=== PATIENT | male | born 1970 | race African-American/Black ===

== ENCOUNTER 2018-02-21 15:59 | Emergency (ER) | payer OTHER ==
[~2018-02-21] VITALS: Ht 188 cm; Wt 81.6 kg
[~2018-02-21 15:59] MED LIST: AUGMENTIN 500M500 MG PO; BACITRACIN15 GM TOPIC; BACTRIM DS TAB1 EAC1 ORAL; HUMALOG100 UNIT/1 SUBQ; HUMALOG100 UNIT/4 SUBQ; HUMULIN R100 UNIT/1 SUBQ; IBUPROFEN400 MG PO; KEFLEX500 MG ORAL; LANTUS SOL100 UNIT/1 SQ; LANTUS SOL100 UNIT/1 SUBQ; LANTUS5 UNITS SUBQ; LEVEMIR FL100 UNIT/1 SUBQ; LISINOPRIL2.5 MG ORAL; NOVOLIN R100 UNIT/1 SUBQ; NOVOLOG100 UNIT/3 SUBQ; NOVOLOG100 UNIT/4 SQ; NOVOLOG100 UNITS1 SUBQ; OCUFLOX5 ML OP; PROTONIX40 MG ORAL; insulin syringe
[2018-02-21 16:10] VITALS: BP 131/89
[2018-02-21] MEDS ORDERED: HUMULIN R100 UNIT/1 SUBQ (16:14)
--- NOTE | 2018-02-21 16:31 | Emergency Room Report ---
History of Present Illness General Chief Complaint: Abnormal Labs Source: Patient, Medical Record Present Illness HPI Patient is a 47-year-old male who is complaining of nausea vomiting for the last 24 hours. He has a history of diabetes and noticed that his sugar was getting low. He did take his usual dose of insulin today. Patient denies fevers or chills but does also describes some diarrhea. He denies any dysuria or abdominal pain. Allergies: Coded Allergies: NO KNOWN ALLERGIES (Unverified Allergy, Unknown, 06/26/15) Patient History Past Medical History: DM Past Surgical History: none Pertinent Family History: none Social History: Reports: smoking, alcohol use Nursing Documentation-[facility] Past Medical History: No History, Except For Hx Cardiac Problems: No Hx Hypertension: No Hx Pacemaker: No Hx Asthma: No Hx COPD: No Hx Diabetes: Yes Hx Cancer: No Hx Gastrointestinal Problems: No Hx Dialysis: No Hx Neurological Problems: No Hx Cerebrovascular Accident: No Hx Seizures: No Review of Systems Constitutional: Reports: weakness; Denies: no symptoms, see HPI, chills, sweats , fever, malaise, other Eye: Denies: no symptoms, see HPI, eye pain, blurred vision, tearing, double vision, nose pain, nose congestion, acuity changes, discharge, other ENT: Denies: no symptoms, see HPI, ear pain, ear discharge, nose pain, nose congestion, throat pain, throat swelling, mouth pain, hearing loss, nasal discharge, other Respiratory: Denies: no symptoms, see HPI, cough, orthopnea, shortness of breath, stridor, wheezing, SYLVESTER, sputum, other Cardiovascular: Denies: no symptoms, see HPI, chest pain, edema, palpitations, syncope, PND, other Gastrointestinal: Reports: diarrhea, nausea, vomiting; Denies: no symptoms, see HPI, abdominal pain, constipation, melena, hematemesis, other Genitourinary: Denies: no symptoms, see HPI, discharge, dysuria, frequency, hematuria, pain, retention, incontinence, urgency, vag bleed/dc, other Musculoskeletal: Denies: no symptoms, see HPI, back pain, gout, joint pain, joint swelling, muscle pain, muscle stiffness, other Skin: Denies: no symptoms, see HPI, rash, change in color, change in hair/nails , dryness, lesions, other Psychiatric: Denies: no symptoms, see HPI, prior hx, anxiety, depressed feelings, emotional problems, SI, HI, hallucinations, other Neurological: Denies: no symptoms, see HPI, headache, numbness, paresthesia, seizure, tingling, tremors, focal weakness, syncope, dizziness, other Endocrine: Denies: no symptoms, see HPI, excessive sweating, flushing, intolerance to temperature, increased thirst, increased urine, unexplained weight loss, other Physical Exam Vital Signs Date Time Temp Pulse Resp B/P (MAP) Pulse Ox O2 Delivery O2 Flow Rate FiO2 02/21/18 16:00 98.8 93 18 131/89 97 Room Air 98.8 Sp02 EP Interpretation: reviewed, normal General Appearance: no apparent distress, alert, GCS 15, non-toxic Head: normocephalic, atraumatic Eyes: bilateral eye normal inspection, bilateral eye PERRL ENT: hearing grossly normal, normal pharynx, no angioedema, normal voice Neck: full range of motion, supple/symm/no masses Respiratory: chest non-tender, lungs clear, normal breath sounds, speaking full sentences Cardiovascular #1: regular rate, rhythm, no edema Cardiovascular #2: 2+ carotid (R), 2+ carotid (L), 2+ radial (R), 2+ radial (L) , 2+ dorsalis pedis (R), 2+ dorsalis pedis (L) Gastrointestinal: normal bowel sounds, non tender, soft, non-distended, no guarding, no rebound Rectal: deferred Genitourinary: normal inspection, no CVA tenderness Musculoskeletal: back normal, gait/station normal, normal range of motion, non- tender, calf tenderness Neurologic: alert, oriented x3, responsive, motor strength/tone normal, sensory intact, speech normal Psychiatric: judgement/insight normal, memory normal, mood/affect normal, no suicidal/homicidal ideation Reflexes: 3+ bicep (R), 3+ bicep (L), 3+ tricep (R), 3+ tricep (L), 3+ knee (R) , 3+ knee (L) Skin: normal color, no rash, warm/dry, well hydrated Lymphatic: no adenopathy Medical Decision Making Diagnostic Impression: Primary Impression: Nausea, vomiting, and diarrhea Additional Impression: Hypoglycemia ER Course Patient is a 47-year-old male with history of insulin-dependent diabetes who presents with vomiting and hypoglycemia. The patient has received formal grams IV Zofran, IV fluids, and has been able to hold down juice and a sandwich after Zofran. Multiple repeat blood sugars have been in the 130s. The patient appears nontoxic and stable to be discharged home. He will be given a prescription for Zofran to be taken as needed at home. Laboratory Tests Test 02/21/18 16:25 02/21/18 17:00 Sodium Level 144 MMOL/L (136-145) Potassium Level 3.7 MMOL/L (3.5-5.1) Chloride Level 108 MMOL/L (98-107) H Carbon Dioxide Level 26 MMOL/L (21-32) Anion Gap 11 mmol/L (5-15) Blood Urea Nitrogen 12 mg/dL (7-18) Creatinine 1.0 MG/DL (0.55-1.30) Estimate Glomerular Filtration Rate > 60 mL/min (>60) Glucose Level 38 MG/DL (74-106) *L Calcium Level 9.5 MG/DL (8.5-10.1) Total Bilirubin 1.3 MG/DL (0.2-1.0) H Direct Bilirubin 0.3 MG/DL (0.0-0.3) Aspartate Amino Transferase (AST) 26 U/L (15-37) Alanine Aminotransferase (ALT) 17 U/L (12-78) Alkaline Phosphatase 51 U/L (46-116) Total Protein 7.6 G/DL (6.4-8.2) Albumin 4.5 G/DL (3.4-5.0) Globulin 3.1 g/dL Albumin/Globulin Ratio 1.5 (1.0-2.7) Lipase 236 U/L (73-393) White Blood Count 11.1 K/UL (4.8-10.8) H Red Blood Count 3.98 M/UL (4.70-6.10) L Hemoglobin 12.2 G/DL (14.2-18.0) L Hematocrit 34.4 % (42.0-52.0) L Mean Corpuscular Volume 86 FL (80-99) Mean Corpuscular Hemoglobin 30.7 PG (27.0-31.0) Mean Corpuscular Hemoglobin Concent 35.5 G/DL (32.0-36.0) Red Cell Distribution Width 12.7 % (11.6-14.8) Platelet Count 392 K/UL (150-450) Mean Platelet Volume 5.3 FL (6.5-10.1) L Neutrophils (%) (Auto) 80.2 % (45.0-75.0) H Lymphocytes (%) (Auto) 12.8 % (20.0-45.0) L Monocytes (%) (Auto) 6.1 % (1.0-10.0) Eosinophils (%) (Auto) 0.2 % (0.0-3.0) Basophils (%) (Auto) 0.7 % (0.0-2.0) Last Vital Signs Date Time Temp Pulse Resp B/P (MAP) Pulse Ox O2 Delivery O2 Flow Rate FiO2 02/21/18 16:00 98.8 93 18 131/89 97 Room Air 98.8 Disposition: HOME, SELF-CARE Condition: Improved Scripts Ondansetron (Zofran) 4 Mg Tablet 4 MG ORAL Q6H PRN for Nausea & Vomiting, #30 TAB 0 Refills Prov: Maycol Mast MD 02/21/18 Referrals: [facility],REFERRING (PCP) Patient Instructions: Hypoglycemia, [id number], Nausea and Vomiting, Adult, [id number] Maycol Mast MD Feb 21, 2018 16:31
[2018-02-21 17:05] LABS: ALANINE AMINOTRANSFERASE 17 U/L (12-78); ALBUMIN 4.5 G/DL (3.4-5.0); ALBUMIN/GLOBULIN RATIO 1.5 (1.0-2.7); ALKALINE PHOSPHATASE 51 U/L (46-116); ANION GAP 11 mmol/L (5-15); ASPARTATE AMINO TRANSFERASE 26 U/L (15-37); BILIRUBIN,TOTAL 1.3 MG/DL (0.2-1.0); BLOOD UREA NITROGEN 12 mg/dL (7-18); CALCIUM 9.5 MG/DL (8.5-10.1); CARBON DIOXIDE 26 MMOL/L (21-32); CHLORIDE 108 MMOL/L (98-107); POTASSIUM 3.7 MMOL/L (3.5-5.1); SODIUM 144 MMOL/L (136-145)
[2018-02-21 17:07] LABS: BILIRUBIN,DIRECT 0.3 MG/DL (0.0-0.3)
[2018-02-21 17:44] LABS: BASOPHILS % (AUTO) 0.7 % (0.0-2.0); EOSINOPHILS % (AUTO) 0.2 % (0.0-3.0); HEMATOCRIT 34.4 % (42.0-52.0); HEMOGLOBIN 12.2 G/DL (14.2-18.0); LYMPHOCYTES % (AUTO) 12.8 % (20.0-45.0); MEAN CORPUSCULAR VOLUME 86 FL (80-99); MONOCYTES % (AUTO) 6.1 % (1.0-10.0); NEUTROPHILS % (AUTO) 80.2 % (45.0-75.0); PLATELET COUNT 392 K/UL (150-450); RED BLOOD COUNT 3.98 M/UL (4.70-6.10); RED CELL DISTRIBUTION WIDTH 12.7 % (11.6-14.8); WHITE BLOOD COUNT 11.1 K/UL (4.8-10.8)
[2018-02-21] MEDS ORDERED: ZOFRAN4 MG ORAL (18:25)
[2018-02-21 18:33] VITALS: BP 131/62
== END 2018-02-21 18:33 | disposition home or self-care (01) ==
LOC: EMR 16:24
DX: R11.2 Nausea with vomiting, unspecified (principal); R19.7 Diarrhea, unspecified; E11.649 Type 2 diabetes mellitus with hypoglycemia without coma
CPT/HCPCS: 36415; 80053; 82248; 82962; 83690; 85025; 96361; 96374; 99284; J2405

== ENCOUNTER 2018-03-03 23:42 | Emergency (ER) | payer SELFPAY ==
[~2018-03-03] VITALS: Ht 180.3 cm; Wt 74.8 kg
[~2018-03-03 23:42] MED LIST changes: +ZOFRAN4 MG ORAL
[2018-03-04 00:54] LABS: BASOPHILS % (AUTO) 0.9 % (0.0-2.0); EOSINOPHILS % (AUTO) 0.9 % (0.0-3.0); HEMATOCRIT 37.1 % (42.0-52.0); HEMOGLOBIN 13.4 G/DL (14.2-18.0); LYMPHOCYTES % (AUTO) 33.5 % (20.0-45.0); MEAN CORPUSCULAR VOLUME 85 FL (80-99); MONOCYTES % (AUTO) 6.5 % (1.0-10.0); NEUTROPHILS % (AUTO) 58.2 % (45.0-75.0); PLATELET COUNT 384 K/UL (150-450); RED BLOOD COUNT 4.37 M/UL (4.70-6.10); RED CELL DISTRIBUTION WIDTH 11.6 % (11.6-14.8); WHITE BLOOD COUNT 6.5 K/UL (4.8-10.8)
[2018-03-04 01:15] LABS: ANION GAP 5 mmol/L (5-15); BLOOD UREA NITROGEN 15 mg/dL (7-18); CALCIUM 9.1 MG/DL (8.5-10.1); CARBON DIOXIDE 34 MMOL/L (21-32); CHLORIDE 102 MMOL/L (98-107); CREATININE 1.1 MG/DL (0.55-1.30); POTASSIUM 3.5 MMOL/L (3.5-5.1); SODIUM 141 MMOL/L (136-145)
[2018-03-04 01:18] LABS: ALANINE AMINOTRANSFERASE 31 U/L (12-78); ALBUMIN 4.3 G/DL (3.4-5.0); ALBUMIN/GLOBULIN RATIO 1.5 (1.0-2.7); ALKALINE PHOSPHATASE 43 U/L (46-116); ASPARTATE AMINO TRANSFERASE 32 U/L (15-37); BILIRUBIN,TOTAL 1.9 MG/DL (0.2-1.0)
[2018-03-04 01:19] LABS: APPEARANCE,URINE SLIGHTLY CLOUDY; BILIRUBIN, URINE NEGATIVE (NEGATIVE); COLOR,URINE YELLOW; GLUCOSE, URINE (UA) NEGATIVE (NEGATIVE); KETONES,URINE 1+ (NEGATIVE); LEUKOCYTE ESTERASE ,URINE 1+ (NEGATIVE); NITRITE,URINE NEGATIVE (NEGATIVE); PH,URINE 8 (4.5-8.0); PROTEIN,URINE 2+ (NEGATIVE); UROBILINOGEN,URINE 1 MG/DL (0.0-1.0)
[2018-03-04 01:19] LABS: BILIRUBIN,DIRECT 0.3 MG/DL (0.0-0.3)
[2018-03-04 01:36] VITALS: BP 120/81
[2018-03-04] MEDS ORDERED: Metoclopramide 10mg/2ml Inj IVP ONE (01:45)
[2018-03-04] MEDS ORDERED: COLACE100 MG ORAL (01:49)
[2018-03-04] MEDS ORDERED: REGLAN10 MG ORAL (01:49)
[2018-03-04] MEDS ORDERED: FREESTYLE TEST1 EACH MC (01:54)
[2018-03-04 01:58] VITALS: BP 120/81
--- NOTE | 2018-03-04 03:39 | Emergency Room Report ---
History of Present Illness General Chief Complaint: Abdominal Pain Source: Patient Present Illness HPI 47-year-old male presents ED complaining of abdominal pain and vomiting times one week. History of diabetes. Pain is sharp, 7 out of 10, nonradiating. Denies chest pain or shortness of breath. States he was recently discharged from [facility] for DKA. Accu-Chek within normal limits here. States he also feels constipated. No other aggravating relieving factors. Denies any other associated symptoms Allergies: Coded Allergies: NO KNOWN ALLERGIES (Unverified Allergy, Unknown, 06/26/15) Patient History Past Medical History: DM Past Surgical History: none Pertinent Family History: none Social History: Denies: smoking, alcohol use, drug use Immunizations: UTD Reviewed Nursing Documentation: PMH: Agreed; PSxH: Agreed Nursing Documentation-PMH Hx Cardiac Problems: No Hx Hypertension: No Hx Pacemaker: No Hx Asthma: No Hx COPD: No Hx Diabetes: Yes Hx Cancer: No Hx Gastrointestinal Problems: No Hx Dialysis: No Hx Neurological Problems: No Hx Cerebrovascular Accident: No Hx Seizures: No Review of Systems All Other Systems: negative except mentioned in HPI Physical Exam Vital Signs Date Time Temp Pulse Resp B/P (MAP) Pulse Ox O2 Delivery O2 Flow Rate FiO2 03/04/18 00:00 99.1 97 18 131/92 98 Room Air 99.1 Sp02 EP Interpretation: reviewed, normal General Appearance: no apparent distress, alert, GCS 15, non-toxic Head: normocephalic, atraumatic Eyes: bilateral eye normal inspection, bilateral eye PERRL ENT: hearing grossly normal, normal pharynx, no angioedema, normal voice Neck: full range of motion, supple/symm/no masses Respiratory: chest non-tender, lungs clear, normal breath sounds, speaking full sentences Cardiovascular #1: regular rate, rhythm, no edema Cardiovascular #2: 2+ carotid (R), 2+ carotid (L), 2+ radial (R), 2+ radial (L) , 2+ dorsalis pedis (R), 2+ dorsalis pedis (L) Gastrointestinal: normal bowel sounds, soft, non-distended, no guarding, no rebound, tenderness - epigastric Rectal: deferred Genitourinary: normal inspection, no CVA tenderness Musculoskeletal: back normal, gait/station normal, normal range of motion, non- tender Neurologic: alert, oriented x3, responsive, motor strength/tone normal, sensory intact, speech normal Psychiatric: judgement/insight normal, memory normal, mood/affect normal, no suicidal/homicidal ideation Reflexes: 3+ bicep (R), 3+ bicep (L), 3+ tricep (R), 3+ tricep (L), 3+ knee (R) , 3+ knee (L) Skin: normal color, no rash, warm/dry, well hydrated Lymphatic: no adenopathy Medical Decision Making Diagnostic Impression: Primary Impression: Epigastric pain ER Course Hospital Course 47-year-old M presents to ED with epigastric pain with N/V. differential diagnosis: gastritis, SBO, cholecystits Clinical course Patient placed on stretcher. On personnel monitor. After initial history and physical I ordered labs, IV fluids, Zofran and Zantac Labs - no leukocytosis, no electrolyte abnormalities, LFTs normal Upon reassessment, patient states he feels better. findings consistent with gastritis vs gastroparesis We will prescribe Reglan to improve gastric motility. Colace. Recommend close follow-up with PMD. I feel this is a highly complex case requiring extensive working including EKG/ Rhythm strip, Xray/CT/US, Blood/urine lab work, repeat exams while in ED, and administration of strong opiates/narcotics for pain control, admission to hospital or close patient follow up. Diagnosis - epigastric pain Stable and discharged to home with prescriptions for reglan, colace. Followup with PMD. Return to ED if symptoms recur or worsen Labs Test 03/04/18 00:30 03/04/18 01:05 White Blood Count 6.5 K/UL (4.8-10.8) Red Blood Count 4.37 M/UL (4.70-6.10) Hemoglobin 13.4 G/DL (14.2-18.0) Hematocrit 37.1 % (42.0-52.0) Mean Corpuscular Volume 85 FL (80-99) Mean Corpuscular Hemoglobin 30.7 PG (27.0-31.0) Mean Corpuscular Hemoglobin Concent 36.2 G/DL (32.0-36.0) Red Cell Distribution Width 11.6 % (11.6-14.8) Platelet Count 384 K/UL (150-450) Mean Platelet Volume 5.1 FL (6.5-10.1) Neutrophils (%) (Auto) 58.2 % (45.0-75.0) Lymphocytes (%) (Auto) 33.5 % (20.0-45.0) Monocytes (%) (Auto) 6.5 % (1.0-10.0) Eosinophils (%) (Auto) 0.9 % (0.0-3.0) Basophils (%) (Auto) 0.9 % (0.0-2.0) Sodium Level 141 MMOL/L (136-145) Potassium Level 3.5 MMOL/L (3.5-5.1) Chloride Level 102 MMOL/L (98-107) Carbon Dioxide Level 34 MMOL/L (21-32) Anion Gap 5 mmol/L (5-15) Blood Urea Nitrogen 15 mg/dL (7-18) Creatinine 1.1 MG/DL (0.55-1.30) Estimat Glomerular Filtration Rate > 60 mL/min (>60) Glucose Level 130 MG/DL (74-106) Calcium Level 9.1 MG/DL (8.5-10.1) Magnesium Level 2.6 MG/DL (1.8-2.4) Total Bilirubin 1.9 MG/DL (0.2-1.0) Direct Bilirubin 0.3 MG/DL (0.0-0.3) Aspartate Amino Transf (AST/SGOT) 32 U/L (15-37) Alanine Aminotransferase (ALT/SGPT) 31 U/L (12-78) Alkaline Phosphatase 43 U/L (46-116) Total Protein 7.1 G/DL (6.4-8.2) Albumin 4.3 G/DL (3.4-5.0) Globulin 2.8 g/dL Albumin/Globulin Ratio 1.5 (1.0-2.7) Lipase 192 U/L (73-393) Acetone Level Negative (NEGATIVE) Urine Color Yellow Urine Appearance Slightly cloudy Urine pH 8 (4.5-8.0) Urine Specific [place] 1.015 (1.005-1.035) Urine Protein 2+ (NEGATIVE) Urine Glucose (UA) Negative (NEGATIVE) Urine Ketones 1+ (NEGATIVE) Urine Occult Blood Negative (NEGATIVE) Urine Nitrite Negative (NEGATIVE) Urine Bilirubin Negative (NEGATIVE) Urine Urobilinogen 1 MG/DL (0.0-1.0) Urine Leukocyte Esterase 1+ (NEGATIVE) Urine RBC 0-2 /HPF (0 - 0) Urine WBC 2-4 /HPF (0 - 0) Urine Squamous Epithelial Cells Few /LPF (NONE/OCC) Urine Amorphous Sediment Moderate /LPF (NONE) Urine Bacteria Few /HPF (NONE) Last Vital Signs Date Time Temp Pulse Resp B/P (MAP) Pulse Ox O2 Delivery O2 Flow Rate FiO2 03/04/18 01:58 97.1 82 15 120/81 100 Room Air 97.1 Status: improved Disposition: HOME, SELF-CARE Condition: Stable Scripts Blood Sugar Diagnostic (FREESTYLE TEST STRIPS) 1 Each Strip EACH , #30 Prov: Yo Beltran MD 03/04/18 Docusate Sodium* (COLACE*) 100 Mg Capsule 100 MG ORAL THREE TIMES A DAY, #30 CAP Prov: Yo Beltran MD 03/04/18 Metoclopramide Hcl* (REGLAN*) 10 Mg Tablet 10 MG ORAL THREE TIMES A DAY, #30 TAB Prov: Yo Beltran MD 03/04/18 Referrals: NOT CHOSEN [facility]/,REFERRING (PCP) Patient Instructions: Gastritis, Adult, [id number], Gastroparesis Yo Beltran MD Mar 04, 2018 03:39
== END 2018-03-04 01:59 | disposition home or self-care (01) ==
LOC: EMR 03-04 00:38
DX: R10.13 Epigastric pain (principal)
CPT/HCPCS: 36415; 80053; 81003; 82009; 82248; 82962; 83690; 83735; 85025; 96361; 96374; 96375; 99284; J2405; J2765; S0028

== ENCOUNTER 2018-04-28 13:10 | Inpatient (IN) | payer MEDICAID, OTHER ==
[~2018-04-28] VITALS: Ht 167.6 cm; Wt 72.6 kg
[~2018-04-28 13:10] MED LIST changes: +COLACE100 MG ORAL; +FREESTYLE TEST1 EACH MC; +ONDANSETRON ODT4 MG BC; +REGLAN10 MG ORAL
--- NOTE | 2018-04-28 14:28 | Diagnostic Imaging Report ---
Indication: Abdominal pain Comparison: None Single view of the abdomen obtained Findings: There is severe fecal retention in the colon and rectum. Gas pattern is nonspecific. The bones are osteopenic. IMPRESSION: Severe fecal impaction
--- NOTE | 2018-04-28 14:29 | Diagnostic Imaging Report ---
Indication: Chest pain Comparison: 06/27/2015 A single view chest radiograph was obtained. Findings: Cardiomediastinal appearance is within normal limits for age. The lungs are clear. Pulmonary vascularity is appropriate. The diaphragmatic contour is smooth and costophrenic angles are sharp. No pleural effusions are identified. The bones are unremarkable. Impression: No acute findings
[2018-04-28] MEDS ORDERED: Lidocaine 1% Plain 30 ml INJ ONE (15:00)
[2018-04-28] MEDS ORDERED: Heparin 2000 units/Ns 1000ml INJ ONE (15:00)
[2018-04-28 15:07] LABS: HEMOGLOBIN 14.5 G/DL (14.2-18.0); MEAN CORPUSCULAR VOLUME 91 FL (80-99); PLATELET COUNT 261 K/UL (150-450); RED BLOOD COUNT 4.62 M/UL (4.70-6.10); RED CELL DISTRIBUTION WIDTH 13.2 % (11.6-14.8); WHITE BLOOD COUNT 10.3 K/UL (4.8-10.8)
--- NOTE | 2018-04-28 15:12 | Emergency Room Report ---
History of Present Illness General Chief Complaint: Generalized Weakness Source: Patient, EMS Present Illness HPI Patient presents emergency department today with generalized weakness. Patient was noted to have critically high blood sugar. Patient was by her further evaluation. Patient complains of diffuse abdominal discomfort associate nausea and vomiting. No other complaint or noted. Symptoms noted to be highly severe. Patient states that he does take insulin he did not take any insulin today.No other modifying factors. No other associated signs and symptoms. No other complaints were noted. Allergies: Coded Allergies: NO KNOWN ALLERGIES (Unverified Allergy, Unknown, 06/26/15) Patient History Past Medical History: DM, other - Gastroparesis Past Surgical History: none Pertinent Family History: none Social History: Denies: smoking, alcohol use, drug use Reviewed Nursing Documentation: PMH: Agreed; PSxH: Agreed Nursing Documentation-PMH Past Medical History: No History, Except For Hx Cardiac Problems: No Hx Hypertension: No Hx Pacemaker: No Hx Asthma: No Hx COPD: No Hx Diabetes: Yes Hx Cancer: No Hx Gastrointestinal Problems: Yes - gastroparesis Hx Dialysis: No Hx Neurological Problems: No Hx Cerebrovascular Accident: No Hx Seizures: No Review of Systems All Other Systems: negative except mentioned in HPI Physical Exam Vital Signs Date Time Temp Pulse Resp B/P (MAP) Pulse Ox O2 Delivery O2 Flow Rate FiO2 04/28/18 13:10 98.2 89 16 106/79 99 Room Air 98.2 Sp02 EP Interpretation: reviewed, normal General Appearance: alert, moderate distress, Chronically Ill Head: atraumatic Eyes: bilateral eye normal inspection ENT: normal ENT inspection, hearing grossly normal, normal voice Neck: normal inspection, full range of motion, supple, no bony tend Respiratory: normal inspection, lungs clear, normal breath sounds, no respiratory distress, no retraction, no wheezing Cardiovascular #1: regular rate, rhythm, edema - Bilateral lower extremity Gastrointestinal: normal inspection, normal bowel sounds, non tender, soft, no guarding, no hernia Genitourinary: no CVA tenderness Musculoskeletal: normal inspection, back normal, normal range of motion Neurologic: normal inspection, alert, responsive, speech normal Psychiatric: depressed affect Skin: normal inspection, normal color, no rash Medical Decision Making Diagnostic Impression: Primary Impression: Hyperglycemia Additional Impression: Episode of generalized weakness ER Course Patient presents emergency department today with generalized weakness and elevated glucose. Difficult considerations include DKA, hyperglycemia, dehydration, acute coronary syndrome just to name a few.Given the severity of the patient's presentation I felt this is a highly complex patient. This patient required extensive workup. This case out to my colleague Dr. Conor Chadwick for final disposition. Labs Test 04/28/18 14:25 04/28/18 14:45 White Blood Count 10.3 K/UL (4.8-10.8) Red Blood Count 4.62 M/UL (4.70-6.10) Hemoglobin 14.5 G/DL (14.2-18.0) Hematocrit 42.0 % (42.0-52.0) Mean Corpuscular Volume 91 FL (80-99) Mean Corpuscular Hemoglobin 31.3 PG (27.0-31.0) Mean Corpuscular Hemoglobin Concent 34.5 G/DL (32.0-36.0) Red Cell Distribution Width 13.2 % (11.6-14.8) Platelet Count 261 K/UL (150-450) Mean Platelet Volume 5.3 FL (6.5-10.1) Neutrophils (%) (Auto) % (45.0-75.0) Lymphocytes (%) (Auto) % (20.0-45.0) Monocytes (%) (Auto) % (1.0-10.0) Eosinophils (%) (Auto) % (0.0-3.0) Basophils (%) (Auto) % (0.0-2.0) EKG Diagnostic Results Rate: normal Rhythm: NSR ST Segments: no acute changes Rhythm Strip Diag. Results EP Interpretation: yes Rate: 61 Rhythm: NSR, no PVC's, no ectopy Chest X-Ray Diagnostic Results Chest X-Ray Diagnostic Results : Chest X-Ray Ordered: Yes # of Views/Limited/Complete: 1 View Indication: Shortness of Breath EP Interpretation: No Interpretation: no acute cardiopulmonary disease Impression: No acute disease Last Vital Signs Date Time Temp Pulse Resp B/P (MAP) Pulse Ox O2 Delivery O2 Flow Rate FiO2 04/28/18 13:10 98.2 89 16 106/79 99 Room Air 98.2 Referrals: NOT CHOSEN [facility]/,REFERRING (PCP) Erick Bhat MD Apr 28, 2018 15:12
[2018-04-28 15:20] LABS: ALANINE AMINOTRANSFERASE 260 U/L (12-78); ALBUMIN 2.1 G/DL (3.4-5.0); ALBUMIN/GLOBULIN RATIO 0.7 (1.0-2.7); ALKALINE PHOSPHATASE 183 U/L (46-116); ANION GAP 7 mmol/L (5-15); ASPARTATE AMINO TRANSFERASE 624 U/L (15-37); BILIRUBIN,TOTAL 1.8 MG/DL (0.2-1.0); BLOOD UREA NITROGEN 66 mg/dL (7-18); CALCIUM 7.2 MG/DL (8.5-10.1); CARBON DIOXIDE 25 MMOL/L (21-32); CHLORIDE 100 MMOL/L (98-107); CREATININE 1.3 MG/DL (0.55-1.30); SODIUM 131 MMOL/L (136-145)
[2018-04-28 15:27] LABS: BILIRUBIN,DIRECT 0.2 MG/DL (0.0-0.3)
[2018-04-28] MEDS ORDERED: Insulin Human Regular 100units/ml 3ml IV ONE (15:30)
[2018-04-28 16:17] VITALS: BP 138/77
--- NOTE | 2018-04-28 16:35 | Diagnostic Imaging Report ---
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 The left upper extremity was prepped with alcohol. All elements of maximal sterile barrier technique were followed including usage of a cap, mask, sterile gown, sterile gloves, hand hygiene and a large sterile sheet. Sonographic evaluation of the upper extremity was performed demonstrating a patent and compressible basilic vein. Access was obtained under real-time ultrasound guidance (with utilization of sterile gel and sterile probe cover) and digital image was saved and archived. An .018 wire was introduced. Needle exchanged for a 5 [place] peel-away sheath. Measurements were obtained. A 5 [place] dual-lumen Power PICC line catheter was cut to 45 cm and introduced over the wire. Peel-away sheath and wire were removed.Catheter was secured to the skin using 2-0 Prolene suture. Both ports aspirate and flush easily. Fluoroscopic images show distal tip in the superior vena cava. Total fluoroscopic time 0.1 minute Impression: Successful placement of an upper extremity PICC line catheter
[2018-04-28] MEDS ORDERED: ASPIRIN81 MG ORAL (17:30)
[2018-04-28 17:35] VITALS: BP 144/101
[2018-04-28] MEDS ORDERED: Mylanta II UD 30ml ORAL PRN (17:40)
[2018-04-28] MEDS ORDERED: Miralax 17gm pkt ORAL PRN (17:45)
[2018-04-28] MEDS ORDERED: Albuterol/Ipratropium 3ml neb HHN PRN (17:45)
[2018-04-28] MEDS ORDERED: Nitroglycerin Subl 0.4mg tab SL PRN (17:45)
[2018-04-28] MEDS ORDERED: Morphine Sulfate 2mg/ml Inj IVP PRN (17:45)
[2018-04-28 17:55] VITALS: BP 134/71
[2018-04-28 18:00] LABS: APPEARANCE,URINE CLEAR; BILIRUBIN, URINE NEGATIVE (NEGATIVE); COLOR,URINE PALE YELLOW; GLUCOSE, URINE (UA) 4+ (NEGATIVE); KETONES,URINE NEGATIVE (NEGATIVE); LEUKOCYTE ESTERASE ,URINE NEGATIVE (NEGATIVE); NITRITE,URINE NEGATIVE (NEGATIVE); PH,URINE 6 (4.5-8.0); PROTEIN,URINE NEGATIVE (NEGATIVE); UROBILINOGEN,URINE NORMAL MG/DL (0.0-1.0)
[2018-04-28] MEDS: NovoLOG Insulin Flexpen SUBQ SCH ×3 (19:08→21:25)
[2018-04-28 20:00] VITALS: BP 135/78
[2018-04-28 20:10] VITALS: BP 128/83
[2018-04-28] MEDS ORDERED: NovoLOG Insulin Flexpen SUBQ SCH (21:00)
[2018-04-28] MEDS: Dyna-Hex 2% Top Sol 2oz TOPIC SCH (21:19)
[2018-04-28] MEDS: Levemir Flexpen SUBQ SCH (21:21)
[2018-04-28] MEDS: Heparin 5000 units/ml inj SUBQ SCH (21:22)
--- NOTE | 2018-04-28 23:45 | Consultation ---
DATE OF CONSULTATION: 04/28/2018 ENDOCRINOLOGY CONSULTATION CONSULTING PHYSICIAN: Saad Laurent M.D. REFERRING PHYSICIAN: Aly Ricks M.D. REASON FOR CONSULTATION: Diabetes out of control. HISTORY OF PRESENT ILLNESS: The patient is a 47-year-old male with history of type 1 diabetes and noncompliance, with numerous admissions to [facility] with diabetic ketoacidosis, presented to the hospital today with elevated glucose after the insulin dose. Glucose was 799. Sodium 131, potassium 6, chloride 100, bicarbonate 25, BUN 66, creatinine 1.3, and anion gap of 7. The patient was given intravenous fluid and IV insulin in the emergency room, transferred to the med/surg floor. I was called to manage diabetes. PAST MEDICAL HISTORY: Type 1 diabetes. PAST SURGICAL HISTORY: Hand surgery. ALLERGIES: Allergies to medications, none. FAMILY HISTORY: Noncontributory. SOCIAL HISTORY: He smokes. REVIEW OF SYSTEMS: As per history of present illness. Laboratories reviewed in the history of present illness. PHYSICAL EXAMINATION: VITAL SIGNS: Blood pressure 144/101, temperature 98.2, respiratory rate 16, and pulse rate of 67. HEENT: Pupils are reactive to light. Sclerae anicteric. NECK: No JVD. HEART: Regular. LUNGS: Clear. ABDOMEN: Positive bowel sounds. EXTREMITIES: No clubbing, cyanosis, or edema. DIAGNOSES: 1. Diabetes out of control without diabetic ketoacidosis. 2. Noncompliance with insulin. PLAN: 1. Levemir 24 units at bedtime. 2. NovoLog insulin scale insulin. 3. NovoLog sliding scale before meals and at bedtime. 4. Further adjustment according to blood glucose values. Thank you, Dr. Ricks, for the courtesy of this consultation. Saad Laurent M.D. DR: STEPHANIE JOB#: [id number] CC: SELVIN
[2018-04-29] VITALS: BP 110/68
[2018-04-29 04:00] VITALS: BP 136/72
[2018-04-29 06:15] LABS: BASOPHILS % (AUTO) 0.3 % (0.0-2.0); HEMATOCRIT 35.4 % (42.0-52.0); HEMOGLOBIN 13.1 G/DL (14.2-18.0); LYMPHOCYTES % (AUTO) 12.8 % (20.0-45.0); MEAN CORPUSCULAR VOLUME 87 FL (80-99); MONOCYTES % (AUTO) 2.7 % (1.0-10.0); NEUTROPHILS % (AUTO) 84.2 % (45.0-75.0); PLATELET COUNT 194 K/UL (150-450); RED BLOOD COUNT 4.07 M/UL (4.70-6.10); RED CELL DISTRIBUTION WIDTH 11.8 % (11.6-14.8); WHITE BLOOD COUNT 12.2 K/UL (4.8-10.8)
[2018-04-29] MEDS: NovoLOG Insulin Flexpen SUBQ SCH ×7 (06:24→20:55)
[2018-04-29 06:38] LABS: ALANINE AMINOTRANSFERASE 327 U/L (12-78); ALBUMIN/GLOBULIN RATIO 0.9 (1.0-2.7); ALKALINE PHOSPHATASE 188 U/L (46-116); ANION GAP 3 mmol/L (5-15); ASPARTATE AMINO TRANSFERASE 424 U/L (15-37); BILIRUBIN,TOTAL 1.3 MG/DL (0.2-1.0); BLOOD UREA NITROGEN 45 mg/dL (7-18); CALCIUM 6.5 MG/DL (8.5-10.1); CARBON DIOXIDE 30 MMOL/L (21-32); CHLORIDE 107 MMOL/L (98-107); CHOLESTEROL 101 MG/DL (< 200); CREATININE 0.7 MG/DL (0.55-1.30); HDL CHOLESTEROL 76 MG/DL (40-60); SODIUM 140 MMOL/L (136-145); TRIGLYCERIDES 40 MG/DL (30-150)
[2018-04-29 06:39] LABS: BILIRUBIN,DIRECT 0.3 MG/DL (0.0-0.3)
--- NOTE | 2018-04-29 07:17 | General Progress Note ---
Assessment/Plan Problem List: (1) Uncontrolled diabetes mellitus type 1 without complications ICD Codes: E10.9 - Type 1 diabetes mellitus without complications SNOMED: 770741900 Assessment/Plan continue Levemir 24 units qhs continue Novolog 8 units ac tid - hold if not eating continue NISS ac / hs Subjective Allergies: Coded Allergies: NO KNOWN ALLERGIES (Unverified Allergy, Unknown, 06/26/15) All Systems: reviewed and negative except above Subjective events noted Objective Last 24 Hour Vital Signs Date Time Temp Pulse Resp B/P (MAP) Pulse Ox O2 Delivery O2 Flow Rate FiO2 04/29/18 04:00 98.0 86 21 136/72 (93) 98 98.0 04/29/18 04:00 88 04/29/18 00:00 97.4 59 21 110/68 (82) 100 97.4 04/29/18 00:00 59 04/28/18 21:00 Room Air 04/28/18 20:10 76 17 128/83 97 Room Air 04/28/18 20:10 76 17 128/83 97 Room Air 04/28/18 20:00 98.1 73 22 135/78 (97) 100 98.1 04/28/18 20:00 93 04/28/18 17:55 134/71 04/28/18 17:35 98.2 67 15 144/101 99 Room Air 98.2 04/28/18 16:17 98.2 87 16 138/77 99 Room Air 98.2 04/28/18 13:10 98.2 89 16 106/79 99 Room Air 98.2 Intake and Output 04/28/18 04/29/18 19:00 07:00 Intake Total 920 ml Output Total 700 ml Balance 220 ml Intake Oral 120 ml IV Total 800 ml Output Urine Total 600 ml Emesis 100 ml # Voids 1 2 # Bowel Movements 1 Laboratory Tests 04/28/18 14:25: Sodium Level 131L, Potassium Level 6.0*H, Chloride Level 100, Carbon Dioxide Level 25, Anion Gap 7, Blood Urea Nitrogen 66H, Creatinine 1.3, Estimat Glomerular Filtration Rate > 60, Glucose Level 799*H, Calcium Level 7.2L, Total Bilirubin 1.8H, Direct Bilirubin 0.2, Aspartate Amino Transf (AST/SGOT) 624H, Alanine Aminotransferase (ALT/SGPT) 260H, Alkaline Phosphatase 183H, Troponin I 0.002, Total Protein 5.1L, Albumin 2.1L, Globulin 3.0, Albumin/Globulin Ratio 0.7L, Lipase 427H 04/28/18 14:45: White Blood Count 10.3, Red Blood Count 4.62L, Hemoglobin 14.5, Hematocrit 42.0 , Mean Corpuscular Volume 91, Mean Corpuscular Hemoglobin 31.3H, Mean Corpuscular Hemoglobin Concent 34.5, Red Cell Distribution Width 13.2, Platelet Count 261, Mean Platelet Volume 5.3L, Neutrophils (%) (Auto) , Lymphocytes (%) ( Auto) , Monocytes (%) (Auto) , Eosinophils (%) (Auto) , Basophils (%) (Auto) , Differential Total Cells Counted 100, Neutrophils % (Manual) 81H, Lymphocytes % (Manual) 17L, Monocytes % (Manual) 1, Eosinophils % (Manual) 0, Basophils % ( Manual) 0, Band Neutrophils 1, Platelet Estimate Adequate, Platelet Morphology Normal, Red Blood Cell Morphology Normal 04/28/18 17:20: Urine Color Pale yellow, Urine Appearance Clear, Urine pH 6, Urine Specific [place] 1.010, Urine Protein Negative, Urine Glucose (UA) 4+H, Urine Ketones Negative, Urine Blood 2+H, Urine Nitrite Negative, Urine Bilirubin Negative, Urine Urobilinogen Normal, Urine Leukocyte Esterase Negative, Urine RBC 0-2H, Urine WBC 0-2, Urine Squamous Epithelial Cells None, Urine Bacteria None 04/29/18 05:15: Sodium Level 140, Potassium Level 3.0L, Chloride Level 107, Carbon Dioxide Level 30, Anion Gap 3L, Blood Urea Nitrogen 45H, Creatinine 0.7, Estimat Glomerular Filtration Rate > 60, Glucose Level 100#, Calcium Level 6.5L, Total Bilirubin 1.3H, Direct Bilirubin 0.3, Aspartate Amino Transf (AST/SGOT) 424H, Alanine Aminotransferase (ALT/SGPT) 327H, Alkaline Phosphatase 188H, Total Protein 4.2L, Albumin 2.0L, Globulin 2.2, Albumin/Globulin Ratio 0.9L, White Blood Count 12.2H, Red Blood Count 4.07L, Hemoglobin 13.1L, Hematocrit 35.4L, Mean Corpuscular Volume 87, Mean Corpuscular Hemoglobin 32.3H, Mean Corpuscular Hemoglobin Concent 37.1H, Red Cell Distribution Width 11.8, Platelet Count 194, Mean Platelet Volume 5.4L, Neutrophils (%) (Auto) 84.2H, Lymphocytes (%) (Auto) 12.8L, Monocytes (%) (Auto) 2.7, Eosinophils (%) (Auto) 0.0, Basophils (%) (Auto ) 0.3, Hemoglobin A1c 7.3H, Triglycerides Level 40, Cholesterol Level 101, LDL Cholesterol 17, HDL Cholesterol 76H, Cholesterol/HDL Ratio 1.3L, Thyroid Stimulating Hormone (TSH) 1.042 Height (Feet): 5 Height (Inches): 8.00 Weight (Pounds): 141 General Appearance: no apparent distress Neck: normal alignment Cardiovascular: normal rate Respiratory/Chest: lungs clear Abdomen: normal bowel sounds Objective Current Medications Medications (Trade) Dose Ordered Sig/[place] Route PRN Reason Start Time Stop Time Status Last Admin Dose Admin Acetaminophen (Tylenol) 650 mg Q4H PRN ORAL fever 04/28/18 17:45 05/28/18 17:44 Al Hydroxide/Mg Hydroxide (Mylanta II) 30 ml Q6H PRN ORAL dyspepsia 04/28/18 17:40 05/28/18 17:39 Albuterol/ Ipratropium (Albuterol/ Ipratropium) 3 ml Q4H PRN HHN Shortness of Breath 04/28/18 17:45 05/03/18 17:44 Chlorhexidine Gluconate (Flores-Hex 2%) 1 applic DAILY@2000 TOPIC 04/28/18 20:00 05/28/18 19:59 04/28/18 21:19 Clonidine HCl (Catapres Tab) 0.1 mg Q4H PRN ORAL sbp more than 160 04/28/18 17:45 05/28/18 17:44 Dextrose (Dextrose 50%) 25 ml Q30M PRN IV Hypoglycemia 04/28/18 19:00 05/28/18 18:59 Dextrose (Dextrose 50%) 50 ml Q30M PRN IV Hypoglycemia 04/28/18 19:00 05/28/18 18:59 Heparin Sodium (Porcine) (Heparin 5000 units/ml) 5,000 units EVERY 12 HOURS SUBQ 04/28/18 21:00 05/28/18 20:59 04/28/18 21:22 Insulin Aspart (NovoLOG) BEFORE MEALS AND HS SUBQ 04/28/18 21:00 05/28/18 20:59 04/29/18 06:24 Insulin Aspart (NovoLOG) 8 units NOVOTIAC SUBQ 04/28/18 19:00 05/28/18 18:59 04/28/18 19:08 Insulin Detemir (Levemir) 24 units BEDTIME SUBQ 04/28/18 21:00 05/28/18 20:59 04/28/18 21:21 Morphine Sulfate (Morphine Sulfate) 2 mg Q4H PRN IVP severe pain 7-10 04/28/18 17:45 05/05/18 17:44 Nitroglycerin (Ntg) 0.4 mg Q5M X 3 DOSES PRN SL Prn Chest Pain 04/28/18 17:45 05/28/18 17:44 Ondansetron HCl (Zofran) 4 mg Q6H PRN IVP Nausea & Vomiting 04/28/18 17:45 05/28/18 17:44 04/29/18 03:19 Polyethylene Glycol (Miralax) 17 gm HSPRN PRN ORAL Constipation 04/28/18 17:45 05/28/18 17:44 Sodium Chloride 1,000 ml @ 100 mls/hr Q10H IVLG 04/28/18 18:00 05/28/18 17:59 04/29/18 06:22 Temazepam (Restoril) 15 mg HSPRN PRN ORAL Insomnia 04/28/18 17:45 05/05/18 17:44 Item Value Date Time Bedside Blood Glucose 111 mg/dl 04/29/18 0625 Bedside Blood Glucose 397 mg/dl H 04/28/18 2231 Bedside Blood Glucose Critically High Result 04/28/18 1814 Saad Laurent MD Apr 29, 2018 07:16
[2018-04-29 08:00] VITALS: BP 101/68
[2018-04-29] MEDS: Heparin 5000 units/ml inj SUBQ SCH ×2 (08:10→20:55)
[2018-04-29] MEDS ORDERED: Promethazine HCl 25 MG in NS 55 ML IVPB PRN (10:00)
--- NOTE | 2018-04-29 11:22 | Consultation ---
History of Present Illness General Date patient seen: Apr 29, 2018 Chief Complaint: Generalized Weakness Present Illness HPI 47 year old male with hx of DM, gastroparesis, presented to emergency department with generalized weakness. Patient complains of diffuse abdominal discomfort associate nausea and vomiting. Patient states that he does take insulin he did not take any insulin yesterday Patient was noted to have critically high blood sugar. pt is admitted to telemetry for further work up. Allergies: Coded Allergies: NO KNOWN ALLERGIES (Unverified Allergy, Unknown, 06/26/15) Medication History Scheduled Aspirin* (Aspirin*), 81 MG ORAL DAILY, (Reported) Insulin Glargine (Lantus), 26 UNITS SUBQ DAILY, (Reported) Insulin Regular, Human (Humulin R), 6 UNIT SUBQ BEFORE MEALS, (Reported) Discontinued Medications Bacitracin (Bacitracin), 1 APPLIC TOPIC THREE TIMES A DAY Discontinued Reason: Pt stopped taking med Blood Sugar Diagnostic (Freestyle Test Strips), EACH [facility], (DME) Discontinued Reason: Pt stopped taking med Cephalexin* (Keflex*), 500 MG ORAL EVERY 6 HOURS Discontinued Reason: Pt stopped taking med Docusate Sodium* (Colace*), 100 MG ORAL THREE TIMES A DAY Discontinued Reason: Pt stopped taking med Insulin Glargine (Lantus), 44 UNITS SUBQ DAILY Discontinued Reason: Pt stopped taking med Metoclopramide Hcl* (Reglan*), 10 MG ORAL THREE TIMES A DAY Discontinued Reason: Pt stopped taking med Ondansetron (Zofran), 4 MG ORAL Q6H PRN for Nausea & Vomiting Discontinued Reason: Pt stopped taking med Ondansetron Odt* (Zofran Odt*), 4 MG BC EVERY 8 HOURS Discontinued Reason: Pt stopped taking med Trimethoprim/Sulfamethoxazole 160/800* (Bactrim Ds Tablet*), 1 TAB ORAL TWICE A DAY Discontinued Reason: Pt stopped taking med Patient History Healthcare decision maker N Resuscitation status Full Code Advanced Directive on File Past Medical/Surgical History Past Medical/Surgical History: (1) Non-compliance (2) H/O cocaine abuse (3) Diabetes (4) DM (diabetes mellitus) Review of Systems Gastrointestinal: Reports: abdominal pain, nausea, vomiting Physical Exam General Appearance: cachetic Lines, tubes and drains: peripheral HEENT: normocephalic, atraumatic Neck: non-tender, normal alignment Respiratory/Chest: chest wall non-tender, lungs clear, normal breath sounds Cardiovascular/Chest: normal peripheral pulses, normal rate Abdomen: normal bowel sounds Genitourinary/Rectal: normal genital exam Extremities: normal range of motion Last 24 Hour Vital Signs Date Time Temp Pulse Resp B/P (MAP) Pulse Ox O2 Delivery O2 Flow Rate FiO2 04/29/18 10:16 Room Air 04/29/18 08:00 98.4 80 20 101/68 (79) 98 98.4 04/29/18 08:00 116 04/29/18 07:39 77 20 Room Air 21 04/29/18 04:00 98.0 86 21 136/72 (93) 98 98.0 04/29/18 04:00 88 04/29/18 00:00 97.4 59 21 110/68 (82) 100 97.4 04/29/18 00:00 59 04/28/18 21:00 Room Air 04/28/18 20:10 76 17 128/83 97 Room Air 04/28/18 20:10 76 17 128/83 97 Room Air 04/28/18 20:00 98.1 73 22 135/78 (97) 100 98.1 04/28/18 20:00 93 04/28/18 17:55 134/71 04/28/18 17:35 98.2 67 15 144/101 99 Room Air 98.2 04/28/18 16:17 98.2 87 16 138/77 99 Room Air 98.2 04/28/18 13:10 98.2 89 16 106/79 99 Room Air 98.2 Intake and Output 04/28/18 04/29/18 19:00 07:00 Intake Total 920 ml Output Total 700 ml Balance 220 ml Intake Oral 120 ml IV Total 800 ml Output Urine Total 600 ml Emesis 100 ml # Voids 1 2 # Bowel Movements 1 Laboratory Tests Test 04/28/18 14:25 04/28/18 14:45 04/28/18 17:20 04/29/18 05:15 Sodium Level 131 MMOL/L (136-145) L 140 MMOL/L (136-145) Potassium Level 6.0 MMOL/L (3.5-5.1) *H 3.0 MMOL/L (3.5-5.1) L Chloride Level 100 MMOL/L (98-107) 107 MMOL/L (98-107) Carbon Dioxide Level 25 MMOL/L (21-32) 30 MMOL/L (21-32) Anion Gap 7 mmol/L (5-15) 3 mmol/L (5-15) L Blood Urea Nitrogen 66 mg/dL (7-18) H 45 mg/dL (7-18) H Creatinine 1.3 MG/DL (0.55-1.30) 0.7 MG/DL (0.55-1.30) Estimat Glomerular Filtration Rate > 60 mL/min (>60) > 60 mL/min (>60) Glucose Level 799 MG/DL (74-106) *H 100 MG/DL (74-106) # Calcium Level 7.2 MG/DL (8.5-10.1) L 6.5 MG/DL (8.5-10.1) L Total Bilirubin 1.8 MG/DL (0.2-1.0) H 1.3 MG/DL (0.2-1.0) H Direct Bilirubin 0.2 MG/DL (0.0-0.3) 0.3 MG/DL (0.0-0.3) Aspartate Amino Transf (AST/SGOT) 624 U/L (15-37) H 424 U/L (15-37) H Alanine Aminotransferase (ALT/SGPT) 260 U/L (12-78) H 327 U/L (12-78) H Alkaline Phosphatase 183 U/L (46-116) H 188 U/L (46-116) H Troponin I 0.002 ng/mL (0.000-0.056) Total Protein 5.1 G/DL (6.4-8.2) L 4.2 G/DL (6.4-8.2) L Albumin 2.1 G/DL (3.4-5.0) L 2.0 G/DL (3.4-5.0) L Globulin 3.0 g/dL 2.2 g/dL Albumin/Globulin Ratio 0.7 (1.0-2.7) L 0.9 (1.0-2.7) L Lipase 427 U/L (73-393) H White Blood Count 10.3 K/UL (4.8-10.8) 12.2 K/UL (4.8-10.8) H Red Blood Count 4.62 M/UL (4.70-6.10) L 4.07 M/UL (4.70-6.10) L Hemoglobin 14.5 G/DL (14.2-18.0) 13.1 G/DL (14.2-18.0) L Hematocrit 42.0 % (42.0-52.0) 35.4 % (42.0-52.0) L Mean Corpuscular Volume 91 FL (80-99) 87 FL (80-99) Mean Corpuscular Hemoglobin 31.3 PG (27.0-31.0) H 32.3 PG (27.0-31.0) H Mean Corpuscular Hemoglobin Concent 34.5 G/DL (32.0-36.0) 37.1 G/DL (32.0-36.0) H Red Cell Distribution Width 13.2 % (11.6-14.8) 11.8 % (11.6-14.8) Platelet Count 261 K/UL (150-450) 194 K/UL (150-450) Mean Platelet Volume 5.3 FL (6.5-10.1) L 5.4 FL (6.5-10.1) L Neutrophils (%) (Auto) % (45.0-75.0) 84.2 % (45.0-75.0) H Lymphocytes (%) (Auto) % (20.0-45.0) 12.8 % (20.0-45.0) L Monocytes (%) (Auto) % (1.0-10.0) 2.7 % (1.0-10.0) Eosinophils (%) (Auto) % (0.0-3.0) 0.0 % (0.0-3.0) Basophils (%) (Auto) % (0.0-2.0) 0.3 % (0.0-2.0) Differential Total Cells Counted 100 Neutrophils % (Manual) 81 % (45-75) H Lymphocytes % (Manual) 17 % (20-45) L Monocytes % (Manual) 1 % (1-10) Eosinophils % (Manual) 0 % (0-3) Basophils % (Manual) 0 % (0-2) Band Neutrophils 1 % (0-8) Platelet Estimate Adequate Platelet Morphology Normal Red Blood Cell Morphology Normal Urine Color Pale yellow Urine Appearance Clear Urine pH 6 (4.5-8.0) Urine Specific [place] 1.010 (1.005-1.035) Urine Protein Negative (NEGATIVE) Urine Glucose (UA) 4+ (NEGATIVE) H Urine Ketones Negative (NEGATIVE) Urine Blood 2+ (NEGATIVE) H Urine Nitrite Negative (NEGATIVE) Urine Bilirubin Negative (NEGATIVE) Urine Urobilinogen Normal MG/DL (0.0-1.0) Urine Leukocyte Esterase Negative (NEGATIVE) Urine RBC 0-2 /HPF (0 - 0) H Urine WBC 0-2 /HPF (0 - 0) Urine Squamous Epithelial Cells None /LPF (NONE/OCC) Urine Bacteria None /HPF (NONE) Hemoglobin A1c 7.3 % (4.3-6.0) H Triglycerides Level 40 MG/DL (30-150) Cholesterol Level 101 MG/DL (< 200) LDL Cholesterol 17 mg/dL (<100) HDL Cholesterol 76 MG/DL (40-60) H Cholesterol/HDL Ratio 1.3 (3.3-4.4) L Thyroid Stimulating Hormone (TSH) 1.042 uiU/mL (0.358-3.740) Height (Feet): 5 Height (Inches): 8.00 Weight (Pounds): 141 Medications Current Medications Medications (Trade) Dose Ordered Sig/[place] Route PRN Reason Start Time Stop Time Status Last Admin Dose Admin Acetaminophen (Tylenol) 650 mg Q4H PRN ORAL fever 04/28/18 17:45 05/28/18 17:44 Al Hydroxide/Mg Hydroxide (Mylanta II) 30 ml Q6H PRN ORAL dyspepsia 04/28/18 17:40 05/28/18 17:39 Albuterol/ Ipratropium (Albuterol/ Ipratropium) 3 ml Q4H PRN HHN Shortness of Breath 04/28/18 17:45 05/03/18 17:44 Chlorhexidine Gluconate (Flores-Hex 2%) 1 applic DAILY@1999 TOPIC 04/28/18 20:00 05/28/18 19:59 04/28/18 21:19 Clonidine HCl (Catapres Tab) 0.1 mg Q4H PRN ORAL sbp more than 160 04/28/18 17:45 05/28/18 17:44 Dextrose (Dextrose 50%) 25 ml Q30M PRN IV Hypoglycemia 04/28/18 19:00 05/28/18 18:59 Dextrose (Dextrose 50%) 50 ml Q30M PRN IV Hypoglycemia 04/28/18 19:00 05/28/18 18:59 Heparin Sodium (Porcine) (Heparin 5000 units/ml) 5,000 units EVERY 12 HOURS SUBQ 04/28/18 21:00 05/28/18 20:59 04/29/18 08:10 Insulin Aspart (NovoLOG) BEFORE MEALS AND HS SUBQ 04/28/18 21:00 05/28/18 20:59 04/29/18 06:24 Insulin Aspart (NovoLOG) 8 units NOVOTIAC SUBQ 04/28/18 19:00 05/28/18 18:59 04/28/18 19:08 Insulin Detemir (Levemir) 24 units BEDTIME SUBQ 04/28/18 21:00 05/28/18 20:59 04/28/18 21:21 Morphine Sulfate (Morphine Sulfate) 2 mg Q4H PRN IVP severe pain 7-10 04/28/18 17:45 05/05/18 17:44 Nitroglycerin (Ntg) 0.4 mg Q5M X 3 DOSES PRN SL Prn Chest Pain 04/28/18 17:45 05/28/18 17:44 Ondansetron HCl (Zofran) 4 mg Q6H PRN IVP Nausea & Vomiting 04/28/18 17:45 05/28/18 17:44 04/29/18 03:19 Polyethylene Glycol (Miralax) 17 gm HSPRN PRN ORAL Constipation 04/28/18 17:45 05/28/18 17:44 Potassium Chloride 100 ml @ 100 mls/hr Q1H IVPB 04/29/18 09:30 04/29/18 13:29 04/29/18 10:46 Promethazine HCl 25 mg/Sodium Chloride 56 ml @ 112 mls/hr Q6H PRN IVPB Nausea 04/29/18 10:00 05/29/18 09:59 04/29/18 09:59 Sodium Chloride 1,000 ml @ 100 mls/hr Q10H IVLG 04/28/18 18:00 05/28/18 17:59 04/29/18 06:22 Temazepam (Restoril) 15 mg HSPRN PRN ORAL Insomnia 04/28/18 17:45 05/05/18 17:44 Assessment/Plan Problem List: (1) Uncontrolled diabetes mellitus type 1 without complications ICD Codes: E10.9 - Type 1 diabetes mellitus without complications SNOMED: 570825214 (2) Nausea, vomiting, and diarrhea ICD Codes: R11.2 - Nausea with vomiting, unspecified; R19.7 - Diarrhea, unspecified SNOMED: 5251004 Assessment/Plan iv flluids symptomatic treatment check electrolytes sliding scale Rosa Jamil MD Apr 29, 2018 11:22
[2018-04-29 12:00] VITALS: BP 94/63
--- NOTE | 2018-04-29 12:27 | GI Initial Consult Note ---
History of Present Illness General Date patient seen: Apr 29, 2018 Time patient seen: 12:22 Reason for Hospitalization: Generalized Weakness Referring physician: J CARLOS FLOWERS Reason for Consultation: N/V Present Illness HPI Patient presents emergency department today with generalized weakness. Patient was noted to have critically high blood sugar. Patient was by her further evaluation. Patient complains of diffuse abdominal discomfort associate nausea and vomiting. No other complaint or noted. Symptoms noted to be highly severe. Patient states that he does take insulin he did not take any insulin today.No other modifying factors. No other associated signs and symptoms. No other complaints were noted. GI consulted for N/V. Pt seen, awake A&Ox4 NAD with no active s/sx of N/V/D. KUB noted, patient with severe fecal impaction now had large BM. Denies any abdominal pain; soft, non-tender non distend. Patient admits to being a cocaine use. Has BLE +3 edema. Hx of uncontrolled DM. No known history of endoscopy / colonoscopy at this time. Labs reviewed; noted with mild leukocytosis, abnormal LFTs, elevated lipase levels. Home Meds Reported Medications Aspirin* (ASPIRIN*) 81 Mg Tab.chew, 81 MG ORAL DAILY, TAB 04/28/18 Insulin Regular, Human (HUMULIN R) 100 Unit/1 Ml Vial, 6 UNIT SUBQ BEFORE MEALS , VIAL 02/21/18 Insulin Glargine (LANTUS) 100 Unit/1 Ml Insuln.pen, 26 UNITS SUBQ DAILY for 30 Days, EA 0 Refills 07/02/15 Discontinued Scripts Ondansetron Odt* (ZOFRAN ODT*) 4 Mg Tab.rapdis, 4 MG BC EVERY 8 HOURS, #10 TAB 0 Refills Prov:Colton Wood DO 04/05/18 Blood Sugar Diagnostic (FREESTYLE TEST STRIPS) 1 Each Strip, EACH , #30 Prov:Yo Beltran MD 03/04/18 Docusate Sodium* (COLACE*) 100 Mg Capsule, 100 MG ORAL THREE TIMES A DAY, #30 CAP Prov:Yo Beltran MD 03/04/18 Metoclopramide Hcl* (REGLAN*) 10 Mg Tablet, 10 MG ORAL THREE TIMES A DAY, #30 TAB Prov:Yo Beltran MD 03/04/18 Ondansetron (Zofran) 4 Mg Tablet, 4 MG ORAL Q6H PRN for Nausea & Vomiting, #30 TAB 0 Refills Prov:Maycol Mast MD 02/21/18 Bacitracin (Bacitracin) 15 Gm Oint...g., 1 APPLIC TOPIC THREE TIMES A DAY, #20 GM Prov:Rg Silva M.D. 12/28/15 Cephalexin* (KEFLEX*) 500 Mg Capsule, 500 MG ORAL EVERY 6 HOURS, #28 CAP 0 Refills Prov:Rg Silva M.D. 12/28/15 Trimethoprim/Sulfamethoxazole 160/800* (BACTRIM DS TABLET*) 1 Each Tablet, 1 TAB ORAL TWICE A DAY, #14 TAB Prov:Rg Silva M.D. 12/28/15 Insulin Glargine (LANTUS) 100 Unit/1 Ml Insuln.pen, 44 UNITS SUBQ DAILY, #1 EA 0 Refills Prov:VICTOR HUGO ORTEGA M.D. 10/27/15 Med list reviewed/reconciled: Yes Allergies: Coded Allergies: NO KNOWN ALLERGIES (Unverified Allergy, Unknown, 06/26/15) Patient History History Provided By: Patient, Medical Record PMH Narrative Past Medical History: DM, other - Gastroparesis Past Surgical History: none Pertinent Family History: none Social History: Denies: smoking, alcohol use, drug use Reviewed Nursing Documentation: PMH: Agreed; PSxH: Agreed Nursing Documentation-PM Past Medical History: No History, Except For Hx Cardiac Problems: No Hx Hypertension: No Hx Pacemaker: No Hx Asthma: No Hx COPD: No Hx Diabetes: Yes Hx Cancer: No Hx Gastrointestinal Problems: Yes - gastroparesis Hx Dialysis: No Hx Neurological Problems: No Hx Cerebrovascular Accident: No Hx Seizures: No Social History: Reports: drug use Review of Systems All Other Systems: negative except mentioned in HPI Physical Exam Vital Signs Date Time Temp Pulse Resp B/P (MAP) Pulse Ox O2 Delivery O2 Flow Rate FiO2 04/28/18 13:10 98.2 89 16 106/79 99 Room Air 98.2 04/29/18 07:39 21 Sp02 EP Interpretation: reviewed, normal Labs Laboratory Tests Test 04/28/18 14:25 04/28/18 14:45 04/28/18 17:20 9/28/18 05:15 Sodium Level 131 MMOL/L (136-145) L 140 MMOL/L (136-145) Potassium Level 6.0 MMOL/L (3.5-5.1) *H 3.0 MMOL/L (3.5-5.1) L Chloride Level 100 MMOL/L (98-107) 107 MMOL/L (98-107) Carbon Dioxide Level 25 MMOL/L (21-32) 30 MMOL/L (21-32) Anion Gap 7 mmol/L (5-15) 3 mmol/L (5-15) L Blood Urea Nitrogen 66 mg/dL (7-18) H 45 mg/dL (7-18) H Creatinine 1.3 MG/DL (0.55-1.30) 0.7 MG/DL (0.55-1.30) Estimat Glomerular Filtration Rate > 60 mL/min (>60) > 60 mL/min (>60) Glucose Level 799 MG/DL (74-106) *H 100 MG/DL (74-106) # Calcium Level 7.2 MG/DL (8.5-10.1) L 6.5 MG/DL (8.5-10.1) L Total Bilirubin 1.8 MG/DL (0.2-1.0) H 1.3 MG/DL (0.2-1.0) H Direct Bilirubin 0.2 MG/DL (0.0-0.3) 0.3 MG/DL (0.0-0.3) Aspartate Amino Transf (AST/SGOT) 624 U/L (15-37) H 424 U/L (15-37) H Alanine Aminotransferase (ALT/SGPT) 260 U/L (12-78) H 327 U/L (12-78) H Alkaline Phosphatase 183 U/L (46-116) H 188 U/L (46-116) H Troponin I 0.002 ng/mL (0.000-0.056) Total Protein 5.1 G/DL (6.4-8.2) L 4.2 G/DL (6.4-8.2) L Albumin 2.1 G/DL (3.4-5.0) L 2.0 G/DL (3.4-5.0) L Globulin 3.0 g/dL 2.2 g/dL Albumin/Globulin Ratio 0.7 (1.0-2.7) L 0.9 (1.0-2.7) L Lipase 427 U/L (73-393) H White Blood Count 10.3 K/UL (4.8-10.8) 12.2 K/UL (4.8-10.8) H Red Blood Count 4.62 M/UL (4.70-6.10) L 4.07 M/UL (4.70-6.10) L Hemoglobin 14.5 G/DL (14.2-18.0) 13.1 G/DL (14.2-18.0) L Hematocrit 42.0 % (42.0-52.0) 35.4 % (42.0-52.0) L Mean Corpuscular Volume 91 FL (80-99) 87 FL (80-99) Mean Corpuscular Hemoglobin 31.3 PG (27.0-31.0) H 32.3 PG (27.0-31.0) H Mean Corpuscular Hemoglobin Concent 34.5 G/DL (32.0-36.0) 37.1 G/DL (32.0-36.0) H Red Cell Distribution Width 13.2 % (11.6-14.8) 11.8 % (11.6-14.8) Platelet Count 261 K/UL (150-450) 194 K/UL (150-450) Mean Platelet Volume 5.3 FL (6.5-10.1) L 5.4 FL (6.5-10.1) L Neutrophils (%) (Auto) % (45.0-75.0) 84.2 % (45.0-75.0) H Lymphocytes (%) (Auto) % (20.0-45.0) 12.8 % (20.0-45.0) L Monocytes (%) (Auto) % (1.0-10.0) 2.7 % (1.0-10.0) Eosinophils (%) (Auto) % (0.0-3.0) 0.0 % (0.0-3.0) Basophils (%) (Auto) % (0.0-2.0) 0.3 % (0.0-2.0) Differential Total Cells Counted 100 Neutrophils % (Manual) 81 % (45-75) H Lymphocytes % (Manual) 17 % (20-45) L Monocytes % (Manual) 1 % (1-10) Eosinophils % (Manual) 0 % (0-3) Basophils % (Manual) 0 % (0-2) Band Neutrophils 1 % (0-8) Platelet Estimate Adequate Platelet Morphology Normal Red Blood Cell Morphology Normal Urine Color Pale yellow Urine Appearance Clear Urine pH 6 (4.5-8.0) Urine Specific [place] 1.010 (1.005-1.035) Urine Protein Negative (NEGATIVE) Urine Glucose (UA) 4+ (NEGATIVE) H Urine Ketones Negative (NEGATIVE) Urine Blood 2+ (NEGATIVE) H Urine Nitrite Negative (NEGATIVE) Urine Bilirubin Negative (NEGATIVE) Urine Urobilinogen Normal MG/DL (0.0-1.0) Urine Leukocyte Esterase Negative (NEGATIVE) Urine RBC 0-2 /HPF (0 - 0) H Urine WBC 0-2 /HPF (0 - 0) Urine Squamous Epithelial Cells None /LPF (NONE/OCC) Urine Bacteria None /HPF (NONE) Hemoglobin A1c 7.3 % (4.3-6.0) H Triglycerides Level 40 MG/DL (30-150) Cholesterol Level 101 MG/DL (< 200) LDL Cholesterol 17 mg/dL (<100) HDL Cholesterol 76 MG/DL (40-60) H Cholesterol/HDL Ratio 1.3 (3.3-4.4) L Thyroid Stimulating Hormone (TSH) 1.042 uiU/mL (0.358-3.740) General Appearance: well appearing, no apparent distress, alert Head: normocephalic EENT: PERRL/EOMI, normal ENT inspection Neck: supple Respiratory: normal breath sounds, no respiratory distress Cardiovascular: normal rate Gastrointestinal: normal inspection, non tender, soft, normal bowel sounds, non -distended Rectal: deferred Genitourinary: deferred Musculoskeletal: normal inspection, back normal Neurologic: normal inspection, alert, oriented x3, responsive Psychiatric: normal inspection, judgement/insight normal, memory normal Skin: normal inspection, normal color, no rash, warm/dry, palpation normal, well hydrated Lymphatic: normal inspection, no adenopathy Current Medications Current Medications Medications (Trade) Dose Ordered Sig/[place] Route PRN Reason Start Time Stop Time Status Last Admin Dose Admin Acetaminophen (Tylenol) 650 mg Q4H PRN ORAL fever 04/28/18 17:45 05/28/18 17:44 Al Hydroxide/Mg Hydroxide (Mylanta II) 30 ml Q6H PRN ORAL dyspepsia 04/28/18 17:40 05/28/18 17:39 Albuterol/ Ipratropium (Albuterol/ Ipratropium) 3 ml Q4H PRN HHN Shortness of Breath 04/28/18 17:45 05/03/18 17:44 Chlorhexidine Gluconate (Flores-Hex 2%) 1 applic DAILY@1999 TOPIC 04/28/18 20:00 05/28/18 19:59 04/28/18 21:19 Clonidine HCl (Catapres Tab) 0.1 mg Q4H PRN ORAL sbp more than 160 04/28/18 17:45 05/28/18 17:44 Dextrose (Dextrose 50%) 25 ml Q30M PRN IV Hypoglycemia 04/28/18 19:00 05/28/18 18:59 Dextrose (Dextrose 50%) 50 ml Q30M PRN IV Hypoglycemia 04/28/18 19:00 05/28/18 18:59 Heparin Sodium (Porcine) (Heparin 5000 units/ml) 5,000 units EVERY 12 HOURS SUBQ 04/28/18 21:00 05/28/18 20:59 04/29/18 08:10 Insulin Aspart (NovoLOG) BEFORE MEALS AND HS SUBQ 04/28/18 21:00 05/28/18 20:59 04/29/18 06:24 Insulin Aspart (NovoLOG) 8 units NOVOTIAC SUBQ 04/28/18 19:00 05/28/18 18:59 04/28/18 19:08 Insulin Detemir (Levemir) 24 units BEDTIME SUBQ 04/28/18 21:00 05/28/18 20:59 04/28/18 21:21 Morphine Sulfate (Morphine Sulfate) 2 mg Q4H PRN IVP severe pain 7-10 04/28/18 17:45 05/05/18 17:44 Nitroglycerin (Ntg) 0.4 mg Q5M X 3 DOSES PRN SL Prn Chest Pain 04/28/18 17:45 05/28/18 17:44 Ondansetron HCl (Zofran) 4 mg Q6H PRN IVP Nausea & Vomiting 04/28/18 17:45 05/28/18 17:44 04/29/18 03:19 Polyethylene Glycol (Miralax) 17 gm HSPRN PRN ORAL Constipation 04/28/18 17:45 05/28/18 17:44 Potassium Chloride 100 ml @ 100 mls/hr Q1H IVPB 04/29/18 09:30 04/29/18 13:29 04/29/18 12:00 Promethazine HCl 25 mg/Sodium Chloride 56 ml @ 112 mls/hr Q6H PRN IVPB Nausea 04/29/18 10:00 05/29/18 09:59 04/29/18 09:59 Sodium Chloride 1,000 ml @ 75 mls/hr [id number] IVLG 04/29/18 13:00 05/28/18 12:59 Temazepam (Restoril) 15 mg HSPRN PRN ORAL Insomnia 04/28/18 17:45 05/05/18 17:44 GI: Plan Problems: (1) Constipation (2) Drug abuse (3) H/O cocaine abuse (4) Uncontrolled diabetes mellitus type 1 without complications (5) Episode of generalized weakness (6) Altered level of consciousness (7) Abdominal pain (8) DKA (diabetic ketoacidoses) Plan pt admits to recent cocaine use symptomatic treatment ADA diet IV/PO hydration trend LFTs, lipase zofran prn pain mgmt bowel regime fu labs Discussed with Dr. Ascencio. Thank you for this patient referral, we will follow. The patient was seen and examined at bedside and all new and available data was reviewed in the patients chart. I agree with the above findings, impression and plan. (Patient seen earlier today. Signature stamp does not reflect patient encounter time.). - MD Sandy Mendoza,[facility] Apr 29, 2018 12:27
[2018-04-29] MEDS: Docusate 100mg cap ORAL SCH ×2 (13:00→17:48)
[2018-04-29 16:00] VITALS: BP 108/76
[2018-04-29 20:00] VITALS: BP 98/72
[2018-04-29] MEDS: Dyna-Hex 2% Top Sol 2oz TOPIC SCH (20:00)
[2018-04-29] MEDS ORDERED: Isovue-300 100ml vial INJ PRN (20:00)
--- NOTE | 2018-04-29 20:02 | History & Physical ---
History and Physical History & Physicial Dictated for Int Med-Dr Ricks no. [id number]. Yunier Edwards MD Apr 29, 2018 20:02
[2018-04-29] MEDS: Miralax 17gm pkt ORAL SCH (20:07)
[2018-04-29] MEDS: Metoclopramide 10mg/2ml Inj IVP SCH (20:07)
[2018-04-29] MEDS: Levemir Flexpen SUBQ SCH (20:55)
--- NOTE | 2018-04-29 21:30 | History and Physical Report ---
DATE OF ADMISSION: 04/28/2018 CHIEF COMPLAINT: The patient is a 47-year-old male, who presents with a chief complaint of nausea and vomiting. His history of present illness began two months prior to admission. The patient ran out of his insulin. The patient began to feel generally weak. The patient presented to [facility]. The patient had intractable nausea and vomiting. The patient presents today with chief complaint of nausea, vomiting, and diabetic ketoacidosis. REVIEW OF SYSTEMS: CONSTITUTIONAL: The patient denies weight loss or weight gain. The patient denies fevers or chills. HEENT: The patient denies ear or throat pain. The patient denies diarrhea or constipation. GENITOURINARY: The patient denies dysuria or increased frequency of urination. NEUROMUSCULAR: The patient denies seizures. The patient does complain of generalized weakness. PAST MEDICAL HISTORY: Significant for type 2 diabetes. PAST SURGICAL HISTORY: Significant for right Achilles tendon surgery. CURRENT MEDICATIONS: Denies. ALLERGIES: No known drug allergies. SOCIAL HISTORY: The patient is single; however, lives with his long time girlfriend. The patient admits to tobacco use one pack per day. The patient admits to occasional alcohol use. PHYSICAL EXAMINATION: VITAL SIGNS: Temperature 98.2, respirations 16, pulse 89, and blood pressure 106/79. GENERAL: The patient is thin-appearing male, who is obviously nauseated. HEENT: Eyes, pupils are equal, responsive to light and accommodation. Extraocular movements are intact. NECK: Supple without lymphadenopathy. CHEST: Lungs are clear to auscultation bilaterally without wheezes or rales. CARDIOVASCULAR: Regular rate. S1, S2 normal without murmurs, rubs, or gallops. ABDOMEN: Soft, diffusely tender with positive bowel sounds. No evidence of hepatosplenomegaly. Currently, no rebound or guarding noted. EXTREMITIES: Negative for clubbing, cyanosis, or edema. RECTAL: Refused. GENITALIA: Refused. NEUROLOGIC: Cranial nerves II through XII are grossly intact without focal deficits. Motor strength is 5/5 bilaterally. Deep tendon reflexes are 2+ plantar. LABORATORY AND IMAGING STUDIES: WBC 10.3, hemoglobin 14.5, hematocrit 42.0, and platelets 261,000. Sodium 131, potassium elevated at 6.0, chloride 100, CO2 of 25, BUN 66, creatinine 1.3, and glucose 799. Troponin 0.002. AST elevated at 624, ALT elevated at 260, alkaline phosphatase elevated at 183, and lipase elevated at 420. KUB showed severe fecal impaction. ASSESSMENT: This is a 47-year-old male. 1. Acute pancreatitis. 2. Nausea and vomiting. 3. Uncontrolled diabetes type 2. 4. Elevated liver function tests. 5. Fecal impaction. TREATMENT: 1. Acute pancreatitis/nausea/vomiting. A Gastroenterology consultation obtained with Dr. Ascencio. A CT scan of the abdomen is pending. Nausea and vomiting may be secondary to diabetic ketoacidosis versus acute pancreatitis. The patient may also have cholecystitis as evidenced by elevated liver function tests. A CT scan of the abdomen is pending. 2. Diabetes type 2. Endocrinology consultation obtained with Dr. Laurent. We will follow recommendations of Endocrinology. 3. Fecal impaction. As above. A Gastroenterology consultation obtained with Dr. Pedro Ascencio. Yunier Edwards M.D. DR: ISATU JOB#: [id number] CC:
[2018-04-30] VITALS (7 sets, daily range): BP systolic 90–109; BP diastolic 54–81
[2018-04-30] MEDS: Metoclopramide 10mg/2ml Inj IVP SCH ×4 (02:32→20:19)
[2018-04-30 04:14] LABS: HEMATOCRIT 33.7 % (42.0-52.0); HEMOGLOBIN 12.3 G/DL (14.2-18.0); MEAN CORPUSCULAR VOLUME 87 FL (80-99); PLATELET COUNT 144 K/UL (150-450); RED BLOOD COUNT 3.87 M/UL (4.70-6.10); RED CELL DISTRIBUTION WIDTH 12.4 % (11.6-14.8)
[2018-04-30 04:41] LABS: ALANINE AMINOTRANSFERASE 238 U/L (12-78); ALBUMIN 1.8 G/DL (3.4-5.0); ALBUMIN/GLOBULIN RATIO 0.9 (1.0-2.7); ALKALINE PHOSPHATASE 156 U/L (46-116); AMYLASE 121 U/L (25-115); ANION GAP 2 mmol/L (5-15); ASPARTATE AMINO TRANSFERASE 218 U/L (15-37); BILIRUBIN,TOTAL 1.6 MG/DL (0.2-1.0); BLOOD UREA NITROGEN 25 mg/dL (7-18); CALCIUM 6.5 MG/DL (8.5-10.1); CARBON DIOXIDE 32 MMOL/L (21-32); CHLORIDE 109 MMOL/L (98-107); CREATININE 0.7 MG/DL (0.55-1.30); POTASSIUM 2.9 MMOL/L (3.5-5.1); SODIUM 142 MMOL/L (136-145)
[2018-04-30 04:45] LABS: BILIRUBIN,DIRECT 0.3 MG/DL (0.0-0.3)
[2018-04-30] MEDS: NovoLOG Insulin Flexpen SUBQ SCH ×5 (06:02→21:15)
[2018-04-30] MEDS: Heparin 5000 units/ml inj SUBQ SCH ×2 (08:09→21:12)
[2018-04-30] MEDS: Docusate 100mg cap ORAL SCH ×3 (08:15→18:17)
--- NOTE | 2018-04-30 08:41 | General Progress Note ---
Assessment/Plan Assessment/Plan Problems: (1) Constipation (2) Drug abuse (3) H/O cocaine abuse (4) Uncontrolled diabetes mellitus type 1 without complications (5) Episode of generalized weakness (6) Altered level of consciousness (7) Abdominal pain (8) DKA (diabetic ketoacidoses) (9) elevated LFTS (10) elevated lipase Plan pt admits to recent cocaine use symptomatic treatment IV/PO hydration fu LFTs, lipase zofran prn pain mgmt bowel regime fu labs fu abd CT Subjective ROS Limited/Unobtainable: Yes Allergies: Coded Allergies: NO KNOWN ALLERGIES (Unverified Allergy, Unknown, 06/26/15) Objective Last 24 Hour Vital Signs Date Time Temp Pulse Resp B/P (MAP) Pulse Ox O2 Delivery O2 Flow Rate FiO2 04/30/18 08:00 96.8 76 20 105/66 (79) 99 96.8 04/30/18 07:22 Nasal Cannula 2.0 04/30/18 07:21 79 18 Nasal Cannula 2.0 04/30/18 04:00 97.6 88 18 99/54 (69) 100 97.6 04/30/18 04:00 77 04/30/18 00:00 90 04/30/18 00:00 98.4 74 18 93/65 (74) 93 98.4 04/29/18 21:00 Nasal Cannula 2.0 04/29/18 20:40 Nasal Cannula 2.0 04/29/18 20:39 85 20 Room Air 21 04/29/18 20:00 97.0 90 19 98/72 (81) 95 97.0 04/29/18 20:00 93 04/29/18 16:00 102 04/29/18 16:00 97.1 94 20 108/76 (87) 98 97.1 04/29/18 12:00 97.8 67 24 94/63 (73) 98 97.8 04/29/18 12:00 104 04/29/18 10:16 Room Air Intake and Output 04/29/18 04/30/18 19:00 07:00 Intake Total 716 ml Output Total 400 ml Balance 716 ml -400 ml Intake Oral 360 ml IV Total 356 ml Output Urine Total 400 ml # Voids 1 # Bowel Movements 1 Laboratory Tests 04/30/18 04:00: White Blood Count 16.0H, Red Blood Count 3.87L, Hemoglobin 12.3L, Hematocrit 33.7L, Mean Corpuscular Volume 87, Mean Corpuscular Hemoglobin 31.8H, Mean Corpuscular Hemoglobin Concent 36.4H, Red Cell Distribution Width 12.4, Platelet Count 144L, Mean Platelet Volume 5.4L, Neutrophils (%) (Auto) , Lymphocytes (%) (Auto) , Monocytes (%) (Auto) , Eosinophils (%) (Auto) , Basophils (%) (Auto) , Neutrophils % (Manual) [Pending], Lymphocytes % (Manual) [Pending], Platelet Estimate [Pending], Platelet Morphology [Pending], Sodium Level 142, Potassium Level 2.9L, Chloride Level 109H, Carbon Dioxide Level 32, Anion Gap 2L, Blood Urea Nitrogen 25H, Creatinine 0.7, Estimat Glomerular Filtration Rate > 60, Glucose Level 27*L, Calcium Level 6.5L, Total Bilirubin 1.6H, Direct Bilirubin 0.3, Aspartate Amino Transf (AST/SGOT) 218H, Alanine Aminotransferase (ALT/SGPT) 238H, Alkaline Phosphatase 156H, Total Protein 3.8L , Albumin 1.8L, Globulin 2.0, Albumin/Globulin Ratio 0.9L, Amylase Level 121H, Lipase 496H 04/30/18 07:25: Urine Color [Pending], Urine Appearance [Pending], Urine pH [Pending], Urine Specific [place] [Pending], Urine Protein [Pending], Urine Glucose (UA) [Pending ], Urine Ketones [Pending], Urine Blood [Pending], Urine Nitrite [Pending], Urine Bilirubin [Pending], Urine Urobilinogen [Pending], Urine Leukocyte Esterase [Pending], Urine RBC [Pending], Urine WBC [Pending], Urine Squamous Epithelial Cells [Pending], Urine Bacteria [Pending] Height (Feet): 5 Height (Inches): 8.00 Weight (Pounds): 141 General Appearance: alert EENT: normal ENT inspection Neck: supple Cardiovascular: normal rate Respiratory/Chest: decreased breath sounds Abdomen: normal bowel sounds, non tender, soft Extremities: non-tender Pedro Ascencio MD Apr 30, 2018 08:41
[2018-04-30] MEDS ORDERED: Isovue-300 100ml vial INJ PRN (08:45)
[2018-04-30 09:56] LABS: APPEARANCE,URINE CLEAR; BILIRUBIN, URINE NEGATIVE (NEGATIVE); GLUCOSE, URINE (UA) 2+ (NEGATIVE); KETONES,URINE NEGATIVE (NEGATIVE); LEUKOCYTE ESTERASE ,URINE NEGATIVE (NEGATIVE); NITRITE,URINE NEGATIVE (NEGATIVE); PH,URINE 8 (4.5-8.0); PROTEIN,URINE NEGATIVE (NEGATIVE); UROBILINOGEN,URINE 12 MG/DL (0.0-1.0)
[2018-04-30 09:59] LABS: COLOR,URINE YELLOW
--- NOTE | 2018-04-30 12:11 | Diagnostic Imaging Report ---
EXAM: CT Abdomen and Pelvis With Intravenous Contrast CLINICAL HISTORY: ABD PAIN TECHNIQUE: Axial computed tomography images of the abdomen and pelvis with intravenous contrast. CTDI is 13.07 mGy and DLP is 684 mGy-cm. One or more of the following dose reduction techniques were used: automated exposure control, adjustment of the mA and/or kV according to patient size, use of iterative reconstruction technique. COMPARISON: CT abdomen and pelvis dated 06/26/15 FINDINGS: Lung bases: Unremarkable. No mass. No consolidation. ABDOMEN: Liver: Unremarkable. No mass. Gallbladder and bile ducts: Unremarkable. No calcified stones. No ductal dilation. Pancreas: Unremarkable. No mass. No ductal dilation. Spleen: Unremarkable. No splenomegaly. Adrenals: Unremarkable. No mass. Kidneys and ureters: Unremarkable. No solid mass. No hydronephrosis. Stomach and bowel: Short segment small bowel intussusception in the left lower quadrant (series 5 image 58). No lead point lesions. No evidence of bowel obstruction. No focal bowel wall thickening. No adjacent inflammatory change. Sigmoid diverticulosis without wall thickening or adjacent inflammatory change. 3 mm metallic radiodensity in the cecal lumen, nonspecific. PELVIS: Appendix: Appendix is not identified. Bladder: Unremarkable. No mass. Reproductive: The prostate gland and seminal vesicles appear unremarkable. ABDOMEN and PELVIS: Intraperitoneal space: Unremarkable. No free air. No significant fluid collection. Bones/joints: Moderate degenerative changes in bilateral hip joints. No acute fracture. No dislocation. Soft tissues: Unremarkable. Vasculature: Unremarkable. No abdominal aortic aneurysm. Lymph nodes: Unremarkable. No enlarged lymph nodes. IMPRESSION: 1. Short segment small bowel intussusception in the left lower quadrant (series 5 image 58). No lead point lesions. No evidence of bowel obstruction. No focal bowel wall thickening. No adjacent inflammatory change. This may represent transient intussusception and is of uncertain clinical significance. 2. Sigmoid diverticulosis without wall thickening or adjacent inflammatory change.
--- NOTE | 2018-04-30 13:04 | Infectious Diseases Prog Note ---
Assessment/Plan Problems: (1) Elevated transaminase level Assessment & Plan: and elevated lipase rule out gallstones , will order US of the liver to confirm, and start zosyn empirically pending surgical consult (2) Intussusception of intestine Assessment & Plan: rule out ischemia, recommend surgical eval, monitor amylase and lactic acid , GI is following (3) Abdominal pain Assessment & Plan: due to the above, continue pain management as per primary (4) Leukocytosis Assessment & Plan: due to the above, rule out sepsis, will order blood culture and start zosyn empirically (5) Renal insufficiency Assessment & Plan: due to dehydration, continue IVF , monitor renal function (6) Uncontrolled diabetes mellitus Assessment & Plan: recommend tight glycemic control to keep blood glucose between 100-140 Subjective Allergies: Coded Allergies: NO KNOWN ALLERGIES (Unverified Allergy, Unknown, 06/26/15) Objective Vital Signs Last 24 Hour Vital Signs Date Time Temp Pulse Resp B/P (MAP) Pulse Ox O2 Delivery O2 Flow Rate FiO2 04/30/18 11:46 96.9 73 20 109/81 (90) 98 96.9 04/30/18 09:00 Nasal Cannula 2.0 04/30/18 08:00 74 04/30/18 08:00 96.8 76 20 105/66 (79) 99 96.8 04/30/18 07:22 Nasal Cannula 2.0 28 04/30/18 07:21 79 18 Nasal Cannula 2.0 28 04/30/18 04:00 97.6 88 18 99/54 (69) 100 97.6 04/30/18 04:00 77 04/30/18 00:00 90 04/30/18 00:00 98.4 74 18 93/65 (74) 93 98.4 04/29/18 21:00 Nasal Cannula 2.0 04/29/18 20:40 Nasal Cannula 2.0 28 04/29/18 20:39 85 20 Room Air 21 04/29/18 20:00 97.0 90 19 98/72 (81) 95 97.0 04/29/18 20:00 93 04/29/18 16:00 102 04/29/18 16:00 97.1 94 20 108/76 (87) 98 97.1 Height (Feet): 5 Height (Inches): 8.00 Weight (Pounds): 141 Microbiology Date/Time Source Procedure Growth Status 04/28/18 19:45 Nasal Nares Left MRSA Culture - Final NO METHICILLIN RESISTANT STAPH AUREUS... Complete Laboratory Tests Test 04/30/18 04:00 04/30/18 07:25 04/30/18 12:00 04/30/18 12:45 White Blood Count 16.0 K/UL (4.8-10.8) H Red Blood Count 3.87 M/UL (4.70-6.10) L Hemoglobin 12.3 G/DL (14.2-18.0) L Hematocrit 33.7 % (42.0-52.0) L Mean Corpuscular Volume 87 FL (80-99) Mean Corpuscular Hemoglobin 31.8 PG (27.0-31.0) H Mean Corpuscular Hemoglobin Concent 36.4 G/DL (32.0-36.0) H Red Cell Distribution Width 12.4 % (11.6-14.8) Platelet Count 144 K/UL (150-450) L Mean Platelet Volume 5.4 FL (6.5-10.1) L Neutrophils (%) (Auto) % (45.0-75.0) Lymphocytes (%) (Auto) % (20.0-45.0) Monocytes (%) (Auto) % (1.0-10.0) Eosinophils (%) (Auto) % (0.0-3.0) Basophils (%) (Auto) % (0.0-2.0) Differential Total Cells Counted 100 Neutrophils % (Manual) 89 % (45-75) H Lymphocytes % (Manual) 8 % (20-45) L Monocytes % (Manual) 3 % (1-10) Eosinophils % (Manual) 0 % (0-3) Basophils % (Manual) 0 % (0-2) Band Neutrophils 0 % (0-8) Platelet Estimate Decreased L Platelet Morphology Normal Red Blood Cell Morphology Normal Sodium Level 142 MMOL/L (136-145) Potassium Level 2.9 MMOL/L (3.5-5.1) L Chloride Level 109 MMOL/L (98-107) H Carbon Dioxide Level 32 MMOL/L (21-32) Anion Gap 2 mmol/L (5-15) L Blood Urea Nitrogen 25 mg/dL (7-18) H Creatinine 0.7 MG/DL (0.55-1.30) Estimat Glomerular Filtration Rate > 60 mL/min (>60) Glucose Level 27 MG/DL (74-106) *L 131 MG/DL (74-106) #H Calcium Level 6.5 MG/DL (8.5-10.1) L Total Bilirubin 1.6 MG/DL (0.2-1.0) H Direct Bilirubin 0.3 MG/DL (0.0-0.3) Aspartate Amino Transf (AST/SGOT) 218 U/L (15-37) H Alanine Aminotransferase (ALT/SGPT) 238 U/L (12-78) H Alkaline Phosphatase 156 U/L (46-116) H Total Protein 3.8 G/DL (6.4-8.2) L Albumin 1.8 G/DL (3.4-5.0) L Globulin 2.0 g/dL Albumin/Globulin Ratio 0.9 (1.0-2.7) L Amylase Level 121 U/L (25-115) H Lipase 496 U/L (73-393) H Urine Color Yellow Urine Appearance Clear Urine pH 8 (4.5-8.0) Urine Specific [place] 1.010 (1.005-1.035) Urine Protein Negative (NEGATIVE) Urine Glucose (UA) 2+ (NEGATIVE) H Urine Ketones Negative (NEGATIVE) Urine Blood Negative (NEGATIVE) Urine Nitrite Negative (NEGATIVE) Urine Bilirubin Negative (NEGATIVE) Urine Urobilinogen 12 MG/DL (0.0-1.0) H Urine Leukocyte Esterase Negative (NEGATIVE) Urine RBC 0-2 /HPF (0 - 0) H Urine WBC 0-2 /HPF (0 - 0) Urine Squamous Epithelial Cells None /LPF (NONE/OCC) Urine Bacteria None /HPF (NONE) Urine Opiates Screen Negative (NEGATIVE) Urine Barbiturates Screen Negative (NEGATIVE) Phencyclidine (PCP) Screen Negative (NEGATIVE) Urine Amphetamines Screen Negative (NEGATIVE) Urine Benzodiazepines Screen Negative (NEGATIVE) Urine Cocaine Screen Positive (NEGATIVE) H Urine Marijuana (THC) Screen Negative (NEGATIVE) Lactic Acid Level Pending Current Medications Medications (Trade) Dose Ordered Sig/[place] Route PRN Reason Start Time Stop Time Status Last Admin Dose Admin Acetaminophen (Tylenol) 650 mg Q4H PRN ORAL fever 04/28/18 17:45 05/28/18 17:44 Al Hydroxide/Mg Hydroxide (Mylanta II) 30 ml Q6H PRN ORAL dyspepsia 04/28/18 17:40 05/28/18 17:39 Albuterol/ Ipratropium (Albuterol/ Ipratropium) 3 ml Q4H PRN HHN Shortness of Breath 04/28/18 17:45 05/03/18 17:44 Barium Sulfate (Readi-Cat 2) 450 ml NOW PRN ORAL Radiology Procedure 04/29/18 20:00 05/01/18 19:59 Barium Sulfate (Readi-Cat 2) 450 ml NOW PRN ORAL Radiology Procedure 04/30/18 08:45 04/30/18 23:59 Chlorhexidine Gluconate (Flores-Hex 2%) 1 applic DAILY@2000 TOPIC 04/28/18 20:00 05/28/18 19:59 04/29/18 20:00 Clonidine HCl (Catapres Tab) 0.1 mg Q4H PRN ORAL sbp more than 160 04/28/18 17:45 05/28/18 17:44 Dextrose (Dextrose 50%) 25 ml Q30M PRN IV Hypoglycemia 04/30/18 07:00 05/30/18 06:59 Dextrose (Dextrose 50%) 50 ml Q30M PRN IV Hypoglycemia 04/30/18 07:00 05/30/18 06:59 04/30/18 11:23 Docusate Sodium (Colace) 100 mg THREE TIMES A DAY ORAL 04/29/18 13:00 05/29/18 12:59 04/30/18 08:15 Heparin Sodium (Porcine) (Heparin 5000 units/ml) 5,000 units EVERY 12 HOURS SUBQ 04/28/18 21:00 05/28/18 20:59 04/29/18 08:10 Insulin Aspart (NovoLOG) BEFORE MEALS AND HS SUBQ 04/30/18 11:30 05/30/18 11:29 Iopamidol (Isovue-300 100ml) 100 ml NOW PRN INJ Radiology Procedure 04/29/18 20:00 04/30/18 19:59 Iopamidol (Isovue-300 100ml) 100 ml NOW PRN INJ Radiology Procedure 04/30/18 08:45 04/30/18 23:59 Metoclopramide HCl (Reglan) 10 mg Q6H IVP 04/29/18 20:00 05/29/18 19:59 04/30/18 08:15 Morphine Sulfate (Morphine Sulfate) 2 mg Q4H PRN IVP severe pain 7-10 04/28/18 17:45 05/05/18 17:44 Nitroglycerin (Ntg) 0.4 mg Q5M X 3 DOSES PRN SL Prn Chest Pain 04/28/18 17:45 05/28/18 17:44 Ondansetron HCl (Zofran) 4 mg Q6H PRN IVP Nausea & Vomiting 04/28/18 17:45 05/28/18 17:44 04/29/18 15:56 Piperacillin Sod/ Tazobactam Sod 3.375 gm/Dextrose 110 ml @ 27.5 mls/hr EVERY 8 HOURS IVPB 04/30/18 14:00 05/05/18 13:59 Polyethylene Glycol (Miralax) 17 gm BEDTIME ORAL 04/29/18 21:00 05/29/18 20:59 04/29/18 20:07 Polyethylene Glycol (Miralax) 17 gm HSPRN PRN ORAL Constipation 04/28/18 17:45 05/28/18 17:44 Promethazine HCl 25 mg/Sodium Chloride 56 ml @ 112 mls/hr Q6H PRN IVPB Nausea 04/29/18 10:00 05/29/18 09:59 04/29/18 09:59 Sodium Chloride 1,000 ml @ 75 mls/hr [id number] IVLG 04/29/18 13:00 05/28/18 12:59 04/29/18 13:16 Temazepam (Restoril) 15 mg HSPRN PRN ORAL Insomnia 04/28/18 17:45 05/05/18 17:44 Ewa Vargas M.D. Apr 30, 2018 13:04
--- NOTE | 2018-04-30 14:50 | Consultation ---
History of Present Illness General Date patient seen: Apr 30, 2018 Chief Complaint: Generalized Weakness Referring physician: J CARLOS FLOWERS Reason for Consultation: N/V Present Illness HPI 47 year old male with multiple medical comorbidities presented with persistent nausea and emesis for a few weeks now. Patient is a poor historian and not very cooperative during exam but states cramping generalized/upper abdominal pain for a few weeks. intermittent nausea and non bloody emesis. admitted for care and management. during admission noted to have elevated lft's, leukocytosis, and CT with findings below. surgery called to evaluate. patient seen, chart reviewed, patient examined. currently states he is well and wants to eat. very adamant that he should have food right away and does not want to wait any longer for food. +flatus. +bm's Allergies: Coded Allergies: NO KNOWN ALLERGIES (Unverified Allergy, Unknown, 06/26/15) Medication History Scheduled Aspirin* (Aspirin*), 81 MG ORAL DAILY, (Reported) Insulin Glargine (Lantus), 26 UNITS SUBQ DAILY, (Reported) Insulin Regular, Human (Humulin R), 6 UNIT SUBQ BEFORE MEALS, (Reported) Discontinued Medications Bacitracin (Bacitracin), 1 APPLIC TOPIC THREE TIMES A DAY Discontinued Reason: Pt stopped taking med Blood Sugar Diagnostic (Freestyle Test Strips), EACH [facility], (DME) Discontinued Reason: Pt stopped taking med Cephalexin* (Keflex*), 500 MG ORAL EVERY 6 HOURS Discontinued Reason: Pt stopped taking med Docusate Sodium* (Colace*), 100 MG ORAL THREE TIMES A DAY Discontinued Reason: Pt stopped taking med Insulin Glargine (Lantus), 44 UNITS SUBQ DAILY Discontinued Reason: Pt stopped taking med Metoclopramide Hcl* (Reglan*), 10 MG ORAL THREE TIMES A DAY Discontinued Reason: Pt stopped taking med Ondansetron (Zofran), 4 MG ORAL Q6H PRN for Nausea & Vomiting Discontinued Reason: Pt stopped taking med Ondansetron Odt* (Zofran Odt*), 4 MG BC EVERY 8 HOURS Discontinued Reason: Pt stopped taking med Trimethoprim/Sulfamethoxazole 160/800* (Bactrim Ds Tablet*), 1 TAB ORAL TWICE A DAY Discontinued Reason: Pt stopped taking med Patient History History Provided By: Patient, Medical Record, PMD Healthcare decision maker N Resuscitation status Full Code Advanced Directive on File Past Medical/Surgical History Past Medical/Surgical History: (1) Constipation (2) Intussusception of intestine (3) Elevated transaminase level (4) Hyponatremia (5) Abdominal pain (6) Conjunctivitis (7) DKA (diabetic ketoacidoses) (8) Hyperglycemia (9) Leukocytosis (10) Renal insufficiency (11) Drug abuse (12) Acute paronychia (13) Nausea, vomiting, and diarrhea (14) Altered level of consciousness (15) Uncontrolled diabetes mellitus (16) Episode of generalized weakness (17) Uncontrolled diabetes mellitus type 1 without complications (18) H/O cocaine abuse Review of Systems All Other Systems: negative except mentioned in HPI Physical Exam General Appearance: no apparent distress, alert Lines, tubes and drains: peripheral HEENT: normocephalic, atraumatic, mucous membranes moist Neck: supple, normal inspection Respiratory/Chest: lungs clear, normal breath sounds, no respiratory distress, no accessory muscle use Cardiovascular/Chest: normal rate, regular rhythm Abdomen: normal bowel sounds, non tender, soft, no organomegaly, no mass Extremities: non-tender, normal inspection, no calf tenderness Skin Exam: normal pigmentation, warm/dry Neurologic: alert, responsive Last 24 Hour Vital Signs Date Time Temp Pulse Resp B/P (MAP) Pulse Ox O2 Delivery O2 Flow Rate FiO2 04/30/18 12:00 69 04/30/18 11:46 96.9 73 20 109/81 (90) 98 96.9 04/30/18 09:00 Nasal Cannula 2.0 04/30/18 08:00 74 04/30/18 08:00 96.8 76 20 105/66 (79) 99 96.8 04/30/18 07:22 Nasal Cannula 2.0 28 04/30/18 07:21 79 18 Nasal Cannula 2.0 28 04/30/18 04:00 97.6 88 18 99/54 (69) 100 97.6 04/30/18 04:00 77 04/30/18 00:00 90 04/30/18 00:00 98.4 74 18 93/65 (74) 93 98.4 04/29/18 21:00 Nasal Cannula 2.0 04/29/18 20:40 Nasal Cannula 2.0 04/29/18 20:39 85 20 Room Air 21 04/29/18 20:00 97.0 90 19 98/72 (81) 95 97.0 04/29/18 20:00 93 04/29/18 16:00 102 04/29/18 16:00 97.1 94 20 108/76 (87) 98 97.1 Intake and Output 04/29/18 04/30/18 19:00 07:00 Intake Total 716 ml 75 ml Output Total 400 ml Balance 716 ml -325 ml Intake Oral 360 ml IV Total 356 ml 75 ml Output Urine Total 400 ml # Voids 1 # Bowel Movements 1 Laboratory Tests Test 04/30/18 04:00 04/30/18 07:25 04/30/18 12:00 04/30/18 12:45 White Blood Count 16.0 K/UL (4.8-10.8) H Red Blood Count 3.87 M/UL (4.70-6.10) L Hemoglobin 12.3 G/DL (14.2-18.0) L Hematocrit 33.7 % (42.0-52.0) L Mean Corpuscular Volume 87 FL (80-99) Mean Corpuscular Hemoglobin 31.8 PG (27.0-31.0) H Mean Corpuscular Hemoglobin Concent 36.4 G/DL (32.0-36.0) H Red Cell Distribution Width 12.4 % (11.6-14.8) Platelet Count 144 K/UL (150-450) L Mean Platelet Volume 5.4 FL (6.5-10.1) L Neutrophils (%) (Auto) % (45.0-75.0) Lymphocytes (%) (Auto) % (20.0-45.0) Monocytes (%) (Auto) % (1.0-10.0) Eosinophils (%) (Auto) % (0.0-3.0) Basophils (%) (Auto) % (0.0-2.0) Differential Total Cells Counted 100 Neutrophils % (Manual) 89 % (45-75) H Lymphocytes % (Manual) 8 % (20-45) L Monocytes % (Manual) 3 % (1-10) Eosinophils % (Manual) 0 % (0-3) Basophils % (Manual) 0 % (0-2) Band Neutrophils 0 % (0-8) Platelet Estimate Decreased L Platelet Morphology Normal Red Blood Cell Morphology Normal Sodium Level 142 MMOL/L (136-145) Potassium Level 2.9 MMOL/L (3.5-5.1) L Chloride Level 109 MMOL/L (98-107) H Carbon Dioxide Level 32 MMOL/L (21-32) Anion Gap 2 mmol/L (5-15) L Blood Urea Nitrogen 25 mg/dL (7-18) H Creatinine 0.7 MG/DL (0.55-1.30) Estimat Glomerular Filtration Rate > 60 mL/min (>60) Glucose Level 27 MG/DL (74-106) *L 131 MG/DL (74-106) #H Calcium Level 6.5 MG/DL (8.5-10.1) L Total Bilirubin 1.6 MG/DL (0.2-1.0) H Direct Bilirubin 0.3 MG/DL (0.0-0.3) Aspartate Amino Transf (AST/SGOT) 218 U/L (15-37) H Alanine Aminotransferase (ALT/SGPT) 238 U/L (12-78) H Alkaline Phosphatase 156 U/L (46-116) H Total Protein 3.8 G/DL (6.4-8.2) L Albumin 1.8 G/DL (3.4-5.0) L Globulin 2.0 g/dL Albumin/Globulin Ratio 0.9 (1.0-2.7) L Amylase Level 121 U/L (25-115) H Lipase 496 U/L (73-393) H Urine Color Yellow Urine Appearance Clear Urine pH 8 (4.5-8.0) Urine Specific [place] 1.010 (1.005-1.035) Urine Protein Negative (NEGATIVE) Urine Glucose (UA) 2+ (NEGATIVE) H Urine Ketones Negative (NEGATIVE) Urine Blood Negative (NEGATIVE) Urine Nitrite Negative (NEGATIVE) Urine Bilirubin Negative (NEGATIVE) Urine Urobilinogen 12 MG/DL (0.0-1.0) H Urine Leukocyte Esterase Negative (NEGATIVE) Urine RBC 0-2 /HPF (0 - 0) H Urine WBC 0-2 /HPF (0 - 0) Urine Squamous Epithelial Cells None /LPF (NONE/OCC) Urine Bacteria None /HPF (NONE) Urine Opiates Screen Negative (NEGATIVE) Urine Barbiturates Screen Negative (NEGATIVE) Phencyclidine (PCP) Screen Negative (NEGATIVE) Urine Amphetamines Screen Negative (NEGATIVE) Urine Benzodiazepines Screen Negative (NEGATIVE) Urine Cocaine Screen Positive (NEGATIVE) H Urine Marijuana (THC) Screen Negative (NEGATIVE) Lactic Acid Level 1.60 mmol/L (0.4-2.0) Height (Feet): 5 Height (Inches): 8.00 Weight (Pounds): 141 Medications Current Medications Medications (Trade) Dose Ordered Sig/[place] Route PRN Reason Start Time Stop Time Status Last Admin Dose Admin Acetaminophen (Tylenol) 650 mg Q4H PRN ORAL fever 04/28/18 17:45 05/28/18 17:44 Al Hydroxide/Mg Hydroxide (Mylanta II) 30 ml Q6H PRN ORAL dyspepsia 04/28/18 17:40 05/28/18 17:39 Albuterol/ Ipratropium (Albuterol/ Ipratropium) 3 ml Q4H PRN HHN Shortness of Breath 04/28/18 17:45 05/03/18 17:44 Barium Sulfate (Readi-Cat 2) 450 ml NOW PRN ORAL Radiology Procedure 04/29/18 20:00 05/01/18 19:59 Barium Sulfate (Readi-Cat 2) 450 ml NOW PRN ORAL Radiology Procedure 04/30/18 08:45 04/30/18 23:59 Chlorhexidine Gluconate (Flores-Hex 2%) 1 applic DAILY@1999 TOPIC 04/28/18 20:00 05/28/18 19:59 04/29/18 20:00 Clonidine HCl (Catapres Tab) 0.1 mg Q4H PRN ORAL sbp more than 160 04/28/18 17:45 05/28/18 17:44 Dextrose (Dextrose 50%) 25 ml Q30M PRN IV Hypoglycemia 04/30/18 07:00 05/30/18 06:59 Dextrose (Dextrose 50%) 50 ml Q30M PRN IV Hypoglycemia 04/30/18 07:00 05/30/18 06:59 04/30/18 11:23 Docusate Sodium (Colace) 100 mg THREE TIMES A DAY ORAL 04/29/18 13:00 05/29/18 12:59 04/30/18 08:15 Heparin Sodium (Porcine) (Heparin 5000 units/ml) 5,000 units EVERY 12 HOURS SUBQ 04/28/18 21:00 05/28/18 20:59 04/29/18 08:10 Insulin Aspart (NovoLOG) BEFORE MEALS AND HS SUBQ 04/30/18 11:30 05/30/18 11:29 Iopamidol (Isovue-300 100ml) 100 ml NOW PRN INJ Radiology Procedure 04/29/18 20:00 04/30/18 19:59 Iopamidol (Isovue-300 100ml) 100 ml NOW PRN INJ Radiology Procedure 04/30/18 08:45 04/30/18 23:59 Metoclopramide HCl (Reglan) 10 mg Q6H IVP 04/29/18 20:00 05/29/18 19:59 04/30/18 08:15 Morphine Sulfate (Morphine Sulfate) 2 mg Q4H PRN IVP severe pain 7-10 04/28/18 17:45 05/05/18 17:44 Nitroglycerin (Ntg) 0.4 mg Q5M X 3 DOSES PRN SL Prn Chest Pain 04/28/18 17:45 05/28/18 17:44 Ondansetron HCl (Zofran) 4 mg Q6H PRN IVP Nausea & Vomiting 04/28/18 17:45 05/28/18 17:44 04/29/18 15:56 Piperacillin Sod/ Tazobactam Sod 3.375 gm/Dextrose 110 ml @ 27.5 mls/hr EVERY 8 HOURS IVPB 04/30/18 14:00 05/05/18 13:59 Polyethylene Glycol (Miralax) 17 gm BEDTIME ORAL 04/29/18 21:00 05/29/18 20:59 04/29/18 20:07 Polyethylene Glycol (Miralax) 17 gm HSPRN PRN ORAL Constipation 04/28/18 17:45 05/28/18 17:44 Promethazine HCl 25 mg/Sodium Chloride 56 ml @ 112 mls/hr Q6H PRN IVPB Nausea 04/29/18 10:00 05/29/18 09:59 04/29/18 09:59 Sodium Chloride 1,000 ml @ 75 mls/hr [id number] IVLG 04/29/18 13:00 05/28/18 12:59 04/29/18 13:16 Temazepam (Restoril) 15 mg HSPRN PRN ORAL Insomnia 04/28/18 17:45 05/05/18 17:44 Assessment/Plan Problem List: (1) Intussusception of intestine Assessment & Plan: CT Findings: 1. Short segment small bowel intussusception in the left lower quadrant ( series 5 image 58). No lead point lesions. No evidence of bowel obstruction. No focal bowel wall thickening. No adjacent inflammatory change. This may represent transient intussusception and is of uncertain clinical significance. 2. Sigmoid diverticulosis without wall thickening or adjacent inflammatory change. CT reviewed. - likely transient and benign. exam stable, no obstruction, no thickening, no inflammation. leukocytosis unlikely due to this. does have elevated LFT. possible cholecystitis? possible hepatitis -Ultrasound abdomen ; eval gallbladder/liver -okay for diet after ultrasound completed -trend labs -hepatitis panel. thank you. will follow with recs. ICD Codes: K56.1 - Intussusception SNOMED: [id number] Status: stable [email or web address] Apr 30, 2018 14:49
[2018-04-30] MEDS: Piperacillin/Tazobactam 3.375 GM in D5W 110 ML IVPB SCH ×2 (15:40→21:41)
--- NOTE | 2018-04-30 15:56 | Diagnostic Imaging Report ---
EXAM: US Abdomen Limited, Right Upper Quadrant CLINICAL HISTORY: PAIN TECHNIQUE: Real-time ultrasound of the right upper quadrant with image documentation. COMPARISON: CT abdomen and pelvis dated 04/30/18. FINDINGS: Liver: Mildly echogenic liver, which may suggest fatty infiltration. Liver diameter 15.0 cm. No intrahepatic bile duct dilation. Gallbladder: Unremarkable. No gallstones. No wall thickening. No pericholecystic fluid. Common bile duct: Common bile duct diameter 2.3 mm. No stones. No dilation. Pancreas: Unremarkable as visualized. Pancreatic body and tail are obscured by bowel gas. Kidneys: The kidneys are echogenic, suggesting renal parenchymal disease. Right kidney length of 11.2 cm. Left kidney length of 11.9 cm. No stones. No hydronephrosis. Spleen: Spleen diameter of 9.3 cm. Free fluid: Moderate free fluid/ascites. IMPRESSION: 1. Moderate free fluid/ascites. 2. Mildly echogenic liver, which may suggest fatty infiltration. 3. The kidneys are echogenic, suggesting renal parenchymal disease. No hydronephrosis.
--- NOTE | 2018-04-30 16:57 | Internal Med Progress Note ---
Subjective Physician Name Yunier Edwards Attending Physician Aly Ricks MD Current Medications Medications (Trade) Dose Ordered Sig/[place] Route PRN Reason Start Time Stop Time Status Last Admin Dose Admin Acetaminophen (Tylenol) 650 mg Q4H PRN ORAL fever 04/28/18 17:45 05/28/18 17:44 Al Hydroxide/Mg Hydroxide (Mylanta II) 30 ml Q6H PRN ORAL dyspepsia 04/28/18 17:40 05/28/18 17:39 Albuterol/ Ipratropium (Albuterol/ Ipratropium) 3 ml Q4H PRN HHN Shortness of Breath 04/28/18 17:45 05/03/18 17:44 Barium Sulfate (Readi-Cat 2) 450 ml NOW PRN ORAL Radiology Procedure 04/29/18 20:00 05/01/18 19:59 Barium Sulfate (Readi-Cat 2) 450 ml NOW PRN ORAL Radiology Procedure 04/30/18 08:45 04/30/18 23:59 Chlorhexidine Gluconate (Flores-Hex 2%) 1 applic DAILY@1999 TOPIC 04/28/18 20:00 05/28/18 19:59 04/29/18 20:00 Clonidine HCl (Catapres Tab) 0.1 mg Q4H PRN ORAL sbp more than 160 04/28/18 17:45 05/28/18 17:44 Dextrose (Dextrose 50%) 25 ml Q30M PRN IV Hypoglycemia 04/30/18 07:00 05/30/18 06:59 Dextrose (Dextrose 50%) 50 ml Q30M PRN IV Hypoglycemia 04/30/18 07:00 05/30/18 06:59 04/30/18 11:23 Docusate Sodium (Colace) 100 mg THREE TIMES A DAY ORAL 04/29/18 13:00 05/29/18 12:59 04/30/18 08:15 Heparin Sodium (Porcine) (Heparin 5000 units/ml) 5,000 units EVERY 12 HOURS SUBQ 04/28/18 21:00 05/28/18 20:59 04/29/18 08:10 Insulin Aspart (NovoLOG) BEFORE MEALS AND HS SUBQ 04/30/18 11:30 05/30/18 11:29 Iopamidol (Isovue-300 100ml) 100 ml NOW PRN INJ Radiology Procedure 04/29/18 20:00 04/30/18 19:59 Iopamidol (Isovue-300 100ml) 100 ml NOW PRN INJ Radiology Procedure 04/30/18 08:45 04/30/18 23:59 Metoclopramide HCl (Reglan) 10 mg Q6H IVP 04/29/18 20:00 05/29/18 19:59 04/30/18 15:33 Morphine Sulfate (Morphine Sulfate) 2 mg Q4H PRN IVP severe pain 7-10 04/28/18 17:45 05/05/18 17:44 Nitroglycerin (Ntg) 0.4 mg Q5M X 3 DOSES PRN SL Prn Chest Pain 04/28/18 17:45 05/28/18 17:44 Ondansetron HCl (Zofran) 4 mg Q6H PRN IVP Nausea & Vomiting 04/28/18 17:45 05/28/18 17:44 04/29/18 15:56 Piperacillin Sod/ Tazobactam Sod 3.375 gm/Dextrose 110 ml @ 27.5 mls/hr EVERY 8 HOURS IVPB 04/30/18 14:00 05/05/18 13:59 04/30/18 15:40 Polyethylene Glycol (Miralax) 17 gm BEDTIME ORAL 04/29/18 21:00 05/29/18 20:59 04/29/18 20:07 Polyethylene Glycol (Miralax) 17 gm HSPRN PRN ORAL Constipation 04/28/18 17:45 05/28/18 17:44 Promethazine HCl 25 mg/Sodium Chloride 56 ml @ 112 mls/hr Q6H PRN IVPB Nausea 04/29/18 10:00 05/29/18 09:59 04/29/18 09:59 Sodium Chloride 1,000 ml @ 75 mls/hr [id number] IVLG 04/29/18 13:00 05/28/18 12:59 04/30/18 15:41 Temazepam (Restoril) 15 mg HSPRN PRN ORAL Insomnia 04/28/18 17:45 05/05/18 17:44 Allergies: Coded Allergies: NO KNOWN ALLERGIES (Unverified Allergy, Unknown, 06/26/15) Objective Last Vital Signs Date Time Temp Pulse Resp B/P (MAP) Pulse Ox O2 Delivery O2 Flow Rate FiO2 04/30/18 16:00 78 04/30/18 15:48 96.8 20 109/72 (84) 98 96.8 04/30/18 09:00 Nasal Cannula 2.0 04/30/18 07:22 28 Laboratory Tests Test 04/30/18 04:00 04/30/18 07:25 04/30/18 12:00 04/30/18 12:45 White Blood Count 16.0 K/UL (4.8-10.8) H Red Blood Count 3.87 M/UL (4.70-6.10) L Hemoglobin 12.3 G/DL (14.2-18.0) L Hematocrit 33.7 % (42.0-52.0) L Mean Corpuscular Volume 87 FL (80-99) Mean Corpuscular Hemoglobin 31.8 PG (27.0-31.0) H Mean Corpuscular Hemoglobin Concent 36.4 G/DL (32.0-36.0) H Red Cell Distribution Width 12.4 % (11.6-14.8) Platelet Count 144 K/UL (150-450) L Mean Platelet Volume 5.4 FL (6.5-10.1) L Neutrophils (%) (Auto) % (45.0-75.0) Lymphocytes (%) (Auto) % (20.0-45.0) Monocytes (%) (Auto) % (1.0-10.0) Eosinophils (%) (Auto) % (0.0-3.0) Basophils (%) (Auto) % (0.0-2.0) Differential Total Cells Counted 100 Neutrophils % (Manual) 89 % (45-75) H Lymphocytes % (Manual) 8 % (20-45) L Monocytes % (Manual) 3 % (1-10) Eosinophils % (Manual) 0 % (0-3) Basophils % (Manual) 0 % (0-2) Band Neutrophils 0 % (0-8) Platelet Estimate Decreased L Platelet Morphology Normal Red Blood Cell Morphology Normal Sodium Level 142 MMOL/L (136-145) Potassium Level 2.9 MMOL/L (3.5-5.1) L Chloride Level 109 MMOL/L (98-107) H Carbon Dioxide Level 32 MMOL/L (21-32) Anion Gap 2 mmol/L (5-15) L Blood Urea Nitrogen 25 mg/dL (7-18) H Creatinine 0.7 MG/DL (0.55-1.30) Estimat Glomerular Filtration Rate > 60 mL/min (>60) Glucose Level 27 MG/DL (74-106) *L 131 MG/DL (74-106) #H Calcium Level 6.5 MG/DL (8.5-10.1) L Total Bilirubin 1.6 MG/DL (0.2-1.0) H Direct Bilirubin 0.3 MG/DL (0.0-0.3) Aspartate Amino Transf (AST/SGOT) 218 U/L (15-37) H Alanine Aminotransferase (ALT/SGPT) 238 U/L (12-78) H Alkaline Phosphatase 156 U/L (46-116) H Total Protein 3.8 G/DL (6.4-8.2) L Albumin 1.8 G/DL (3.4-5.0) L Globulin 2.0 g/dL Albumin/Globulin Ratio 0.9 (1.0-2.7) L Amylase Level 121 U/L (25-115) H Lipase 496 U/L (73-393) H Urine Color Yellow Urine Appearance Clear Urine pH 8 (4.5-8.0) Urine Specific [place] 1.010 (1.005-1.035) Urine Protein Negative (NEGATIVE) Urine Glucose (UA) 2+ (NEGATIVE) H Urine Ketones Negative (NEGATIVE) Urine Blood Negative (NEGATIVE) Urine Nitrite Negative (NEGATIVE) Urine Bilirubin Negative (NEGATIVE) Urine Urobilinogen 12 MG/DL (0.0-1.0) H Urine Leukocyte Esterase Negative (NEGATIVE) Urine RBC 0-2 /HPF (0 - 0) H Urine WBC 0-2 /HPF (0 - 0) Urine Squamous Epithelial Cells None /LPF (NONE/OCC) Urine Bacteria None /HPF (NONE) Urine Opiates Screen Negative (NEGATIVE) Urine Barbiturates Screen Negative (NEGATIVE) Phencyclidine (PCP) Screen Negative (NEGATIVE) Urine Amphetamines Screen Negative (NEGATIVE) Urine Benzodiazepines Screen Negative (NEGATIVE) Urine Cocaine Screen Positive (NEGATIVE) H Urine Marijuana (THC) Screen Negative (NEGATIVE) Lactic Acid Level 1.60 mmol/L (0.4-2.0) Microbiology Date/Time Source Procedure Growth Status 04/28/18 19:45 Nasal Nares Left MRSA Culture - Final NO METHICILLIN RESISTANT STAPH AUREUS... Complete Intake and Output 04/29/18 04/30/18 19:00 07:00 Intake Total 716 ml 75 ml Output Total 400 ml Balance 716 ml -325 ml Intake Oral 360 ml IV Total 356 ml 75 ml Output Urine Total 400 ml # Voids 1 # Bowel Movements 1 Objective PHYSICAL EXAMINATION: GENERAL: The patient is thin-appearing male, who is obviously nauseated. HEENT: Eyes, pupils are equal, responsive to light and accommodation. Extraocular movements are intact. NECK: Supple without lymphadenopathy. CHEST: Lungs are clear to auscultation bilaterally without wheezes or rales. CARDIOVASCULAR: Regular rate. S1, S2 normal without murmurs, rubs, or gallops. ABDOMEN: Soft, diffusely tender with positive bowel sounds. No evidence of hepatosplenomegaly. No rebound or guarding noted. EXTREMITIES: Negative for clubbing, cyanosis, or edema. RECTAL: Refused. GENITALIA: Refused. NEUROLOGIC: Cranial nerves II through XII are grossly intact without focal deficits. Motor strength is 5/5 bilaterally. Deep tendon reflexes are 2+ plantar. Assessment/Plan Problem List: (1) Pancreatitis Assessment & Plan: CT and US=no common bile duct stone. See GI note. (2) Hypokalemia Assessment & Plan: Replace KCL IV (3) Hyperglycemia (4) DKA (diabetic ketoacidoses) (5) Uncontrolled diabetes mellitus type 1 without complications Assessment & Plan: Fluctuating glucose. FSBG=27 this am Currently 131. See endocrinology note (6) Intussusception of intestine Assessment & Plan: Non obstructive. Await surgery consult (7) Elevated transaminase level (8) Abdominal pain Status: not improved Yunier Edwards MD Apr 30, 2018 16:57
[2018-04-30 17:08] LABS: ANION GAP 2 mmol/L (5-15); BLOOD UREA NITROGEN 20 mg/dL (7-18); CALCIUM 6.5 MG/DL (8.5-10.1); CARBON DIOXIDE 30 MMOL/L (21-32); CHLORIDE 109 MMOL/L (98-107); CREATININE 0.6 MG/DL (0.55-1.30); POTASSIUM 3.2 MMOL/L (3.5-5.1); SODIUM 140 MMOL/L (136-145)
--- NOTE | 2018-04-30 17:30 | Consultation ---
DATE OF CONSULTATION: 04/30/2018 INFECTIOUS DISEASE CONSULTATION CONSULTING PHYSICIAN: Ewa Vargas M.D. REQUESTING PHYSICIAN: Aly Ricks M.D. REASON FOR CONSULTATION: Leukocytosis, possible sepsis with bowel intussusception, recommendation for antibiotics treatment. HISTORY OF PRESENT ILLNESS: The patient is a 47-year-old male with past medical history of diabetes, poorly controlled and diabetic gastroparesis, presented to [facility] emergency room with abdominal pain, nausea, vomiting, and generalized weakness. The patient was noted to have critically high blood sugar around 800 and he was complaining of diffuse abdominal pain and discomfort with nausea and vomiting. The patient was started on insulin since he did not take any that day and admitted to the hospital for further evaluation and management. The patient had CT scan of the abdomen and pelvis, which showed short segment small bowel intussusception in the left lower quadrant with no evidence of bowel obstruction. Today, his white count are going up around 16,000, they are concerning for sepsis. So, Infectious Disease consultation was requested for antibiotics treatment and further management. The patient today still complaining of abdominal pain and nausea, but no significant vomiting as much as yesterday. Denied any fever or chills. No cough or shortness of breath. No urinary symptoms. No bowel movement or diarrhea so far. REVIEW OF SYSTEMS: A 14-point of systems reviewed were all negative apart from the one I mentioned above in my History and Physical. PAST MEDICAL HISTORY: Significant for diabetes type 2, poorly controlled, and drug abuse. PAST SURGICAL HISTORY: He had right Achilles tendon surgery. ALLERGIES: No known drug allergy. SOCIAL HISTORY: The patient is single and lives with his girlfriend. He smoke tobacco one pack per day. Uses alcohol occasionally. MEDICATIONS: Currently, he is on insulin NovoLog, Iopamidol, MiraLAX, Reglan, docusate sodium, promethazine, heparin, chlorhexidine, albuterol and ipratropium, Tylenol, morphine sulfate, Zofran, nitroglycerin, and Catapres. PHYSICAL EXAMINATION: VITAL SIGNS: Temperature 96.9, pulse 73, respirations 20, blood pressure 109/81, and saturation 98% on 2 liter nasal cannula. GENERAL: A middle-aged male, lying in bed, awake, alert, comfortable, not in acute distress. HEENT: Normocephalic and atraumatic. Pupils are reactive to light. Moist oral mucosa. NECK: Supple. No lymphadenopathy. CARDIOVASCULAR: Regular rate and rhythm. No murmur or gallop. LUNGS: Clear bilaterally. Diminished breathing sounds at the bases. No wheezing or rhonchi. ABDOMEN: Soft. Hyperactive bowel sounds. Mildly tender in the periumbilical area. No rebound. No ascites. No organomegaly. EXTREMITIES: No edema or cyanosis. SKIN: No rash. No hives. LABORATORY AND DIAGNOSTIC DATA: Labs showed white count of 16,000, hemoglobin of 12.3, platelet count of 144. BUN of 25, creatinine of 0.7, AST of 218, ALT of 238, and alkaline phosphatase of 156. Lipase of 496. Urinalysis showed 0 to 2 wbc, leukocyte esterase negative, nitrite negative, and no bacteria in the urine. Imaging, chest x-ray on admission showed no acute findings. CT scan of abdomen and pelvis showed short segment small bowel intussusception in the left lower quadrant. No lead point lesion. No evidence of bowel obstruction. No focal bowel wall thickening. No adjacent inflammatory changes. This may represent intussusception and is of uncertain clinical significance. Sigmoid diverticulosis without wall thickening or adjacent inflammatory changes. ASSESSMENT AND RECOMMENDATION: 1. Intussusception of the intestine, rule out ischemia. Recommend surgical evaluation. Monitor amylase and lactic acid. GI team is following. 2. Elevated transaminase and lipase, rule out gallstone or cholecystitis. We will order ultrasound of the liver to evaluate his gallbladder to rule out acute cholecystitis. The patient will be started on Zosyn empirically. 3. Abdominal pain due to the above. Continue pain management as per primary. 4. Leukocytosis, rule out sepsis. We will send blood culture and start the patient on Zosyn empiric coverage. 5. Renal insufficiency due to dehydration. Continue IV fluids. Monitor renal function. 6. Uncontrolled diabetes with hyperglycemia. Recommend tight glycemic control to keep blood glucose between 100 to 140. Thank you for the consult. ID will continue to follow. Please feel free to call with any question. Ewa Vargas M.D. DR: AVTAR/NONA JOB#: [id number] CC: SELVIN
--- NOTE | 2018-04-30 17:45 | General Progress Note ---
Assessment/Plan Problem List: (1) Uncontrolled diabetes mellitus type 1 without complications ICD Codes: E10.9 - Type 1 diabetes mellitus without complications SNOMED: 015012833 (2) Pancreatitis ICD Codes: K85.90 - Acute pancreatitis without necrosis or infection, unspecified SNOMED: 92588739 (3) Hyponatremia ICD Codes: E87.1 - Hyponatremia SNOMED: 33098147 (4) Nausea, vomiting, and diarrhea ICD Codes: R11.2 - Nausea with vomiting, unspecified; R19.7 - Diarrhea, unspecified SNOMED: 9428332 Assessment/Plan change IVF to D5NS + 20 meq of KCL at 100 cc/hour DC all scheduled insulin orders Novolog sliding scale only Subjective Allergies: Coded Allergies: NO KNOWN ALLERGIES (Unverified Allergy, Unknown, 06/26/15) All Systems: reviewed and negative except above Subjective events noted continues to be hypoglycemic despite not being given any insulin for 2 days - last dose was Levemir 24 units 2 nights ago still having N/V Objective Last 24 Hour Vital Signs Date Time Temp Pulse Resp B/P (MAP) Pulse Ox O2 Delivery O2 Flow Rate FiO2 04/30/18 16:00 78 04/30/18 15:48 96.8 68 20 109/72 (84) 98 96.8 04/30/18 12:00 69 04/30/18 11:46 96.9 73 20 109/81 (90) 98 96.9 04/30/18 09:00 Nasal Cannula 2.0 04/30/18 08:00 74 04/30/18 08:00 96.8 76 20 105/66 (79) 99 96.8 04/30/18 07:22 Nasal Cannula 2.0 04/30/18 07:21 79 18 Nasal Cannula 2.0 04/30/18 04:00 97.6 88 18 99/54 (69) 100 97.6 04/30/18 04:00 77 04/30/18 00:00 90 04/30/18 00:00 98.4 74 18 93/65 (74) 93 98.4 04/29/18 21:00 Nasal Cannula 2.0 04/29/18 20:40 Nasal Cannula 2.0 04/29/18 20:39 85 20 Room Air 21 04/29/18 20:00 97.0 90 19 98/72 (81) 95 97.0 9/28/18 20:00 93 Intake and Output 04/29/18 04/30/18 19:00 07:00 Intake Total 716 ml 75 ml Output Total 400 ml Balance 716 ml -325 ml Intake Oral 360 ml IV Total 356 ml 75 ml Output Urine Total 400 ml # Voids 1 # Bowel Movements 1 Laboratory Tests 04/30/18 04:00: White Blood Count 16.0H, Red Blood Count 3.87L, Hemoglobin 12.3L, Hematocrit 33.7L, Mean Corpuscular Volume 87, Mean Corpuscular Hemoglobin 31.8H, Mean Corpuscular Hemoglobin Concent 36.4H, Red Cell Distribution Width 12.4, Platelet Count 144L, Mean Platelet Volume 5.4L, Neutrophils (%) (Auto) , Lymphocytes (%) (Auto) , Monocytes (%) (Auto) , Eosinophils (%) (Auto) , Basophils (%) (Auto) , Differential Total Cells Counted 100, Neutrophils % ( Manual) 89H, Lymphocytes % (Manual) 8L, Monocytes % (Manual) 3, Eosinophils % ( Manual) 0, Basophils % (Manual) 0, Band Neutrophils 0, Platelet Estimate DecreasedL, Platelet Morphology Normal, Red Blood Cell Morphology Normal, Sodium Level 142, Potassium Level 2.9L, Chloride Level 109H, Carbon Dioxide Level 32, Anion Gap 2L, Blood Urea Nitrogen 25H, Creatinine 0.7, Estimat Glomerular Filtration Rate > 60, Glucose Level 27*L, Calcium Level 6.5L, Total Bilirubin 1.6H, Direct Bilirubin 0.3, Aspartate Amino Transf (AST/SGOT) 218H, Alanine Aminotransferase (ALT/SGPT) 238H, Alkaline Phosphatase 156H, Total Protein 3.8L, Albumin 1.8L, Globulin 2.0, Albumin/Globulin Ratio 0.9L, Amylase Level 121H, Lipase 496H 04/30/18 07:25: Urine Color Yellow, Urine Appearance Clear, Urine pH 8, Urine Specific [place] 1.010, Urine Protein Negative, Urine Glucose (UA) 2+H, Urine Ketones Negative, Urine Blood Negative, Urine Nitrite Negative, Urine Bilirubin Negative, Urine Urobilinogen 12H, Urine Leukocyte Esterase Negative, Urine RBC 0-2H, Urine WBC 0 -2, Urine Squamous Epithelial Cells None, Urine Bacteria None, Urine Opiates Screen Negative, Urine Barbiturates Screen Negative, Phencyclidine (PCP) Screen Negative, Urine Amphetamines Screen Negative, Urine Benzodiazepines Screen Negative, Urine Cocaine Screen PositiveH, Urine Marijuana (THC) Screen Negative 04/30/18 12:00: Glucose Level 131#H 04/30/18 12:45: Lactic Acid Level 1.60 04/30/18 15:40: Sodium Level 140, Potassium Level 3.2L, Chloride Level 109H, Carbon Dioxide Level 30, Anion Gap 2L, Blood Urea Nitrogen 20H, Creatinine 0.6, Estimat Glomerular Filtration Rate > 60, Glucose Level 78, Calcium Level 6.5L Height (Feet): 5 Height (Inches): 8.00 Weight (Pounds): 141 General Appearance: no apparent distress, moderate distress Neck: non-tender Respiratory/Chest: lungs clear Abdomen: normal bowel sounds Objective Current Medications Medications (Trade) Dose Ordered Sig/[place] Route PRN Reason Start Time Stop Time Status Last Admin Dose Admin Acetaminophen (Tylenol) 650 mg Q4H PRN ORAL fever 04/28/18 17:45 05/28/18 17:44 Al Hydroxide/Mg Hydroxide (Mylanta II) 30 ml Q6H PRN ORAL dyspepsia 04/28/18 17:40 05/28/18 17:39 Albuterol/ Ipratropium (Albuterol/ Ipratropium) 3 ml Q4H PRN HHN Shortness of Breath 04/28/18 17:45 05/03/18 17:44 Barium Sulfate (Readi-Cat 2) 450 ml NOW PRN ORAL Radiology Procedure 04/29/18 20:00 05/01/18 19:59 Barium Sulfate (Readi-Cat 2) 450 ml NOW PRN ORAL Radiology Procedure 04/30/18 08:45 04/30/18 23:59 Chlorhexidine Gluconate (Flores-Hex 2%) 1 applic DAILY@2000 TOPIC 04/28/18 20:00 05/28/18 19:59 04/29/18 20:00 Clonidine HCl (Catapres Tab) 0.1 mg Q4H PRN ORAL sbp more than 160 04/28/18 17:45 05/28/18 17:44 Dextrose (Dextrose 50%) 25 ml Q30M PRN IV Hypoglycemia 04/30/18 07:00 05/30/18 06:59 Dextrose (Dextrose 50%) 50 ml Q30M PRN IV Hypoglycemia 04/30/18 07:00 05/30/18 06:59 04/30/18 11:23 Docusate Sodium (Colace) 100 mg THREE TIMES A DAY ORAL 04/29/18 13:00 05/29/18 12:59 04/30/18 08:15 Heparin Sodium (Porcine) (Heparin 5000 units/ml) 5,000 units EVERY 12 HOURS SUBQ 04/28/18 21:00 05/28/18 20:59 04/29/18 08:10 Insulin Aspart (NovoLOG) BEFORE MEALS AND HS SUBQ 04/30/18 11:30 05/30/18 11:29 Iopamidol (Isovue-300 100ml) 100 ml NOW PRN INJ Radiology Procedure 04/29/18 20:00 04/30/18 19:59 Iopamidol (Isovue-300 100ml) 100 ml NOW PRN INJ Radiology Procedure 04/30/18 08:45 04/30/18 23:59 Metoclopramide HCl (Reglan) 10 mg Q6H IVP 04/29/18 20:00 05/29/18 19:59 04/30/18 15:33 Morphine Sulfate (Morphine Sulfate) 2 mg Q4H PRN IVP severe pain 7-10 04/28/18 17:45 05/05/18 17:44 Nitroglycerin (Ntg) 0.4 mg Q5M X 3 DOSES PRN SL Prn Chest Pain 04/28/18 17:45 05/28/18 17:44 Ondansetron HCl (Zofran) 4 mg Q6H PRN IVP Nausea & Vomiting 04/28/18 17:45 05/28/18 17:44 04/29/18 15:56 Piperacillin Sod/ Tazobactam Sod 3.375 gm/Dextrose 110 ml @ 27.5 mls/hr EVERY 8 HOURS IVPB 04/30/18 14:00 05/05/18 13:59 04/30/18 15:40 Polyethylene Glycol (Miralax) 17 gm BEDTIME ORAL 04/29/18 21:00 05/29/18 20:59 04/29/18 20:07 Polyethylene Glycol (Miralax) 17 gm HSPRN PRN ORAL Constipation 04/28/18 17:45 05/28/18 17:44 Potassium Chloride 100 ml @ 50 mls/hr ONCE IVPB 04/30/18 17:30 04/30/18 19:30 Promethazine HCl 25 mg/Sodium Chloride 56 ml @ 112 mls/hr Q6H PRN IVPB Nausea 04/29/18 10:00 05/29/18 09:59 04/29/18 09:59 Sodium Chloride 1,000 ml @ 75 mls/hr [id number] IVLG 04/29/18 13:00 05/28/18 12:59 04/30/18 15:41 Temazepam (Restoril) 15 mg HSPRN PRN ORAL Insomnia 04/28/18 17:45 05/05/18 17:44 Item Value Date Time Bedside Blood Glucose 126 mg/dl H 04/30/18 1639 Bedside Blood Glucose 131 mg/dl H 04/30/18 1245 Bedside Blood Glucose 133 mg/dl H 04/30/18 0602 Glucose Level 27 MG/DL *L 04/30/18 0400 Saad Laurent MD Apr 30, 2018 17:45
[2018-04-30] MEDS: Dyna-Hex 2% Top Sol 2oz TOPIC SCH (20:19)
[2018-04-30] MEDS: Miralax 17gm pkt ORAL SCH (21:00)
[2018-05-01] MEDS: Metoclopramide 10mg/2ml Inj IVP SCH (02:03)
[2018-05-01 04:00] VITALS: BP 100/78
[2018-05-01] MEDS: Piperacillin/Tazobactam 3.375 GM in D5W 110 ML IVPB SCH ×3 (06:10→21:30)
[2018-05-01] MEDS: NovoLOG Insulin Flexpen SUBQ SCH ×6 (06:39→21:33)
[2018-05-01 07:19] LABS: BASOPHILS % (AUTO) 0.2 % (0.0-2.0); EOSINOPHILS % (AUTO) 0.2 % (0.0-3.0); HEMATOCRIT 28.5 % (42.0-52.0); HEMOGLOBIN 10.4 G/DL (14.2-18.0); LYMPHOCYTES % (AUTO) 11.2 % (20.0-45.0); MEAN CORPUSCULAR VOLUME 88 FL (80-99); MONOCYTES % (AUTO) 4.4 % (1.0-10.0); PLATELET COUNT 112 K/UL (150-450); RED BLOOD COUNT 3.23 M/UL (4.70-6.10); RED CELL DISTRIBUTION WIDTH 12.9 % (11.6-14.8); WHITE BLOOD COUNT 9.3 K/UL (4.8-10.8)
[2018-05-01 07:52] LABS: ALANINE AMINOTRANSFERASE 187 U/L (12-78); ALBUMIN 1.6 G/DL (3.4-5.0); ALBUMIN/GLOBULIN RATIO 0.8 (1.0-2.7); ALKALINE PHOSPHATASE 130 U/L (46-116); AMYLASE 89 U/L (25-115); ANION GAP 3 mmol/L (5-15); ASPARTATE AMINO TRANSFERASE 111 U/L (15-37); BILIRUBIN,TOTAL 2.5 MG/DL (0.2-1.0); BLOOD UREA NITROGEN 18 mg/dL (7-18); CALCIUM 6.5 MG/DL (8.5-10.1); CARBON DIOXIDE 29 MMOL/L (21-32); CHLORIDE 110 MMOL/L (98-107); CHOLESTEROL 94 MG/DL (< 200); CREATININE 0.5 MG/DL (0.55-1.30); HDL CHOLESTEROL 52 MG/DL (40-60); POTASSIUM 3.7 MMOL/L (3.5-5.1); SODIUM 142 MMOL/L (136-145); TRIGLYCERIDES 64 MG/DL (30-150)
[2018-05-01 07:55] LABS: BILIRUBIN,DIRECT 0.2 MG/DL (0.0-0.3)
[2018-05-01 08:00] VITALS: BP 108/85
--- NOTE | 2018-05-01 08:03 | General Progress Note ---
Assessment/Plan Assessment/Plan Problems: (1) Constipation (2) Drug abuse (3) H/O cocaine abuse (4) Uncontrolled diabetes mellitus type 1 without complications (5) Episode of generalized weakness (6) Altered level of consciousness (7) Abdominal pain (8) DKA (diabetic ketoacidoses) (9) elevated LFTS (10) elevated lipase Plan pt admits to recent cocaine use symptomatic treatment IV/PO hydration fu LFTs, lipase zofran prn pain mgmt bowel regime fu labs advance diet anemia work up add reglan hepatitis panel ordered Subjective ROS Limited/Unobtainable: Yes Allergies: Coded Allergies: NO KNOWN ALLERGIES (Unverified Allergy, Unknown, 06/26/15) Subjective vomiting Objective Last 24 Hour Vital Signs Date Time Temp Pulse Resp B/P (MAP) Pulse Ox O2 Delivery O2 Flow Rate FiO2 05/01/18 04:00 97.7 92 20 100/78 (85) 96 97.7 05/01/18 04:00 100 05/01/18 00:00 89 04/30/18 23:57 97.7 76 20 90/63 (72) 97 97.7 04/30/18 21:00 Room Air 04/30/18 20:00 90 04/30/18 20:00 98.2 84 20 95/77 (83) 95 98.2 04/30/18 19:25 86 18 Nasal Cannula 1.0 24 04/30/18 19:25 Nasal Cannula 1.0 24 04/30/18 16:00 78 04/30/18 15:48 96.8 68 20 109/72 (84) 98 96.8 04/30/18 12:00 69 04/30/18 11:46 96.9 73 20 109/81 (90) 98 96.9 04/30/18 09:00 Nasal Cannula 2.0 Intake and Output 04/30/18 05/01/18 19:00 07:00 Intake Total 625 ml 230 ml Output Total 970 ml Balance -345 ml 230 ml Intake Oral 400 ml 120 ml IV Total 225 ml 110 ml Output Urine Total 970 ml # Voids 1 Laboratory Tests 04/30/18 12:00: Glucose Level 131#H 04/30/18 12:45: Lactic Acid Level 1.60 04/30/18 15:40: Glucose Level 78, Sodium Level 140, Potassium Level 3.2L, Chloride Level 109H, Carbon Dioxide Level 30, Anion Gap 2L, Blood Urea Nitrogen 20H, Creatinine 0.6, Estimat Glomerular Filtration Rate > 60, Calcium Level 6.5L 05/01/18 05:45: Glucose Level 233#H, Sodium Level 142, Potassium Level 3.7, Chloride Level 110H , Carbon Dioxide Level 29, Anion Gap 3L, Blood Urea Nitrogen 18, Creatinine 0.5L , Estimat Glomerular Filtration Rate > 60, Calcium Level 6.5L, White Blood Count 9.3, Red Blood Count 3.23L, Hemoglobin 10.4L, Hematocrit 28.5L, Mean Corpuscular Volume 88, Mean Corpuscular Hemoglobin 32.3H, Mean Corpuscular Hemoglobin Concent 36.7H, Red Cell Distribution Width 12.9, Platelet Count 112L , Mean Platelet Volume 5.8L, Neutrophils (%) (Auto) 84.0H, Lymphocytes (%) (Auto ) 11.2L, Monocytes (%) (Auto) 4.4, Eosinophils (%) (Auto) 0.2, Basophils (%) ( Auto) 0.2, Prothrombin Time [Pending], Prothromb Time International Ratio [ Pending], Total Bilirubin 2.5H, Direct Bilirubin 0.2, Aspartate Amino Transf ( AST/SGOT) 111H, Alanine Aminotransferase (ALT/SGPT) 187H, Alkaline Phosphatase 130H, Total Protein 3.7L, Albumin 1.6L, Globulin 2.1, Albumin/Globulin Ratio 0.8L, Triglycerides Level 64, Cholesterol Level 94, LDL Cholesterol 29, HDL Cholesterol 52, Cholesterol/HDL Ratio 1.8L, Amylase Level 89, Lipase 254 Height (Feet): 5 Height (Inches): 8.00 Weight (Pounds): 141 General Appearance: alert EENT: normal ENT inspection Neck: supple Cardiovascular: normal rate Respiratory/Chest: decreased breath sounds Abdomen: normal bowel sounds, non tender, soft Extremities: non-tender Pedro Ascencio MD May 01, 2018 08:03
[2018-05-01 08:11] LABS: INR 1.1 (0.9-1.1)
[2018-05-01] MEDS: Docusate 100mg cap ORAL SCH ×3 (08:12→17:38)
[2018-05-01] MEDS: Heparin 5000 units/ml inj SUBQ SCH ×2 (08:15→21:32)
[2018-05-01] MEDS ORDERED: NS 275ml ONE (08:43)
[2018-05-01] MEDS ORDERED: D5 1/2NS 1000ml IV ONE (08:43)
[2018-05-01] MEDS: Metoclopramide 10mg/10ml Liq ORAL SCH ×2 (11:21→17:38)
[2018-05-01 12:00] VITALS: BP 110/64
[2018-05-01] MEDS ORDERED: Metoclopramide 10mg/10ml Liq NG SCH ×2 (12:00)
--- NOTE | 2018-05-01 12:03 | General Progress Note ---
Assessment/Plan Problem List: (1) Uncontrolled diabetes mellitus type 1 without complications ICD Codes: E10.9 - Type 1 diabetes mellitus without complications SNOMED: 738461865 (2) Pancreatitis ICD Codes: K85.90 - Acute pancreatitis without necrosis or infection, unspecified SNOMED: 97694329 (3) Hyponatremia ICD Codes: E87.1 - Hyponatremia SNOMED: 47683005 (4) Nausea, vomiting, and diarrhea ICD Codes: R11.2 - Nausea with vomiting, unspecified; R19.7 - Diarrhea, unspecified SNOMED: 7727510 Assessment/Plan change IVF to NS + 20 meq of KCL at 75 cc/hour start Levemir 15 units daily start Novolog 4 units ac tid + NISS Subjective Allergies: Coded Allergies: NO KNOWN ALLERGIES (Unverified Allergy, Unknown, 06/26/15) All Systems: reviewed and negative except above Subjective events noted glucose higher now eating solid food N/V improved Objective Last 24 Hour Vital Signs Date Time Temp Pulse Resp B/P (MAP) Pulse Ox O2 Delivery O2 Flow Rate FiO2 05/01/18 09:00 Room Air 05/01/18 08:00 101 05/01/18 08:00 97.5 53 20 108/85 (93) 96 97.5 05/01/18 04:00 97.7 92 20 100/78 (85) 96 97.7 05/01/18 04:00 100 05/01/18 00:00 89 04/30/18 23:57 97.7 76 20 90/63 (72) 97 97.7 04/30/18 21:00 Room Air 04/30/18 20:00 90 04/30/18 20:00 98.2 84 20 95/77 (83) 95 98.2 04/30/18 19:25 86 18 Nasal Cannula 1.0 24 04/30/18 19:25 Nasal Cannula 1.0 24 04/30/18 16:00 78 04/30/18 15:48 96.8 68 20 109/72 (84) 98 96.8 Intake and Output 04/30/18 05/01/18 19:00 07:00 Intake Total 625 ml 230 ml Output Total 970 ml Balance -345 ml 230 ml Intake Oral 400 ml 120 ml IV Total 225 ml 110 ml Output Urine Total 970 ml # Voids 1 Laboratory Tests 04/30/18 12:45: Lactic Acid Level 1.60 04/30/18 15:40: Sodium Level 140, Potassium Level 3.2L, Chloride Level 109H, Carbon Dioxide Level 30, Anion Gap 2L, Blood Urea Nitrogen 20H, Creatinine 0.6, Estimat Glomerular Filtration Rate > 60, Glucose Level 78, Calcium Level 6.5L 05/01/18 05:45: Sodium Level 142, Potassium Level 3.7, Chloride Level 110H, Carbon Dioxide Level 29, Anion Gap 3L, Blood Urea Nitrogen 18, Creatinine 0.5L, Estimat Glomerular Filtration Rate > 60, Glucose Level 233#H, Calcium Level 6.5L, White Blood Count 9.3, Red Blood Count 3.23L, Hemoglobin 10.4L, Hematocrit 28.5L, Mean Corpuscular Volume 88, Mean Corpuscular Hemoglobin 32.3H, Mean Corpuscular Hemoglobin Concent 36.7H, Red Cell Distribution Width 12.9, Platelet Count 112L , Mean Platelet Volume 5.8L, Neutrophils (%) (Auto) 84.0H, Lymphocytes (%) (Auto ) 11.2L, Monocytes (%) (Auto) 4.4, Eosinophils (%) (Auto) 0.2, Basophils (%) ( Auto) 0.2, Prothrombin Time 11.6H, Prothromb Time International Ratio 1.1, Total Bilirubin 2.5H, Direct Bilirubin 0.2, Aspartate Amino Transf (AST/SGOT) 111H, Alanine Aminotransferase (ALT/SGPT) 187H, Alkaline Phosphatase 130H, Total Protein 3.7L, Albumin 1.6L, Globulin 2.1, Albumin/Globulin Ratio 0.8L, Triglycerides Level 64, Cholesterol Level 94, LDL Cholesterol 29, HDL Cholesterol 52, Cholesterol/HDL Ratio 1.8L, Amylase Level 89, Lipase 254 Height (Feet): 5 Height (Inches): 8.00 Weight (Pounds): 141 General Appearance: no apparent distress Neck: normal alignment Cardiovascular: normal rate Respiratory/Chest: lungs clear Abdomen: normal bowel sounds Objective Current Medications Medications (Trade) Dose Ordered Sig/[place] Route PRN Reason Start Time Stop Time Status Last Admin Dose Admin Acetaminophen (Tylenol) 650 mg Q4H PRN ORAL fever 04/28/18 17:45 05/28/18 17:44 Al Hydroxide/Mg Hydroxide (Mylanta II) 30 ml Q6H PRN ORAL dyspepsia 04/28/18 17:40 05/28/18 17:39 Albuterol/ Ipratropium (Albuterol/ Ipratropium) 3 ml Q4H PRN HHN Shortness of Breath 04/28/18 17:45 05/03/18 17:44 Barium Sulfate (Readi-Cat 2) 450 ml NOW PRN ORAL Radiology Procedure 04/29/18 20:00 05/01/18 19:59 Chlorhexidine Gluconate (Flores-Hex 2%) 1 applic DAILY@2000 TOPIC 04/28/18 20:00 05/28/18 19:59 04/30/18 20:19 Clonidine HCl (Catapres Tab) 0.1 mg Q4H PRN ORAL sbp more than 160 04/28/18 17:45 05/28/18 17:44 Dextrose (Dextrose 50%) 25 ml Q30M PRN IV Hypoglycemia 04/30/18 07:00 05/30/18 06:59 Dextrose (Dextrose 50%) 50 ml Q30M PRN IV Hypoglycemia 04/30/18 07:00 05/30/18 06:59 04/30/18 11:23 Dextrose/ Electrolytes 1,000 ml @ 100 mls/hr Q10H IV 04/30/18 18:00 05/30/18 17:59 05/01/18 06:10 Docusate Sodium (Colace) 100 mg THREE TIMES A DAY ORAL 04/29/18 13:00 05/29/18 12:59 05/01/18 08:12 Heparin Sodium (Porcine) (Heparin 5000 units/ml) 5,000 units EVERY 12 HOURS SUBQ 04/28/18 21:00 05/28/18 20:59 04/30/18 21:12 Insulin Aspart (NovoLOG) BEFORE MEALS AND HS SUBQ 04/30/18 11:30 05/30/18 11:29 05/01/18 11:16 Metoclopramide HCl (Reglan) 5 mg EVERY 6 HOURS ORAL 05/01/18 12:00 05/31/18 11:59 05/01/18 11:21 Morphine Sulfate (Morphine Sulfate) 2 mg Q4H PRN IVP severe pain 7-10 04/28/18 17:45 05/05/18 17:44 Nitroglycerin (Ntg) 0.4 mg Q5M X 3 DOSES PRN SL Prn Chest Pain 04/28/18 17:45 05/28/18 17:44 Ondansetron HCl (Zofran) 4 mg Q6H PRN IVP Nausea & Vomiting 04/28/18 17:45 05/28/18 17:44 05/01/18 05:51 Piperacillin Sod/ Tazobactam Sod 3.375 gm/Dextrose 110 ml @ 27.5 mls/hr EVERY 8 HOURS IVPB 04/30/18 14:00 05/05/18 13:59 05/01/18 06:10 Polyethylene Glycol (Miralax) 17 gm BEDTIME ORAL 04/29/18 21:00 05/29/18 20:59 04/29/18 20:07 Polyethylene Glycol (Miralax) 17 gm HSPRN PRN ORAL Constipation 04/28/18 17:45 05/28/18 17:44 Promethazine HCl 25 mg/Sodium Chloride 56 ml @ 112 mls/hr Q6H PRN IVPB Nausea 04/29/18 10:00 05/29/18 09:59 04/29/18 09:59 Temazepam (Restoril) 15 mg HSPRN PRN ORAL Insomnia 04/28/18 17:45 05/05/18 17:44 Item Value Date Time Bedside Blood Glucose 335 mg/dl H 05/01/18 1130 Saad Laurent MD May 01, 2018 12:03
--- NOTE | 2018-05-01 12:53 | General Surgery Progress Note ---
General Surgery-Progress Note Subjective Additional Comments CT/US completed and reviewed. passing flatus and BM. started on diet. intermittent nausea and emesis. states he feels bloated. no fever or chills. labs noted. Objective Last 24 Hour Vital Signs Date Time Temp Pulse Resp B/P (MAP) Pulse Ox O2 Delivery O2 Flow Rate FiO2 05/01/18 12:00 96.4 96 20 110/64 (79) 98 96.4 05/01/18 09:00 Room Air 05/01/18 08:48 Nasal Cannula 2.0 28 05/01/18 08:42 66 18 Nasal Cannula 2.0 24 05/01/18 08:00 101 05/01/18 08:00 97.5 53 20 108/85 (93) 96 97.5 05/01/18 04:00 97.7 92 20 100/78 (85) 96 97.7 05/01/18 04:00 100 05/01/18 00:00 89 04/30/18 23:57 97.7 76 20 90/63 (72) 97 97.7 04/30/18 21:00 Room Air 04/30/18 20:00 90 04/30/18 20:00 98.2 84 20 95/77 (83) 95 98.2 04/30/18 19:25 86 18 Nasal Cannula 1.0 24 04/30/18 19:25 Nasal Cannula 1.0 24 04/30/18 16:00 78 04/30/18 15:48 96.8 68 20 109/72 (84) 98 96.8 I&O Intake and Output 04/30/18 05/01/18 19:00 07:00 Intake Total 625 ml 230 ml Output Total 970 ml Balance -345 ml 230 ml Intake Oral 400 ml 120 ml IV Total 225 ml 110 ml Output Urine Total 970 ml # Voids 1 Drains: none Cardiovascular: RSR Respiratory: clear Abdomen: soft, distended, non-tender, present bowel sounds Extremities: edema, no cyanosis, other Laboratory Tests Test 04/30/18 15:40 05/01/18 05:45 Sodium Level 140 MMOL/L (136-145) 142 MMOL/L (136-145) Potassium Level 3.2 MMOL/L (3.5-5.1) L 3.7 MMOL/L (3.5-5.1) Chloride Level 109 MMOL/L (98-107) H 110 MMOL/L (98-107) H Carbon Dioxide Level 30 MMOL/L (21-32) 29 MMOL/L (21-32) Anion Gap 2 mmol/L (5-15) L 3 mmol/L (5-15) L Blood Urea Nitrogen 20 mg/dL (7-18) H 18 mg/dL (7-18) Creatinine 0.6 MG/DL (0.55-1.30) 0.5 MG/DL (0.55-1.30) L Estimat Glomerular Filtration Rate > 60 mL/min (>60) > 60 mL/min (>60) Glucose Level 78 MG/DL (74-106) 233 MG/DL (74-106) #H Calcium Level 6.5 MG/DL (8.5-10.1) L 6.5 MG/DL (8.5-10.1) L White Blood Count 9.3 K/UL (4.8-10.8) Red Blood Count 3.23 M/UL (4.70-6.10) L Hemoglobin 10.4 G/DL (14.2-18.0) L Hematocrit 28.5 % (42.0-52.0) L Mean Corpuscular Volume 88 FL (80-99) Mean Corpuscular Hemoglobin 32.3 PG (27.0-31.0) H Mean Corpuscular Hemoglobin Concent 36.7 G/DL (32.0-36.0) H Red Cell Distribution Width 12.9 % (11.6-14.8) Platelet Count 112 K/UL (150-450) L Mean Platelet Volume 5.8 FL (6.5-10.1) L Neutrophils (%) (Auto) 84.0 % (45.0-75.0) H Lymphocytes (%) (Auto) 11.2 % (20.0-45.0) L Monocytes (%) (Auto) 4.4 % (1.0-10.0) Eosinophils (%) (Auto) 0.2 % (0.0-3.0) Basophils (%) (Auto) 0.2 % (0.0-2.0) Prothrombin Time 11.6 SEC (9.30-11.50) H Prothromb Time International Ratio 1.1 (0.9-1.1) Total Bilirubin 2.5 MG/DL (0.2-1.0) H Direct Bilirubin 0.2 MG/DL (0.0-0.3) Aspartate Amino Transf (AST/SGOT) 111 U/L (15-37) H Alanine Aminotransferase (ALT/SGPT) 187 U/L (12-78) H Alkaline Phosphatase 130 U/L (46-116) H Total Protein 3.7 G/DL (6.4-8.2) L Albumin 1.6 G/DL (3.4-5.0) L Globulin 2.1 g/dL Albumin/Globulin Ratio 0.8 (1.0-2.7) L Triglycerides Level 64 MG/DL (30-150) Cholesterol Level 94 MG/DL (< 200) LDL Cholesterol 29 mg/dL (<100) HDL Cholesterol 52 MG/DL (40-60) Cholesterol/HDL Ratio 1.8 (3.3-4.4) L Amylase Level 89 U/L (25-115) Lipase 254 U/L (73-393) Plan Problems: (1) Intussusception of intestine Assessment & Plan: CT Findings: 1. Short segment small bowel intussusception in the left lower quadrant ( series 5 image 58). No lead point lesions. No evidence of bowel obstruction. No focal bowel wall thickening. No adjacent inflammatory change. This may represent transient intussusception and is of uncertain clinical significance. 2. Sigmoid diverticulosis without wall thickening or adjacent inflammatory change. CT reviewed. - likely transient and benign. exam stable, no obstruction, no thickening, no inflammation. leukocytosis unlikely due to this. does have elevated LFT. possible cholecystitis? possible hepatitis Ultrasound reviewed. ascites and liver abnormal. Gallbladder okay. t bili elevated. lip/nicolette nml. lfts improved. denies EtOH history. likely hepatitis? abd distention related to ascites. unsure of etiology for nausea and emesis but not obstructive in nature. -PPI -KUB -trend labs -hepatitis panel. thank you. will follow with recs. Long Guevara May 01, 2018 12:53
[2018-05-01] MEDS ORDERED: Levemir Flexpen SUBQ SCH (13:30)
[2018-05-01] MEDS ORDERED: NS w/KCl 20mEq 1,000 ML IV SCH (13:30)
--- NOTE | 2018-05-01 15:44 | Internal Med Progress Note ---
Subjective Date of Service: May 01, 2018 Physician Name EdwardsYunier Attending Physician Aly Ricks MD Current Medications Medications (Trade) Dose Ordered Sig/Herm[place] Route PRN Reason Start Time Stop Time Status Last Admin Dose Admin Acetaminophen (Tylenol) 650 mg Q4H PRN ORAL fever 04/28/18 17:45 05/28/18 17:44 Al Hydroxide/Mg Hydroxide (Mylanta II) 30 ml Q6H PRN ORAL dyspepsia 04/28/18 17:40 05/28/18 17:39 Albuterol/ Ipratropium (Albuterol/ Ipratropium) 3 ml Q4H PRN HHN Shortness of Breath 04/28/18 17:45 05/03/18 17:44 Barium Sulfate (Readi-Cat 2) 450 ml NOW PRN ORAL Radiology Procedure 04/29/18 20:00 05/01/18 19:59 Chlorhexidine Gluconate (Flores-Hex 2%) 1 applic DAILY@2000 TOPIC 04/28/18 20:00 05/28/18 19:59 04/30/18 20:19 Clonidine HCl (Catapres Tab) 0.1 mg Q4H PRN ORAL sbp more than 160 04/28/18 17:45 05/28/18 17:44 Dextrose (Dextrose 50%) 25 ml Q30M PRN IV Hypoglycemia 04/30/18 07:00 05/30/18 06:59 Dextrose (Dextrose 50%) 50 ml Q30M PRN IV Hypoglycemia 04/30/18 07:00 05/30/18 06:59 04/30/18 11:23 Docusate Sodium (Colace) 100 mg THREE TIMES A DAY ORAL 04/29/18 13:00 05/29/18 12:59 05/01/18 13:36 Heparin Sodium (Porcine) (Heparin 5000 units/ml) 5,000 units EVERY 12 HOURS SUBQ 04/28/18 21:00 05/28/18 20:59 04/30/18 21:12 Insulin Aspart (NovoLOG) BEFORE MEALS AND HS SUBQ 04/30/18 11:30 05/30/18 11:29 05/01/18 11:16 Insulin Aspart (NovoLOG) 4 units NOVOTIAC SUBQ 05/01/18 13:30 05/31/18 13:29 Insulin Detemir (Levemir) 15 units DAILY SUBQ 05/01/18 13:30 05/31/18 13:29 05/01/18 14:05 Metoclopramide HCl (Reglan) 5 mg EVERY 6 HOURS ORAL 05/01/18 12:00 05/31/18 11:59 05/01/18 11:21 Morphine Sulfate (Morphine Sulfate) 2 mg Q4H PRN IVP severe pain 7-10 04/28/18 17:45 05/05/18 17:44 Nitroglycerin (Ntg) 0.4 mg Q5M X 3 DOSES PRN SL Prn Chest Pain 04/28/18 17:45 05/28/18 17:44 Ondansetron HCl (Zofran) 4 mg Q6H PRN IVP Nausea & Vomiting 04/28/18 17:45 05/28/18 17:44 05/01/18 05:51 Pantoprazole (Protonix) 40 mg DAILY ORAL 05/02/18 09:00 06/01/18 08:59 Piperacillin Sod/ Tazobactam Sod 3.375 gm/Dextrose 110 ml @ 27.5 mls/hr EVERY 8 HOURS IVPB 04/30/18 14:00 05/05/18 13:59 05/01/18 14:09 Polyethylene Glycol (Miralax) 17 gm BEDTIME ORAL 04/29/18 21:00 05/29/18 20:59 04/29/18 20:07 Polyethylene Glycol (Miralax) 17 gm HSPRN PRN ORAL Constipation 04/28/18 17:45 05/28/18 17:44 Promethazine HCl 25 mg/Sodium Chloride 56 ml @ 112 mls/hr Q6H PRN IVPB Nausea 04/29/18 10:00 05/29/18 09:59 04/29/18 09:59 Sodium Chloride 1,000 ml @ 75 mls/hr [id number] IV 05/01/18 13:30 05/31/18 13:29 05/01/18 13:37 Temazepam (Restoril) 15 mg HSPRN PRN ORAL Insomnia 04/28/18 17:45 05/05/18 17:44 Allergies: Coded Allergies: NO KNOWN ALLERGIES (Unverified Allergy, Unknown, 06/26/15) ROS Limited/Unobtainable: No Constitutional: Reports: no symptoms HEENT: Reports: no symptoms Cardiovascular: Reports: no symptoms Respiratory: Reports: no symptoms Gastrointestinal/Abdominal: Reports: abdominal pain, nausea, vomiting Genitourinary: Reports: no symptoms Neurologic/Psychiatric: Reports: no symptoms Subjective 47 YO M admitted with hyperglycemia. Now intractable nausea and vomiting. Intussusception of small bowel. Cover for Int Magdi-Dr Ricks. C/O bilateral feet swelling Objective Last Vital Signs Date Time Temp Pulse Resp B/P (MAP) Pulse Ox O2 Delivery O2 Flow Rate FiO2 05/01/18 12:00 120 05/01/18 12:00 96.4 20 110/64 (79) 98 96.4 05/01/18 09:00 Room Air 05/01/18 08:48 2.0 28 Laboratory Tests Test 05/01/18 05:45 White Blood Count 9.3 K/UL (4.8-10.8) Red Blood Count 3.23 M/UL (4.70-6.10) L Hemoglobin 10.4 G/DL (14.2-18.0) L Hematocrit 28.5 % (42.0-52.0) L Mean Corpuscular Volume 88 FL (80-99) Mean Corpuscular Hemoglobin 32.3 PG (27.0-31.0) H Mean Corpuscular Hemoglobin Concent 36.7 G/DL (32.0-36.0) H Red Cell Distribution Width 12.9 % (11.6-14.8) Platelet Count 112 K/UL (150-450) L Mean Platelet Volume 5.8 FL (6.5-10.1) L Neutrophils (%) (Auto) 84.0 % (45.0-75.0) H Lymphocytes (%) (Auto) 11.2 % (20.0-45.0) L Monocytes (%) (Auto) 4.4 % (1.0-10.0) Eosinophils (%) (Auto) 0.2 % (0.0-3.0) Basophils (%) (Auto) 0.2 % (0.0-2.0) Prothrombin Time 11.6 SEC (9.30-11.50) H Prothromb Time International Ratio 1.1 (0.9-1.1) Sodium Level 142 MMOL/L (136-145) Potassium Level 3.7 MMOL/L (3.5-5.1) Chloride Level 110 MMOL/L (98-107) H Carbon Dioxide Level 29 MMOL/L (21-32) Anion Gap 3 mmol/L (5-15) L Blood Urea Nitrogen 18 mg/dL (7-18) Creatinine 0.5 MG/DL (0.55-1.30) L Estimat Glomerular Filtration Rate > 60 mL/min (>60) Glucose Level 233 MG/DL (74-106) #H Calcium Level 6.5 MG/DL (8.5-10.1) L Total Bilirubin 2.5 MG/DL (0.2-1.0) H Direct Bilirubin 0.2 MG/DL (0.0-0.3) Aspartate Amino Transf (AST/SGOT) 111 U/L (15-37) H Alanine Aminotransferase (ALT/SGPT) 187 U/L (12-78) H Alkaline Phosphatase 130 U/L (46-116) H Total Protein 3.7 G/DL (6.4-8.2) L Albumin 1.6 G/DL (3.4-5.0) L Globulin 2.1 g/dL Albumin/Globulin Ratio 0.8 (1.0-2.7) L Triglycerides Level 64 MG/DL (30-150) Cholesterol Level 94 MG/DL (< 200) LDL Cholesterol 29 mg/dL (<100) HDL Cholesterol 52 MG/DL (40-60) Cholesterol/HDL Ratio 1.8 (3.3-4.4) L Amylase Level 89 U/L (25-115) Lipase 254 U/L (73-393) Microbiology Date/Time Source Procedure Growth Status 04/30/18 12:45 Blood Blood Culture - Preliminary Resulted 04/28/18 19:45 Nasal Nares Left MRSA Culture - Final NO METHICILLIN RESISTANT STAPH AUREUS... Complete 04/28/18 19:45 Rectal Mucosa VRE Culture - Final NO VANCOMYCIN RESISTANT ENTEROCOCCUS ... Complete 04/28/18 19:45 Rectal Mucosa - Final NO CARBAPENEM-RESISTANT ENTEROBACTERI... Complete Intake and Output 04/30/18 05/01/18 19:00 07:00 Intake Total 625 ml 230 ml Output Total 970 ml Balance -345 ml 230 ml Intake Oral 400 ml 120 ml IV Total 225 ml 110 ml Output Urine Total 970 ml # Voids 1 Objective PHYSICAL EXAMINATION: GENERAL: The patient is thin-appearing male, who is obviously nauseated. HEENT: Eyes, pupils are equal, responsive to light and accommodation. Extraocular movements are intact. NECK: Supple without lymphadenopathy. CHEST: Lungs are clear to auscultation bilaterally without wheezes or rales. CARDIOVASCULAR: Regular rate. S1, S2 normal without murmurs, rubs, or gallops. ABDOMEN: Soft, diffusely tender with positive bowel sounds. No evidence of hepatosplenomegaly. No rebound or guarding noted. EXTREMITIES: Negative for clubbing, cyanosis, or edema. RECTAL: Refused. GENITALIA: Refused. NEUROLOGIC: Cranial nerves II through XII are grossly intact without focal deficits. Motor strength is 5/5 bilaterally. Deep tendon reflexes are 2+ plantar. Assessment/Plan Problem List: (1) Pancreatitis Assessment & Plan: CT and US=no common bile duct stone. See GI note. (2) Hypokalemia Assessment & Plan: Replace KCL IV (3) Hyperglycemia (4) DKA (diabetic ketoacidoses) (5) Uncontrolled diabetes mellitus type 1 without complications Assessment & Plan: Fluctuating glucose. FSBG=27 this am Currently 131. See endocrinology note (6) Intussusception of intestine Assessment & Plan: Non obstructive. Await surgery consult (7) Elevated transaminase level (8) Abdominal pain (9) Edema Assessment & Plan: Decrease IV fluids. Patient wants lasix Status: not improved Yunier Edwards MD May 01, 2018 15:44
[2018-05-01 16:00] VITALS: BP 107/76
[2018-05-01] MEDS: NS w/KCl 20mEq 1,000 ML IV SCH (16:00)
[2018-05-01 20:00] VITALS: BP 98/53
[2018-05-01] MEDS: Miralax 17gm pkt ORAL SCH (21:00)
[2018-05-01] MEDS: Dyna-Hex 2% Top Sol 2oz TOPIC SCH (21:34)
[2018-05-02] VITALS: BP 117/99
[2018-05-02 04:00] VITALS: BP 101/68
[2018-05-02] MEDS: Metoclopramide 10mg/10ml Liq ORAL SCH ×4 (06:00→17:14)
[2018-05-02] MEDS: NovoLOG Insulin Flexpen SUBQ SCH ×7 (06:49→21:00)
[2018-05-02] MEDS: Piperacillin/Tazobactam 3.375 GM in D5W 110 ML IVPB SCH (06:51)
--- NOTE | 2018-05-02 07:03 | General Progress Note ---
Assessment/Plan Problem List: (1) Uncontrolled diabetes mellitus type 1 without complications ICD Codes: E10.9 - Type 1 diabetes mellitus without complications SNOMED: 800922264 (2) Pancreatitis ICD Codes: K85.90 - Acute pancreatitis without necrosis or infection, unspecified SNOMED: 00129061 (3) Hyponatremia ICD Codes: E87.1 - Hyponatremia SNOMED: 89776998 (4) Nausea, vomiting, and diarrhea ICD Codes: R11.2 - Nausea with vomiting, unspecified; R19.7 - Diarrhea, unspecified SNOMED: 7480763 Assessment/Plan continue NS + 20 meq of KCL at 75 cc/hour increase Levemir to 18 units daily start Novolog 4 units ac tid + NISS Subjective Allergies: Coded Allergies: NO KNOWN ALLERGIES (Unverified Allergy, Unknown, 06/26/15) All Systems: reviewed and negative except above Subjective no more hypoglycemia fasting glucose is elevated Objective Last 24 Hour Vital Signs Date Time Temp Pulse Resp B/P (MAP) Pulse Ox O2 Delivery O2 Flow Rate FiO2 05/02/18 04:00 92 05/02/18 04:00 98.1 110 20 101/68 (79) 100 98.1 05/02/18 00:00 87 05/02/18 00:00 98.1 99 20 117/99 (105) 96 98.1 05/01/18 21:00 Room Air 05/01/18 20:00 98.1 101 20 98/53 (68) 97 98.1 05/01/18 20:00 114 05/01/18 18:45 Nasal Cannula 2.0 28 05/01/18 18:40 69 18 Nasal Cannula 2.0 28 05/01/18 16:00 101 05/01/18 16:00 96.8 98 20 107/76 (86) 97 96.8 05/01/18 12:00 120 05/01/18 12:00 96.4 96 20 110/64 (79) 98 96.4 05/01/18 09:00 Room Air 05/01/18 08:48 Nasal Cannula 2.0 28 05/01/18 08:42 66 18 Nasal Cannula 2.0 24 05/01/18 08:00 101 05/01/18 08:00 97.5 53 20 108/85 (93) 96 97.5 Intake and Output 05/01/18 05/02/18 19:00 07:00 Intake Total 800 ml 240 ml Output Total 500 ml Balance 800 ml -260 ml Intake Oral 800 ml 240 ml Output Urine Total 400 ml Emesis 100 ml # Voids 1 1 # Bowel Movements 1 Height (Feet): 5 Height (Inches): 8.00 Weight (Pounds): 141 General Appearance: no apparent distress Neck: normal alignment Cardiovascular: normal rate Respiratory/Chest: lungs clear Abdomen: normal bowel sounds Objective Current Medications Medications (Trade) Dose Ordered Sig/[place] Route PRN Reason Start Time Stop Time Status Last Admin Dose Admin Acetaminophen (Tylenol) 650 mg Q4H PRN ORAL fever 04/28/18 17:45 05/28/18 17:44 Al Hydroxide/Mg Hydroxide (Mylanta II) 30 ml Q6H PRN ORAL dyspepsia 04/28/18 17:40 05/28/18 17:39 Albuterol/ Ipratropium (Albuterol/ Ipratropium) 3 ml Q4H PRN HHN Shortness of Breath 04/28/18 17:45 05/03/18 17:44 Chlorhexidine Gluconate (Flores-Hex 2%) 1 applic DAILY@1999 TOPIC 04/28/18 20:00 05/28/18 19:59 05/01/18 21:34 Clonidine HCl (Catapres Tab) 0.1 mg Q4H PRN ORAL sbp more than 160 04/28/18 17:45 05/28/18 17:44 Dextrose (Dextrose 50%) 25 ml Q30M PRN IV Hypoglycemia 04/30/18 07:00 05/30/18 06:59 Dextrose (Dextrose 50%) 50 ml Q30M PRN IV Hypoglycemia 04/30/18 07:00 05/30/18 06:59 04/30/18 11:23 Docusate Sodium (Colace) 100 mg THREE TIMES A DAY ORAL 04/29/18 13:00 05/29/18 12:59 05/01/18 17:38 Heparin Sodium (Porcine) (Heparin 5000 units/ml) 5,000 units EVERY 12 HOURS SUBQ 04/28/18 21:00 05/28/18 20:59 05/01/18 21:32 Insulin Aspart (NovoLOG) BEFORE MEALS AND HS SUBQ 04/30/18 11:30 05/30/18 11:29 05/02/18 06:49 Insulin Aspart (NovoLOG) 4 units NOVOTIAC SUBQ 05/01/18 13:30 05/31/18 13:29 05/02/18 06:50 Insulin Detemir (Levemir) 15 units DAILY SUBQ 05/01/18 13:30 05/31/18 13:29 05/01/18 14:05 Metoclopramide HCl (Reglan) 5 mg EVERY 6 HOURS ORAL 05/01/18 12:00 05/31/18 11:59 05/01/18 17:38 Morphine Sulfate (Morphine Sulfate) 2 mg Q4H PRN IVP severe pain 7-10 04/28/18 17:45 05/05/18 17:44 Nitroglycerin (Ntg) 0.4 mg Q5M X 3 DOSES PRN SL Prn Chest Pain 04/28/18 17:45 05/28/18 17:44 Ondansetron HCl (Zofran) 4 mg Q6H PRN IVP Nausea & Vomiting 04/28/18 17:45 05/28/18 17:44 05/01/18 05:51 Pantoprazole (Protonix) 40 mg DAILY ORAL 05/02/18 09:00 06/01/18 08:59 Piperacillin Sod/ Tazobactam Sod 3.375 gm/Dextrose 110 ml @ 27.5 mls/hr EVERY 8 HOURS IVPB 04/30/18 14:00 05/05/18 13:59 05/02/18 06:51 Polyethylene Glycol (Miralax) 17 gm BEDTIME ORAL 04/29/18 21:00 05/29/18 20:59 04/29/18 20:07 Polyethylene Glycol (Miralax) 17 gm HSPRN PRN ORAL Constipation 04/28/18 17:45 05/28/18 17:44 Promethazine HCl 25 mg/Sodium Chloride 56 ml @ 112 mls/hr Q6H PRN IVPB Nausea 04/29/18 10:00 05/29/18 09:59 04/29/18 09:59 Sodium Chloride 1,000 ml @ 50 mls/hr Q20H IV 05/01/18 16:00 05/31/18 15:59 05/01/18 16:00 Temazepam (Restoril) 15 mg HSPRN PRN ORAL Insomnia 04/28/18 17:45 10/4/18 17:44 Item Value Date Time Bedside Blood Glucose 336 mg/dl H 05/02/18 0650 Bedside Blood Glucose 113 mg/dl 05/01/18 2133 Bedside Blood Glucose 155 mg/dl H 05/01/18 1659 Bedside Blood Glucose 193 mg/dl H 05/01/18 1405 Bedside Blood Glucose 219 mg/dl H 05/01/18 0639 Saad Laurent MD May 02, 2018 07:03
[2018-05-02] MEDS: NS w/KCl 20mEq 1,000 ML IV SCH (07:10)
[2018-05-02 07:48] LABS: HEMATOCRIT 25.2 % (42.0-52.0); HEMOGLOBIN 9.5 G/DL (14.2-18.0); MEAN CORPUSCULAR VOLUME 86 FL (80-99); PLATELET COUNT 110 K/UL (150-450); RED BLOOD COUNT 2.93 M/UL (4.70-6.10); RED CELL DISTRIBUTION WIDTH 12.6 % (11.6-14.8); WHITE BLOOD COUNT 6.7 K/UL (4.8-10.8)
[2018-05-02 08:00] VITALS: BP 123/77
[2018-05-02 08:02] LABS: % IRON SATURATION 95 % (15-50); IRON 105 ug/dL (50-175); TOTAL IRON BINDING CAPACITY 111 ug/dL (250-450)
[2018-05-02 08:13] LABS: ALANINE AMINOTRANSFERASE 170 U/L (12-78); ALBUMIN 1.6 G/DL (3.4-5.0); ALBUMIN/GLOBULIN RATIO 0.8 (1.0-2.7); ALKALINE PHOSPHATASE 118 U/L (46-116); ANION GAP 1 mmol/L (5-15); ASPARTATE AMINO TRANSFERASE 97 U/L (15-37); BILIRUBIN,DIRECT 0.3 MG/DL (0.0-0.3); BILIRUBIN,TOTAL 2.2 MG/DL (0.2-1.0); BLOOD UREA NITROGEN 18 mg/dL (7-18); CALCIUM 6.5 MG/DL (8.5-10.1); CARBON DIOXIDE 32 MMOL/L (21-32); CHLORIDE 114 MMOL/L (98-107); CREATININE 0.6 MG/DL (0.55-1.30); POTASSIUM 4.1 MMOL/L (3.5-5.1); SODIUM 147 MMOL/L (136-145)
[2018-05-02] MEDS ORDERED: Levemir Flexpen SUBQ SCH (09:00)
[2018-05-02] MEDS: Docusate 100mg cap ORAL SCH ×3 (09:34→17:15)
[2018-05-02] MEDS: Heparin 5000 units/ml inj SUBQ SCH ×2 (09:35→21:00)
--- NOTE | 2018-05-02 10:29 | GI Progress Note ---
Assessment/Plan Problems: (1) Intussusception of intestine ICD Codes: K56.1 - Intussusception SNOMED: 96227470 (2) Elevated transaminase level ICD Codes: R74.0 - Nonspecific elevation of levels of transaminase and lactic acid dehydrogenase [LDH] SNOMED: 733115020, 588690002 (3) DKA (diabetic ketoacidoses) ICD Codes: E13.10 - Other specified diabetes mellitus with ketoacidosis without coma SNOMED: 61877387 (4) Nausea, vomiting, and diarrhea ICD Codes: R11.2 - Nausea with vomiting, unspecified; R19.7 - Diarrhea, unspecified SNOMED: 2716780 (5) Drug abuse ICD Codes: F19.10 - Other psychoactive substance abuse, uncomplicated SNOMED: 83891736 (6) Episode of generalized weakness ICD Codes: R53.1 - Weakness SNOMED: 01621710 (7) H/O cocaine abuse ICD Codes: Z87.898 - Personal history of other specified conditions SNOMED: 438275093 Status: stable Status Narrative Discussed with Dr. Ascencio. Assessment/Plan pt admits to recent cocaine use abdominal U/S reviewed >> moderate ascites paracentesis, r/o SBP fu LFTs, lipase zofran prn pain mgmt bowel regime fu labs advance diet anemia work up add reglan hepatitis panel ordered Subjective Subjective emesis c/o of abdominal bloating, BLE edema Objective Last 24 Hour Vital Signs Date Time Temp Pulse Resp B/P (MAP) Pulse Ox O2 Delivery O2 Flow Rate FiO2 05/02/18 08:00 97.9 105 16 123/77 (92) 81 97.9 05/02/18 04:00 92 05/02/18 04:00 98.1 110 20 101/68 (79) 100 98.1 05/02/18 00:00 87 05/02/18 00:00 98.1 99 20 117/99 (105) 96 98.1 05/01/18 21:00 Room Air 05/01/18 20:00 98.1 101 20 98/53 (68) 97 98.1 05/01/18 20:00 114 05/01/18 18:45 Nasal Cannula 2.0 28 05/01/18 18:40 69 18 Nasal Cannula 2.0 28 05/01/18 16:00 101 05/01/18 16:00 96.8 98 20 107/76 (86) 97 96.8 05/01/18 12:00 120 05/01/18 12:00 96.4 96 20 110/64 (79) 98 96.4 Intake and Output 05/01/18 05/02/18 19:00 07:00 Intake Total 800 ml 240 ml Output Total 500 ml Balance 800 ml -260 ml Intake Oral 800 ml 240 ml Output Urine Total 400 ml Emesis 100 ml # Voids 1 1 # Bowel Movements 1 Laboratory Tests Test 05/02/18 06:30 White Blood Count 6.7 K/UL (4.8-10.8) Red Blood Count 2.93 M/UL (4.70-6.10) L Hemoglobin 9.5 G/DL (14.2-18.0) L Hematocrit 25.2 % (42.0-52.0) L Mean Corpuscular Volume 86 FL (80-99) Mean Corpuscular Hemoglobin 32.3 PG (27.0-31.0) H Mean Corpuscular Hemoglobin Concent 37.5 G/DL (32.0-36.0) H Red Cell Distribution Width 12.6 % (11.6-14.8) Platelet Count 110 K/UL (150-450) L Mean Platelet Volume 6.1 FL (6.5-10.1) L Neutrophils (%) (Auto) % (45.0-75.0) Lymphocytes (%) (Auto) % (20.0-45.0) Monocytes (%) (Auto) % (1.0-10.0) Eosinophils (%) (Auto) % (0.0-3.0) Basophils (%) (Auto) % (0.0-2.0) Differential Total Cells Counted 100 Neutrophils % (Manual) 74 % (45-75) Lymphocytes % (Manual) 21 % (20-45) Monocytes % (Manual) 5 % (1-10) Eosinophils % (Manual) 0 % (0-3) Basophils % (Manual) 0 % (0-2) Band Neutrophils 0 % (0-8) Platelet Estimate Decreased L Platelet Morphology Normal Red Blood Cell Morphology Normal Sodium Level 147 MMOL/L (136-145) H Potassium Level 4.1 MMOL/L (3.5-5.1) Chloride Level 114 MMOL/L (98-107) H Carbon Dioxide Level 32 MMOL/L (21-32) Anion Gap 1 mmol/L (5-15) L Blood Urea Nitrogen 18 mg/dL (7-18) Creatinine 0.6 MG/DL (0.55-1.30) Estimat Glomerular Filtration Rate > 60 mL/min (>60) Glucose Level 263 MG/DL (74-106) H Calcium Level 6.5 MG/DL (8.5-10.1) L Iron Level 105 ug/dL (50-175) Total Iron Binding Capacity 111 ug/dL (250-450) L Percent Iron Saturation 95 % (15-50) H Unsaturated Iron Binding 6 ug/dL (112-346) L Total Bilirubin 2.2 MG/DL (0.2-1.0) H Direct Bilirubin 0.3 MG/DL (0.0-0.3) Aspartate Amino Transf (AST/SGOT) 97 U/L (15-37) H Alanine Aminotransferase (ALT/SGPT) 170 U/L (12-78) H Alkaline Phosphatase 118 U/L (46-116) H Total Protein 3.7 G/DL (6.4-8.2) L Albumin 1.6 G/DL (3.4-5.0) L Globulin 2.1 g/dL Albumin/Globulin Ratio 0.8 (1.0-2.7) L Hepatitis A IgM Antibody Pending Hepatitis B Surface Antigen Pending Hepatitis B Core IgM Antibody Pending Hepatitis C Antibody Pending HIV (1&2) Antibody Rapid Negative (NEGATIVE) Height (Feet): 5 Height (Inches): 8.00 Weight (Pounds): 141 General Appearance: WD/WN, no apparent distress, alert, thin Cardiovascular: normal rate Respiratory/Chest: normal breath sounds, no respiratory distress Abdominal Exam: normal bowel sounds, non tender, soft Extremities: normal range of motion, non-tender Melita Delgado NP May 02, 2018 10:29
--- NOTE | 2018-05-02 11:41 | Pulmonology Progress Note ---
Assessment/Plan Problems: (1) Uncontrolled diabetes mellitus type 1 without complications (2) Nausea, vomiting, and diarrhea Assessment/Plan still vomiting symptomatic treatment dc iv fluids get echocardiogram Subjective ROS Limited/Unobtainable: No Constitutional: Reports: no symptoms HEENT: Repors: no symptoms Respiratory: Reports: no symptoms Allergies: Coded Allergies: NO KNOWN ALLERGIES (Unverified Allergy, Unknown, 06/26/15) Objective Last 24 Hour Vital Signs Date Time Temp Pulse Resp B/P (MAP) Pulse Ox O2 Delivery O2 Flow Rate FiO2 05/02/18 09:00 Room Air 05/02/18 08:00 97.9 105 16 123/77 (92) 81 97.9 05/02/18 08:00 99 05/02/18 04:00 92 05/02/18 04:00 98.1 110 20 101/68 (79) 100 98.1 05/02/18 00:00 87 05/02/18 00:00 98.1 99 20 117/99 (105) 96 98.1 05/01/18 21:00 Room Air 05/01/18 20:00 98.1 101 20 98/53 (68) 97 98.1 05/01/18 20:00 114 05/01/18 18:45 Nasal Cannula 2.0 28 05/01/18 18:40 69 18 Nasal Cannula 2.0 28 05/01/18 16:00 101 05/01/18 16:00 96.8 98 20 107/76 (86) 97 96.8 05/01/18 12:00 120 05/01/18 12:00 96.4 96 20 110/64 (79) 98 96.4 Intake and Output 05/01/18 05/02/18 19:00 07:00 Intake Total 800 ml 240 ml Output Total 500 ml Balance 800 ml -260 ml Intake Oral 800 ml 240 ml Output Urine Total 400 ml Emesis 100 ml # Voids 1 1 # Bowel Movements 1 General Appearance: WD/WN HEENT: normocephalic, atraumatic Respiratory/Chest: chest wall non-tender, lungs clear Cardiovascular: normal peripheral pulses, normal rate Abdomen: normal bowel sounds, soft, non tender Genitourinary: normal external genitalia Extremities: no cyanosis Skin: no rash Neurologic/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: 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 II-XII grossly normal Microbiology Date/Time Source Procedure Growth Status 04/30/18 15:20 Blood Blood Culture - Preliminary NO GROWTH AFTER 24 HOURS Resulted 04/30/18 12:45 Blood Blood Culture - Preliminary Staphylococcus Sp Coag Neg Resulted Laboratory Tests 05/02/18 06:30: White Blood Count 6.7, Red Blood Count 2.93L, Hemoglobin 9.5L, Hematocrit 25.2L , Mean Corpuscular Volume 86, Mean Corpuscular Hemoglobin 32.3H, Mean Corpuscular Hemoglobin Concent 37.5H, Red Cell Distribution Width 12.6, Platelet Count 110L, Mean Platelet Volume 6.1L, Neutrophils (%) (Auto) , Lymphocytes (%) (Auto) , Monocytes (%) (Auto) , Eosinophils (%) (Auto) , Basophils (%) (Auto) , Differential Total Cells Counted 100, Neutrophils % ( Manual) 74, Lymphocytes % (Manual) 21, Monocytes % (Manual) 5, Eosinophils % ( Manual) 0, Basophils % (Manual) 0, Band Neutrophils 0, Platelet Estimate DecreasedL, Platelet Morphology Normal, Red Blood Cell Morphology Normal, Sodium Level 147H, Potassium Level 4.1, Chloride Level 114H, Carbon Dioxide Level 32, Anion Gap 1L, Blood Urea Nitrogen 18, Creatinine 0.6, Estimat Glomerular Filtration Rate > 60, Glucose Level 263H, Calcium Level 6.5L, Iron Level 105, Total Iron Binding Capacity 111L, Percent Iron Saturation 95H, Unsaturated Iron Binding 6L, Total Bilirubin 2.2H, Direct Bilirubin 0.3, Aspartate Amino Transf (AST/SGOT) 97H, Alanine Aminotransferase (ALT/SGPT) 170H , Alkaline Phosphatase 118H, Total Protein 3.7L, Albumin 1.6L, Globulin 2.1, Albumin/Globulin Ratio 0.8L, Hepatitis A IgM Antibody [Pending], Hepatitis B Surface Antigen [Pending], Hepatitis B Core IgM Antibody [Pending], Hepatitis C Antibody [Pending], HIV (1&2) Antibody Rapid Negative Current Medications Medications (Trade) Dose Ordered Sig/[place] Route PRN Reason Start Time Stop Time Status Last Admin Dose Admin Acetaminophen (Tylenol) 650 mg Q4H PRN ORAL fever 04/28/18 17:45 05/28/18 17:44 Al Hydroxide/Mg Hydroxide (Mylanta II) 30 ml Q6H PRN ORAL dyspepsia 04/28/18 17:40 05/28/18 17:39 Albuterol/ Ipratropium (Albuterol/ Ipratropium) 3 ml Q4H PRN HHN Shortness of Breath 04/28/18 17:45 05/03/18 17:44 Chlorhexidine Gluconate (Flores-Hex 2%) 1 applic DAILY@1999 TOPIC 04/28/18 20:00 05/28/18 19:59 05/01/18 21:34 Clonidine HCl (Catapres Tab) 0.1 mg Q4H PRN ORAL sbp more than 160 04/28/18 17:45 05/28/18 17:44 Dextrose (Dextrose 50%) 25 ml Q30M PRN IV Hypoglycemia 04/30/18 07:00 05/30/18 06:59 Dextrose (Dextrose 50%) 50 ml Q30M PRN IV Hypoglycemia 04/30/18 07:00 05/30/18 06:59 04/30/18 11:23 Docusate Sodium (Colace) 100 mg THREE TIMES A DAY ORAL 04/29/18 13:00 05/29/18 12:59 05/02/18 09:34 Furosemide (Lasix) 20 mg ONCE IV 05/02/18 11:22 05/02/18 12:22 Heparin Sodium (Porcine) (Heparin 5000 units/ml) 5,000 units EVERY 12 HOURS SUBQ 04/28/18 21:00 05/28/18 20:59 05/01/18 21:32 Insulin Aspart (NovoLOG) BEFORE MEALS AND HS SUBQ 04/30/18 11:30 05/30/18 11:29 05/02/18 06:49 Insulin Aspart (NovoLOG) 4 units NOVOTIAC SUBQ 05/01/18 13:30 05/31/18 13:29 05/02/18 06:50 Insulin Detemir (Levemir) 18 units DAILY SUBQ 05/02/18 09:00 05/31/18 13:29 Metoclopramide HCl (Reglan) 10 mg EVERY 6 HOURS ORAL 05/02/18 12:00 05/31/18 11:59 Nitroglycerin (Ntg) 0.4 mg Q5M X 3 DOSES PRN SL Prn Chest Pain 04/28/18 17:45 05/28/18 17:44 Ondansetron HCl (Zofran) 4 mg Q6H PRN IVP Nausea & Vomiting 04/28/18 17:45 05/28/18 17:44 05/02/18 07:03 Pantoprazole (Protonix) 40 mg DAILY ORAL 05/02/18 09:00 06/01/18 08:59 05/02/18 10:06 Promethazine HCl 25 mg/Sodium Chloride 56 ml @ 112 mls/hr Q6H PRN IVPB Nausea 04/29/18 10:00 05/29/18 09:59 04/29/18 09:59 Temazepam (Restoril) 15 mg HSPRN PRN ORAL Insomnia 04/28/18 17:45 05/05/18 17:44 Rosa Jamil MD May 02, 2018 11:41
[2018-05-02 12:00] VITALS: BP 150/97
--- NOTE | 2018-05-02 12:00 | General Surgery Progress Note ---
General Surgery-Progress Note Subjective Additional Comments no acute events. still feels bloated. Objective Last 24 Hour Vital Signs Date Time Temp Pulse Resp B/P (MAP) Pulse Ox O2 Delivery O2 Flow Rate FiO2 05/02/18 09:00 Room Air 05/02/18 08:00 97.9 105 16 123/77 (92) 81 97.9 05/02/18 08:00 99 05/02/18 04:00 92 05/02/18 04:00 98.1 110 20 101/68 (79) 100 98.1 05/02/18 00:00 87 05/02/18 00:00 98.1 99 20 117/99 (105) 96 98.1 05/01/18 21:00 Room Air 05/01/18 20:00 98.1 101 20 98/53 (68) 97 98.1 05/01/18 20:00 114 05/01/18 18:45 Nasal Cannula 2.0 28 05/01/18 18:40 69 18 Nasal Cannula 2.0 28 05/01/18 16:00 101 05/01/18 16:00 96.8 98 20 107/76 (86) 97 96.8 05/01/18 12:00 120 05/01/18 12:00 96.4 96 20 110/64 (79) 98 96.4 I&O Intake and Output 05/01/18 05/02/18 19:00 07:00 Intake Total 800 ml 240 ml Output Total 500 ml Balance 800 ml -260 ml Intake Oral 800 ml 240 ml Output Urine Total 400 ml Emesis 100 ml # Voids 1 1 # Bowel Movements 1 Drains: none Cardiovascular: RSR Respiratory: clear Abdomen: soft, distended, present bowel sounds Extremities: no cyanosis Laboratory Tests Test 05/02/18 06:30 White Blood Count 6.7 K/UL (4.8-10.8) Red Blood Count 2.93 M/UL (4.70-6.10) L Hemoglobin 9.5 G/DL (14.2-18.0) L Hematocrit 25.2 % (42.0-52.0) L Mean Corpuscular Volume 86 FL (80-99) Mean Corpuscular Hemoglobin 32.3 PG (27.0-31.0) H Mean Corpuscular Hemoglobin Concent 37.5 G/DL (32.0-36.0) H Red Cell Distribution Width 12.6 % (11.6-14.8) Platelet Count 110 K/UL (150-450) L Mean Platelet Volume 6.1 FL (6.5-10.1) L Neutrophils (%) (Auto) % (45.0-75.0) Lymphocytes (%) (Auto) % (20.0-45.0) Monocytes (%) (Auto) % (1.0-10.0) Eosinophils (%) (Auto) % (0.0-3.0) Basophils (%) (Auto) % (0.0-2.0) Differential Total Cells Counted 100 Neutrophils % (Manual) 74 % (45-75) Lymphocytes % (Manual) 21 % (20-45) Monocytes % (Manual) 5 % (1-10) Eosinophils % (Manual) 0 % (0-3) Basophils % (Manual) 0 % (0-2) Band Neutrophils 0 % (0-8) Platelet Estimate Decreased L Platelet Morphology Normal Red Blood Cell Morphology Normal Sodium Level 147 MMOL/L (136-145) H Potassium Level 4.1 MMOL/L (3.5-5.1) Chloride Level 114 MMOL/L (98-107) H Carbon Dioxide Level 32 MMOL/L (21-32) Anion Gap 1 mmol/L (5-15) L Blood Urea Nitrogen 18 mg/dL (7-18) Creatinine 0.6 MG/DL (0.55-1.30) Estimat Glomerular Filtration Rate > 60 mL/min (>60) Glucose Level 263 MG/DL (74-106) H Calcium Level 6.5 MG/DL (8.5-10.1) L Iron Level 105 ug/dL (50-175) Total Iron Binding Capacity 111 ug/dL (250-450) L Percent Iron Saturation 95 % (15-50) H Unsaturated Iron Binding 6 ug/dL (112-346) L Total Bilirubin 2.2 MG/DL (0.2-1.0) H Direct Bilirubin 0.3 MG/DL (0.0-0.3) Aspartate Amino Transf (AST/SGOT) 97 U/L (15-37) H Alanine Aminotransferase (ALT/SGPT) 170 U/L (12-78) H Alkaline Phosphatase 118 U/L (46-116) H Total Protein 3.7 G/DL (6.4-8.2) L Albumin 1.6 G/DL (3.4-5.0) L Globulin 2.1 g/dL Albumin/Globulin Ratio 0.8 (1.0-2.7) L Hepatitis A IgM Antibody Pending Hepatitis B Surface Antigen Pending Hepatitis B Core IgM Antibody Pending Hepatitis C Antibody Pending HIV (1&2) Antibody Rapid Negative (NEGATIVE) Plan Problems: (1) Intussusception of intestine Assessment & Plan: CT Findings: 1. Short segment small bowel intussusception in the left lower quadrant ( series 5 image 58). No lead point lesions. No evidence of bowel obstruction. No focal bowel wall thickening. No adjacent inflammatory change. This may represent transient intussusception and is of uncertain clinical significance. 2. Sigmoid diverticulosis without wall thickening or adjacent inflammatory change. CT reviewed. - likely transient and benign. exam stable, no obstruction, no thickening, no inflammation. leukocytosis unlikely due to this. does have elevated LFT. possible cholecystitis? possible hepatitis Ultrasound reviewed. ascites and liver abnormal. Gallbladder okay. t bili trending down. lip/nicolette nml. lfts improved. denies EtOH history. likely hepatitis? abd distention related to ascites. unsure of etiology for nausea and emesis but not obstructive in nature. -PPI -paracentesis -trend labs -hepatitis panel pending thank you. will follow with Long Mackay May 02, 2018 12:00
--- NOTE | 2018-05-02 15:01 | Infectious Diseases Prog Note ---
Assessment/Plan Problems: (1) Elevated transaminase level Assessment & Plan: and elevated lipase may have passed a gallstone , US of the liver didn't show any stones or cholecystitis findings , will stop zosyn empirically , and monitor off antibiotics (2) Intussusception of intestine Assessment & Plan: rule out ischemia, recommend surgical eval, monitor amylase and lactic acid , GI is following (3) Abdominal pain Assessment & Plan: due to the above, continue pain management as per primary (4) Leukocytosis Assessment & Plan: suspect reactive , due to the above, no evidence of sepsis, blood culture grew coag negative staph from one set which is most likely contaminant , will stop zosyn empirically (5) Renal insufficiency Assessment & Plan: due to dehydration, continue IVF , monitor renal function (6) Uncontrolled diabetes mellitus Assessment & Plan: recommend tight glycemic control to keep blood glucose between 100-140 Subjective Constitutional: Reports: no symptoms HEENT: Reports: no symptoms Respiratory: Reports: no symptoms Breasts: Reports: no symptoms Cardiovascular: Reports: no symptoms Gastrointestinal/Abdominal: Reports: nausea, vomiting, bloating Genitourinary: Reports: no symptoms Neurologic: Reports: no symptoms Psychiatric: Reports: no symptoms Skin: Reports: ulcer Endocrine: Reports: no symptoms Hematologic: Reports: no symptoms Musculoskeletal: Reports: no symptoms Allergies: Coded Allergies: NO KNOWN ALLERGIES (Unverified Allergy, Unknown, 06/26/15) Objective Vital Signs Last 24 Hour Vital Signs Date Time Temp Pulse Resp B/P (MAP) Pulse Ox O2 Delivery O2 Flow Rate FiO2 05/02/18 12:00 117 05/02/18 12:00 98.2 86 20 150/97 (114) 91 98.2 05/02/18 09:00 Room Air 05/02/18 08:00 97.9 105 16 123/77 (92) 81 97.9 05/02/18 08:00 99 05/02/18 04:00 92 05/02/18 04:00 98.1 110 20 101/68 (79) 100 98.1 05/02/18 00:00 87 05/02/18 00:00 98.1 99 20 117/99 (105) 96 98.1 05/01/18 21:00 Room Air 05/01/18 20:00 98.1 101 20 98/53 (68) 97 98.1 05/01/18 20:00 114 05/01/18 18:45 Nasal Cannula 2.0 28 05/01/18 18:40 69 18 Nasal Cannula 2.0 28 05/01/18 16:00 101 05/01/18 16:00 96.8 98 20 107/76 (86) 97 96.8 Height (Feet): 5 Height (Inches): 8.00 Weight (Pounds): 141 General Appearance: WD/WN, no acute distress HEENT: normocephalic, atraumatic, anicteric, mucous membranes moist, PERRL Respiratory/Chest: chest wall non-tender, lungs clear, normal breath sounds, no respiratory distress, no accessory muscle use Cardiovascular: normal peripheral pulses, normal rate, regular rhythm, no gallop/murmur, no JVD Abdomen: soft, non tender, no organomegaly, non distended, no mass, no scars, hypoactive bowel sounds Extremities: no cyanosis Skin: no rash, no lesions, ulcers Neurologic/Psychiatric: alert, oriented x 3, responsive Lymphatic: no neck adenopathy, no groin adenopathy Microbiology Date/Time Source Procedure Growth Status 04/30/18 15:20 Blood Blood Culture - Preliminary NO GROWTH AFTER 24 HOURS Resulted 04/30/18 12:45 Blood Blood Culture - Preliminary Staphylococcus Sp Coag Neg Resulted 05/01/18 22:30 Sacral Wound Gram Stain - Final Resulted 05/01/18 22:30 Sacral Wound Wound Culture Pending Resulted Laboratory Tests Test 05/02/18 06:30 White Blood Count 6.7 K/UL (4.8-10.8) Red Blood Count 2.93 M/UL (4.70-6.10) L Hemoglobin 9.5 G/DL (14.2-18.0) L Hematocrit 25.2 % (42.0-52.0) L Mean Corpuscular Volume 86 FL (80-99) Mean Corpuscular Hemoglobin 32.3 PG (27.0-31.0) H Mean Corpuscular Hemoglobin Concent 37.5 G/DL (32.0-36.0) H Red Cell Distribution Width 12.6 % (11.6-14.8) Platelet Count 110 K/UL (150-450) L Mean Platelet Volume 6.1 FL (6.5-10.1) L Neutrophils (%) (Auto) % (45.0-75.0) Lymphocytes (%) (Auto) % (20.0-45.0) Monocytes (%) (Auto) % (1.0-10.0) Eosinophils (%) (Auto) % (0.0-3.0) Basophils (%) (Auto) % (0.0-2.0) Differential Total Cells Counted 100 Neutrophils % (Manual) 74 % (45-75) Lymphocytes % (Manual) 21 % (20-45) Monocytes % (Manual) 5 % (1-10) Eosinophils % (Manual) 0 % (0-3) Basophils % (Manual) 0 % (0-2) Band Neutrophils 0 % (0-8) Platelet Estimate Decreased L Platelet Morphology Normal Red Blood Cell Morphology Normal Sodium Level 147 MMOL/L (136-145) H Potassium Level 4.1 MMOL/L (3.5-5.1) Chloride Level 114 MMOL/L (98-107) H Carbon Dioxide Level 32 MMOL/L (21-32) Anion Gap 1 mmol/L (5-15) L Blood Urea Nitrogen 18 mg/dL (7-18) Creatinine 0.6 MG/DL (0.55-1.30) Estimat Glomerular Filtration Rate > 60 mL/min (>60) Glucose Level 263 MG/DL (74-106) H Calcium Level 6.5 MG/DL (8.5-10.1) L Iron Level 105 ug/dL (50-175) Total Iron Binding Capacity 111 ug/dL (250-450) L Percent Iron Saturation 95 % (15-50) H Unsaturated Iron Binding 6 ug/dL (112-346) L Total Bilirubin 2.2 MG/DL (0.2-1.0) H Direct Bilirubin 0.3 MG/DL (0.0-0.3) Aspartate Amino Transf (AST/SGOT) 97 U/L (15-37) H Alanine Aminotransferase (ALT/SGPT) 170 U/L (12-78) H Alkaline Phosphatase 118 U/L (46-116) H Total Protein 3.7 G/DL (6.4-8.2) L Albumin 1.6 G/DL (3.4-5.0) L Globulin 2.1 g/dL Albumin/Globulin Ratio 0.8 (1.0-2.7) L Hepatitis A IgM Antibody Pending Hepatitis B Surface Antigen Pending Hepatitis B Core IgM Antibody Pending Hepatitis C Antibody Pending HIV (1&2) Antibody Rapid Negative (NEGATIVE) Current Medications Medications (Trade) Dose Ordered Sig/[place] Route PRN Reason Start Time Stop Time Status Last Admin Dose Admin Acetaminophen (Tylenol) 650 mg Q4H PRN ORAL fever 04/28/18 17:45 05/28/18 17:44 Al Hydroxide/Mg Hydroxide (Mylanta II) 30 ml Q6H PRN ORAL dyspepsia 04/28/18 17:40 05/28/18 17:39 Albuterol/ Ipratropium (Albuterol/ Ipratropium) 3 ml Q4H PRN HHN Shortness of Breath 04/28/18 17:45 05/03/18 17:44 Chlorhexidine Gluconate (Flores-Hex 2%) 1 applic DAILY@1999 TOPIC 04/28/18 20:00 05/28/18 19:59 05/01/18 21:34 Clonidine HCl (Catapres Tab) 0.1 mg Q4H PRN ORAL sbp more than 160 04/28/18 17:45 05/28/18 17:44 Dextrose (Dextrose 50%) 25 ml Q30M PRN IV Hypoglycemia 04/30/18 07:00 05/30/18 06:59 Dextrose (Dextrose 50%) 50 ml Q30M PRN IV Hypoglycemia 04/30/18 07:00 05/30/18 06:59 05/02/18 14:40 Docusate Sodium (Colace) 100 mg THREE TIMES A DAY ORAL 04/29/18 13:00 05/29/18 12:59 05/02/18 12:17 Heparin Sodium (Porcine) (Heparin 5000 units/ml) 5,000 units EVERY 12 HOURS SUBQ 04/28/18 21:00 05/28/18 20:59 05/01/18 21:32 Insulin Aspart (NovoLOG) BEFORE MEALS AND HS SUBQ 04/30/18 11:30 05/30/18 11:29 05/02/18 06:49 Insulin Aspart (NovoLOG) 4 units NOVOTIAC SUBQ 05/01/18 13:30 05/31/18 13:29 05/02/18 06:50 Insulin Detemir (Levemir) 18 units DAILY SUBQ 05/02/18 09:00 05/31/18 13:29 05/02/18 12:13 Metoclopramide HCl (Reglan) 10 mg EVERY 6 HOURS ORAL 05/02/18 12:00 05/31/18 11:59 05/02/18 11:59 Nitroglycerin (Ntg) 0.4 mg Q5M X 3 DOSES PRN SL Prn Chest Pain 04/28/18 17:45 05/28/18 17:44 Ondansetron HCl (Zofran) 4 mg Q6H PRN IVP Nausea & Vomiting 04/28/18 17:45 05/28/18 17:44 05/02/18 07:03 Pantoprazole (Protonix) 40 mg DAILY ORAL 05/02/18 09:00 06/01/18 08:59 05/02/18 10:06 Promethazine HCl 25 mg/Sodium Chloride 56 ml @ 112 mls/hr Q6H PRN IVPB Nausea 04/29/18 10:00 05/29/18 09:59 04/29/18 09:59 Temazepam (Restoril) 15 mg HSPRN PRN ORAL Insomnia 04/28/18 17:45 05/05/18 17:44 Ewa Vargas M.D. May 02, 2018 15:01
--- NOTE | 2018-05-02 15:10 | Diagnostic Imaging Report ---
APPROVED REPORT CPT Code: 60322 Present Symptoms Comments: Swelling. R/O DVT BILATERAL: Imaging reveals a patent deep venous system bilaterally. There is no evidence of thrombus within the femoral, popliteal or tibial segments. The greater saphenous veins are also within normal limits. Doppler indicates normal spontaneous flow within these segments.
--- NOTE | 2018-05-02 15:29 | Pre-Procedure Note/Attestation ---
Pre-Procedure Note/Attestation Complete Prior to Procedure Planned Procedure: not applicable Procedure Narrative: paracentesis Indications for Procedure Pre-Operative Diagnosis: Ascites Attestation I attest that I discussed the nature of the procedure; its benefits; risks and complications; and alternatives (and the risks and benefits of such alternatives ), prior to the procedure, with the patient (or the patient's legal quality assurance representative). I attest that, if there was a reasonable possibility of needing a blood transfusion, the patient (or the patient's legal quality assurance representative) was given the [facility] standardized written summary, pursuant to the Ryder Ramona Blood Safety Act ([place] Health and Safety Code # 1645, as amended). I attest that I re-evaluated the patient just prior to the surgery and that there has been no change in the patient's H&P, except as documented below: Desean Blanton MD May 02, 2018 15:29
--- NOTE | 2018-05-02 15:34 | Brief Operative Note ---
Immediate Post Operative Note Operative Note Pre-op Diagnosis: Ascites Procedure: paracentesis Post-op Diagnosis: same as pre-op Surgeon: Samantha BLANTON Anesthesia: local Specimen: yes - 50 ml fluid sent to lab Complications: none Condition: stable Fluids: none Estimated Blood Loss: none Drains: none Implant(s) used?: No Desean Blanton MD May 02, 2018 15:34
[2018-05-02 16:00] VITALS: BP 106/77
--- NOTE | 2018-05-02 17:27 | Diagnostic Imaging Report ---
Indications: Ascites Technique: Ultrasound used to localize optimal puncture site. Sterile prepping and draping right upper quadrant. Local anesthesia with 1% lidocaine. Under real-time ultrasound guidance, puncture peritoneal space using paracentesis needle. Stylet removed. Catheter placed to vacuum bottle suction. Total 1.5 liters of clear yellow fluid aspirated. Patient tolerated procedure well, without immediate complication. Findings: Followup sonography demonstrates complete resolution of peritoneal fluid. Impression: Successful ultrasound-guided paracentesis, yielding 1.5 liters of clear yellow fluid
[2018-05-02] MEDS ORDERED: Mylanta II UD 30ml ORAL PRN (17:54)
[2018-05-02] MEDS ORDERED: Albuterol/Ipratropium 3ml neb HHN PRN (17:55)
[2018-05-02] MEDS ORDERED: Nitroglycerin Subl 0.4mg tab SL PRN (18:00)
[2018-05-02] MEDS: Dyna-Hex 2% Top Sol 2oz TOPIC SCH (20:00)
[2018-05-02] MEDS: Promethazine HCl 25 MG in NS 55 ML IVPB PRN (23:53)
[2018-05-03] MEDS: Metoclopramide 10mg/10ml Liq ORAL SCH ×4 (00:59→17:05)
[2018-05-03] MEDS: Promethazine HCl 25 MG in NS 55 ML IVPB PRN (05:52)
[2018-05-03] MEDS: NovoLOG Insulin Flexpen SUBQ SCH ×4 (06:30→20:54)
--- NOTE | 2018-05-03 06:50 | General Progress Note ---
Assessment/Plan Problem List: (1) Uncontrolled diabetes mellitus type 1 without complications ICD Codes: E10.9 - Type 1 diabetes mellitus without complications SNOMED: 101269436 (2) Pancreatitis ICD Codes: K85.90 - Acute pancreatitis without necrosis or infection, unspecified SNOMED: 37712146 (3) Hyponatremia ICD Codes: E87.1 - Hyponatremia SNOMED: 71670687 (4) Nausea, vomiting, and diarrhea ICD Codes: R11.2 - Nausea with vomiting, unspecified; R19.7 - Diarrhea, unspecified SNOMED: 7560678 Assessment/Plan scheduled Levemir and Novolog MN'ed for now continue NISS for now Subjective Allergies: Coded Allergies: NO KNOWN ALLERGIES (Unverified Allergy, Unknown, 06/26/15) All Systems: reviewed and negative except above Subjective recurrent of hypoglycemia yesterday Objective Last 24 Hour Vital Signs Date Time Temp Pulse Resp B/P (MAP) Pulse Ox O2 Delivery O2 Flow Rate FiO2 05/02/18 21:33 Room Air 21 05/02/18 21:00 Room Air 05/02/18 19:30 78 18 Room Air 21 05/02/18 16:00 97.7 99 16 106/77 (87) 93 97.7 05/02/18 12:00 117 05/02/18 12:00 98.2 86 20 150/97 (114) 91 98.2 05/02/18 09:00 Room Air 05/02/18 08:00 Nasal Cannula 21 05/02/18 08:00 97.9 105 16 123/77 (92) 81 97.9 05/02/18 08:00 80 16 Room Air 21 05/02/18 08:00 99 Intake and Output 05/02/18 05/03/18 19:00 07:00 Intake Total 360 ml 1056 ml Balance 360 ml 1056 ml Intake Oral 360 ml 1000 ml IV Total 56 ml # Voids 2 Laboratory Tests 05/03/18 06:10: White Blood Count [Pending], Red Blood Count [Pending], Hemoglobin [Pending], Hematocrit [Pending], Mean Corpuscular Volume [Pending], Mean Corpuscular Hemoglobin [Pending], Mean Corpuscular Hemoglobin Concent [Pending], Red Cell Distribution Width [Pending], Platelet Count [Pending], Mean Platelet Volume [ Pending], Neutrophils (%) (Auto) [Pending], Lymphocytes (%) (Auto) [Pending], Monocytes (%) (Auto) [Pending], Eosinophils (%) (Auto) [Pending], Basophils (%) (Auto) [Pending], Sodium Level [Pending], Potassium Level [Pending], Chloride Level [Pending], Carbon Dioxide Level [Pending], Blood Urea Nitrogen [Pending], Creatinine [Pending], Estimat Glomerular Filtration Rate [Pending], Glucose Level [Pending], Calcium Level [Pending], Total Bilirubin [Pending], Aspartate Amino Transf (AST/SGOT) [Pending], Alanine Aminotransferase (ALT/SGPT) [Pending] , Alkaline Phosphatase [Pending], Total Protein [Pending], Albumin [Pending], Globulin [Pending] Height (Feet): 5 Height (Inches): 8.00 Weight (Pounds): 141 General Appearance: no apparent distress Neck: normal alignment Cardiovascular: normal rate Respiratory/Chest: lungs clear Abdomen: normal bowel sounds Objective Current Medications Medications (Trade) Dose Ordered Sig/[place] Route PRN Reason Start Time Stop Time Status Last Admin Dose Admin Acetaminophen (Tylenol) 650 mg Q4H PRN ORAL fever 05/02/18 17:54 05/28/18 17:53 Al Hydroxide/Mg Hydroxide (Mylanta II) 30 ml Q6H PRN ORAL dyspepsia 05/02/18 17:54 05/28/18 17:53 Albuterol/ Ipratropium (Albuterol/ Ipratropium) 3 ml Q4H PRN HHN Shortness of Breath 05/02/18 17:55 05/03/18 17:54 Chlorhexidine Gluconate (Flores-Hex 2%) 1 applic DAILY@2000 TOPIC 05/02/18 20:00 05/28/18 19:59 05/02/18 20:00 Clonidine HCl (Catapres Tab) 0.1 mg Q4H PRN ORAL sbp more than 160 05/02/18 17:54 05/28/18 17:53 Dextrose (Dextrose 50%) 25 ml Q30M PRN IV Hypoglycemia 05/02/18 18:00 05/30/18 06:59 Dextrose (Dextrose 50%) 50 ml Q30M PRN IV Hypoglycemia 05/02/18 17:55 05/30/18 17:54 05/02/18 23:28 Docusate Sodium (Colace) 100 mg THREE TIMES A DAY ORAL 05/03/18 09:00 06/02/18 08:59 Heparin Sodium (Porcine) (Heparin 5000 units/ml) 5,000 units EVERY 12 HOURS SUBQ 05/02/18 21:00 05/28/18 20:59 Insulin Aspart (NovoLOG) BEFORE MEALS AND HS SUBQ 05/02/18 21:00 05/30/18 11:29 Metoclopramide HCl (Reglan) 10 mg EVERY 6 HOURS ORAL 05/03/18 00:00 06/02/18 00:00 05/03/18 06:43 Nitroglycerin (Ntg) 0.4 mg Q5M X 3 DOSES PRN SL Prn Chest Pain 05/02/18 18:00 05/28/18 17:44 Ondansetron HCl (Zofran) 4 mg Q6H PRN IVP Nausea & Vomiting 05/02/18 17:55 05/28/18 17:54 05/02/18 22:25 Pantoprazole (Protonix) 40 mg DAILY ORAL 05/03/18 09:00 06/01/18 08:59 Promethazine HCl 25 mg/Sodium Chloride 56 ml @ 112 mls/hr Q6H PRN IVPB Nausea 05/02/18 17:54 05/29/18 17:53 05/03/18 05:52 Temazepam (Restoril) 15 mg HSPRN PRN ORAL Insomnia 05/02/18 17:56 05/09/18 17:55 Item Value Date Time Bedside Blood Glucose 68 mg/dl L 05/03/18 0630 Bedside Blood Glucose 86 mg/dl 05/03/18 0058 Bedside Blood Glucose 55 mg/dl L 05/02/18 2220 Bedside Blood Glucose 100 mg/dl 05/02/18 1700 Bedside Blood Glucose 58 mg/dl L 05/02/18 1440 Bedside Blood Glucose 336 mg/dl H 05/02/18 0650 Saad Laurent MD May 03, 2018 06:50
[2018-05-03 06:59] LABS: ALANINE AMINOTRANSFERASE 158 U/L (12-78); ALBUMIN 1.7 G/DL (3.4-5.0); ALBUMIN/GLOBULIN RATIO 0.8 (1.0-2.7); ALKALINE PHOSPHATASE 119 U/L (46-116); ANION GAP -1 mmol/L (5-15); ASPARTATE AMINO TRANSFERASE 88 U/L (15-37); BILIRUBIN,TOTAL 2.2 MG/DL (0.2-1.0); BLOOD UREA NITROGEN 18 mg/dL (7-18); CALCIUM 7.1 MG/DL (8.5-10.1); CARBON DIOXIDE 37 MMOL/L (21-32); CHLORIDE 111 MMOL/L (98-107); CREATININE 0.6 MG/DL (0.55-1.30); POTASSIUM 2.8 MMOL/L (3.5-5.1); SODIUM 147 MMOL/L (136-145)
[2018-05-03 07:03] LABS: BILIRUBIN,DIRECT 0.4 MG/DL (0.0-0.3)
[2018-05-03 07:13] LABS: BASOPHILS % (AUTO) 0.2 % (0.0-2.0); EOSINOPHILS % (AUTO) 0.8 % (0.0-3.0); HEMATOCRIT 23.8 % (42.0-52.0); MEAN CORPUSCULAR VOLUME 85 FL (80-99); MONOCYTES % (AUTO) 6.4 % (1.0-10.0); NEUTROPHILS % (AUTO) 64.6 % (45.0-75.0); PLATELET COUNT 125 K/UL (150-450); WHITE BLOOD COUNT 6.1 K/UL (4.8-10.8)
[2018-05-03 07:14] LABS: HEMOGLOBIN 8.7 G/DL (14.2-18.0)
[2018-05-03] MEDS ORDERED: D5 1/4NS w/KCl 20mEq 1,000 ML IV SCH (08:45)
[2018-05-03] MEDS: Heparin 5000 units/ml inj SUBQ SCH ×2 (08:59→20:54)
[2018-05-03] MEDS: Docusate 100mg cap ORAL SCH ×3 (08:59→17:05)
[2018-05-03] MEDS ORDERED: D5 1/2NS w/KCl 20mEq 1,000 ML IV SCH (09:00)
--- NOTE | 2018-05-03 13:34 | GI Progress Note ---
Assessment/Plan Problems: (1) Intussusception of intestine ICD Codes: K56.1 - Intussusception SNOMED: 77943728 (2) Elevated transaminase level ICD Codes: R74.0 - Nonspecific elevation of levels of transaminase and lactic acid dehydrogenase [LDH] SNOMED: 123529029, 211743440 (3) DKA (diabetic ketoacidoses) ICD Codes: E13.10 - Other specified diabetes mellitus with ketoacidosis without coma SNOMED: 97443712 (4) Nausea, vomiting, and diarrhea ICD Codes: R11.2 - Nausea with vomiting, unspecified; R19.7 - Diarrhea, unspecified SNOMED: 6430192 (5) Drug abuse ICD Codes: F19.10 - Other psychoactive substance abuse, uncomplicated SNOMED: 92022985 (6) Episode of generalized weakness ICD Codes: R53.1 - Weakness SNOMED: 98387705 (7) H/O cocaine abuse ICD Codes: Z87.898 - Personal history of other specified conditions SNOMED: 108127908 Status: unchanged Status Narrative Discussed with Dr. Ascencio. Assessment/Plan cocaine s/p paracentesis yielding 1.5L - pending cytology - r/o SBP abdominal U/S reviewed >> Mildly echogenic liver, which may suggest fatty infiltration. zofran prn pain mgmt bowel regime fu labs CLD, adv as tolerated anemia work up reglan prn fu labs, cytology, hep panel The patient was seen and examined at bedside and all new and available data was reviewed in the patients chart. I agree with the above findings, impression and plan. (Patient seen earlier today. Signature stamp does not reflect patient encounter time.). - Pedro Ascencio MD Subjective Subjective emesis c/o of abdominal bloating, BLE edema Objective Last 24 Hour Vital Signs Date Time Temp Pulse Resp B/P (MAP) Pulse Ox O2 Delivery O2 Flow Rate FiO2 05/03/18 08:42 Room Air 05/03/18 08:03 81 18 Room Air 21 05/03/18 08:03 Room Air 05/02/18 21:33 Room Air 21 05/02/18 21:00 Room Air 05/02/18 19:30 78 18 Room Air 21 05/02/18 16:00 97.7 99 16 106/77 (87) 93 97.7 Intake and Output 05/02/18 05/03/18 19:00 07:00 Intake Total 360 ml 1056 ml Balance 360 ml 1056 ml Intake Oral 360 ml 1000 ml IV Total 56 ml # Voids 2 Laboratory Tests Test 05/03/18 06:10 White Blood Count 6.1 K/UL (4.8-10.8) Red Blood Count 2.80 M/UL (4.70-6.10) L Hemoglobin 8.7 G/DL (14.2-18.0) L Hematocrit 23.8 % (42.0-52.0) L Mean Corpuscular Volume 85 FL (80-99) Mean Corpuscular Hemoglobin 31.1 PG (27.0-31.0) H Mean Corpuscular Hemoglobin Concent 36.5 G/DL (32.0-36.0) H Red Cell Distribution Width 12.0 % (11.6-14.8) Platelet Count 125 K/UL (150-450) L Mean Platelet Volume 5.5 FL (6.5-10.1) L Neutrophils (%) (Auto) 64.6 % (45.0-75.0) Lymphocytes (%) (Auto) 28.0 % (20.0-45.0) Monocytes (%) (Auto) 6.4 % (1.0-10.0) Eosinophils (%) (Auto) 0.8 % (0.0-3.0) Basophils (%) (Auto) 0.2 % (0.0-2.0) Sodium Level 147 MMOL/L (136-145) H Potassium Level 2.8 MMOL/L (3.5-5.1) L Chloride Level 111 MMOL/L (98-107) H Carbon Dioxide Level 37 MMOL/L (21-32) H Anion Gap -1 mmol/L (5-15) L Blood Urea Nitrogen 18 mg/dL (7-18) Creatinine 0.6 MG/DL (0.55-1.30) Estimat Glomerular Filtration Rate > 60 mL/min (>60) Glucose Level 79 MG/DL (74-106) # Calcium Level 7.1 MG/DL (8.5-10.1) L Total Bilirubin 2.2 MG/DL (0.2-1.0) H Direct Bilirubin 0.4 MG/DL (0.0-0.3) H Aspartate Amino Transf (AST/SGOT) 88 U/L (15-37) H Alanine Aminotransferase (ALT/SGPT) 158 U/L (12-78) H Alkaline Phosphatase 119 U/L (46-116) H Total Protein 3.9 G/DL (6.4-8.2) L Albumin 1.7 G/DL (3.4-5.0) L Globulin 2.2 g/dL Albumin/Globulin Ratio 0.8 (1.0-2.7) L Height (Feet): 5 Height (Inches): 8.00 Weight (Pounds): 141 General Appearance: WD/WN, no apparent distress, alert, thin Cardiovascular: normal rate Respiratory/Chest: normal breath sounds, no respiratory distress Abdominal Exam: normal bowel sounds, non tender, soft Extremities: normal range of motion, non-tender Melita Delgado NP May 03, 2018 13:34
--- NOTE | 2018-05-03 13:42 | Pulmonology Progress Note ---
Assessment/Plan Problems: (1) Uncontrolled diabetes mellitus type 1 without complications (2) Nausea, vomiting, and diarrhea Assessment/Plan doesn't want full liquid diet still vomiting symptomatic treatment dc iv fluids K supplement echo pending Subjective ROS Limited/Unobtainable: No Constitutional: Reports: no symptoms HEENT: Repors: no symptoms Respiratory: Reports: no symptoms Allergies: Coded Allergies: NO KNOWN ALLERGIES (Unverified Allergy, Unknown, 06/26/15) Objective Last 24 Hour Vital Signs Date Time Temp Pulse Resp B/P (MAP) Pulse Ox O2 Delivery O2 Flow Rate FiO2 05/03/18 08:42 Room Air 05/03/18 08:03 81 18 Room Air 21 05/03/18 08:03 Room Air 05/02/18 21:33 Room Air 21 05/02/18 21:00 Room Air 05/02/18 19:30 78 18 Room Air 21 05/02/18 16:00 97.7 99 16 106/77 (87) 93 97.7 Intake and Output 05/02/18 05/03/18 19:00 07:00 Intake Total 360 ml 1056 ml Balance 360 ml 1056 ml Intake Oral 360 ml 1000 ml IV Total 56 ml # Voids 2 General Appearance: cachetic HEENT: normocephalic, atraumatic Respiratory/Chest: chest wall non-tender, lungs clear Cardiovascular: normal peripheral pulses, normal rate Abdomen: normal bowel sounds, soft, non tender Genitourinary: normal external genitalia Skin: no rash Microbiology Date/Time Source Procedure Growth Status 04/30/18 15:20 Blood Blood Culture - Preliminary NO GROWTH AFTER 48 HOURS Resulted 05/01/18 22:30 Sacral Wound Gram Stain - Final Resulted 05/01/18 22:30 Sacral Wound Wound Culture Pending Resulted Laboratory Tests 05/03/18 06:10: White Blood Count 6.1, Red Blood Count 2.80L, Hemoglobin 8.7L, Hematocrit 23.8L , Mean Corpuscular Volume 85, Mean Corpuscular Hemoglobin 31.1H, Mean Corpuscular Hemoglobin Concent 36.5H, Red Cell Distribution Width 12.0, Platelet Count 125L, Mean Platelet Volume 5.5L, Neutrophils (%) (Auto) 64.6, Lymphocytes (%) (Auto) 28.0, Monocytes (%) (Auto) 6.4, Eosinophils (%) (Auto) 0.8, Basophils (%) (Auto) 0.2, Sodium Level 147H, Potassium Level 2.8L, Chloride Level 111H, Carbon Dioxide Level 37H, Anion Gap -1L, Blood Urea Nitrogen 18, Creatinine 0.6, Estimat Glomerular Filtration Rate > 60, Glucose Level 79#, Calcium Level 7.1L, Total Bilirubin 2.2H, Direct Bilirubin 0.4H, Aspartate Amino Transf (AST/SGOT) 88H, Alanine Aminotransferase (ALT/SGPT) 158H , Alkaline Phosphatase 119H, Total Protein 3.9L, Albumin 1.7L, Globulin 2.2, Albumin/Globulin Ratio 0.8L Current Medications Medications (Trade) Dose Ordered Sig/[place] Route PRN Reason Start Time Stop Time Status Last Admin Dose Admin Acetaminophen (Tylenol) 650 mg Q4H PRN ORAL fever 05/02/18 17:54 05/28/18 17:53 Al Hydroxide/Mg Hydroxide (Mylanta II) 30 ml Q6H PRN ORAL dyspepsia 05/02/18 17:54 05/28/18 17:53 Albuterol/ Ipratropium (Albuterol/ Ipratropium) 3 ml Q4H PRN HHN Shortness of Breath 05/02/18 17:55 05/03/18 17:54 Chlorhexidine Gluconate (Flores-Hex 2%) 1 applic DAILY@2000 TOPIC 05/02/18 20:00 05/28/18 19:59 05/02/18 20:00 Clonidine HCl (Catapres Tab) 0.1 mg Q4H PRN ORAL sbp more than 160 05/02/18 17:54 05/28/18 17:53 Dextrose (Dextrose 50%) 25 ml Q30M PRN IV Hypoglycemia 05/02/18 18:00 05/30/18 06:59 Dextrose (Dextrose 50%) 50 ml Q30M PRN IV Hypoglycemia 05/02/18 17:55 05/30/18 17:54 05/02/18 23:28 Dextrose/ Electrolytes 1,000 ml @ 75 mls/hr [id number] IV 05/03/18 09:00 06/02/18 08:59 05/03/18 09:03 Docusate Sodium (Colace) 100 mg THREE TIMES A DAY ORAL 05/03/18 09:00 06/02/18 08:59 Dronabinol (Marinol) 2.5 mg TID ORAL 05/03/18 18:00 06/02/18 17:59 Heparin Sodium (Porcine) (Heparin 5000 units/ml) 5,000 units EVERY 12 HOURS SUBQ 05/02/18 21:00 05/28/18 20:59 Insulin Aspart (NovoLOG) BEFORE MEALS AND HS SUBQ 05/02/18 21:00 05/30/18 11:29 Metoclopramide HCl (Reglan) 10 mg EVERY 6 HOURS ORAL 05/03/18 00:00 06/02/18 00:00 05/03/18 11:58 Nitroglycerin (Ntg) 0.4 mg Q5M X 3 DOSES PRN SL Prn Chest Pain 05/02/18 18:00 05/28/18 17:44 Ondansetron HCl (Zofran) 4 mg Q6H PRN IVP Nausea & Vomiting 05/02/18 17:55 05/28/18 17:54 05/02/18 22:25 Pantoprazole (Protonix) 40 mg DAILY ORAL 05/03/18 09:00 06/01/18 08:59 Promethazine HCl 25 mg/Sodium Chloride 56 ml @ 112 mls/hr Q6H PRN IVPB Nausea 05/02/18 17:54 05/29/18 17:53 05/03/18 05:52 Temazepam (Restoril) 15 mg HSPRN PRN ORAL Insomnia 05/02/18 17:56 05/09/18 17:55 Rosa Jamil MD May 03, 2018 13:41
[2018-05-03] MEDS ORDERED: Potassium Chloride 40 MEQ in Sodium Chloride 500ML 550 ML IVPB ONE (13:45)
--- NOTE | 2018-05-03 15:32 | General Surgery Progress Note ---
General Surgery-Progress Note Subjective Additional Comments no acute events. paracentesis report noted Objective Last 24 Hour Vital Signs Date Time Temp Pulse Resp B/P (MAP) Pulse Ox O2 Delivery O2 Flow Rate FiO2 05/03/18 08:42 Room Air 05/03/18 08:03 81 18 Room Air 21 05/03/18 08:03 Room Air 05/02/18 21:33 Room Air 21 05/02/18 21:00 Room Air 05/02/18 19:30 78 18 Room Air 21 05/02/18 16:00 97.7 99 16 106/77 (87) 93 97.7 I&O Intake and Output 05/02/18 05/03/18 19:00 07:00 Intake Total 360 ml 1056 ml Balance 360 ml 1056 ml Intake Oral 360 ml 1000 ml IV Total 56 ml # Voids 2 Drains: none Cardiovascular: RSR Respiratory: clear Abdomen: soft, distended, present bowel sounds Extremities: no cyanosis, other Laboratory Tests Test 05/03/18 06:10 White Blood Count 6.1 K/UL (4.8-10.8) Red Blood Count 2.80 M/UL (4.70-6.10) L Hemoglobin 8.7 G/DL (14.2-18.0) L Hematocrit 23.8 % (42.0-52.0) L Mean Corpuscular Volume 85 FL (80-99) Mean Corpuscular Hemoglobin 31.1 PG (27.0-31.0) H Mean Corpuscular Hemoglobin Concent 36.5 G/DL (32.0-36.0) H Red Cell Distribution Width 12.0 % (11.6-14.8) Platelet Count 125 K/UL (150-450) L Mean Platelet Volume 5.5 FL (6.5-10.1) L Neutrophils (%) (Auto) 64.6 % (45.0-75.0) Lymphocytes (%) (Auto) 28.0 % (20.0-45.0) Monocytes (%) (Auto) 6.4 % (1.0-10.0) Eosinophils (%) (Auto) 0.8 % (0.0-3.0) Basophils (%) (Auto) 0.2 % (0.0-2.0) Sodium Level 147 MMOL/L (136-145) H Potassium Level 2.8 MMOL/L (3.5-5.1) L Chloride Level 111 MMOL/L (98-107) H Carbon Dioxide Level 37 MMOL/L (21-32) H Anion Gap -1 mmol/L (5-15) L Blood Urea Nitrogen 18 mg/dL (7-18) Creatinine 0.6 MG/DL (0.55-1.30) Estimat Glomerular Filtration Rate > 60 mL/min (>60) Glucose Level 79 MG/DL (74-106) # Calcium Level 7.1 MG/DL (8.5-10.1) L Total Bilirubin 2.2 MG/DL (0.2-1.0) H Direct Bilirubin 0.4 MG/DL (0.0-0.3) H Aspartate Amino Transf (AST/SGOT) 88 U/L (15-37) H Alanine Aminotransferase (ALT/SGPT) 158 U/L (12-78) H Alkaline Phosphatase 119 U/L (46-116) H Total Protein 3.9 G/DL (6.4-8.2) L Albumin 1.7 G/DL (3.4-5.0) L Globulin 2.2 g/dL Albumin/Globulin Ratio 0.8 (1.0-2.7) L Plan Problems: (1) Intussusception of intestine Assessment & Plan: CT Findings: 1. Short segment small bowel intussusception in the left lower quadrant ( series 5 image 58). No lead point lesions. No evidence of bowel obstruction. No focal bowel wall thickening. No adjacent inflammatory change. This may represent transient intussusception and is of uncertain clinical significance. 2. Sigmoid diverticulosis without wall thickening or adjacent inflammatory change. CT reviewed. - likely transient and benign. exam stable, no obstruction, no thickening, no inflammation. leukocytosis unlikely due to this. does have elevated LFT. possible cholecystitis? possible hepatitis Ultrasound reviewed. ascites and liver abnormal. Gallbladder okay. t bili trending down. lip/nicolette nml. lfts improved. denies EtOH history. likely hepatitis? abd distention related to ascites. unsure of etiology for nausea and emesis but not obstructive in nature. paracentesis path noted. no malignant cells hepatitis panel negative -PPI -diet as tolerated -trend labs -AM KUB thank you. will follow with recjossie. Long Guevara May 03, 2018 15:32
[2018-05-03 16:00] VITALS: BP 101/66
[2018-05-03] MEDS ORDERED: Miralax 17gm pkt ORAL PRN (16:15)
[2018-05-03] MEDS: Dronabinol 2.5mg Cap ORAL SCH (17:05)
--- NOTE | 2018-05-03 18:12 | Internal Med Progress Note ---
Subjective Date of Service: May 02, 2018 Physician Name Yunier Edwards Attending Physician Aly Ricks MD Current Medications Medications (Trade) Dose Ordered Sig/[place] Route PRN Reason Start Time Stop Time Status Last Admin Dose Admin Acetaminophen (Tylenol) 650 mg Q4H PRN ORAL fever 05/02/18 17:54 05/28/18 17:53 Al Hydroxide/Mg Hydroxide (Mylanta II) 30 ml Q6H PRN ORAL dyspepsia 05/02/18 17:54 05/28/18 17:53 Chlorhexidine Gluconate (Flores-Hex 2%) 1 applic DAILY@2000 TOPIC 05/02/18 20:00 05/28/18 19:59 05/02/18 20:00 Clonidine HCl (Catapres Tab) 0.1 mg Q4H PRN ORAL sbp more than 160 05/02/18 17:54 05/28/18 17:53 Dextrose (Dextrose 50%) 25 ml Q30M PRN IV Hypoglycemia 05/02/18 18:00 05/30/18 06:59 Dextrose (Dextrose 50%) 50 ml Q30M PRN IV Hypoglycemia 05/02/18 17:55 05/30/18 17:54 05/02/18 23:28 Docusate Sodium (Colace) 100 mg THREE TIMES A DAY ORAL 05/03/18 09:00 06/02/18 08:59 05/03/18 17:05 Dronabinol (Marinol) 2.5 mg TID ORAL 05/03/18 18:00 06/02/18 17:59 05/03/18 17:05 Heparin Sodium (Porcine) (Heparin 5000 units/ml) 5,000 units EVERY 12 HOURS SUBQ 05/02/18 21:00 05/28/18 20:59 Insulin Aspart (NovoLOG) BEFORE MEALS AND HS SUBQ 05/02/18 21:00 05/30/18 11:29 05/03/18 16:52 Metoclopramide HCl (Reglan) 10 mg EVERY 6 HOURS ORAL 05/03/18 00:00 06/02/18 00:00 05/03/18 17:05 Nitroglycerin (Ntg) 0.4 mg Q5M X 3 DOSES PRN SL Prn Chest Pain 05/02/18 18:00 05/28/18 17:44 Ondansetron HCl (Zofran) 4 mg Q6H PRN IVP Nausea & Vomiting 05/02/18 17:55 05/28/18 17:54 05/02/18 22:25 Pantoprazole (Protonix) 40 mg DAILY ORAL 05/03/18 09:00 06/01/18 08:59 Promethazine HCl 25 mg/Sodium Chloride 56 ml @ 112 mls/hr Q6H PRN IVPB Nausea 05/02/18 17:54 05/29/18 17:53 05/03/18 05:52 Temazepam (Restoril) 15 mg HSPRN PRN ORAL Insomnia 05/02/18 17:56 05/09/18 17:55 Allergies: Coded Allergies: NO KNOWN ALLERGIES (Unverified Allergy, Unknown, 06/26/15) Subjective 47 YO M admitted with hyperglycemia. Now intractable nausea and vomiting. Intussusception of small bowel. Cover for Int Med-Dr Ricks. C/O bilateral feet swelling Objective Last Vital Signs Date Time Temp Pulse Resp B/P (MAP) Pulse Ox O2 Delivery O2 Flow Rate FiO2 05/03/18 16:00 98.5 111 19 101/66 (78) 98 98.5 05/03/18 08:42 Room Air 05/03/18 08:03 21 05/01/18 18:45 2.0 Laboratory Tests Test 05/03/18 06:10 White Blood Count 6.1 K/UL (4.8-10.8) Red Blood Count 2.80 M/UL (4.70-6.10) L Hemoglobin 8.7 G/DL (14.2-18.0) L Hematocrit 23.8 % (42.0-52.0) L Mean Corpuscular Volume 85 FL (80-99) Mean Corpuscular Hemoglobin 31.1 PG (27.0-31.0) H Mean Corpuscular Hemoglobin Concent 36.5 G/DL (32.0-36.0) H Red Cell Distribution Width 12.0 % (11.6-14.8) Platelet Count 125 K/UL (150-450) L Mean Platelet Volume 5.5 FL (6.5-10.1) L Neutrophils (%) (Auto) 64.6 % (45.0-75.0) Lymphocytes (%) (Auto) 28.0 % (20.0-45.0) Monocytes (%) (Auto) 6.4 % (1.0-10.0) Eosinophils (%) (Auto) 0.8 % (0.0-3.0) Basophils (%) (Auto) 0.2 % (0.0-2.0) Sodium Level 147 MMOL/L (136-145) H Potassium Level 2.8 MMOL/L (3.5-5.1) L Chloride Level 111 MMOL/L (98-107) H Carbon Dioxide Level 37 MMOL/L (21-32) H Anion Gap -1 mmol/L (5-15) L Blood Urea Nitrogen 18 mg/dL (7-18) Creatinine 0.6 MG/DL (0.55-1.30) Estimat Glomerular Filtration Rate > 60 mL/min (>60) Glucose Level 79 MG/DL (74-106) # Calcium Level 7.1 MG/DL (8.5-10.1) L Total Bilirubin 2.2 MG/DL (0.2-1.0) H Direct Bilirubin 0.4 MG/DL (0.0-0.3) H Aspartate Amino Transf (AST/SGOT) 88 U/L (15-37) H Alanine Aminotransferase (ALT/SGPT) 158 U/L (12-78) H Alkaline Phosphatase 119 U/L (46-116) H Total Protein 3.9 G/DL (6.4-8.2) L Albumin 1.7 G/DL (3.4-5.0) L Globulin 2.2 g/dL Albumin/Globulin Ratio 0.8 (1.0-2.7) L Microbiology Date/Time Source Procedure Growth Status 05/01/18 22:30 Sacral Wound Gram Stain - Final Resulted 05/01/18 22:30 Sacral Wound Wound Culture Pending Resulted Intake and Output 05/02/18 05/03/18 19:00 07:00 Intake Total 360 ml 1056 ml Balance 360 ml 1056 ml Intake Oral 360 ml 1000 ml IV Total 56 ml # Voids 2 Objective PHYSICAL EXAMINATION: GENERAL: The patient is thin-appearing male, who is obviously nauseated. HEENT: Eyes, pupils are equal, responsive to light and accommodation. Extraocular movements are intact. NECK: Supple without lymphadenopathy. CHEST: Lungs are clear to auscultation bilaterally without wheezes or rales. CARDIOVASCULAR: Regular rate. S1, S2 normal without murmurs, rubs, or gallops. ABDOMEN: Soft, diffusely tender with positive bowel sounds. No evidence of hepatosplenomegaly. No rebound or guarding noted. EXTREMITIES: Negative for clubbing, cyanosis, or edema. RECTAL: Refused. GENITALIA: Refused. NEUROLOGIC: Cranial nerves II through XII are grossly intact without focal deficits. Motor strength is 5/5 bilaterally. Deep tendon reflexes are 2+ plantar. Assessment/Plan Problem List: (1) Pancreatitis Assessment & Plan: CT and US=no common bile duct stone. See GI note. (2) Hypokalemia Assessment & Plan: Replace KCL IV (3) Hyperglycemia (4) DKA (diabetic ketoacidoses) (5) Uncontrolled diabetes mellitus type 1 without complications Assessment & Plan: Fluctuating glucose. FSBG=27 this am Currently 131. See endocrinology note (6) Intussusception of intestine Assessment & Plan: Non obstructive. Await surgery consult (7) Elevated transaminase level (8) Abdominal pain (9) Edema Assessment & Plan: Decrease IV fluids. Patient wants lasix Status: not improved Yunier Edwards MD May 03, 2018 18:12
--- NOTE | 2018-05-03 18:14 | Internal Med Progress Note ---
Subjective Date of Service: May 03, 2018 Physician Name Yunier Edwards Attending Physician Aly Ricks MD Current Medications Medications (Trade) Dose Ordered Sig/Herm[place] Route PRN Reason Start Time Stop Time Status Last Admin Dose Admin Acetaminophen (Tylenol) 650 mg Q4H PRN ORAL fever 05/02/18 17:54 05/28/18 17:53 Al Hydroxide/Mg Hydroxide (Mylanta II) 30 ml Q6H PRN ORAL dyspepsia 05/02/18 17:54 05/28/18 17:53 Chlorhexidine Gluconate (Flores-Hex 2%) 1 applic DAILY@1999 TOPIC 05/02/18 20:00 05/28/18 19:59 05/02/18 20:00 Clonidine HCl (Catapres Tab) 0.1 mg Q4H PRN ORAL sbp more than 160 05/02/18 17:54 05/28/18 17:53 Dextrose (Dextrose 50%) 25 ml Q30M PRN IV Hypoglycemia 05/02/18 18:00 05/30/18 06:59 Dextrose (Dextrose 50%) 50 ml Q30M PRN IV Hypoglycemia 05/02/18 17:55 05/30/18 17:54 05/02/18 23:28 Docusate Sodium (Colace) 100 mg THREE TIMES A DAY ORAL 05/03/18 09:00 06/02/18 08:59 05/03/18 17:05 Dronabinol (Marinol) 2.5 mg TID ORAL 05/03/18 18:00 06/02/18 17:59 05/03/18 17:05 Heparin Sodium (Porcine) (Heparin 5000 units/ml) 5,000 units EVERY 12 HOURS SUBQ 05/02/18 21:00 05/28/18 20:59 Insulin Aspart (NovoLOG) BEFORE MEALS AND HS SUBQ 05/02/18 21:00 05/30/18 11:29 05/03/18 16:52 Metoclopramide HCl (Reglan) 10 mg EVERY 6 HOURS ORAL 05/03/18 00:00 06/02/18 00:00 05/03/18 17:05 Nitroglycerin (Ntg) 0.4 mg Q5M X 3 DOSES PRN SL Prn Chest Pain 05/02/18 18:00 05/28/18 17:44 Ondansetron HCl (Zofran) 4 mg Q6H PRN IVP Nausea & Vomiting 05/02/18 17:55 05/28/18 17:54 05/02/18 22:25 Pantoprazole (Protonix) 40 mg DAILY ORAL 05/03/18 09:00 06/01/18 08:59 Promethazine HCl 25 mg/Sodium Chloride 56 ml @ 112 mls/hr Q6H PRN IVPB Nausea 05/02/18 17:54 05/29/18 17:53 05/03/18 05:52 Temazepam (Restoril) 15 mg HSPRN PRN ORAL Insomnia 05/02/18 17:56 05/09/18 17:55 Allergies: Coded Allergies: NO KNOWN ALLERGIES (Unverified Allergy, Unknown, 06/26/15) ROS Limited/Unobtainable: No Constitutional: Reports: no symptoms HEENT: Reports: no symptoms Cardiovascular: Reports: no symptoms Respiratory: Reports: no symptoms Gastrointestinal/Abdominal: Reports: nausea, vomiting Genitourinary: Reports: no symptoms Neurologic/Psychiatric: Reports: no symptoms Subjective 47 YO M admitted with hyperglycemia. Now intractable nausea and vomiting. Intussusception of small bowel. Cover for Int Med-Dr Ricks. C/O bilateral feet swelling. S/P paracentesis 05/02/18 Objective Last Vital Signs Date Time Temp Pulse Resp B/P (MAP) Pulse Ox O2 Delivery O2 Flow Rate FiO2 05/03/18 16:00 98.5 111 19 101/66 (78) 98 98.5 05/03/18 08:42 Room Air 05/03/18 08:03 21 05/01/18 18:45 2.0 Laboratory Tests Test 05/03/18 06:10 White Blood Count 6.1 K/UL (4.8-10.8) Red Blood Count 2.80 M/UL (4.70-6.10) L Hemoglobin 8.7 G/DL (14.2-18.0) L Hematocrit 23.8 % (42.0-52.0) L Mean Corpuscular Volume 85 FL (80-99) Mean Corpuscular Hemoglobin 31.1 PG (27.0-31.0) H Mean Corpuscular Hemoglobin Concent 36.5 G/DL (32.0-36.0) H Red Cell Distribution Width 12.0 % (11.6-14.8) Platelet Count 125 K/UL (150-450) L Mean Platelet Volume 5.5 FL (6.5-10.1) L Neutrophils (%) (Auto) 64.6 % (45.0-75.0) Lymphocytes (%) (Auto) 28.0 % (20.0-45.0) Monocytes (%) (Auto) 6.4 % (1.0-10.0) Eosinophils (%) (Auto) 0.8 % (0.0-3.0) Basophils (%) (Auto) 0.2 % (0.0-2.0) Sodium Level 147 MMOL/L (136-145) H Potassium Level 2.8 MMOL/L (3.5-5.1) L Chloride Level 111 MMOL/L (98-107) H Carbon Dioxide Level 37 MMOL/L (21-32) H Anion Gap -1 mmol/L (5-15) L Blood Urea Nitrogen 18 mg/dL (7-18) Creatinine 0.6 MG/DL (0.55-1.30) Estimat Glomerular Filtration Rate > 60 mL/min (>60) Glucose Level 79 MG/DL (74-106) # Calcium Level 7.1 MG/DL (8.5-10.1) L Total Bilirubin 2.2 MG/DL (0.2-1.0) H Direct Bilirubin 0.4 MG/DL (0.0-0.3) H Aspartate Amino Transf (AST/SGOT) 88 U/L (15-37) H Alanine Aminotransferase (ALT/SGPT) 158 U/L (12-78) H Alkaline Phosphatase 119 U/L (46-116) H Total Protein 3.9 G/DL (6.4-8.2) L Albumin 1.7 G/DL (3.4-5.0) L Globulin 2.2 g/dL Albumin/Globulin Ratio 0.8 (1.0-2.7) L Microbiology Date/Time Source Procedure Growth Status 05/01/18 22:30 Sacral Wound Gram Stain - Final Resulted 05/01/18 22:30 Sacral Wound Wound Culture Pending Resulted Intake and Output 05/02/18 05/03/18 19:00 07:00 Intake Total 360 ml 1056 ml Balance 360 ml 1056 ml Intake Oral 360 ml 1000 ml IV Total 56 ml # Voids 2 Objective PHYSICAL EXAMINATION: GENERAL: The patient is thin-appearing male, who is obviously nauseated. HEENT: Eyes, pupils are equal, responsive to light and accommodation. Extraocular movements are intact. NECK: Supple without lymphadenopathy. CHEST: Lungs are clear to auscultation bilaterally without wheezes or rales. CARDIOVASCULAR: Regular rate. S1, S2 normal without murmurs, rubs, or gallops. ABDOMEN: Soft, diffusely tender with positive bowel sounds. No evidence of hepatosplenomegaly. No rebound or guarding noted. EXTREMITIES: Negative for clubbing, cyanosis, or edema. RECTAL: Refused. GENITALIA: Refused. NEUROLOGIC: Cranial nerves II through XII are grossly intact without focal deficits. Motor strength is 5/5 bilaterally. Deep tendon reflexes are 2+ plantar. Assessment/Plan Problem List: (1) Pancreatitis Assessment & Plan: CT and US=no common bile duct stone. See GI note. (2) Hypokalemia Assessment & Plan: Replace KCL IV (3) Hyperglycemia (4) DKA (diabetic ketoacidoses) (5) Uncontrolled diabetes mellitus type 1 without complications Assessment & Plan: Fluctuating glucose. FSBG=27 this am Currently 131. See endocrinology note (6) Intussusception of intestine Assessment & Plan: Non obstructive. Await surgery consult (7) Elevated transaminase level (8) Abdominal pain (9) Edema Assessment & Plan: Decrease IV fluids. Patient wants lasix. Await echocardiogram and cardiac W/U (10) Ascites (11) Intractable nausea and vomiting Assessment & Plan: See GI note. Yunier Edwards MD May 03, 2018 18:14
[2018-05-03 20:00] VITALS: BP 96/65
[2018-05-03] MEDS: Dyna-Hex 2% Top Sol 2oz TOPIC SCH (20:00)
[2018-05-04] MEDS: Metoclopramide 10mg/10ml Liq ORAL SCH ×3 (01:22→12:18)
[2018-05-04 04:00] VITALS: BP 99/66
[2018-05-04] MEDS: NovoLOG Insulin Flexpen SUBQ SCH ×6 (06:38→20:48)
--- NOTE | 2018-05-04 07:15 | General Progress Note ---
Assessment/Plan Problem List: (1) Uncontrolled diabetes mellitus type 1 without complications ICD Codes: E10.9 - Type 1 diabetes mellitus without complications SNOMED: 539191382 (2) Pancreatitis ICD Codes: K85.90 - Acute pancreatitis without necrosis or infection, unspecified SNOMED: 62721417 (3) Hyponatremia ICD Codes: E87.1 - Hyponatremia SNOMED: 15052253 (4) Nausea, vomiting, and diarrhea ICD Codes: R11.2 - Nausea with vomiting, unspecified; R19.7 - Diarrhea, unspecified SNOMED: 2590826 Assessment/Plan resume Levemir at lower dose of 8 units daily add Novolog 2 units ac tid continue NISS Subjective Allergies: Coded Allergies: NO KNOWN ALLERGIES (Unverified Allergy, Unknown, 06/26/15) All Systems: reviewed and negative except above Subjective events noted still having episodes of vomiting but he eats his food Objective Last 24 Hour Vital Signs Date Time Temp Pulse Resp B/P (MAP) Pulse Ox O2 Delivery O2 Flow Rate FiO2 05/04/18 04:00 98.6 102 18 99/66 (77) 99 98.6 05/03/18 21:00 Room Air 05/03/18 20:00 99.3 106 18 96/65 (75) 98 99.3 05/03/18 19:40 98 18 Room Air 21 05/03/18 19:39 Room Air 21 05/03/18 16:00 98.5 111 19 101/66 (78) 98 98.5 05/03/18 08:42 Room Air 05/03/18 08:03 81 18 Room Air 21 05/03/18 08:03 Room Air Intake and Output 05/03/18 05/04/18 19:00 07:00 Intake Total 1725 ml 1200 ml Output Total 950 ml 450 ml Balance 775 ml 750 ml Intake Oral 1500 ml 1200 ml IV Total 225 ml Output Urine Total 500 ml Emesis 450 ml 450 ml # Voids 3 2 Height (Feet): 5 Height (Inches): 8.00 Weight (Pounds): 138 General Appearance: no apparent distress Neck: normal alignment Cardiovascular: normal rate Respiratory/Chest: lungs clear Abdomen: normal bowel sounds Objective Current Medications Medications (Trade) Dose Ordered Sig/[place] Route PRN Reason Start Time Stop Time Status Last Admin Dose Admin Acetaminophen (Tylenol) 650 mg Q4H PRN ORAL fever 05/02/18 17:54 05/28/18 17:53 Al Hydroxide/Mg Hydroxide (Mylanta II) 30 ml Q6H PRN ORAL dyspepsia 05/02/18 17:54 05/28/18 17:53 Chlorhexidine Gluconate (Flores-Hex 2%) 1 applic DAILY@2000 TOPIC 05/02/18 20:00 05/28/18 19:59 05/02/18 20:00 Clonidine HCl (Catapres Tab) 0.1 mg Q4H PRN ORAL sbp more than 160 05/02/18 17:54 05/28/18 17:53 Dextrose (Dextrose 50%) 25 ml Q30M PRN IV Hypoglycemia 05/02/18 18:00 05/30/18 06:59 Dextrose (Dextrose 50%) 50 ml Q30M PRN IV Hypoglycemia 05/02/18 17:55 05/30/18 17:54 05/02/18 23:28 Docusate Sodium (Colace) 100 mg THREE TIMES A DAY ORAL 05/03/18 09:00 06/02/18 08:59 05/03/18 17:05 Dronabinol (Marinol) 2.5 mg TID ORAL 05/03/18 18:00 06/02/18 17:59 05/03/18 17:05 Heparin Sodium (Porcine) (Heparin 5000 units/ml) 5,000 units EVERY 12 HOURS SUBQ 05/02/18 21:00 05/28/18 20:59 Insulin Aspart (NovoLOG) BEFORE MEALS AND HS SUBQ 05/02/18 21:00 05/30/18 11:29 05/04/18 06:38 Metoclopramide HCl (Reglan) 10 mg EVERY 6 HOURS ORAL 05/03/18 00:00 06/02/18 00:00 05/04/18 06:32 Nitroglycerin (Ntg) 0.4 mg Q5M X 3 DOSES PRN SL Prn Chest Pain 05/02/18 18:00 05/28/18 17:44 Ondansetron HCl (Zofran) 4 mg Q6H PRN IVP Nausea & Vomiting 05/02/18 17:55 05/28/18 17:54 05/02/18 22:25 Pantoprazole (Protonix) 40 mg DAILY ORAL 05/03/18 09:00 06/01/18 08:59 Promethazine HCl 25 mg/Sodium Chloride 56 ml @ 112 mls/hr Q6H PRN IVPB Nausea 05/02/18 17:54 05/29/18 17:53 05/03/18 05:52 Temazepam (Restoril) 15 mg HSPRN PRN ORAL Insomnia 05/02/18 17:56 05/09/18 17:55 Item Value Date Time Bedside Blood Glucose 228 mg/dl H 05/04/18 0638 Bedside Blood Glucose 318 mg/dl H 05/03/18 2100 Bedside Blood Glucose 217 mg/dl H 05/03/18 1652 Bedside Blood Glucose 123 mg/dl H 05/03/18 1130 Bedside Blood Glucose 68 mg/dl L 05/03/18 0630 Saad Laurent MD May 04, 2018 07:15
[2018-05-04 08:00] VITALS: BP 100/69
[2018-05-04] MEDS: Docusate 100mg cap ORAL SCH ×3 (09:00→18:12)
[2018-05-04] MEDS: Heparin 5000 units/ml inj SUBQ SCH ×2 (09:00→20:48)
[2018-05-04 09:52] LABS: HEMATOCRIT 19.1 % (42.0-52.0); MEAN CORPUSCULAR VOLUME 85 FL (80-99); PLATELET COUNT 176 K/UL (150-450); RED BLOOD COUNT 2.25 M/UL (4.70-6.10); RED CELL DISTRIBUTION WIDTH 12.8 % (11.6-14.8); WHITE BLOOD COUNT 5.7 K/UL (4.8-10.8)
[2018-05-04] MEDS: Dronabinol 2.5mg Cap ORAL SCH ×3 (09:56→18:12)
[2018-05-04 10:04] LABS: ALANINE AMINOTRANSFERASE 134 U/L (12-78); ALBUMIN 1.7 G/DL (3.4-5.0); ALBUMIN/GLOBULIN RATIO 0.7 (1.0-2.7); ALKALINE PHOSPHATASE 107 U/L (46-116); ANION GAP 0 mmol/L (5-15); ASPARTATE AMINO TRANSFERASE 58 U/L (15-37); BLOOD UREA NITROGEN 25 mg/dL (7-18); CALCIUM 7.3 MG/DL (8.5-10.1); CARBON DIOXIDE 39 MMOL/L (21-32); CHLORIDE 106 MMOL/L (98-107); CREATININE 0.6 MG/DL (0.55-1.30); POTASSIUM 3.4 MMOL/L (3.5-5.1); SODIUM 145 MMOL/L (136-145)
[2018-05-04 10:07] LABS: BILIRUBIN,DIRECT 0.3 MG/DL (0.0-0.3)
[2018-05-04] MEDS: Levemir Flexpen SUBQ SCH (10:18)
[2018-05-04 12:00] VITALS: BP 91/61
--- NOTE | 2018-05-04 12:30 | Internal Med Progress Note ---
Subjective Date of Service: May 04, 2018 Physician Name Yunier Edwards Attending Physician Aly Ricks MD Current Medications Medications (Trade) Dose Ordered Sig/Herminia Route PRN Reason Start Time Stop Time Status Last Admin Dose Admin Acetaminophen (Tylenol) 650 mg Q4H PRN ORAL fever 05/02/18 17:54 05/28/18 17:53 Al Hydroxide/Mg Hydroxide (Mylanta II) 30 ml Q6H PRN ORAL dyspepsia 05/02/18 17:54 05/28/18 17:53 Chlorhexidine Gluconate (Flores-Hex 2%) 1 applic DAILY@2000 TOPIC 05/02/18 20:00 05/28/18 19:59 05/02/18 20:00 Clonidine HCl (Catapres Tab) 0.1 mg Q4H PRN ORAL sbp more than 160 05/02/18 17:54 05/28/18 17:53 Dextrose (Dextrose 50%) 25 ml Q30M PRN IV Hypoglycemia 05/04/18 07:15 06/03/18 07:14 Dextrose (Dextrose 50%) 50 ml Q30M PRN IV Hypoglycemia 05/04/18 07:15 06/03/18 07:14 Docusate Sodium (Colace) 100 mg THREE TIMES A DAY ORAL 05/03/18 09:00 06/02/18 08:59 05/03/18 17:05 Dronabinol (Marinol) 2.5 mg TID ORAL 05/03/18 18:00 06/02/18 17:59 05/04/18 12:18 Heparin Sodium (Porcine) (Heparin 5000 units/ml) 5,000 units EVERY 12 HOURS SUBQ 05/02/18 21:00 05/28/18 20:59 Insulin Aspart (NovoLOG) BEFORE MEALS AND HS SUBQ 05/02/18 21:00 06/03/18 11:29 05/04/18 12:22 Insulin Aspart (NovoLOG) 2 units NOVOTIAC SUBQ 05/04/18 11:50 06/03/18 11:49 Insulin Detemir (Levemir) 8 units DAILY SUBQ 05/04/18 09:00 06/03/18 08:59 05/04/18 10:18 Metoclopramide HCl (Reglan) 10 mg EVERY 6 HOURS ORAL 05/03/18 00:00 06/02/18 00:00 05/04/18 12:18 Nitroglycerin (Ntg) 0.4 mg Q5M X 3 DOSES PRN SL Prn Chest Pain 05/02/18 18:00 05/28/18 17:44 Ondansetron HCl (Zofran) 4 mg Q6H PRN IVP Nausea & Vomiting 05/02/18 17:55 05/28/18 17:54 05/02/18 22:25 Pantoprazole (Protonix) 40 mg DAILY ORAL 05/03/18 09:00 06/01/18 08:59 05/04/18 09:56 Promethazine HCl 25 mg/Sodium Chloride 56 ml @ 112 mls/hr Q6H PRN IVPB Nausea 05/02/18 17:54 05/29/18 17:53 05/03/18 05:52 Temazepam (Restoril) 15 mg HSPRN PRN ORAL Insomnia 05/02/18 17:56 05/09/18 17:55 Allergies: Coded Allergies: NO KNOWN ALLERGIES (Unverified Allergy, Unknown, 06/26/15) ROS Limited/Unobtainable: No Constitutional: Reports: no symptoms HEENT: Reports: no symptoms Cardiovascular: Reports: no symptoms Respiratory: Reports: no symptoms Gastrointestinal/Abdominal: Reports: abdominal pain, nausea, vomiting Genitourinary: Reports: no symptoms Neurologic/Psychiatric: Reports: no symptoms Subjective 47 YO M admitted with hyperglycemia. Now intractable nausea and vomiting. Intussusception of small bowel. Cover for Int Magdi-Dr Ricks. C/O bilateral feet swelling. S/P paracentesis 05/02/18 Objective Last Vital Signs Date Time Temp Pulse Resp B/P (MAP) Pulse Ox O2 Delivery O2 Flow Rate FiO2 05/04/18 09:00 Room Air 05/04/18 08:00 98.2 88 18 100/69 (79) 100 98.2 05/04/18 07:20 21 05/01/18 18:45 2.0 Laboratory Tests Test 05/04/18 08:45 White Blood Count 5.7 K/UL (4.8-10.8) Red Blood Count 2.25 M/UL (4.70-6.10) L Hemoglobin 7.0 G/DL (14.2-18.0) L Hematocrit 19.1 % (42.0-52.0) L Mean Corpuscular Volume 85 FL (80-99) Mean Corpuscular Hemoglobin 31.1 PG (27.0-31.0) H Mean Corpuscular Hemoglobin Concent 36.6 G/DL (32.0-36.0) H Red Cell Distribution Width 12.8 % (11.6-14.8) Platelet Count 176 K/UL (150-450) Mean Platelet Volume 6.0 FL (6.5-10.1) L Neutrophils (%) (Auto) % (45.0-75.0) Lymphocytes (%) (Auto) % (20.0-45.0) Monocytes (%) (Auto) % (1.0-10.0) Eosinophils (%) (Auto) % (0.0-3.0) Basophils (%) (Auto) % (0.0-2.0) Differential Total Cells Counted 100 Neutrophils % (Manual) 59 % (45-75) Lymphocytes % (Manual) 31 % (20-45) Monocytes % (Manual) 9 % (1-10) Eosinophils % (Manual) 0 % (0-3) Basophils % (Manual) 0 % (0-2) Band Neutrophils 1 % (0-8) Platelet Estimate Adequate Platelet Morphology Normal Red Blood Cell Morphology Normal Sodium Level 145 MMOL/L (136-145) Potassium Level 3.4 MMOL/L (3.5-5.1) L Chloride Level 106 MMOL/L (98-107) Carbon Dioxide Level 39 MMOL/L (21-32) H Anion Gap 0 mmol/L (5-15) L Blood Urea Nitrogen 25 mg/dL (7-18) H Creatinine 0.6 MG/DL (0.55-1.30) Estimat Glomerular Filtration Rate > 60 mL/min (>60) Glucose Level 144 MG/DL (74-106) H Calcium Level 7.3 MG/DL (8.5-10.1) L Total Bilirubin 2.0 MG/DL (0.2-1.0) H Direct Bilirubin 0.3 MG/DL (0.0-0.3) Aspartate Amino Transf (AST/SGOT) 58 U/L (15-37) H Alanine Aminotransferase (ALT/SGPT) 134 U/L (12-78) H Alkaline Phosphatase 107 U/L (46-116) Troponin I 0.015 ng/mL (0.000-0.056) Pro-B-Type Natriuretic Peptide 93 pg/mL (0-125) Total Protein 4.0 G/DL (6.4-8.2) L Albumin 1.7 G/DL (3.4-5.0) L Globulin 2.3 g/dL Albumin/Globulin Ratio 0.7 (1.0-2.7) L Microbiology Date/Time Source Procedure Growth Status 05/01/18 22:30 Sacral Wound Gram Stain - Final Resulted 05/01/18 22:30 Wound Culture - Preliminary Staphylococcus Aureus Usual Skin Rhea Resulted Intake and Output 05/03/18 05/04/18 19:00 07:00 Intake Total 1725 ml 1200 ml Output Total 950 ml 450 ml Balance 775 ml 750 ml Intake Oral 1500 ml 1200 ml IV Total 225 ml Output Urine Total 500 ml Emesis 450 ml 450 ml # Voids 3 2 Objective PHYSICAL EXAMINATION: GENERAL: The patient is thin-appearing male, who is obviously nauseated. HEENT: Eyes, pupils are equal, responsive to light and accommodation. Extraocular movements are intact. NECK: Supple without lymphadenopathy. CHEST: Lungs are clear to auscultation bilaterally without wheezes or rales. CARDIOVASCULAR: Regular rate. S1, S2 normal without murmurs, rubs, or gallops. ABDOMEN: Soft, diffusely tender with positive bowel sounds. No evidence of hepatosplenomegaly. No rebound or guarding noted. EXTREMITIES: Negative for clubbing, cyanosis, or edema. RECTAL: Refused. GENITALIA: Refused. NEUROLOGIC: Cranial nerves II through XII are grossly intact without focal deficits. Motor strength is 5/5 bilaterally. Deep tendon reflexes are 2+ plantar. Assessment/Plan Problem List: (1) Pancreatitis Assessment & Plan: CT and US=no common bile duct stone. See GI note. (2) Hypokalemia Assessment & Plan: Replace KCL IV (3) Hyperglycemia (4) DKA (diabetic ketoacidoses) (5) Uncontrolled diabetes mellitus type 1 without complications Assessment & Plan: Fluctuating glucose. FSBG=27 this am Currently 131. See endocrinology note (6) Intussusception of intestine Assessment & Plan: Non obstructive. Await surgery consult (7) Elevated transaminase level (8) Abdominal pain (9) Edema Assessment & Plan: Decrease IV fluids. Patient wants lasix. Await echocardiogram and cardiac W/U (10) Ascites (11) Intractable nausea and vomiting Assessment & Plan: See GI note. (12) Anemia Assessment & Plan: ?GI bleed? Patient refused transfusion Status: not improved Yunier Edwards MD May 04, 2018 12:30
--- NOTE | 2018-05-04 13:31 | GI Progress Note ---
Assessment/Plan Problems: (1) Intussusception of intestine ICD Codes: K56.1 - Intussusception SNOMED: 06882864 (2) Elevated transaminase level ICD Codes: R74.0 - Nonspecific elevation of levels of transaminase and lactic acid dehydrogenase [LDH] SNOMED: 721269852, 158816298 (3) DKA (diabetic ketoacidoses) ICD Codes: E13.10 - Other specified diabetes mellitus with ketoacidosis without coma SNOMED: 27494940 (4) Nausea, vomiting, and diarrhea ICD Codes: R11.2 - Nausea with vomiting, unspecified; R19.7 - Diarrhea, unspecified SNOMED: 4439539 (5) Drug abuse ICD Codes: F19.10 - Other psychoactive substance abuse, uncomplicated SNOMED: 32100763 (6) Episode of generalized weakness ICD Codes: R53.1 - Weakness SNOMED: 06447310 (7) H/O cocaine abuse ICD Codes: Z87.898 - Personal history of other specified conditions SNOMED: 704473042 Status: not improved Status Narrative Discussed with Dr. Ascencio. Assessment/Plan cocaine s/p paracentesis yielding 1.5L - pending cytology >> negative for malignancy - r/o SBP abdominal U/S reviewed >> Mildly echogenic liver, which may suggest fatty infiltration. patient continues to vomit after any PO intake, now stated to me today this has been on going for 3 months. >> possible gastroparesis 2/2 DM hepatitis panel >> negative will obtain gastric delay emptying study, hold reglan >> will consider endoscopy if medical management fails CLD only zofran prn pain mgmt bowel regime fu labs The patient was seen and examined at bedside and all new and available data was reviewed in the patients chart. I agree with the above findings, impression and plan. (Patient seen earlier today. Signature stamp does not reflect patient encounter time.). - Pedro Ascencio MD Subjective Subjective emesis generalized weakness Objective Last 24 Hour Vital Signs Date Time Temp Pulse Resp B/P (MAP) Pulse Ox O2 Delivery O2 Flow Rate FiO2 05/04/18 09:00 Room Air 05/04/18 08:00 98.2 88 18 100/69 (79) 100 98.2 05/04/18 07:20 74 18 Room Air 21 05/04/18 04:00 98.6 102 18 99/66 (77) 99 98.6 05/03/18 21:00 Room Air 05/03/18 20:00 99.3 106 18 96/65 (75) 98 99.3 05/03/18 19:40 98 18 Room Air 21 05/03/18 19:39 Room Air 21 05/03/18 16:00 98.5 111 19 101/66 (78) 98 98.5 Intake and Output 05/03/18 05/04/18 19:00 07:00 Intake Total 1725 ml 1200 ml Output Total 950 ml 450 ml Balance 775 ml 750 ml Intake Oral 1500 ml 1200 ml IV Total 225 ml Output Urine Total 500 ml Emesis 450 ml 450 ml # Voids 3 2 Laboratory Tests Test 05/04/18 08:45 White Blood Count 5.7 K/UL (4.8-10.8) Red Blood Count 2.25 M/UL (4.70-6.10) L Hemoglobin 7.0 G/DL (14.2-18.0) L Hematocrit 19.1 % (42.0-52.0) L Mean Corpuscular Volume 85 FL (80-99) Mean Corpuscular Hemoglobin 31.1 PG (27.0-31.0) H Mean Corpuscular Hemoglobin Concent 36.6 G/DL (32.0-36.0) H Red Cell Distribution Width 12.8 % (11.6-14.8) Platelet Count 176 K/UL (150-450) Mean Platelet Volume 6.0 FL (6.5-10.1) L Neutrophils (%) (Auto) % (45.0-75.0) Lymphocytes (%) (Auto) % (20.0-45.0) Monocytes (%) (Auto) % (1.0-10.0) Eosinophils (%) (Auto) % (0.0-3.0) Basophils (%) (Auto) % (0.0-2.0) Differential Total Cells Counted 100 Neutrophils % (Manual) 59 % (45-75) Lymphocytes % (Manual) 31 % (20-45) Monocytes % (Manual) 9 % (1-10) Eosinophils % (Manual) 0 % (0-3) Basophils % (Manual) 0 % (0-2) Band Neutrophils 1 % (0-8) Platelet Estimate Adequate Platelet Morphology Normal Red Blood Cell Morphology Normal Sodium Level 145 MMOL/L (136-145) Potassium Level 3.4 MMOL/L (3.5-5.1) L Chloride Level 106 MMOL/L (98-107) Carbon Dioxide Level 39 MMOL/L (21-32) H Anion Gap 0 mmol/L (5-15) L Blood Urea Nitrogen 25 mg/dL (7-18) H Creatinine 0.6 MG/DL (0.55-1.30) Estimat Glomerular Filtration Rate > 60 mL/min (>60) Glucose Level 144 MG/DL (74-106) H Calcium Level 7.3 MG/DL (8.5-10.1) L Total Bilirubin 2.0 MG/DL (0.2-1.0) H Direct Bilirubin 0.3 MG/DL (0.0-0.3) Aspartate Amino Transf (AST/SGOT) 58 U/L (15-37) H Alanine Aminotransferase (ALT/SGPT) 134 U/L (12-78) H Alkaline Phosphatase 107 U/L (46-116) Troponin I 0.015 ng/mL (0.000-0.056) Pro-B-Type Natriuretic Peptide 93 pg/mL (0-125) Total Protein 4.0 G/DL (6.4-8.2) L Albumin 1.7 G/DL (3.4-5.0) L Globulin 2.3 g/dL Albumin/Globulin Ratio 0.7 (1.0-2.7) L Height (Feet): 5 Height (Inches): 8.00 Weight (Pounds): 138 General Appearance: WD/WN, no apparent distress, alert Cardiovascular: normal rate Respiratory/Chest: normal breath sounds, no respiratory distress Abdominal Exam: normal bowel sounds, non tender, soft Extremities: normal range of motion, non-tender Melita Delgado NP May 04, 2018 13:31
--- NOTE | 2018-05-04 14:08 | Pulmonology Progress Note ---
Assessment/Plan Problems: (1) Uncontrolled diabetes mellitus type 1 without complications (2) Nausea, vomiting, and diarrhea (3) Gastroparesis (4) Intractable vomiting (5) Anemia Assessment/Plan prbc today stool for OB doesn't want full liquid diet still vomiting symptomatic treatment dc iv fluids K supplement pt might need PEG feeding tube, d/w dr Hayward Subjective ROS Limited/Unobtainable: No Constitutional: Reports: no symptoms HEENT: Repors: no symptoms Respiratory: Reports: no symptoms Allergies: Coded Allergies: NO KNOWN ALLERGIES (Unverified Allergy, Unknown, 06/26/15) Objective Last 24 Hour Vital Signs Date Time Temp Pulse Resp B/P (MAP) Pulse Ox O2 Delivery O2 Flow Rate FiO2 05/04/18 09:00 Room Air 05/04/18 08:00 98.2 88 18 100/69 (79) 100 98.2 05/04/18 07:20 74 18 Room Air 21 05/04/18 04:00 98.6 102 18 99/66 (77) 99 98.6 05/03/18 21:00 Room Air 05/03/18 20:00 99.3 106 18 96/65 (75) 98 99.3 05/03/18 19:40 98 18 Room Air 21 05/03/18 19:39 Room Air 21 05/03/18 16:00 98.5 111 19 101/66 (78) 98 98.5 Intake and Output 05/03/18 05/04/18 19:00 07:00 Intake Total 1725 ml 1200 ml Output Total 950 ml 450 ml Balance 775 ml 750 ml Intake Oral 1500 ml 1200 ml IV Total 225 ml Output Urine Total 500 ml Emesis 450 ml 450 ml # Voids 3 2 General Appearance: WD/WN HEENT: normocephalic, atraumatic Respiratory/Chest: chest wall non-tender, lungs clear, normal breath sounds Cardiovascular: normal peripheral pulses, normal rate Abdomen: normal bowel sounds, soft, non tender Genitourinary: normal external genitalia Skin: no rash Microbiology Date/Time Source Procedure Growth Status 05/01/18 22:30 Sacral Wound Gram Stain - Final Resulted 05/01/18 22:30 Wound Culture - Preliminary Staphylococcus Aureus Usual Skin Rhea Resulted Laboratory Tests 05/04/18 08:45: White Blood Count 5.7, Red Blood Count 2.25L, Hemoglobin 7.0L, Hematocrit 19.1L , Mean Corpuscular Volume 85, Mean Corpuscular Hemoglobin 31.1H, Mean Corpuscular Hemoglobin Concent 36.6H, Red Cell Distribution Width 12.8, Platelet Count 176, Mean Platelet Volume 6.0L, Neutrophils (%) (Auto) , Lymphocytes (%) (Auto) , Monocytes (%) (Auto) , Eosinophils (%) (Auto) , Basophils (%) (Auto) , Differential Total Cells Counted 100, Neutrophils % ( Manual) 59, Lymphocytes % (Manual) 31, Monocytes % (Manual) 9, Eosinophils % ( Manual) 0, Basophils % (Manual) 0, Band Neutrophils 1, Platelet Estimate Adequate, Platelet Morphology Normal, Red Blood Cell Morphology Normal, Sodium Level 145, Potassium Level 3.4L, Chloride Level 106, Carbon Dioxide Level 39H, Anion Gap 0L, Blood Urea Nitrogen 25H, Creatinine 0.6, Estimat Glomerular Filtration Rate > 60, Glucose Level 144H, Calcium Level 7.3L, Total Bilirubin 2.0H, Direct Bilirubin 0.3, Aspartate Amino Transf (AST/SGOT) 58H, Alanine Aminotransferase (ALT/SGPT) 134H, Alkaline Phosphatase 107, Troponin I 0.015, Pro-B-Type Natriuretic Peptide 93, Total Protein 4.0L, Albumin 1.7L, Globulin 2.3, Albumin/Globulin Ratio 0.7L Current Medications Medications (Trade) Dose Ordered Sig/Herminia Route PRN Reason Start Time Stop Time Status Last Admin Dose Admin Acetaminophen (Tylenol) 650 mg Q4H PRN ORAL fever 05/02/18 17:54 05/28/18 17:53 Al Hydroxide/Mg Hydroxide (Mylanta II) 30 ml Q6H PRN ORAL dyspepsia 05/02/18 17:54 05/28/18 17:53 Chlorhexidine Gluconate (Flores-Hex 2%) 1 applic DAILY@2000 TOPIC 05/02/18 20:00 05/28/18 19:59 05/02/18 20:00 Clonidine HCl (Catapres Tab) 0.1 mg Q4H PRN ORAL sbp more than 160 05/02/18 17:54 05/28/18 17:53 Dextrose (Dextrose 50%) 25 ml Q30M PRN IV Hypoglycemia 05/04/18 07:15 06/03/18 07:14 Dextrose (Dextrose 50%) 50 ml Q30M PRN IV Hypoglycemia 05/04/18 07:15 06/03/18 07:14 Docusate Sodium (Colace) 100 mg THREE TIMES A DAY ORAL 05/03/18 09:00 06/02/18 08:59 05/03/18 17:05 Dronabinol (Marinol) 2.5 mg TID ORAL 05/03/18 18:00 06/02/18 17:59 05/04/18 12:18 Heparin Sodium (Porcine) (Heparin 5000 units/ml) 5,000 units EVERY 12 HOURS SUBQ 05/02/18 21:00 05/28/18 20:59 Insulin Aspart (NovoLOG) BEFORE MEALS AND HS SUBQ 05/02/18 21:00 06/03/18 11:29 05/04/18 12:22 Insulin Aspart (NovoLOG) 2 units NOVOTIAC SUBQ 05/04/18 11:50 06/03/18 11:49 Insulin Detemir (Levemir) 8 units DAILY SUBQ 05/04/18 09:00 06/03/18 08:59 05/04/18 10:18 Nitroglycerin (Ntg) 0.4 mg Q5M X 3 DOSES PRN SL Prn Chest Pain 05/02/18 18:00 05/28/18 17:44 Ondansetron HCl (Zofran) 4 mg Q6H PRN IVP Nausea & Vomiting 05/02/18 17:55 05/28/18 17:54 05/02/18 22:25 Pantoprazole (Protonix) 40 mg DAILY ORAL 05/03/18 09:00 06/01/18 08:59 05/04/18 09:56 Promethazine HCl 25 mg/Sodium Chloride 56 ml @ 112 mls/hr Q6H PRN IVPB Nausea 05/02/18 17:54 05/29/18 17:53 05/03/18 05:52 Temazepam (Restoril) 15 mg HSPRN PRN ORAL Insomnia 05/02/18 17:56 05/09/18 17:55 Rosa Jamil MD May 04, 2018 14:08
--- NOTE | 2018-05-04 15:25 | Diagnostic Imaging Report ---
Indication: Abdominal pain Technique: Supine view of the abdomen Comparison: 04/28/2018 Findings: Contrast from CT scan of 04/30/2018 is seen throughout the colon. There is markedly decreased colonic stool compared to the prior exam, and the amount of retained gastric material is decreased. Bowel gas pattern is unremarkable. No unusual masses or calcifications. There are degenerative changes of the bilateral hips Impression: No acute process Note that previously ingested enteric contrast has progressed into the colon
[2018-05-04 16:01] LABS: HEMATOCRIT 18.7 % (42.0-52.0); HEMOGLOBIN 7.3 G/DL (14.2-18.0); MEAN CORPUSCULAR VOLUME 85 FL (80-99); PLATELET COUNT 218 K/UL (150-450); RED BLOOD COUNT 2.19 M/UL (4.70-6.10); RED CELL DISTRIBUTION WIDTH 12.1 % (11.6-14.8)
--- NOTE | 2018-05-04 16:11 | Diagnostic Imaging Report ---
APPROVED REPORT CPT Code: 74894 Present Symptoms Comments: BILATERAL LEGS PAIN. BILATERAL: Imaging reveals a patent deep venous system bilaterally. There is no evidence of thrombus within the femoral, popliteal or tibial segments. The greater saphenous veins are also within normal limits. Doppler indicates normal spontaneous flow within these segments.
[2018-05-04] MEDS ORDERED: Lidocaine 1% Plain 30 ml INJ PRN (16:15)
[2018-05-04] MEDS ORDERED: Heparin 2000 units/Ns 1000ml INJ PRN (16:15)
--- NOTE | 2018-05-04 17:15 | General Surgery Progress Note ---
General Surgery-Progress Note Subjective Additional Comments still with nausea and emesis with meals. abd discomfort improved since fluid removed. Objective Last 24 Hour Vital Signs Date Time Temp Pulse Resp B/P (MAP) Pulse Ox O2 Delivery O2 Flow Rate FiO2 05/04/18 12:00 98.1 104 19 91/61 (71) 99 98.1 05/04/18 09:00 Room Air 05/04/18 08:00 98.2 88 18 100/69 (79) 100 98.2 05/04/18 07:20 74 18 Room Air 21 05/04/18 04:00 98.6 102 18 99/66 (77) 99 98.6 05/03/18 21:00 Room Air 05/03/18 20:00 99.3 106 18 96/65 (75) 98 99.3 05/03/18 19:40 98 18 Room Air 21 05/03/18 19:39 Room Air 21 I&O Intake and Output 05/03/18 05/04/18 19:00 07:00 Intake Total 1725 ml 1200 ml Output Total 950 ml 450 ml Balance 775 ml 750 ml Intake Oral 1500 ml 1200 ml IV Total 225 ml Output Urine Total 500 ml Emesis 450 ml 450 ml # Voids 3 2 Dressing: dry Wound: clean Drains: none Cardiovascular: RSR Respiratory: clear Abdomen: soft, non-tender, present bowel sounds Extremities: no cyanosis, other Laboratory Tests Test 05/04/18 08:45 05/04/18 15:15 White Blood Count 5.7 K/UL (4.8-10.8) 6.0 K/UL (4.8-10.8) Red Blood Count 2.25 M/UL (4.70-6.10) L 2.19 M/UL (4.70-6.10) L Hemoglobin 7.0 G/DL (14.2-18.0) L 7.3 G/DL (14.2-18.0) L Hematocrit 19.1 % (42.0-52.0) L 18.7 % (42.0-52.0) L Mean Corpuscular Volume 85 FL (80-99) 85 FL (80-99) Mean Corpuscular Hemoglobin 31.1 PG (27.0-31.0) H 33.2 PG (27.0-31.0) H Mean Corpuscular Hemoglobin Concent 36.6 G/DL (32.0-36.0) H 39.0 G/DL (32.0-36.0) H Red Cell Distribution Width 12.8 % (11.6-14.8) 12.1 % (11.6-14.8) Platelet Count 176 K/UL (150-450) 218 K/UL (150-450) Mean Platelet Volume 6.0 FL (6.5-10.1) L 5.6 FL (6.5-10.1) L Neutrophils (%) (Auto) % (45.0-75.0) % (45.0-75.0) Lymphocytes (%) (Auto) % (20.0-45.0) % (20.0-45.0) Monocytes (%) (Auto) % (1.0-10.0) % (1.0-10.0) Eosinophils (%) (Auto) % (0.0-3.0) % (0.0-3.0) Basophils (%) (Auto) % (0.0-2.0) % (0.0-2.0) Differential Total Cells Counted 100 100 Neutrophils % (Manual) 59 % (45-75) 69 % (45-75) Lymphocytes % (Manual) 31 % (20-45) 26 % (20-45) Monocytes % (Manual) 9 % (1-10) 5 % (1-10) Eosinophils % (Manual) 0 % (0-3) 0 % (0-3) Basophils % (Manual) 0 % (0-2) 0 % (0-2) Band Neutrophils 1 % (0-8) 0 % (0-8) Platelet Estimate Adequate Adequate Platelet Morphology Normal Normal Red Blood Cell Morphology Normal Sodium Level 145 MMOL/L (136-145) Potassium Level 3.4 MMOL/L (3.5-5.1) L Chloride Level 106 MMOL/L (98-107) Carbon Dioxide Level 39 MMOL/L (21-32) H Anion Gap 0 mmol/L (5-15) L Blood Urea Nitrogen 25 mg/dL (7-18) H Creatinine 0.6 MG/DL (0.55-1.30) Estimat Glomerular Filtration Rate > 60 mL/min (>60) Glucose Level 144 MG/DL (74-106) H Calcium Level 7.3 MG/DL (8.5-10.1) L Total Bilirubin 2.0 MG/DL (0.2-1.0) H Direct Bilirubin 0.3 MG/DL (0.0-0.3) Aspartate Amino Transf (AST/SGOT) 58 U/L (15-37) H Alanine Aminotransferase (ALT/SGPT) 134 U/L (12-78) H Alkaline Phosphatase 107 U/L (46-116) Troponin I 0.015 ng/mL (0.000-0.056) Pro-B-Type Natriuretic Peptide 93 pg/mL (0-125) Total Protein 4.0 G/DL (6.4-8.2) L Albumin 1.7 G/DL (3.4-5.0) L Globulin 2.3 g/dL Albumin/Globulin Ratio 0.7 (1.0-2.7) L Plan Problems: (1) Intussusception of intestine Assessment & Plan: CT Findings: 1. Short segment small bowel intussusception in the left lower quadrant ( series 5 image 58). No lead point lesions. No evidence of bowel obstruction. No focal bowel wall thickening. No adjacent inflammatory change. This may represent transient intussusception and is of uncertain clinical significance. 2. Sigmoid diverticulosis without wall thickening or adjacent inflammatory change. CT reviewed. - likely transient and benign. exam stable, no obstruction, no thickening, no inflammation. leukocytosis unlikely due to this. does have elevated LFT. possible cholecystitis? possible hepatitis Ultrasound reviewed. ascites and liver abnormal. Gallbladder okay. t bili trending down. lip/nicolette nml. lfts improved. denies EtOH history. likely hepatitis? abd distention related to ascites. unsure of etiology for nausea and emesis but not obstructive in nature. paracentesis path noted. no malignant cells hepatitis panel negative -PPI -diet as tolerated -trend labs -gastric emptying study -possible endoscopy as per GI thank you. will follow with marbin. Long Guevara May 04, 2018 17:15
[2018-05-04 20:00] VITALS: BP 84/61
[2018-05-04] MEDS: Dyna-Hex 2% Top Sol 2oz TOPIC SCH (20:00)
[2018-05-05] VITALS (8 sets, daily range): BP systolic 87–109; BP diastolic 63–76
[2018-05-05] MEDS: NovoLOG Insulin Flexpen SUBQ SCH ×7 (06:30→22:50)
--- NOTE | 2018-05-05 06:47 | General Progress Note ---
Assessment/Plan Problem List: (1) Pancreatitis ICD Codes: K85.90 - Acute pancreatitis without necrosis or infection, unspecified SNOMED: 63673397 (2) Hyponatremia ICD Codes: E87.1 - Hyponatremia SNOMED: 95896334 (3) Nausea, vomiting, and diarrhea ICD Codes: R11.2 - Nausea with vomiting, unspecified; R19.7 - Diarrhea, unspecified SNOMED: 4076550 Assessment/Plan continue Levemir 8 units daily continue Novolog 2 units ac tid - hold if not eating continue NISS Subjective Allergies: Coded Allergies: NO KNOWN ALLERGIES (Unverified Allergy, Unknown, 06/26/15) All Systems: reviewed and negative except above Subjective events noted glucose improved Objective Last 24 Hour Vital Signs Date Time Temp Pulse Resp B/P (MAP) Pulse Ox O2 Delivery O2 Flow Rate FiO2 05/05/18 04:00 98.3 65 19 102/65 (77) 81 98.3 05/05/18 00:00 98.1 103 19 108/76 (87) 90 98.1 05/04/18 21:00 Room Air 05/04/18 20:00 98.1 72 19 84/61 (69) 83 98.1 05/04/18 19:51 101 20 Room Air 21 05/04/18 12:00 98.1 104 19 91/61 (71) 99 98.1 05/04/18 09:00 Room Air 05/04/18 08:00 98.2 88 18 100/69 (79) 100 98.2 05/04/18 07:20 74 18 Room Air 21 Intake and Output 05/04/18 05/05/18 19:00 07:00 Intake Total 860 ml Balance 860 ml Intake Oral 860 ml # Voids 2 Laboratory Tests 05/04/18 08:45: White Blood Count 5.7, Red Blood Count 2.25L, Hemoglobin 7.0L, Hematocrit 19.1L , Mean Corpuscular Volume 85, Mean Corpuscular Hemoglobin 31.1H, Mean Corpuscular Hemoglobin Concent 36.6H, Red Cell Distribution Width 12.8, Platelet Count 176, Mean Platelet Volume 6.0L, Neutrophils (%) (Auto) , Lymphocytes (%) (Auto) , Monocytes (%) (Auto) , Eosinophils (%) (Auto) , Basophils (%) (Auto) , Differential Total Cells Counted 100, Neutrophils % ( Manual) 59, Lymphocytes % (Manual) 31, Monocytes % (Manual) 9, Eosinophils % ( Manual) 0, Basophils % (Manual) 0, Band Neutrophils 1, Platelet Estimate Adequate, Platelet Morphology Normal, Red Blood Cell Morphology Normal, Sodium Level 145, Potassium Level 3.4L, Chloride Level 106, Carbon Dioxide Level 39H, Anion Gap 0L, Blood Urea Nitrogen 25H, Creatinine 0.6, Estimat Glomerular Filtration Rate > 60, Glucose Level 144H, Calcium Level 7.3L, Total Bilirubin 2.0H, Direct Bilirubin 0.3, Aspartate Amino Transf (AST/SGOT) 58H, Alanine Aminotransferase (ALT/SGPT) 134H, Alkaline Phosphatase 107, Troponin I 0.015, Pro-B-Type Natriuretic Peptide 93, Total Protein 4.0L, Albumin 1.7L, Globulin 2.3, Albumin/Globulin Ratio 0.7L 05/04/18 15:15: White Blood Count 6.0, Red Blood Count 2.19L, Hemoglobin 7.3L, Hematocrit 18.7L , Mean Corpuscular Volume 85, Mean Corpuscular Hemoglobin 33.2H, Mean Corpuscular Hemoglobin Concent 39.0H, Red Cell Distribution Width 12.1, Platelet Count 218, Mean Platelet Volume 5.6L, Neutrophils (%) (Auto) , Lymphocytes (%) (Auto) , Monocytes (%) (Auto) , Eosinophils (%) (Auto) , Basophils (%) (Auto) , Differential Total Cells Counted 100, Neutrophils % ( Manual) 69, Lymphocytes % (Manual) 26, Monocytes % (Manual) 5, Eosinophils % ( Manual) 0, Basophils % (Manual) 0, Band Neutrophils 0, Platelet Estimate Adequate, Platelet Morphology Normal Height (Feet): 5 Height (Inches): 8.00 Weight (Pounds): 138 General Appearance: no apparent distress Neck: normal alignment Cardiovascular: normal rate Respiratory/Chest: lungs clear Abdomen: normal bowel sounds Objective Current Medications Medications (Trade) Dose Ordered Sig/[place] Route PRN Reason Start Time Stop Time Status Last Admin Dose Admin Acetaminophen (Tylenol) 650 mg Q4H PRN ORAL fever 05/02/18 17:54 05/28/18 17:53 Al Hydroxide/Mg Hydroxide (Mylanta II) 30 ml Q6H PRN ORAL dyspepsia 05/02/18 17:54 05/28/18 17:53 Chlorhexidine Gluconate (Flores-Hex 2%) 1 applic DAILY@2000 TOPIC 05/04/18 20:00 06/03/18 19:59 Clonidine HCl (Catapres Tab) 0.1 mg Q4H PRN ORAL sbp more than 160 05/02/18 17:54 05/28/18 17:53 Dextrose (Dextrose 50%) 25 ml Q30M PRN IV Hypoglycemia 05/04/18 07:15 06/03/18 07:14 Dextrose (Dextrose 50%) 50 ml Q30M PRN IV Hypoglycemia 05/04/18 07:15 06/03/18 07:14 Docusate Sodium (Colace) 100 mg THREE TIMES A DAY ORAL 05/03/18 09:00 06/02/18 08:59 05/04/18 18:12 Dronabinol (Marinol) 2.5 mg TID ORAL 05/03/18 18:00 06/02/18 17:59 05/04/18 18:12 Heparin Sodium (Porcine) (Heparin 5000 units/ml) 5,000 units EVERY 12 HOURS SUBQ 05/02/18 21:00 05/28/18 20:59 05/04/18 20:48 Insulin Aspart (NovoLOG) BEFORE MEALS AND HS SUBQ 05/02/18 21:00 06/03/18 11:29 05/04/18 20:48 Insulin Aspart (NovoLOG) 2 units NOVOTIAC SUBQ 05/04/18 11:50 06/03/18 11:49 Insulin Detemir (Levemir) 8 units DAILY SUBQ 05/04/18 09:00 06/03/18 08:59 05/04/18 10:18 Nitroglycerin (Ntg) 0.4 mg Q5M X 3 DOSES PRN SL Prn Chest Pain 05/02/18 18:00 05/28/18 17:44 Ondansetron HCl (Zofran) 4 mg Q6H PRN IVP Nausea & Vomiting 05/02/18 17:55 05/28/18 17:54 05/02/18 22:25 Pantoprazole (Protonix) 40 mg DAILY ORAL 05/03/18 09:00 06/01/18 08:59 05/04/18 09:56 Promethazine HCl (Phenergan) 25 mg Q6H PRN IM Nausea & Vomiting 05/04/18 20:15 06/03/18 20:14 05/04/18 21:01 Temazepam (Restoril) 15 mg HSPRN PRN ORAL Insomnia 05/02/18 17:56 05/09/18 17:55 Item Value Date Time Bedside Blood Glucose 146 mg/dl H 05/04/18 2100 Bedside Blood Glucose 101 mg/dl 05/04/18 1650 Bedside Blood Glucose 176 mg/dl H 05/04/18 1222 Bedside Blood Glucose 150 mg/dl H 05/04/18 1018 Bedside Blood Glucose 228 mg/dl H 05/04/18 0638 Saad Laurent MD May 05, 2018 06:47
[2018-05-05 08:01] LABS: HEMATOCRIT 18.5 % (42.0-52.0); MEAN CORPUSCULAR VOLUME 84 FL (80-99); PLATELET COUNT 255 K/UL (150-450); RED CELL DISTRIBUTION WIDTH 12.1 % (11.6-14.8); WHITE BLOOD COUNT 5.4 K/UL (4.8-10.8)
[2018-05-05 08:11] LABS: HEMOGLOBIN 6.9 G/DL (14.2-18.0)
[2018-05-05] MEDS: Heparin 5000 units/ml inj SUBQ SCH ×2 (09:00→21:00)
[2018-05-05] MEDS: Docusate 100mg cap ORAL SCH ×3 (09:00→18:00)
[2018-05-05] MEDS ORDERED: Lidocaine 1% Plain 30 ml INJ SCH (09:00)
[2018-05-05] MEDS: Levemir Flexpen SUBQ SCH (09:00)
[2018-05-05] MEDS ORDERED: Heparin 2000 units/Ns 1000ml INJ SCH (09:00)
[2018-05-05] MEDS: Dronabinol 2.5mg Cap ORAL SCH ×3 (09:00→18:00)
[2018-05-05 09:29] LABS: ALANINE AMINOTRANSFERASE 128 U/L (12-78); ALBUMIN 1.9 G/DL (3.4-5.0); ALBUMIN/GLOBULIN RATIO 0.8 (1.0-2.7); ALKALINE PHOSPHATASE 108 U/L (46-116); ASPARTATE AMINO TRANSFERASE 60 U/L (15-37); BILIRUBIN,TOTAL 1.5 MG/DL (0.2-1.0); BLOOD UREA NITROGEN 24 mg/dL (7-18); CALCIUM 7.4 MG/DL (8.5-10.1); CARBON DIOXIDE 39 MMOL/L (21-32); CHLORIDE 105 MMOL/L (98-107); CREATININE 0.6 MG/DL (0.55-1.30); SODIUM 144 MMOL/L (136-145)
[2018-05-05 09:31] LABS: ANION GAP 0 mmol/L (5-15); POTASSIUM 2.6 MMOL/L (3.5-5.1)
[2018-05-05 09:34] LABS: BILIRUBIN,DIRECT 0.3 MG/DL (0.0-0.3)
--- NOTE | 2018-05-05 11:05 | GI Progress Note ---
Assessment/Plan Problems: (1) Intussusception of intestine ICD Codes: K56.1 - Intussusception SNOMED: 54806996 (2) Elevated transaminase level ICD Codes: R74.0 - Nonspecific elevation of levels of transaminase and lactic acid dehydrogenase [LDH] SNOMED: 952849011, 885128395 (3) DKA (diabetic ketoacidoses) ICD Codes: E13.10 - Other specified diabetes mellitus with ketoacidosis without coma SNOMED: 17084197 (4) Nausea, vomiting, and diarrhea ICD Codes: R11.2 - Nausea with vomiting, unspecified; R19.7 - Diarrhea, unspecified SNOMED: 6242362 (5) Drug abuse ICD Codes: F19.10 - Other psychoactive substance abuse, uncomplicated SNOMED: 68823567 (6) Episode of generalized weakness ICD Codes: R53.1 - Weakness SNOMED: 44779516 (7) H/O cocaine abuse ICD Codes: Z87.898 - Personal history of other specified conditions SNOMED: 970239478 Status: not improved, unchanged Status Narrative Discussed with Dr. Ascencio. Assessment/Plan cocaine positive s/p paracentesis yielding 1.5L - pending cytology >> negative for malignancy abdominal U/S reviewed >> Mildly echogenic liver, which may suggest fatty infiltration. patient continues to vomit after any PO intake, now stated to me today this has been on going for 3 months. >> possible gastroparesis 2/2 DM hepatitis panel >> negative gastric delay emptying study today EGD scheduled tomorrow. - NPO @ [place]. - hold all blood thinners zofran prn pain mgmt bowel regime fu labs The patient was seen and examined at bedside and all new and available data was reviewed in the patients chart. I agree with the above findings, impression and plan. (Patient seen earlier today. Signature stamp does not reflect patient encounter time.). - Pedro Ascencio MD Subjective Subjective emesis generalized weakness Objective Last 24 Hour Vital Signs Date Time Temp Pulse Resp B/P (MAP) Pulse Ox O2 Delivery O2 Flow Rate FiO2 05/05/18 08:00 97.8 101 20 87/63 (71) 95 97.8 05/05/18 04:00 98.3 65 19 102/65 (77) 81 98.3 05/05/18 00:00 98.1 103 19 108/76 (87) 90 98.1 05/04/18 21:00 Room Air 05/04/18 20:00 98.1 72 19 84/61 (69) 83 98.1 05/04/18 19:51 101 20 Room Air 21 05/04/18 12:00 98.1 104 19 91/61 (71) 99 98.1 Intake and Output 05/04/18 05/05/18 19:00 07:00 Intake Total 860 ml 480 ml Output Total 1075 ml Balance 860 ml -595 ml Intake Oral 860 ml 480 ml Output Urine Total 375 ml Emesis 700 ml # Voids 2 2 Laboratory Tests Test 05/04/18 15:15 05/05/18 06:47 White Blood Count 6.0 K/UL (4.8-10.8) 5.4 K/UL (4.8-10.8) Red Blood Count 2.19 M/UL (4.70-6.10) L 2.20 M/UL (4.70-6.10) L Hemoglobin 7.3 G/DL (14.2-18.0) L 6.9 G/DL (14.2-18.0) *L Hematocrit 18.7 % (42.0-52.0) L 18.5 % (42.0-52.0) L Mean Corpuscular Volume 85 FL (80-99) 84 FL (80-99) Mean Corpuscular Hemoglobin 33.2 PG (27.0-31.0) H 31.5 PG (27.0-31.0) H Mean Corpuscular Hemoglobin Concent 39.0 G/DL (32.0-36.0) H 37.5 G/DL (32.0-36.0) H Red Cell Distribution Width 12.1 % (11.6-14.8) 12.1 % (11.6-14.8) Platelet Count 218 K/UL (150-450) 255 K/UL (150-450) Mean Platelet Volume 5.6 FL (6.5-10.1) L 5.2 FL (6.5-10.1) L Neutrophils (%) (Auto) % (45.0-75.0) % (45.0-75.0) Lymphocytes (%) (Auto) % (20.0-45.0) % (20.0-45.0) Monocytes (%) (Auto) % (1.0-10.0) % (1.0-10.0) Eosinophils (%) (Auto) % (0.0-3.0) % (0.0-3.0) Basophils (%) (Auto) % (0.0-2.0) % (0.0-2.0) Differential Total Cells Counted 100 Neutrophils % (Manual) 69 % (45-75) Pending Lymphocytes % (Manual) 26 % (20-45) Pending Monocytes % (Manual) 5 % (1-10) Eosinophils % (Manual) 0 % (0-3) Basophils % (Manual) 0 % (0-2) Band Neutrophils 0 % (0-8) Platelet Estimate Adequate Pending Platelet Morphology Normal Pending Sodium Level 144 MMOL/L (136-145) Potassium Level 2.6 MMOL/L (3.5-5.1) *L Chloride Level 105 MMOL/L (98-107) Carbon Dioxide Level 39 MMOL/L (21-32) H Anion Gap 0 mmol/L (5-15) L Blood Urea Nitrogen 24 mg/dL (7-18) H Creatinine 0.6 MG/DL (0.55-1.30) Estimat Glomerular Filtration Rate > 60 mL/min (>60) Glucose Level 45 MG/DL (74-106) #L Calcium Level 7.4 MG/DL (8.5-10.1) L Phosphorus Level 2.0 MG/DL (2.5-4.9) L Magnesium Level 1.6 MG/DL (1.8-2.4) L Total Bilirubin 1.5 MG/DL (0.2-1.0) H Direct Bilirubin 0.3 MG/DL (0.0-0.3) Aspartate Amino Transf (AST/SGOT) 60 U/L (15-37) H Alanine Aminotransferase (ALT/SGPT) 128 U/L (12-78) H Alkaline Phosphatase 108 U/L (46-116) Total Protein 4.3 G/DL (6.4-8.2) L Albumin 1.9 G/DL (3.4-5.0) L Globulin 2.4 g/dL Albumin/Globulin Ratio 0.8 (1.0-2.7) L Height (Feet): 5 Height (Inches): 8.00 Weight (Pounds): 138 General Appearance: WD/WN, no apparent distress, alert, thin Cardiovascular: normal rate Respiratory/Chest: normal breath sounds, no respiratory distress Abdominal Exam: normal bowel sounds, non tender, soft Extremities: normal range of motion, non-tender Melita Delgado NP May 05, 2018 11:05
--- NOTE | 2018-05-05 12:12 | Diagnostic Imaging Report ---
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 The left upper extremity was prepped with alcohol. All elements of maximal sterile barrier technique were followed including usage of a cap, mask, sterile gown, sterile gloves, hand hygiene and a large sterile sheet. Sonographic evaluation of the upper extremity was performed demonstrating a patent and compressible brachial vein. Access was obtained under real-time ultrasound guidance (with utilization of sterile gel and sterile probe cover) and digital image was saved and archived. An .018 wire was introduced. Needle exchanged for a 5 Italian peel-away sheath. Measurements were obtained. A 5 Italian dual-lumen Power PICC line catheter was cut to 46 cm and introduced over the wire. Peel-away sheath and wire were removed.Catheter was secured to the skin using 2-0 Prolene suture. Both ports aspirate and flush easily. Fluoroscopic images show distal tip in the superior vena cava. Total fluoroscopic time 0.2 minutes. Impression: Successful placement of an upper extremity PICC line catheter
--- NOTE | 2018-05-05 14:24 | Pulmonology Progress Note ---
Assessment/Plan Problems: (1) Nausea, vomiting, and diarrhea (2) Gastroparesis (3) Intractable vomiting (4) Anemia Assessment/Plan PICC line insertedprbc today stool for OB doesn't want full liquid diet still vomiting symptomatic treatment dc iv fluids K supplement For EGD tomorrow pt might need PEG feeding tube, d/w dr Hayward Subjective ROS Limited/Unobtainable: No Interval Events: still v[place] Allergies: Coded Allergies: NO KNOWN ALLERGIES (Unverified Allergy, Unknown, 06/26/15) Objective Last 24 Hour Vital Signs Date Time Temp Pulse Resp B/P (MAP) Pulse Ox O2 Delivery O2 Flow Rate FiO2 05/05/18 12:00 97.8 88 20 106/72 (83) 98 97.8 05/05/18 09:00 Room Air 05/05/18 08:00 97.8 101 20 87/63 (71) 95 97.8 05/05/18 04:00 98.3 65 19 102/65 (77) 81 98.3 05/05/18 00:00 98.1 103 19 108/76 (87) 90 98.1 05/04/18 21:00 Room Air 05/04/18 20:00 98.1 72 19 84/61 (69) 83 98.1 05/04/18 19:51 101 20 Room Air 21 Intake and Output 05/04/18 05/05/18 19:00 07:00 Intake Total 860 ml 480 ml Output Total 1075 ml Balance 860 ml -595 ml Intake Oral 860 ml 480 ml Output Urine Total 375 ml Emesis 700 ml # Voids 2 2 General Appearance: cachetic HEENT: normocephalic, atraumatic Respiratory/Chest: chest wall non-tender, lungs clear Cardiovascular: normal peripheral pulses, regular rhythm Abdomen: normal bowel sounds, no organomegaly, no scars Extremities: no clubbing Skin: no rash Laboratory Tests 05/04/18 15:15: White Blood Count 6.0, Red Blood Count 2.19L, Hemoglobin 7.3L, Hematocrit 18.7L , Mean Corpuscular Volume 85, Mean Corpuscular Hemoglobin 33.2H, Mean Corpuscular Hemoglobin Concent 39.0H, Red Cell Distribution Width 12.1, Platelet Count 218, Mean Platelet Volume 5.6L, Neutrophils (%) (Auto) , Lymphocytes (%) (Auto) , Monocytes (%) (Auto) , Eosinophils (%) (Auto) , Basophils (%) (Auto) , Differential Total Cells Counted 100, Neutrophils % ( Manual) 69, Lymphocytes % (Manual) 26, Monocytes % (Manual) 5, Eosinophils % ( Manual) 0, Basophils % (Manual) 0, Band Neutrophils 0, Platelet Estimate Adequate, Platelet Morphology Normal 05/05/18 06:47: White Blood Count 5.4, Red Blood Count 2.20L, Hemoglobin 6.9*L, Hematocrit 18.5L , Mean Corpuscular Volume 84, Mean Corpuscular Hemoglobin 31.5H, Mean Corpuscular Hemoglobin Concent 36.8H, Red Cell Distribution Width 12.1, Platelet Count 255, Mean Platelet Volume 5.2L, Neutrophils (%) (Auto) , Lymphocytes (%) (Auto) , Monocytes (%) (Auto) , Eosinophils (%) (Auto) , Basophils (%) (Auto) , Differential Total Cells Counted 100, Neutrophils % ( Manual) 56, Lymphocytes % (Manual) 35, Monocytes % (Manual) 8, Eosinophils % ( Manual) 1, Basophils % (Manual) 0, Band Neutrophils 0, Platelet Estimate Adequate, Platelet Morphology Normal, Hypochromasia 3+, Anisocytosis 1+, Sodium Level 144, Potassium Level 2.6*L, Chloride Level 105, Carbon Dioxide Level 39H, Anion Gap 0L, Blood Urea Nitrogen 24H, Creatinine 0.6, Estimat Glomerular Filtration Rate > 60, Glucose Level 45#L, Calcium Level 7.4L, Phosphorus Level 2.0L, Magnesium Level 1.6L, Total Bilirubin 1.5H, Direct Bilirubin 0.3, Aspartate Amino Transf (AST/SGOT) 60H, Alanine Aminotransferase (ALT/SGPT) 128H , Alkaline Phosphatase 108, Total Protein 4.3L, Albumin 1.9L, Globulin 2.4, Albumin/Globulin Ratio 0.8L Current Medications Medications (Trade) Dose Ordered Sig/Herminia Route PRN Reason Start Time Stop Time Status Last Admin Dose Admin Acetaminophen (Tylenol) 650 mg Q4H PRN ORAL fever 05/02/18 17:54 05/28/18 17:53 Al Hydroxide/Mg Hydroxide (Mylanta II) 30 ml Q6H PRN ORAL dyspepsia 05/02/18 17:54 05/28/18 17:53 Chlorhexidine Gluconate (Flores-Hex 2%) 1 applic DAILY@2000 TOPIC 05/04/18 20:00 06/03/18 19:59 Clonidine HCl (Catapres Tab) 0.1 mg Q4H PRN ORAL sbp more than 160 05/02/18 17:54 05/28/18 17:53 Dextrose (Dextrose 50%) 25 ml Q30M PRN IV Hypoglycemia 05/04/18 07:15 06/03/18 07:14 Dextrose (Dextrose 50%) 50 ml Q30M PRN IV Hypoglycemia 05/04/18 07:15 06/03/18 07:14 Docusate Sodium (Colace) 100 mg THREE TIMES A DAY ORAL 05/03/18 09:00 06/02/18 08:59 05/05/18 13:37 Dronabinol (Marinol) 2.5 mg TID ORAL 05/03/18 18:00 06/02/18 17:59 05/05/18 13:37 Heparin Sodium (Porcine) (Heparin 5000 units/ml) 5,000 units EVERY 12 HOURS SUBQ 05/02/18 21:00 05/28/18 20:59 05/04/18 20:48 Heparin Sodium/ Sodium Chloride (Heparin 2000 units/Ns 1000ml premix) 2,000 unit ONCE INJ 05/05/18 09:00 05/05/18 23:59 Insulin Aspart (NovoLOG) BEFORE MEALS AND HS SUBQ 05/02/18 21:00 06/03/18 11:29 05/04/18 20:48 Insulin Aspart (NovoLOG) 2 units NOVOTIAC SUBQ 05/04/18 11:50 06/03/18 11:49 Insulin Detemir (Levemir) 8 units DAILY SUBQ 05/04/18 09:00 06/03/18 08:59 05/04/18 10:18 Lidocaine HCl (Xylocaine 1% 30ml) 30 ml ONCE INJ 05/05/18 09:00 05/05/18 23:59 Nitroglycerin (Ntg) 0.4 mg Q5M X 3 DOSES PRN SL Prn Chest Pain 05/02/18 18:00 05/28/18 17:44 Ondansetron HCl (Zofran) 4 mg Q6H PRN IVP Nausea & Vomiting 05/02/18 17:55 05/28/18 17:54 05/02/18 22:25 Pantoprazole (Protonix) 40 mg DAILY ORAL 05/03/18 09:00 06/01/18 08:59 05/04/18 09:56 Potassium Chloride 100 ml @ 100 mls/hr Q1H IVPB 05/05/18 11:00 05/05/18 14:59 05/05/18 13:48 Promethazine HCl (Phenergan) 25 mg Q6H PRN IM Nausea & Vomiting 05/04/18 20:15 06/03/18 20:14 05/04/18 21:01 Temazepam (Restoril) 15 mg HSPRN PRN ORAL Insomnia 05/02/18 17:56 05/09/18 17:55 Rosa Jamil MD May 05, 2018 14:24
--- NOTE | 2018-05-05 15:01 | General Surgery Progress Note ---
General Surgery-Progress Note Subjective Additional Comments tolerating diet but states still emesis daily with meals. Objective Last 24 Hour Vital Signs Date Time Temp Pulse Resp B/P (MAP) Pulse Ox O2 Delivery O2 Flow Rate FiO2 05/05/18 12:00 97.8 88 20 106/72 (83) 98 97.8 05/05/18 09:00 Room Air 05/05/18 08:00 97.8 101 20 87/63 (71) 95 97.8 05/05/18 04:00 98.3 65 19 102/65 (77) 81 98.3 05/05/18 00:00 98.1 103 19 108/76 (87) 90 98.1 05/04/18 21:00 Room Air 05/04/18 20:00 98.1 72 19 84/61 (69) 83 98.1 05/04/18 19:51 101 20 Room Air 21 I&O Intake and Output 05/04/18 05/05/18 19:00 07:00 Intake Total 860 ml 480 ml Output Total 1075 ml Balance 860 ml -595 ml Intake Oral 860 ml 480 ml Output Urine Total 375 ml Emesis 700 ml # Voids 2 2 Cardiovascular: RSR Respiratory: clear Abdomen: soft, non-tender, present bowel sounds Extremities: other Laboratory Tests Test 05/04/18 15:15 05/05/18 06:47 White Blood Count 6.0 K/UL (4.8-10.8) 5.4 K/UL (4.8-10.8) Red Blood Count 2.19 M/UL (4.70-6.10) L 2.20 M/UL (4.70-6.10) L Hemoglobin 7.3 G/DL (14.2-18.0) L 6.9 G/DL (14.2-18.0) *L Hematocrit 18.7 % (42.0-52.0) L 18.5 % (42.0-52.0) L Mean Corpuscular Volume 85 FL (80-99) 84 FL (80-99) Mean Corpuscular Hemoglobin 33.2 PG (27.0-31.0) H 31.5 PG (27.0-31.0) H Mean Corpuscular Hemoglobin Concent 39.0 G/DL (32.0-36.0) H 36.8 G/DL (32.0-36.0) H Red Cell Distribution Width 12.1 % (11.6-14.8) 12.1 % (11.6-14.8) Platelet Count 218 K/UL (150-450) 255 K/UL (150-450) Mean Platelet Volume 5.6 FL (6.5-10.1) L 5.2 FL (6.5-10.1) L Neutrophils (%) (Auto) % (45.0-75.0) % (45.0-75.0) Lymphocytes (%) (Auto) % (20.0-45.0) % (20.0-45.0) Monocytes (%) (Auto) % (1.0-10.0) % (1.0-10.0) Eosinophils (%) (Auto) % (0.0-3.0) % (0.0-3.0) Basophils (%) (Auto) % (0.0-2.0) % (0.0-2.0) Differential Total Cells Counted 100 100 Neutrophils % (Manual) 69 % (45-75) 56 % (45-75) Lymphocytes % (Manual) 26 % (20-45) 35 % (20-45) Monocytes % (Manual) 5 % (1-10) 8 % (1-10) Eosinophils % (Manual) 0 % (0-3) 1 % (0-3) Basophils % (Manual) 0 % (0-2) 0 % (0-2) Band Neutrophils 0 % (0-8) 0 % (0-8) Platelet Estimate Adequate Adequate Platelet Morphology Normal Normal Hypochromasia 3+ Anisocytosis 1+ Sodium Level 144 MMOL/L (136-145) Potassium Level 2.6 MMOL/L (3.5-5.1) *L Chloride Level 105 MMOL/L (98-107) Carbon Dioxide Level 39 MMOL/L (21-32) H Anion Gap 0 mmol/L (5-15) L Blood Urea Nitrogen 24 mg/dL (7-18) H Creatinine 0.6 MG/DL (0.55-1.30) Estimat Glomerular Filtration Rate > 60 mL/min (>60) Glucose Level 45 MG/DL (74-106) #L Calcium Level 7.4 MG/DL (8.5-10.1) L Phosphorus Level 2.0 MG/DL (2.5-4.9) L Magnesium Level 1.6 MG/DL (1.8-2.4) L Total Bilirubin 1.5 MG/DL (0.2-1.0) H Direct Bilirubin 0.3 MG/DL (0.0-0.3) Aspartate Amino Transf (AST/SGOT) 60 U/L (15-37) H Alanine Aminotransferase (ALT/SGPT) 128 U/L (12-78) H Alkaline Phosphatase 108 U/L (46-116) Total Protein 4.3 G/DL (6.4-8.2) L Albumin 1.9 G/DL (3.4-5.0) L Globulin 2.4 g/dL Albumin/Globulin Ratio 0.8 (1.0-2.7) L Plan Problems: (1) Intussusception of intestine Assessment & Plan: CT Findings: 1. Short segment small bowel intussusception in the left lower quadrant ( series 5 image 58). No lead point lesions. No evidence of bowel obstruction. No focal bowel wall thickening. No adjacent inflammatory change. This may represent transient intussusception and is of uncertain clinical significance. 2. Sigmoid diverticulosis without wall thickening or adjacent inflammatory change. CT reviewed. - likely transient and benign. exam stable, no obstruction, no thickening, no inflammation. leukocytosis unlikely due to this. does have elevated LFT. possible cholecystitis? possible hepatitis Ultrasound reviewed. ascites and liver abnormal. Gallbladder okay. t bili trending down. lip/nicolette nml. lfts improved. denies EtOH history. likely hepatitis? abd distention related to ascites. unsure of etiology for nausea and emesis but not obstructive in nature. paracentesis path noted. no malignant cells hepatitis panel negative -PPI -diet as tolerated -trend labs -gastric emptying study -possible endoscopy as per GI thank you. will follow with marbin. Long Guevara May 05, 2018 15:01
--- NOTE | 2018-05-05 15:10 | Diagnostic Imaging Report ---
Indication: Nausea and vomiting TECHNIQUE: Patient consumed 1.1 mCi of technetium 99m sulfur colloid mixed with food. Region of interest drawn in the area of the stomach and followed for approximately 4 hours. COMPARISON: None FINDINGS: There is less than expected tracer activity exiting the stomach. Some of the diminished activity may be due to 2 episodes of vomiting. Assuming the stomach activity or lack of is due to gastric emptying, the half life of excretion is calculated at 287 minutes which is delayed. IMPRESSION: Abnormal delayed gastric emptying
--- NOTE | 2018-05-05 19:46 | Internal Med Progress Note ---
Subjective Date of Service: May 05, 2018 Physician Name Yunier Edwards Attending Physician Aly Ricks MD Current Medications Medications (Trade) Dose Ordered Sig/Herm[place] Route PRN Reason Start Time Stop Time Status Last Admin Dose Admin Acetaminophen (Tylenol) 650 mg Q4H PRN ORAL fever 05/02/18 17:54 05/28/18 17:53 Al Hydroxide/Mg Hydroxide (Mylanta II) 30 ml Q6H PRN ORAL dyspepsia 05/02/18 17:54 05/28/18 17:53 Chlorhexidine Gluconate (Flores-Hex 2%) 1 applic DAILY@2000 TOPIC 05/04/18 20:00 06/03/18 19:59 Clonidine HCl (Catapres Tab) 0.1 mg Q4H PRN ORAL sbp more than 160 05/02/18 17:54 05/28/18 17:53 Dextrose (Dextrose 50%) 25 ml Q30M PRN IV Hypoglycemia 05/04/18 07:15 06/03/18 07:14 Dextrose (Dextrose 50%) 50 ml Q30M PRN IV Hypoglycemia 05/04/18 07:15 06/03/18 07:14 Docusate Sodium (Colace) 100 mg THREE TIMES A DAY ORAL 05/03/18 09:00 06/02/18 08:59 05/05/18 13:37 Dronabinol (Marinol) 2.5 mg TID ORAL 05/03/18 18:00 06/02/18 17:59 05/05/18 13:37 Heparin Sodium (Porcine) (Heparin 5000 units/ml) 5,000 units EVERY 12 HOURS SUBQ 05/02/18 21:00 05/28/18 20:59 05/04/18 20:48 Heparin Sodium/ Sodium Chloride (Heparin 2000 units/Ns 1000ml premix) 2,000 unit ONCE INJ 05/05/18 09:00 05/05/18 23:59 Insulin Aspart (NovoLOG) BEFORE MEALS AND HS SUBQ 05/02/18 21:00 06/03/18 11:29 05/05/18 17:36 Insulin Aspart (NovoLOG) 2 units NOVOTIAC SUBQ 05/04/18 11:50 06/03/18 11:49 05/05/18 18:10 Insulin Detemir (Levemir) 8 units DAILY SUBQ 05/04/18 09:00 06/03/18 08:59 05/04/18 10:18 Lidocaine HCl (Xylocaine 1% 30ml) 30 ml ONCE INJ 05/05/18 09:00 05/05/18 23:59 Nitroglycerin (Ntg) 0.4 mg Q5M X 3 DOSES PRN SL Prn Chest Pain 05/02/18 18:00 05/28/18 17:44 Ondansetron HCl (Zofran) 4 mg Q6H PRN IVP Nausea & Vomiting 05/02/18 17:55 05/28/18 17:54 05/02/18 22:25 Pantoprazole (Protonix) 40 mg DAILY ORAL 05/03/18 09:00 06/01/18 08:59 05/04/18 09:56 Promethazine HCl (Phenergan) 25 mg Q6H PRN IM Nausea & Vomiting 05/04/18 20:15 06/03/18 20:14 05/04/18 21:01 Temazepam (Restoril) 15 mg HSPRN PRN ORAL Insomnia 05/02/18 17:56 05/09/18 17:55 Allergies: Coded Allergies: NO KNOWN ALLERGIES (Unverified Allergy, Unknown, 06/26/15) ROS Limited/Unobtainable: No Constitutional: Reports: no symptoms HEENT: Reports: no symptoms Cardiovascular: Reports: no symptoms Respiratory: Reports: no symptoms Gastrointestinal/Abdominal: Reports: nausea, vomiting Genitourinary: Reports: no symptoms Neurologic/Psychiatric: Reports: no symptoms Subjective 47 YO M admitted with hyperglycemia. Now intractable nausea and vomiting. Intussusception of small bowel. Cover for Int Magdi-Dr Ricks. C/O bilateral feet swelling. S/P paracentesis 05/02/18. Await endoscopy 05/06/18. Worsening anemia Objective Last Vital Signs Date Time Temp Pulse Resp B/P (MAP) Pulse Ox O2 Delivery O2 Flow Rate FiO2 05/05/18 17:45 97.7 89 18 98/66 (77) 100 97.7 05/05/18 09:00 Room Air 05/04/18 19:51 21 05/01/18 18:45 2.0 Laboratory Tests Test 05/05/18 06:47 White Blood Count 5.4 K/UL (4.8-10.8) Red Blood Count 2.20 M/UL (4.70-6.10) L Hemoglobin 6.9 G/DL (14.2-18.0) *L Hematocrit 18.5 % (42.0-52.0) L Mean Corpuscular Volume 84 FL (80-99) Mean Corpuscular Hemoglobin 31.5 PG (27.0-31.0) H Mean Corpuscular Hemoglobin Concent 36.8 G/DL (32.0-36.0) H Red Cell Distribution Width 12.1 % (11.6-14.8) Platelet Count 255 K/UL (150-450) Mean Platelet Volume 5.2 FL (6.5-10.1) L Neutrophils (%) (Auto) % (45.0-75.0) Lymphocytes (%) (Auto) % (20.0-45.0) Monocytes (%) (Auto) % (1.0-10.0) Eosinophils (%) (Auto) % (0.0-3.0) Basophils (%) (Auto) % (0.0-2.0) Differential Total Cells Counted 100 Neutrophils % (Manual) 56 % (45-75) Lymphocytes % (Manual) 35 % (20-45) Monocytes % (Manual) 8 % (1-10) Eosinophils % (Manual) 1 % (0-3) Basophils % (Manual) 0 % (0-2) Band Neutrophils 0 % (0-8) Platelet Estimate Adequate Platelet Morphology Normal Hypochromasia 3+ Anisocytosis 1+ Sodium Level 144 MMOL/L (136-145) Potassium Level 2.6 MMOL/L (3.5-5.1) *L Chloride Level 105 MMOL/L (98-107) Carbon Dioxide Level 39 MMOL/L (21-32) H Anion Gap 0 mmol/L (5-15) L Blood Urea Nitrogen 24 mg/dL (7-18) H Creatinine 0.6 MG/DL (0.55-1.30) Estimat Glomerular Filtration Rate > 60 mL/min (>60) Glucose Level 45 MG/DL (74-106) #L Calcium Level 7.4 MG/DL (8.5-10.1) L Phosphorus Level 2.0 MG/DL (2.5-4.9) L Magnesium Level 1.6 MG/DL (1.8-2.4) L Total Bilirubin 1.5 MG/DL (0.2-1.0) H Direct Bilirubin 0.3 MG/DL (0.0-0.3) Aspartate Amino Transf (AST/SGOT) 60 U/L (15-37) H Alanine Aminotransferase (ALT/SGPT) 128 U/L (12-78) H Alkaline Phosphatase 108 U/L (46-116) Total Protein 4.3 G/DL (6.4-8.2) L Albumin 1.9 G/DL (3.4-5.0) L Globulin 2.4 g/dL Albumin/Globulin Ratio 0.8 (1.0-2.7) L Intake and Output 05/04/18 05/05/18 19:00 07:00 Intake Total 860 ml 480 ml Output Total 1075 ml Balance 860 ml -595 ml Intake Oral 860 ml 480 ml Output Urine Total 375 ml Emesis 700 ml # Voids 2 2 Objective PHYSICAL EXAMINATION: GENERAL: The patient is thin-appearing male, who is obviously nauseated. HEENT: Eyes, pupils are equal, responsive to light and accommodation. Extraocular movements are intact. NECK: Supple without lymphadenopathy. CHEST: Lungs are clear to auscultation bilaterally without wheezes or rales. CARDIOVASCULAR: Regular rate. S1, S2 normal without murmurs, rubs, or gallops. ABDOMEN: Soft, diffusely tender with positive bowel sounds. No evidence of hepatosplenomegaly. No rebound or guarding noted. EXTREMITIES: Negative for clubbing, cyanosis, or edema. RECTAL: Refused. GENITALIA: Refused. NEUROLOGIC: Cranial nerves II through XII are grossly intact without focal deficits. Motor strength is 5/5 bilaterally. Deep tendon reflexes are 2+ plantar. Assessment/Plan Problem List: (1) Pancreatitis Assessment & Plan: CT and US=no common bile duct stone. See GI note. (2) Hypokalemia Assessment & Plan: Replace KCL IV (3) Hyperglycemia (4) DKA (diabetic ketoacidoses) (5) Intussusception of intestine Assessment & Plan: Non obstructive. Await surgery consult (6) Elevated transaminase level (7) Abdominal pain (8) Edema Assessment & Plan: Decrease IV fluids. Patient wants lasix. Await echocardiogram and cardiac W/U (9) Ascites (10) Anemia Assessment & Plan: ?GI bleed? S/P transfusion 1 unit PRBC 05/05/18. Await Endoscopy 05/06/18 Status: not improved Yunier Edwards MD May 05, 2018 19:46
[2018-05-05] MEDS: Dyna-Hex 2% Top Sol 2oz TOPIC SCH (22:49)
[2018-05-05] MEDS: Potassium Chloride 40 MEQ in 1/2 NS 1000ml 1,000 ML IV SCH (22:49)
[2018-05-06 00:15] VITALS: BP 96/61
[2018-05-06 04:00] VITALS: BP 90/59
[2018-05-06 06:23] LABS: INR 1.1 (0.9-1.1)
[2018-05-06 06:30] LABS: BASOPHILS % (AUTO) 0.5 % (0.0-2.0); EOSINOPHILS % (AUTO) 0.5 % (0.0-3.0); HEMOGLOBIN 8.1 G/DL (14.2-18.0); LYMPHOCYTES % (AUTO) 29.3 % (20.0-45.0); MEAN CORPUSCULAR VOLUME 85 FL (80-99); MONOCYTES % (AUTO) 8.5 % (1.0-10.0); NEUTROPHILS % (AUTO) 61.3 % (45.0-75.0); PLATELET COUNT 221 K/UL (150-450); RED CELL DISTRIBUTION WIDTH 11.7 % (11.6-14.8); WHITE BLOOD COUNT 4.9 K/UL (4.8-10.8)
[2018-05-06] MEDS: NovoLOG Insulin Flexpen SUBQ SCH ×7 (06:30→21:00)
[2018-05-06 06:50] LABS: PHOSPHORUS 2.6 MG/DL (2.5-4.9)
[2018-05-06 06:55] LABS: ALANINE AMINOTRANSFERASE 106 U/L (12-78); ALBUMIN 1.7 G/DL (3.4-5.0); ALBUMIN/GLOBULIN RATIO 0.8 (1.0-2.7); ALKALINE PHOSPHATASE 89 U/L (46-116); ASPARTATE AMINO TRANSFERASE 43 U/L (15-37); BILIRUBIN,TOTAL 1.5 MG/DL (0.2-1.0); BLOOD UREA NITROGEN 25 mg/dL (7-18); CALCIUM 7.5 MG/DL (8.5-10.1); CARBON DIOXIDE 38 MMOL/L (21-32); CHLORIDE 104 MMOL/L (98-107); CREATININE 0.6 MG/DL (0.55-1.30); SODIUM 141 MMOL/L (136-145)
[2018-05-06 06:57] LABS: ANION GAP 0 mmol/L (5-15)
[2018-05-06 06:59] LABS: POTASSIUM 2.7 MMOL/L (3.5-5.1)
[2018-05-06 07:00] LABS: BILIRUBIN,DIRECT 0.3 MG/DL (0.0-0.3)
--- NOTE | 2018-05-06 07:58 | General Progress Note ---
Assessment/Plan Problem List: (1) Pancreatitis ICD Codes: K85.90 - Acute pancreatitis without necrosis or infection, unspecified SNOMED: 18979460 (2) Hyponatremia ICD Codes: E87.1 - Hyponatremia SNOMED: 60358049 (3) Nausea, vomiting, and diarrhea ICD Codes: R11.2 - Nausea with vomiting, unspecified; R19.7 - Diarrhea, unspecified SNOMED: 6764906 Assessment/Plan reduce Levemir to 6 units daily continue Novolog 2 units ac tid - hold if not eating continue NISS Subjective Allergies: Coded Allergies: NO KNOWN ALLERGIES (Unverified Allergy, Unknown, 06/26/15) All Systems: reviewed and negative except above Subjective events noted Objective Last 24 Hour Vital Signs Date Time Temp Pulse Resp B/P (MAP) Pulse Ox O2 Delivery O2 Flow Rate FiO2 05/06/18 04:00 97.8 82 18 90/59 (69) 100 97.8 05/06/18 00:15 97.9 94 18 96/61 (73) 100 97.9 05/05/18 23:00 Room Air 05/05/18 19:50 88 18 98/66 (77) 100 05/05/18 19:13 89 18 Room Air 21 05/05/18 17:45 97.7 89 18 98/66 (77) 100 97.7 05/05/18 17:00 97.5 89 18 97/66 (76) 91 97.5 05/05/18 16:00 98.2 102 20 109/73 (85) 94 98.2 05/05/18 12:00 97.8 88 20 106/72 (83) 98 97.8 05/05/18 09:00 Room Air 05/05/18 08:00 97.8 101 20 87/63 (71) 95 97.8 Intake and Output 05/05/18 05/06/18 19:00 07:00 Intake Total 1000 ml 1080 ml Output Total 400 ml Balance 600 ml 1080 ml Intake Oral 1000 ml 480 ml IV Total 600 ml Output Urine Total 400 ml # Voids 1 Laboratory Tests 05/06/18 04:55: White Blood Count 4.9, Red Blood Count 2.60L, Hemoglobin 8.1L, Hematocrit 22.0L , Mean Corpuscular Volume 85, Mean Corpuscular Hemoglobin 31.0, Mean Corpuscular Hemoglobin Concent 36.6H, Red Cell Distribution Width 11.7, Platelet Count 221, Mean Platelet Volume 5.3L, Neutrophils (%) (Auto) 61.3, Lymphocytes (%) (Auto) 29.3, Monocytes (%) (Auto) 8.5, Eosinophils (%) (Auto) 0.5, Basophils (%) (Auto) 0.5, Prothrombin Time 11.5, Prothromb Time International Ratio 1.1, Activated Partial Thromboplast Time 26, Sodium Level 141, Potassium Level 2.7*L, Chloride Level 104, Carbon Dioxide Level 38H, Anion Gap 0L, Blood Urea Nitrogen 25H, Creatinine 0.6, Estimat Glomerular Filtration Rate > 60, Glucose Level 70L, Calcium Level 7.5L, Phosphorus Level 2.6, Magnesium Level 1.5L, Total Bilirubin 1.5H, Direct Bilirubin 0.3, Aspartate Amino Transf (AST/SGOT) 43H, Alanine Aminotransferase (ALT/SGPT) 106H, Alkaline Phosphatase 89, Total Protein 3.8L, Albumin 1.7L, Globulin 2.1, Albumin/ Globulin Ratio 0.8L Height (Feet): 5 Height (Inches): 6.00 Weight (Pounds): 140 General Appearance: no apparent distress Neck: normal alignment Cardiovascular: normal rate Respiratory/Chest: lungs clear Abdomen: normal bowel sounds Objective Current Medications Medications (Trade) Dose Ordered Sig/[place] Route PRN Reason Start Time Stop Time Status Last Admin Dose Admin Acetaminophen (Tylenol) 650 mg Q4H PRN ORAL fever 05/02/18 17:54 05/28/18 17:53 Al Hydroxide/Mg Hydroxide (Mylanta II) 30 ml Q6H PRN ORAL dyspepsia 05/02/18 17:54 05/28/18 17:53 Chlorhexidine Gluconate (Flores-Hex 2%) 1 applic DAILY@2000 TOPIC 05/04/18 20:00 06/03/18 19:59 05/05/18 22:49 Clonidine HCl (Catapres Tab) 0.1 mg Q4H PRN ORAL sbp more than 160 05/02/18 17:54 05/28/18 17:53 Dextrose (Dextrose 50%) 25 ml Q30M PRN IV Hypoglycemia 05/04/18 07:15 06/03/18 07:14 Dextrose (Dextrose 50%) 50 ml Q30M PRN IV Hypoglycemia 05/04/18 07:15 06/03/18 07:14 Docusate Sodium (Colace) 100 mg THREE TIMES A DAY ORAL 05/03/18 09:00 06/02/18 08:59 05/05/18 13:37 Dronabinol (Marinol) 2.5 mg TID ORAL 05/03/18 18:00 06/02/18 17:59 05/05/18 13:37 Heparin Sodium (Porcine) (Heparin 5000 units/ml) 5,000 units EVERY 12 HOURS SUBQ 05/02/18 21:00 05/28/18 20:59 05/04/18 20:48 Insulin Aspart (NovoLOG) BEFORE MEALS AND HS SUBQ 05/02/18 21:00 06/03/18 11:29 05/05/18 22:50 Insulin Aspart (NovoLOG) 2 units NOVOTIAC SUBQ 05/04/18 11:50 06/03/18 11:49 05/05/18 18:10 Insulin Detemir (Levemir) 8 units DAILY SUBQ 05/04/18 09:00 06/03/18 08:59 05/04/18 10:18 Nitroglycerin (Ntg) 0.4 mg Q5M X 3 DOSES PRN SL Prn Chest Pain 05/02/18 18:00 05/28/18 17:44 Ondansetron HCl (Zofran) 4 mg Q6H PRN IVP Nausea & Vomiting 05/02/18 17:55 05/28/18 17:54 05/02/18 22:25 Pantoprazole (Protonix) 40 mg DAILY ORAL 05/03/18 09:00 06/01/18 08:59 05/04/18 09:56 Potassium Chloride 40 meq/ Sodium Chloride 1,020 ml @ 75 mls/hr [id number] IV 05/05/18 21:00 06/04/18 20:59 05/05/18 22:49 Promethazine HCl (Phenergan) 25 mg Q6H PRN IM Nausea & Vomiting 05/04/18 20:15 06/03/18 20:14 05/04/18 21:01 Temazepam (Restoril) 15 mg HSPRN PRN ORAL Insomnia 05/02/18 17:56 05/09/18 17:55 Item Value Date Time Bedside Blood Glucose 78 mg/dl 05/06/18 0641 Bedside Blood Glucose 275 mg/dl H 05/05/18 2250 Bedside Blood Glucose 310 mg/dl H 05/05/18 1810 Bedside Blood Glucose 75 mg/dl 05/05/18 1150 Bedside Blood Glucose 91 mg/dl 05/05/18 0700 Bedside Blood Glucose 50 mg/dl L 05/05/18 0645 Saad Laurent MD May 06, 2018 07:58
[2018-05-06 08:00] VITALS: BP 126/86
[2018-05-06] MEDS ORDERED: Atropine Inj 1mg/10ml Syr IV PRN (09:00)
[2018-05-06] MEDS ORDERED: Midazolam 2mg/2ml Inj IVP PRN (09:00)
[2018-05-06] MEDS ORDERED: fentaNYL 100 mcg/2 mL IV PRN (09:00)
[2018-05-06] MEDS ORDERED: DiphenhydrAMINE 50mg/ml Inj IVP PRN (09:00)
--- NOTE | 2018-05-06 09:03 | Anethesia Preoperative Eval ---
Anesthesia Pre-op PMH/ROS General Date of Evaluation: May 06, 2018 Time of Evaluation: 08:30 Anesthesiologist: gabi ASA Score: ASA 3 Mallampati Score Class I : Soft palate, uvula, fauces, pillars visible Class II: Soft palate, uvula, fauces visible Class III: Soft palate, base of uvula visible Class IV: Only hard plate visible Mallampati Classification: Class II Surgeon: miryam Diagnosis: vomiting Surgical Procedure: egd Anesthesia History: none Social History: current smoker Family History: no anesthesia problems Allergies: Coded Allergies: NO KNOWN ALLERGIES (Unverified Allergy, Unknown, 06/26/15) Medications: see eMAR Past Medical History Gastrointestinal/Genitourinary: Reports: other - gastroparesis Endocrine: Reports: DM Anesthesia Pre-op Phys. Exam Physician Exam Last Vital Signs Date Time Temp Pulse Resp B/P (MAP) Pulse Ox O2 Delivery O2 Flow Rate FiO2 05/06/18 08:00 97.6 86 18 126/86 (99) 100 97.6 05/05/18 23:00 Room Air 05/05/18 19:13 21 05/01/18 18:45 2.0 Constitutional: NAD Neurologic: CN 2-12 intact Cardiovascular: RRR Respiratory: CTA Gastrointestinal: S/NT/ND Airway Exam Mallampati Score: Class II Anesthesia Pre-op A/P Labs Hematology Test 05/06/18 04:55 White Blood Count 4.9 K/UL (4.8-10.8) Red Blood Count 2.60 M/UL (4.70-6.10) L Hemoglobin 8.1 G/DL (14.2-18.0) L Hematocrit 22.0 % (42.0-52.0) L Mean Corpuscular Volume 85 FL (80-99) Mean Corpuscular Hemoglobin 31.0 PG (27.0-31.0) Mean Corpuscular Hemoglobin Concent 36.6 G/DL (32.0-36.0) H Red Cell Distribution Width 11.7 % (11.6-14.8) Platelet Count 221 K/UL (150-450) Mean Platelet Volume 5.3 FL (6.5-10.1) L Neutrophils (%) (Auto) 61.3 % (45.0-75.0) Lymphocytes (%) (Auto) 29.3 % (20.0-45.0) Monocytes (%) (Auto) 8.5 % (1.0-10.0) Eosinophils (%) (Auto) 0.5 % (0.0-3.0) Basophils (%) (Auto) 0.5 % (0.0-2.0) Coagulation Test 05/06/18 04:55 Prothrombin Time 11.5 SEC (9.30-11.50) Prothromb Time International Ratio 1.1 (0.9-1.1) Activated Partial Thromboplast Time 26 SEC (23-33) Chemistry Test 05/06/18 04:55 Sodium Level 141 MMOL/L (136-145) Potassium Level 2.7 MMOL/L (3.5-5.1) *L Chloride Level 104 MMOL/L (98-107) Carbon Dioxide Level 38 MMOL/L (21-32) H Anion Gap 0 mmol/L (5-15) L Blood Urea Nitrogen 25 mg/dL (7-18) H Creatinine 0.6 MG/DL (0.55-1.30) Estimat Glomerular Filtration Rate > 60 mL/min (>60) Glucose Level 70 MG/DL (74-106) L Calcium Level 7.5 MG/DL (8.5-10.1) L Phosphorus Level 2.6 MG/DL (2.5-4.9) Magnesium Level 1.5 MG/DL (1.8-2.4) L Total Bilirubin 1.5 MG/DL (0.2-1.0) H Direct Bilirubin 0.3 MG/DL (0.0-0.3) Aspartate Amino Transf (AST/SGOT) 43 U/L (15-37) H Alanine Aminotransferase (ALT/SGPT) 106 U/L (12-78) H Alkaline Phosphatase 89 U/L (46-116) Total Protein 3.8 G/DL (6.4-8.2) L Albumin 1.7 G/DL (3.4-5.0) L Globulin 2.1 g/dL Albumin/Globulin Ratio 0.8 (1.0-2.7) L Risk Assessment & Plan Assessment: asa3. critically low serum potassium levels. Plan: correct patient's critically low potassium level (2.6 on 05/05/2015, 2.7 on 2017). once corrected, if no other metabolic derangements or negative changes in clinical status, consider MAC Pre-Antibiotics Drug: Shari Morin MD May 06, 2018 09:03
[2018-05-06] MEDS: Docusate 100mg cap ORAL SCH ×3 (10:11→17:37)
[2018-05-06] MEDS: Dronabinol 2.5mg Cap ORAL SCH ×3 (10:11→17:38)
[2018-05-06] MEDS: Heparin 5000 units/ml inj SUBQ SCH ×2 (10:13→21:45)
[2018-05-06] MEDS: Levemir Flexpen SUBQ SCH (10:15)
[2018-05-06] MEDS: Potassium Chloride 40 MEQ in 1/2 NS 1000ml 1,000 ML IV SCH (10:33)
--- NOTE | 2018-05-06 11:59 | GI Progress Note ---
Assessment/Plan Problems: (1) Intussusception of intestine ICD Codes: K56.1 - Intussusception SNOMED: 48885017 (2) Elevated transaminase level ICD Codes: R74.0 - Nonspecific elevation of levels of transaminase and lactic acid dehydrogenase [LDH] SNOMED: 096094926, 179309606 (3) DKA (diabetic ketoacidoses) ICD Codes: E13.10 - Other specified diabetes mellitus with ketoacidosis without coma SNOMED: 53690324 (4) Nausea, vomiting, and diarrhea ICD Codes: R11.2 - Nausea with vomiting, unspecified; R19.7 - Diarrhea, unspecified SNOMED: 6363169 (5) Drug abuse ICD Codes: F19.10 - Other psychoactive substance abuse, uncomplicated SNOMED: 63506714 (6) Episode of generalized weakness ICD Codes: R53.1 - Weakness SNOMED: 26918686 (7) H/O cocaine abuse ICD Codes: Z87.898 - Personal history of other specified conditions SNOMED: 943274334 Status: unchanged Status Narrative Discussed with Dr. Ascencio. Assessment/Plan cocaine positive s/p paracentesis yielding 1.5L - pending cytology >> negative for malignancy abdominal U/S reviewed >> Mildly echogenic liver, which may suggest fatty infiltration. patient continues to vomit after any PO intake, now stated to me today this has been on going for 3 months. >> possible gastroparesis 2/2 DM hepatitis panel >> negative gastric delay emptying study >> half life of excretion is calculated at 287 minutes which is delayed. EGD cancelled due to hypokalemia. - resume CLD, rescheduled for wednesday. reglan 10mg IV ATC zofran prn pain mgmt bowel regime fu labs The patient was seen and examined at bedside and all new and available data was reviewed in the patients chart. I agree with the above findings, impression and plan. (Patient seen earlier today. Signature stamp does not reflect patient encounter time.). - Pedro Ascencio MD Subjective Subjective emesis generalized weakness Objective Last 24 Hour Vital Signs Date Time Temp Pulse Resp B/P (MAP) Pulse Ox O2 Delivery O2 Flow Rate FiO2 05/06/18 08:00 97.6 86 18 126/86 (99) 100 97.6 05/06/18 04:00 97.8 82 18 90/59 (69) 100 97.8 05/06/18 00:15 97.9 94 18 96/61 (73) 100 97.9 05/05/18 23:00 Room Air 05/05/18 19:50 88 18 98/66 (77) 100 05/05/18 19:13 89 18 Room Air 21 05/05/18 17:45 97.7 89 18 98/66 (77) 100 97.7 05/05/18 17:00 97.5 89 18 97/66 (76) 91 97.5 05/05/18 16:00 98.2 102 20 109/73 (85) 94 98.2 05/05/18 12:00 97.8 88 20 106/72 (83) 98 97.8 Intake and Output 05/05/18 05/06/18 19:00 07:00 Intake Total 1000 ml 1080 ml Output Total 400 ml Balance 600 ml 1080 ml Intake Oral 1000 ml 480 ml IV Total 600 ml Output Urine Total 400 ml # Voids 1 Laboratory Tests Test 05/06/18 04:55 White Blood Count 4.9 K/UL (4.8-10.8) Red Blood Count 2.60 M/UL (4.70-6.10) L Hemoglobin 8.1 G/DL (14.2-18.0) L Hematocrit 22.0 % (42.0-52.0) L Mean Corpuscular Volume 85 FL (80-99) Mean Corpuscular Hemoglobin 31.0 PG (27.0-31.0) Mean Corpuscular Hemoglobin Concent 36.6 G/DL (32.0-36.0) H Red Cell Distribution Width 11.7 % (11.6-14.8) Platelet Count 221 K/UL (150-450) Mean Platelet Volume 5.3 FL (6.5-10.1) L Neutrophils (%) (Auto) 61.3 % (45.0-75.0) Lymphocytes (%) (Auto) 29.3 % (20.0-45.0) Monocytes (%) (Auto) 8.5 % (1.0-10.0) Eosinophils (%) (Auto) 0.5 % (0.0-3.0) Basophils (%) (Auto) 0.5 % (0.0-2.0) Prothrombin Time 11.5 SEC (9.30-11.50) Prothromb Time International Ratio 1.1 (0.9-1.1) Activated Partial Thromboplast Time 26 SEC (23-33) Sodium Level 141 MMOL/L (136-145) Potassium Level 2.7 MMOL/L (3.5-5.1) *L Chloride Level 104 MMOL/L (98-107) Carbon Dioxide Level 38 MMOL/L (21-32) H Anion Gap 0 mmol/L (5-15) L Blood Urea Nitrogen 25 mg/dL (7-18) H Creatinine 0.6 MG/DL (0.55-1.30) Estimat Glomerular Filtration Rate > 60 mL/min (>60) Glucose Level 70 MG/DL (74-106) L Calcium Level 7.5 MG/DL (8.5-10.1) L Phosphorus Level 2.6 MG/DL (2.5-4.9) Magnesium Level 1.5 MG/DL (1.8-2.4) L Total Bilirubin 1.5 MG/DL (0.2-1.0) H Direct Bilirubin 0.3 MG/DL (0.0-0.3) Aspartate Amino Transf (AST/SGOT) 43 U/L (15-37) H Alanine Aminotransferase (ALT/SGPT) 106 U/L (12-78) H Alkaline Phosphatase 89 U/L (46-116) Total Protein 3.8 G/DL (6.4-8.2) L Albumin 1.7 G/DL (3.4-5.0) L Globulin 2.1 g/dL Albumin/Globulin Ratio 0.8 (1.0-2.7) L Height (Feet): 5 Height (Inches): 6.00 Weight (Pounds): 140 General Appearance: WD/WN, no apparent distress, alert, thin Cardiovascular: normal rate Respiratory/Chest: normal breath sounds, no respiratory distress Abdominal Exam: normal bowel sounds, non tender, soft Extremities: normal range of motion, non-tender Melita Delgado NP May 06, 2018 11:59
[2018-05-06 12:00] VITALS: BP 94/69
[2018-05-06] MEDS ORDERED: Metoclopramide 10mg/2ml Inj IVP PRN (12:03)
--- NOTE | 2018-05-06 12:14 | Pulmonology Progress Note ---
Assessment/Plan Problems: (1) Nausea, vomiting, and diarrhea (2) Gastroparesis (3) Intractable vomiting (4) Anemia Assessment/Plan doesn't want full liquid diet still vomiting symptomatic treatment dc iv fluids K supplement pt might need PEG feeding tube, d/w dr Hayward Subjective ROS Limited/Unobtainable: No Allergies: Coded Allergies: NO KNOWN ALLERGIES (Unverified Allergy, Unknown, 06/26/15) Objective Last 24 Hour Vital Signs Date Time Temp Pulse Resp B/P (MAP) Pulse Ox O2 Delivery O2 Flow Rate FiO2 05/06/18 12:00 98.0 86 18 94/69 (77) 98 98.0 05/06/18 09:00 Room Air 05/06/18 08:00 97.6 86 18 126/86 (99) 100 97.6 05/06/18 04:00 97.8 82 18 90/59 (69) 100 97.8 05/06/18 00:15 97.9 94 18 96/61 (73) 100 97.9 05/05/18 23:00 Room Air 05/05/18 19:50 88 18 98/66 (77) 100 05/05/18 19:13 89 18 Room Air 21 05/05/18 17:45 97.7 89 18 98/66 (77) 100 97.7 05/05/18 17:00 97.5 89 18 97/66 (76) 91 97.5 05/05/18 16:00 98.2 102 20 109/73 (85) 94 98.2 Intake and Output 05/05/18 05/06/18 19:00 07:00 Intake Total 1000 ml 1080 ml Output Total 400 ml Balance 600 ml 1080 ml Intake Oral 1000 ml 480 ml IV Total 600 ml Output Urine Total 400 ml # Voids 1 Objective General Appearance: WD/WN HEENT: normocephalic, anicteric Breasts: no masses Cardiovascular: normal peripheral pulses, regular rhythm Abdomen: soft, non tender, no organomegaly Extremities: no cyanosis Skin: no rash General Appearance: no acute distress Laboratory Tests 05/06/18 04:55: White Blood Count 4.9, Red Blood Count 2.60L, Hemoglobin 8.1L, Hematocrit 22.0L , Mean Corpuscular Volume 85, Mean Corpuscular Hemoglobin 31.0, Mean Corpuscular Hemoglobin Concent 36.6H, Red Cell Distribution Width 11.7, Platelet Count 221, Mean Platelet Volume 5.3L, Neutrophils (%) (Auto) 61.3, Lymphocytes (%) (Auto) 29.3, Monocytes (%) (Auto) 8.5, Eosinophils (%) (Auto) 0.5, Basophils (%) (Auto) 0.5, Prothrombin Time 11.5, Prothromb Time International Ratio 1.1, Activated Partial Thromboplast Time 26, Sodium Level 141, Potassium Level 2.7*L, Chloride Level 104, Carbon Dioxide Level 38H, Anion Gap 0L, Blood Urea Nitrogen 25H, Creatinine 0.6, Estimat Glomerular Filtration Rate > 60, Glucose Level 70L, Calcium Level 7.5L, Phosphorus Level 2.6, Magnesium Level 1.5L, Total Bilirubin 1.5H, Direct Bilirubin 0.3, Aspartate Amino Transf (AST/SGOT) 43H, Alanine Aminotransferase (ALT/SGPT) 106H, Alkaline Phosphatase 89, Total Protein 3.8L, Albumin 1.7L, Globulin 2.1, Albumin/ Globulin Ratio 0.8L Current Medications Medications (Trade) Dose Ordered Sig/Herminia Route PRN Reason Start Time Stop Time Status Last Admin Dose Admin Acetaminophen (Tylenol) 650 mg Q4H PRN ORAL fever 05/02/18 17:54 05/28/18 17:53 Al Hydroxide/Mg Hydroxide (Mylanta II) 30 ml Q6H PRN ORAL dyspepsia 05/02/18 17:54 05/28/18 17:53 Al Hydroxide/Mg Hydroxide (Mylanta) 15 ml Q1H PRN ORAL gi upset 05/06/18 09:00 05/06/18 16:00 Atropine Sulfate (Atropine) 0.5 mg Q5M PRN IV bpm less than 45 05/06/18 09:00 05/06/18 16:00 Chlorhexidine Gluconate (Flores-Hex 2%) 1 applic DAILY@2000 TOPIC 05/04/18 20:00 06/03/18 19:59 05/05/18 22:49 Clonidine HCl (Catapres Tab) 0.1 mg Q4H PRN ORAL sbp more than 160 05/02/18 17:54 05/28/18 17:53 Dextrose (Dextrose 50%) 25 ml Q30M PRN IV Hypoglycemia 05/04/18 07:15 06/03/18 07:14 Dextrose (Dextrose 50%) 50 ml Q30M PRN IV Hypoglycemia 05/04/18 07:15 06/03/18 07:14 Diphenhydramine HCl (Benadryl) 25 mg Q15M PRN IVP Itching 05/06/18 09:00 05/06/18 16:00 Docusate Sodium (Colace) 100 mg THREE TIMES A DAY ORAL 05/03/18 09:00 06/02/18 08:59 05/06/18 10:11 Dronabinol (Marinol) 2.5 mg TID ORAL 05/03/18 18:00 06/02/18 17:59 05/06/18 10:11 Fentanyl Citrate (Sublimaze 100 mcg/2 mL) 25 mcg Q10M PRN IV Moderate Pain (Pain Scale 4-6) 05/06/18 09:00 05/06/18 16:00 Heparin Sodium (Porcine) (Heparin 5000 units/ml) 5,000 units EVERY 12 HOURS SUBQ 05/02/18 21:00 05/28/18 20:59 05/06/18 10:13 Hydralazine HCl (Apresoline) 5 mg Q30M PRN IV SBP>160 OR___/DBP>90 OR___ 05/06/18 09:00 05/06/18 16:00 Insulin Aspart (NovoLOG) BEFORE MEALS AND HS SUBQ 05/02/18 21:00 06/03/18 11:29 05/05/18 22:50 Insulin Aspart (NovoLOG) 2 units NOVOTIAC SUBQ 05/04/18 11:50 06/03/18 11:49 05/05/18 18:10 Insulin Detemir (Levemir) 6 units DAILY SUBQ 05/06/18 09:00 06/03/18 08:59 05/06/18 10:15 Metoclopramide HCl (Reglan) 10 mg Q6H PRN IVP Nausea & Vomiting 05/06/18 12:03 06/05/18 12:02 Midazolam HCl (Versed 2mg/2ml vial) 1 mg Q15M PRN IVP For Anxiety 05/06/18 09:00 05/06/18 16:00 Nitroglycerin (Ntg) 0.4 mg Q5M X 3 DOSES PRN SL Prn Chest Pain 05/02/18 18:00 05/28/18 17:44 Ondansetron HCl (Zofran) 4 mg Q1H PRN IVP Nausea & Vomiting 05/06/18 09:00 05/06/18 16:00 Ondansetron HCl (Zofran) 4 mg Q6H PRN IVP Nausea & Vomiting 05/02/18 17:55 05/28/18 17:54 05/02/18 22:25 Pantoprazole (Protonix) 40 mg DAILY ORAL 05/03/18 09:00 06/01/18 08:59 05/06/18 10:11 Potassium Chloride 40 meq/ Sodium Chloride 1,020 ml @ 75 mls/hr [id number] IV 05/05/18 21:00 06/04/18 20:59 05/06/18 10:33 Potassium Chloride (K-Dur) 40 meq Q8H ORAL 05/06/18 09:30 05/06/18 17:31 05/06/18 10:12 Promethazine HCl (Phenergan) 25 mg Q6H PRN IM Nausea & Vomiting 05/04/18 20:15 06/03/18 20:14 05/04/18 21:01 Temazepam (Restoril) 15 mg HSPRN PRN ORAL Insomnia 05/02/18 17:56 05/09/18 17:55 Rosa Jamil MD May 06, 2018 12:14
--- NOTE | 2018-05-06 15:57 | Cardiology Report ---
APPROVED REPORT EKG Measurement Heart [id number] VA [id number] Normal sinus rhythm Non specific ST-T abn Borderline ECG
[2018-05-06 16:00] VITALS: BP 93/65
--- NOTE | 2018-05-06 16:01 | General Surgery Progress Note ---
General Surgery-Progress Note Subjective Additional Comments Abnormal delayed gastric emptying EGD cancelled rescheduled for wednesday Objective Last 24 Hour Vital Signs Date Time Temp Pulse Resp B/P (MAP) Pulse Ox O2 Delivery O2 Flow Rate FiO2 05/06/18 12:00 98.0 86 18 94/69 (77) 98 98.0 05/06/18 09:00 Room Air 05/06/18 08:00 97.6 86 18 126/86 (99) 100 97.6 05/06/18 04:00 97.8 82 18 90/59 (69) 100 97.8 05/06/18 00:15 97.9 94 18 96/61 (73) 100 97.9 05/05/18 23:00 Room Air 05/05/18 19:50 88 18 98/66 (77) 100 05/05/18 19:13 89 18 Room Air 21 05/05/18 17:45 97.7 89 18 98/66 (77) 100 97.7 05/05/18 17:00 97.5 89 18 97/66 (76) 91 97.5 I&O Intake and Output 05/05/18 05/06/18 19:00 07:00 Intake Total 1000 ml 1080 ml Output Total 400 ml Balance 600 ml 1080 ml Intake Oral 1000 ml 480 ml IV Total 600 ml Output Urine Total 400 ml # Voids 1 Dressing: other Wound: other Drains: other Cardiovascular: RSR Respiratory: clear Abdomen: soft, non-tender, present bowel sounds Extremities: other Laboratory Tests Test 05/06/18 04:55 White Blood Count 4.9 K/UL (4.8-10.8) Red Blood Count 2.60 M/UL (4.70-6.10) L Hemoglobin 8.1 G/DL (14.2-18.0) L Hematocrit 22.0 % (42.0-52.0) L Mean Corpuscular Volume 85 FL (80-99) Mean Corpuscular Hemoglobin 31.0 PG (27.0-31.0) Mean Corpuscular Hemoglobin Concent 36.6 G/DL (32.0-36.0) H Red Cell Distribution Width 11.7 % (11.6-14.8) Platelet Count 221 K/UL (150-450) Mean Platelet Volume 5.3 FL (6.5-10.1) L Neutrophils (%) (Auto) 61.3 % (45.0-75.0) Lymphocytes (%) (Auto) 29.3 % (20.0-45.0) Monocytes (%) (Auto) 8.5 % (1.0-10.0) Eosinophils (%) (Auto) 0.5 % (0.0-3.0) Basophils (%) (Auto) 0.5 % (0.0-2.0) Prothrombin Time 11.5 SEC (9.30-11.50) Prothromb Time International Ratio 1.1 (0.9-1.1) Activated Partial Thromboplast Time 26 SEC (23-33) Sodium Level 141 MMOL/L (136-145) Potassium Level 2.7 MMOL/L (3.5-5.1) *L Chloride Level 104 MMOL/L (98-107) Carbon Dioxide Level 38 MMOL/L (21-32) H Anion Gap 0 mmol/L (5-15) L Blood Urea Nitrogen 25 mg/dL (7-18) H Creatinine 0.6 MG/DL (0.55-1.30) Estimat Glomerular Filtration Rate > 60 mL/min (>60) Glucose Level 70 MG/DL (74-106) L Calcium Level 7.5 MG/DL (8.5-10.1) L Phosphorus Level 2.6 MG/DL (2.5-4.9) Magnesium Level 1.5 MG/DL (1.8-2.4) L Total Bilirubin 1.5 MG/DL (0.2-1.0) H Direct Bilirubin 0.3 MG/DL (0.0-0.3) Aspartate Amino Transf (AST/SGOT) 43 U/L (15-37) H Alanine Aminotransferase (ALT/SGPT) 106 U/L (12-78) H Alkaline Phosphatase 89 U/L (46-116) Total Protein 3.8 G/DL (6.4-8.2) L Albumin 1.7 G/DL (3.4-5.0) L Globulin 2.1 g/dL Albumin/Globulin Ratio 0.8 (1.0-2.7) L Plan Problems: (1) Intussusception of intestine Assessment & Plan: CT Findings: 1. Short segment small bowel intussusception in the left lower quadrant ( series 5 image 58). No lead point lesions. No evidence of bowel obstruction. No focal bowel wall thickening. No adjacent inflammatory change. This may represent transient intussusception and is of uncertain clinical significance. 2. Sigmoid diverticulosis without wall thickening or adjacent inflammatory change. CT reviewed. - likely transient and benign. exam stable, no obstruction, no thickening, no inflammation. leukocytosis unlikely due to this. does have elevated LFT. possible cholecystitis? possible hepatitis Ultrasound reviewed. ascites and liver abnormal. Gallbladder okay. t bili trending down. lip/nicolette nml. lfts improved. denies EtOH history. likely hepatitis? abd distention related to ascites. unsure of etiology for nausea and emesis but not obstructive in nature. paracentesis path noted. no malignant cells hepatitis panel negative gastric study abnormal delay -PPI -diet as tolerated -trend labs -endoscopy as per GI on wednesday thank you. will follow with recs. Long Guevara May 06, 2018 16:01
[2018-05-06 20:00] VITALS: BP 91/67
--- NOTE | 2018-05-06 20:24 | Internal Med Progress Note ---
Subjective Date of Service: May 06, 2018 Physician Name Yunier Edwards Attending Physician Aly Ricks MD Current Medications Medications (Trade) Dose Ordered Sig/Herminia Route PRN Reason Start Time Stop Time Status Last Admin Dose Admin Acetaminophen (Tylenol) 650 mg Q4H PRN ORAL fever 05/02/18 17:54 05/28/18 17:53 Al Hydroxide/Mg Hydroxide (Mylanta II) 30 ml Q6H PRN ORAL dyspepsia 05/02/18 17:54 05/28/18 17:53 Chlorhexidine Gluconate (Flores-Hex 2%) 1 applic DAILY@2000 TOPIC 05/04/18 20:00 06/03/18 19:59 05/05/18 22:49 Clonidine HCl (Catapres Tab) 0.1 mg Q4H PRN ORAL sbp more than 160 05/02/18 17:54 05/28/18 17:53 Dextrose (Dextrose 50%) 25 ml Q30M PRN IV Hypoglycemia 05/04/18 07:15 06/03/18 07:14 Dextrose (Dextrose 50%) 50 ml Q30M PRN IV Hypoglycemia 05/04/18 07:15 06/03/18 07:14 Docusate Sodium (Colace) 100 mg THREE TIMES A DAY ORAL 05/03/18 09:00 06/02/18 08:59 05/06/18 17:37 Dronabinol (Marinol) 2.5 mg TID ORAL 05/03/18 18:00 06/02/18 17:59 05/06/18 17:38 Heparin Sodium (Porcine) (Heparin 5000 units/ml) 5,000 units EVERY 12 HOURS SUBQ 05/02/18 21:00 05/28/18 20:59 05/06/18 10:13 Insulin Aspart (NovoLOG) BEFORE MEALS AND HS SUBQ 05/02/18 21:00 06/03/18 11:29 05/06/18 17:41 Insulin Aspart (NovoLOG) 2 units NOVOTIAC SUBQ 05/04/18 11:50 06/03/18 11:49 05/06/18 17:40 Insulin Detemir (Levemir) 6 units DAILY SUBQ 05/06/18 09:00 06/03/18 08:59 05/06/18 10:15 Metoclopramide HCl (Reglan) 10 mg Q6H PRN IVP Nausea & Vomiting 05/06/18 12:03 06/05/18 12:02 Nitroglycerin (Ntg) 0.4 mg Q5M X 3 DOSES PRN SL Prn Chest Pain 05/02/18 18:00 05/28/18 17:44 Ondansetron HCl (Zofran) 4 mg Q6H PRN IVP Nausea & Vomiting 05/02/18 17:55 05/28/18 17:54 05/02/18 22:25 Pantoprazole (Protonix) 40 mg DAILY ORAL 05/03/18 09:00 06/01/18 08:59 05/06/18 10:11 Potassium Chloride 40 meq/ Sodium Chloride 1,020 ml @ 75 mls/hr [id number] IV 05/05/18 21:00 06/04/18 20:59 05/06/18 10:33 Promethazine HCl (Phenergan) 25 mg Q6H PRN IM Nausea & Vomiting 05/04/18 20:15 06/03/18 20:14 05/04/18 21:01 Temazepam (Restoril) 15 mg HSPRN PRN ORAL Insomnia 05/02/18 17:56 05/09/18 17:55 Allergies: Coded Allergies: NO KNOWN ALLERGIES (Unverified Allergy, Unknown, 06/26/15) Subjective 47 YO M admitted with hyperglycemia. Now intractable nausea and vomiting. Intussusception of small bowel. Cover for Int Med-Dr Ricks. C/O bilateral feet swelling. S/P paracentesis 05/02/18. Endoscopy 05/06/18 cancelled due to hypokalemia; rescheduled for 05/09/18. Worsening anemia Objective Last Vital Signs Date Time Temp Pulse Resp B/P (MAP) Pulse Ox O2 Delivery O2 Flow Rate FiO2 05/06/18 16:00 98.4 110 18 93/65 (74) 96 98.4 05/06/18 09:00 Room Air 05/05/18 19:13 21 05/01/18 18:45 2.0 Laboratory Tests Test 05/06/18 04:55 White Blood Count 4.9 K/UL (4.8-10.8) Red Blood Count 2.60 M/UL (4.70-6.10) L Hemoglobin 8.1 G/DL (14.2-18.0) L Hematocrit 22.0 % (42.0-52.0) L Mean Corpuscular Volume 85 FL (80-99) Mean Corpuscular Hemoglobin 31.0 PG (27.0-31.0) Mean Corpuscular Hemoglobin Concent 36.6 G/DL (32.0-36.0) H Red Cell Distribution Width 11.7 % (11.6-14.8) Platelet Count 221 K/UL (150-450) Mean Platelet Volume 5.3 FL (6.5-10.1) L Neutrophils (%) (Auto) 61.3 % (45.0-75.0) Lymphocytes (%) (Auto) 29.3 % (20.0-45.0) Monocytes (%) (Auto) 8.5 % (1.0-10.0) Eosinophils (%) (Auto) 0.5 % (0.0-3.0) Basophils (%) (Auto) 0.5 % (0.0-2.0) Prothrombin Time 11.5 SEC (9.30-11.50) Prothromb Time International Ratio 1.1 (0.9-1.1) Activated Partial Thromboplast Time 26 SEC (23-33) Sodium Level 141 MMOL/L (136-145) Potassium Level 2.7 MMOL/L (3.5-5.1) *L Chloride Level 104 MMOL/L (98-107) Carbon Dioxide Level 38 MMOL/L (21-32) H Anion Gap 0 mmol/L (5-15) L Blood Urea Nitrogen 25 mg/dL (7-18) H Creatinine 0.6 MG/DL (0.55-1.30) Estimat Glomerular Filtration Rate > 60 mL/min (>60) Glucose Level 70 MG/DL (74-106) L Calcium Level 7.5 MG/DL (8.5-10.1) L Phosphorus Level 2.6 MG/DL (2.5-4.9) Magnesium Level 1.5 MG/DL (1.8-2.4) L Total Bilirubin 1.5 MG/DL (0.2-1.0) H Direct Bilirubin 0.3 MG/DL (0.0-0.3) Aspartate Amino Transf (AST/SGOT) 43 U/L (15-37) H Alanine Aminotransferase (ALT/SGPT) 106 U/L (12-78) H Alkaline Phosphatase 89 U/L (46-116) Total Protein 3.8 G/DL (6.4-8.2) L Albumin 1.7 G/DL (3.4-5.0) L Globulin 2.1 g/dL Albumin/Globulin Ratio 0.8 (1.0-2.7) L Intake and Output 05/05/18 05/06/18 19:00 07:00 Intake Total 1000 ml 1085 ml Output Total 400 ml Balance 600 ml 1085 ml Intake Oral 1000 ml 480 ml IV Total 605 ml Output Urine Total 400 ml # Voids 1 Objective PHYSICAL EXAMINATION: GENERAL: The patient is thin-appearing male, who is obviously nauseated. HEENT: Eyes, pupils are equal, responsive to light and accommodation. Extraocular movements are intact. NECK: Supple without lymphadenopathy. CHEST: Lungs are clear to auscultation bilaterally without wheezes or rales. CARDIOVASCULAR: Regular rate. S1, S2 normal without murmurs, rubs, or gallops. ABDOMEN: Soft, diffusely tender with positive bowel sounds. No evidence of hepatosplenomegaly. No rebound or guarding noted. EXTREMITIES: Negative for clubbing, cyanosis, or edema. RECTAL: Refused. GENITALIA: Refused. NEUROLOGIC: Cranial nerves II through XII are grossly intact without focal deficits. Motor strength is 5/5 bilaterally. Deep tendon reflexes are 2+ plantar. Assessment/Plan Problem List: (1) Pancreatitis Assessment & Plan: CT and US=no common bile duct stone. See GI note. (2) Hypokalemia Assessment & Plan: Replace KCL IV (3) Hyperglycemia (4) DKA (diabetic ketoacidoses) (5) Intussusception of intestine Assessment & Plan: Non obstructive. See surgery consult (6) Elevated transaminase level (7) Abdominal pain (8) Edema Assessment & Plan: Decrease IV fluids. Patient wants lasix. Await echocardiogram and cardiac W/U (9) Ascites (10) Anemia Assessment & Plan: ?GI bleed? S/P transfusion 1 unit PRBC 05/05/18. Endoscopy rescheduled for Wednesday,05/09/18 Status: not improved Yunier Ewdards MD May 06, 2018 20:24
[2018-05-06] MEDS: Dyna-Hex 2% Top Sol 2oz TOPIC SCH (21:44)
[2018-05-07] VITALS: BP 82/53
[2018-05-07] MEDS ORDERED: Sodium Chloride 500ML 500 ML IV ONE (00:30)
[2018-05-07] MEDS: Potassium Chloride 40 MEQ in 1/2 NS 1000ml 1,000 ML IV SCH ×2 (00:39→13:47)
[2018-05-07 04:00] VITALS: BP 95/66
[2018-05-07 06:27] LABS: HEMATOCRIT 20.6 % (42.0-52.0); HEMOGLOBIN 7.8 G/DL (14.2-18.0); MEAN CORPUSCULAR VOLUME 84 FL (80-99); PLATELET COUNT 240 K/UL (150-450); RED BLOOD COUNT 2.44 M/UL (4.70-6.10); RED CELL DISTRIBUTION WIDTH 12.3 % (11.6-14.8); WHITE BLOOD COUNT 6.6 K/UL (4.8-10.8)
[2018-05-07] MEDS: NovoLOG Insulin Flexpen SUBQ SCH ×7 (06:30→21:23)
[2018-05-07 07:02] LABS: CHLORIDE 105 MMOL/L (98-107); POTASSIUM 2.8 MMOL/L (3.5-5.1)
[2018-05-07 07:29] LABS: ALANINE AMINOTRANSFERASE 95 U/L (12-78); ALBUMIN 1.7 G/DL (3.4-5.0); ALBUMIN/GLOBULIN RATIO 0.8 (1.0-2.7); ALKALINE PHOSPHATASE 93 U/L (46-116); ANION GAP -1 mmol/L (5-15); ASPARTATE AMINO TRANSFERASE 39 U/L (15-37); BLOOD UREA NITROGEN 25 mg/dL (7-18); CALCIUM 7.1 MG/DL (8.5-10.1); CARBON DIOXIDE 37 MMOL/L (21-32); CREATININE 0.6 MG/DL (0.55-1.30); SODIUM 141 MMOL/L (136-145)
[2018-05-07] MEDS: Levemir Flexpen SUBQ SCH (09:00)
[2018-05-07] MEDS: Heparin 5000 units/ml inj SUBQ SCH ×2 (09:00→21:21)
[2018-05-07] MEDS: Docusate 100mg cap ORAL SCH ×3 (10:14→17:47)
[2018-05-07] MEDS: Dronabinol 2.5mg Cap ORAL SCH ×3 (10:14→17:47)
--- NOTE | 2018-05-07 11:47 | General Surgery Progress Note ---
General Surgery-Progress Note Subjective Additional Comments combative. agitated. wants to have smoke. does not want nicotine patch. still with emesis. Objective Last 24 Hour Vital Signs Date Time Temp Pulse Resp B/P (MAP) Pulse Ox O2 Delivery O2 Flow Rate FiO2 05/07/18 09:00 Room Air 05/07/18 08:03 93 18 Room Air 21 05/07/18 04:00 98.0 101 18 95/66 (76) 97 98.0 05/07/18 00:00 97.6 77 18 82/53 (63) 92 97.6 05/06/18 21:00 Room Air 05/06/18 20:00 97.6 99 19 91/67 (75) 95 97.6 05/06/18 16:00 98.4 110 18 93/65 (74) 96 98.4 05/06/18 12:00 98.0 86 18 94/69 (77) 98 98.0 I&O Intake and Output 05/06/18 05/07/18 19:00 07:00 Intake Total 1170 ml 825 ml Output Total 400 ml Balance 770 ml 825 ml Intake Oral 270 ml IV Total 900 ml 825 ml Output Urine Total 400 ml Drains: none Cardiovascular: RSR Respiratory: clear Abdomen: soft, flat, non-tender, present bowel sounds Extremities: no tenderness, no cyanosis, other Laboratory Tests Test 05/07/18 05:30 White Blood Count 6.6 K/UL (4.8-10.8) Red Blood Count 2.44 M/UL (4.70-6.10) L Hemoglobin 7.8 G/DL (14.2-18.0) L Hematocrit 20.6 % (42.0-52.0) L Mean Corpuscular Volume 84 FL (80-99) Mean Corpuscular Hemoglobin 32.1 PG (27.0-31.0) H Mean Corpuscular Hemoglobin Concent 38.1 G/DL (32.0-36.0) H Red Cell Distribution Width 12.3 % (11.6-14.8) Platelet Count 240 K/UL (150-450) Mean Platelet Volume 5.0 FL (6.5-10.1) L Neutrophils (%) (Auto) % (45.0-75.0) Lymphocytes (%) (Auto) % (20.0-45.0) Monocytes (%) (Auto) % (1.0-10.0) Eosinophils (%) (Auto) % (0.0-3.0) Basophils (%) (Auto) % (0.0-2.0) Differential Total Cells Counted 100 Neutrophils % (Manual) 68 % (45-75) Lymphocytes % (Manual) 24 % (20-45) Monocytes % (Manual) 7 % (1-10) Eosinophils % (Manual) 0 % (0-3) Basophils % (Manual) 0 % (0-2) Band Neutrophils 1 % (0-8) Platelet Estimate Adequate Platelet Morphology Normal Red Blood Cell Morphology Normal Polychromasia 1+ Erythrocyte Sedimentation Rate 18 MM/HR (0-15) H Sodium Level 141 MMOL/L (136-145) Potassium Level 2.8 MMOL/L (3.5-5.1) L Chloride Level 105 MMOL/L (98-107) Carbon Dioxide Level 37 MMOL/L (21-32) H Anion Gap -1 mmol/L (5-15) L Blood Urea Nitrogen 25 mg/dL (7-18) H Creatinine 0.6 MG/DL (0.55-1.30) Estimat Glomerular Filtration Rate > 60 mL/min (>60) Glucose Level 116 MG/DL (74-106) H Calcium Level 7.1 MG/DL (8.5-10.1) L Phosphorus Level 2.0 MG/DL (2.5-4.9) L Magnesium Level 1.4 MG/DL (1.8-2.4) L Total Bilirubin 1.0 MG/DL (0.2-1.0) Aspartate Amino Transf (AST/SGOT) 39 U/L (15-37) H Alanine Aminotransferase (ALT/SGPT) 95 U/L (12-78) H Alkaline Phosphatase 93 U/L (46-116) C-Reactive Protein, Quantitative < 0.4 mg/dL (0.00-0.90) Total Protein 3.9 G/DL (6.4-8.2) L Albumin 1.7 G/DL (3.4-5.0) L Globulin 2.2 g/dL Albumin/Globulin Ratio 0.8 (1.0-2.7) L Plan Problems: (1) Intussusception of intestine Assessment & Plan: CT Findings: 1. Short segment small bowel intussusception in the left lower quadrant ( series 5 image 58). No lead point lesions. No evidence of bowel obstruction. No focal bowel wall thickening. No adjacent inflammatory change. This may represent transient intussusception and is of uncertain clinical significance. 2. Sigmoid diverticulosis without wall thickening or adjacent inflammatory change. CT reviewed. - likely transient and benign. exam stable, no obstruction, no thickening, no inflammation. leukocytosis unlikely due to this. does have elevated LFT. possible cholecystitis? possible hepatitis Ultrasound reviewed. ascites and liver abnormal. Gallbladder okay. t bili trending down. lip/nicolette nml. lfts improved. denies EtOH history. likely hepatitis? abd distention related to ascites. unsure of etiology for nausea and emesis but not obstructive in nature. paracentesis path noted. no malignant cells hepatitis panel negative gastric study abnormal delay -PPI -diet as tolerated -trend labs -endoscopy as per GI on wednesday thank you. will follow with recs. Long Guevara May 07, 2018 11:47
--- NOTE | 2018-05-07 11:49 | Pulmonology Progress Note ---
Assessment/Plan Problems: (1) Nausea, vomiting, and diarrhea (2) Gastroparesis (3) Intractable vomiting (4) Anemia Assessment/Plan still vomiting doesn't want full liquid diet still vomiting symptomatic treatment dc iv fluids K supplement pt might need PEG feeding tube, d/w dr Hayward Subjective ROS Limited/Unobtainable: No Constitutional: Reports: no symptoms HEENT: Repors: no symptoms Respiratory: Reports: no symptoms Allergies: Coded Allergies: NO KNOWN ALLERGIES (Unverified Allergy, Unknown, 06/26/15) Objective Last 24 Hour Vital Signs Date Time Temp Pulse Resp B/P (MAP) Pulse Ox O2 Delivery O2 Flow Rate FiO2 05/07/18 09:00 Room Air 05/07/18 08:03 93 18 Room Air 21 05/07/18 04:00 98.0 101 18 95/66 (76) 97 98.0 05/07/18 00:00 97.6 77 18 82/53 (63) 92 97.6 05/06/18 21:00 Room Air 05/06/18 20:00 97.6 99 19 91/67 (75) 95 97.6 05/06/18 16:00 98.4 110 18 93/65 (74) 96 98.4 05/06/18 12:00 98.0 86 18 94/69 (77) 98 98.0 Intake and Output 05/06/18 05/07/18 19:00 07:00 Intake Total 1170 ml 825 ml Output Total 400 ml Balance 770 ml 825 ml Intake Oral 270 ml IV Total 900 ml 825 ml Output Urine Total 400 ml Objective General Appearance: WD/WN HEENT: normocephalic, anicteric Breasts: no masses Cardiovascular: normal peripheral pulses, regular rhythm Abdomen: soft, non tender, no organomegaly Extremities: no cyanosis Skin: no rash Laboratory Tests 05/07/18 05:30: White Blood Count 6.6, Red Blood Count 2.44L, Hemoglobin 7.8L, Hematocrit 20.6L , Mean Corpuscular Volume 84, Mean Corpuscular Hemoglobin 32.1H, Mean Corpuscular Hemoglobin Concent 38.1H, Red Cell Distribution Width 12.3, Platelet Count 240, Mean Platelet Volume 5.0L, Neutrophils (%) (Auto) , Lymphocytes (%) (Auto) , Monocytes (%) (Auto) , Eosinophils (%) (Auto) , Basophils (%) (Auto) , Differential Total Cells Counted 100, Neutrophils % ( Manual) 68, Lymphocytes % (Manual) 24, Monocytes % (Manual) 7, Eosinophils % ( Manual) 0, Basophils % (Manual) 0, Band Neutrophils 1, Platelet Estimate Adequate, Platelet Morphology Normal, Red Blood Cell Morphology Normal, Polychromasia 1+, Erythrocyte Sedimentation Rate 18H, Sodium Level 141, Potassium Level 2.8L, Chloride Level 105, Carbon Dioxide Level 37H, Anion Gap - 1L, Blood Urea Nitrogen 25H, Creatinine 0.6, Estimat Glomerular Filtration Rate > 60, Glucose Level 116H, Calcium Level 7.1L, Phosphorus Level 2.0L, Magnesium Level 1.4L, Total Bilirubin 1.0, Aspartate Amino Transf (AST/SGOT) 39H, Alanine Aminotransferase (ALT/SGPT) 95H, Alkaline Phosphatase 93, C-Reactive Protein, Quantitative < 0.4, Total Protein 3.9L, Albumin 1.7L, Globulin 2.2, Albumin/ Globulin Ratio 0.8L Current Medications Medications (Trade) Dose Ordered Sig/Herminia Route PRN Reason Start Time Stop Time Status Last Admin Dose Admin Acetaminophen (Tylenol) 650 mg Q4H PRN ORAL fever 05/02/18 17:54 05/28/18 17:53 Al Hydroxide/Mg Hydroxide (Mylanta II) 30 ml Q6H PRN ORAL dyspepsia 05/02/18 17:54 05/28/18 17:53 Chlorhexidine Gluconate (Flores-Hex 2%) 1 applic DAILY@2000 TOPIC 05/04/18 20:00 06/03/18 19:59 05/06/18 21:44 Clonidine HCl (Catapres Tab) 0.1 mg Q4H PRN ORAL sbp more than 160 05/02/18 17:54 05/28/18 17:53 Dextrose (Dextrose 50%) 25 ml Q30M PRN IV Hypoglycemia 05/04/18 07:15 06/03/18 07:14 Dextrose (Dextrose 50%) 50 ml Q30M PRN IV Hypoglycemia 05/04/18 07:15 06/03/18 07:14 Docusate Sodium (Colace) 100 mg THREE TIMES A DAY ORAL 05/03/18 09:00 06/02/18 08:59 05/07/18 10:14 Dronabinol (Marinol) 2.5 mg TID ORAL 05/03/18 18:00 06/02/18 17:59 05/07/18 10:14 Heparin Sodium (Porcine) (Heparin 5000 units/ml) 5,000 units EVERY 12 HOURS SUBQ 05/02/18 21:00 05/28/18 20:59 05/06/18 21:45 Insulin Aspart (NovoLOG) BEFORE MEALS AND HS SUBQ 05/02/18 21:00 06/03/18 11:29 05/06/18 17:41 Insulin Aspart (NovoLOG) 2 units NOVOTIAC SUBQ 05/04/18 11:50 06/03/18 11:49 05/06/18 17:40 Insulin Detemir (Levemir) 6 units DAILY SUBQ 05/06/18 09:00 06/03/18 08:59 05/06/18 10:15 Magnesium Sulfate 100 ml @ 100 mls/hr Q1H IVPB 05/07/18 10:00 05/07/18 11:59 05/07/18 10:15 Metoclopramide HCl (Reglan) 10 mg Q6H PRN IVP Nausea & Vomiting 05/06/18 12:03 06/05/18 12:02 Nitroglycerin (Ntg) 0.4 mg Q5M X 3 DOSES PRN SL Prn Chest Pain 05/02/18 18:00 05/28/18 17:44 Ondansetron HCl (Zofran) 4 mg Q6H PRN IVP Nausea & Vomiting 05/02/18 17:55 05/28/18 17:54 05/07/18 10:14 Pantoprazole (Protonix) 40 mg DAILY ORAL 05/03/18 09:00 06/01/18 08:59 05/07/18 10:14 Potassium Chloride 40 meq/ Sodium Chloride 1,020 ml @ 75 mls/hr [id number] IV 05/05/18 21:00 06/04/18 20:59 05/07/18 00:39 Potassium Phosphate 20 mm/ Sodium Chloride 281.6667 ml @ 46.944 m... ONCE ONCE IV 05/07/18 15:00 05/07/18 20:59 Potassium Chloride 100 ml @ 100 mls/hr Q1HR IVPB 05/07/18 11:00 05/07/18 14:59 Promethazine HCl (Phenergan) 25 mg Q6H PRN IM Nausea & Vomiting 05/04/18 20:15 06/03/18 20:14 05/04/18 21:01 Temazepam (Restoril) 15 mg HSPRN PRN ORAL Insomnia 05/02/18 17:56 05/09/18 17:55 Rosa Jamil MD May 07, 2018 11:49
--- NOTE | 2018-05-07 13:41 | General Progress Note ---
Assessment/Plan Assessment/Plan Assessment/Plan Problems: (1) Intussusception of intestine ICD Codes: K56.1 - Intussusception SNOMED: 24070216 (2) Elevated transaminase level ICD Codes: R74.0 - Nonspecific elevation of levels of transaminase and lactic acid dehydrogenase [LDH] SNOMED: 848470865, 406155506 (3) DKA (diabetic ketoacidoses) ICD Codes: E13.10 - Other specified diabetes mellitus with ketoacidosis without coma SNOMED: 10266333 (4) Nausea, vomiting, and diarrhea ICD Codes: R11.2 - Nausea with vomiting, unspecified; R19.7 - Diarrhea, unspecified SNOMED: 8148159 (5) Drug abuse ICD Codes: F19.10 - Other psychoactive substance abuse, uncomplicated SNOMED: 52507863 (6) Episode of generalized weakness ICD Codes: R53.1 - Weakness SNOMED: 84983630 (7) H/O cocaine abuse ICD Codes: Z87.898 - Personal history of other specified conditions SNOMED: 597916709 Assessment/Plan cocaine positive s/p paracentesis yielding 1.5L - pending cytology >> negative for malignancy abdominal U/S reviewed >> Mildly echogenic liver, which may suggest fatty infiltration. patient continues to vomit after any PO intake, now stated to me today this has been on going for 3 months. >> possible gastroparesis 2/2 DM hepatitis panel >> negative gastric delay emptying study >> half life of excretion is calculated at 287 minutes which is delayed. EGD cancelled due to hypokalemia. - resume CLD, rescheduled for wednesday. reglan 10mg IV ATC zofran prn pain mgmt bowel regime fu labsessment Subjective Allergies: Coded Allergies: NO KNOWN ALLERGIES (Unverified Allergy, Unknown, 06/26/15) Subjective c/o nausea vomiting scan amounts of mucoid emesis despite that, still wants to advance diet to full liquids Objective Last 24 Hour Vital Signs Date Time Temp Pulse Resp B/P (MAP) Pulse Ox O2 Delivery O2 Flow Rate FiO2 05/07/18 09:00 Room Air 05/07/18 08:03 93 18 Room Air 21 05/07/18 04:00 98.0 101 18 95/66 (76) 97 98.0 05/07/18 00:00 97.6 77 18 82/53 (63) 92 97.6 05/06/18 21:00 Room Air 05/06/18 20:00 97.6 99 19 91/67 (75) 95 97.6 05/06/18 16:00 98.4 110 18 93/65 (74) 96 98.4 Intake and Output 05/06/18 05/07/18 19:00 07:00 Intake Total 1170 ml 825 ml Output Total 400 ml Balance 770 ml 825 ml Intake Oral 270 ml IV Total 900 ml 825 ml Output Urine Total 400 ml Laboratory Tests 05/07/18 05:30: White Blood Count 6.6, Red Blood Count 2.44L, Hemoglobin 7.8L, Hematocrit 20.6L , Mean Corpuscular Volume 84, Mean Corpuscular Hemoglobin 32.1H, Mean Corpuscular Hemoglobin Concent 38.1H, Red Cell Distribution Width 12.3, Platelet Count 240, Mean Platelet Volume 5.0L, Neutrophils (%) (Auto) , Lymphocytes (%) (Auto) , Monocytes (%) (Auto) , Eosinophils (%) (Auto) , Basophils (%) (Auto) , Differential Total Cells Counted 100, Neutrophils % ( Manual) 68, Lymphocytes % (Manual) 24, Monocytes % (Manual) 7, Eosinophils % ( Manual) 0, Basophils % (Manual) 0, Band Neutrophils 1, Platelet Estimate Adequate, Platelet Morphology Normal, Red Blood Cell Morphology Normal, Polychromasia 1+, Erythrocyte Sedimentation Rate 18H, Sodium Level 141, Potassium Level 2.8L, Chloride Level 105, Carbon Dioxide Level 37H, Anion Gap - 1L, Blood Urea Nitrogen 25H, Creatinine 0.6, Estimat Glomerular Filtration Rate > 60, Glucose Level 116H, Calcium Level 7.1L, Phosphorus Level 2.0L, Magnesium Level 1.4L, Total Bilirubin 1.0, Aspartate Amino Transf (AST/SGOT) 39H, Alanine Aminotransferase (ALT/SGPT) 95H, Alkaline Phosphatase 93, C-Reactive Protein, Quantitative < 0.4, Total Protein 3.9L, Albumin 1.7L, Globulin 2.2, Albumin/ Globulin Ratio 0.8L Height (Feet): 5 Height (Inches): 6.00 Weight (Pounds): 140 Objective WDWN NCAT supple CTA RRR abd soft ND no edema Chrissy Crane MD May 07, 2018 13:40
[2018-05-07] MEDS ORDERED: Potassium Phosphate 20 MM in NS 275 ML IV ONE (15:00)
[2018-05-07 16:13] VITALS: BP 94/62
--- NOTE | 2018-05-07 17:34 | Internal Med Progress Note ---
Subjective Date of Service: May 07, 2018 Physician Name Yunier Edwards Attending Physician Aly Ricks MD Current Medications Medications (Trade) Dose Ordered Sig/Herminia Route PRN Reason Start Time Stop Time Status Last Admin Dose Admin Acetaminophen (Tylenol) 650 mg Q4H PRN ORAL fever 05/02/18 17:54 05/28/18 17:53 Al Hydroxide/Mg Hydroxide (Mylanta II) 30 ml Q6H PRN ORAL dyspepsia 05/02/18 17:54 05/28/18 17:53 Chlorhexidine Gluconate (Flores-Hex 2%) 1 applic DAILY@2000 TOPIC 05/04/18 20:00 06/03/18 19:59 05/06/18 21:44 Clonidine HCl (Catapres Tab) 0.1 mg Q4H PRN ORAL sbp more than 160 05/02/18 17:54 05/28/18 17:53 Dextrose (Dextrose 50%) 25 ml Q30M PRN IV Hypoglycemia 05/04/18 07:15 06/03/18 07:14 Dextrose (Dextrose 50%) 50 ml Q30M PRN IV Hypoglycemia 05/04/18 07:15 06/03/18 07:14 Docusate Sodium (Colace) 100 mg THREE TIMES A DAY ORAL 05/03/18 09:00 06/02/18 08:59 05/07/18 13:47 Dronabinol (Marinol) 2.5 mg TID ORAL 05/03/18 18:00 06/02/18 17:59 05/07/18 13:47 Heparin Sodium (Porcine) (Heparin 5000 units/ml) 5,000 units EVERY 12 HOURS SUBQ 05/02/18 21:00 05/28/18 20:59 05/06/18 21:45 Insulin Aspart (NovoLOG) BEFORE MEALS AND HS SUBQ 05/02/18 21:00 06/03/18 11:29 05/06/18 17:41 Insulin Aspart (NovoLOG) 2 units NOVOTIAC SUBQ 05/04/18 11:50 06/03/18 11:49 05/06/18 17:40 Insulin Detemir (Levemir) 6 units DAILY SUBQ 05/06/18 09:00 06/03/18 08:59 05/06/18 10:15 Metoclopramide HCl (Reglan) 10 mg Q6H PRN IVP Nausea & Vomiting 05/06/18 12:03 06/05/18 12:02 Nitroglycerin (Ntg) 0.4 mg Q5M X 3 DOSES PRN SL Prn Chest Pain 05/02/18 18:00 05/28/18 17:44 Ondansetron HCl (Zofran) 4 mg Q6H PRN IVP Nausea & Vomiting 05/02/18 17:55 05/28/18 17:54 05/07/18 10:14 Pantoprazole (Protonix) 40 mg DAILY ORAL 05/03/18 09:00 06/01/18 08:59 05/07/18 10:14 Potassium Chloride 40 meq/ Sodium Chloride 1,020 ml @ 75 mls/hr [id number] IV 05/05/18 21:00 06/04/18 20:59 05/07/18 00:39 Potassium Phosphate 20 mm/ Sodium Chloride 281.6667 ml @ 46.944 m... ONCE ONCE IV 05/07/18 15:00 05/07/18 20:59 05/07/18 16:49 Promethazine HCl (Phenergan) 25 mg Q6H PRN IM Nausea & Vomiting 05/04/18 20:15 06/03/18 20:14 05/04/18 21:01 Temazepam (Restoril) 15 mg HSPRN PRN ORAL Insomnia 05/02/18 17:56 05/09/18 17:55 Allergies: Coded Allergies: NO KNOWN ALLERGIES (Unverified Allergy, Unknown, 06/26/15) ROS Limited/Unobtainable: No Constitutional: Reports: no symptoms HEENT: Reports: no symptoms Cardiovascular: Reports: no symptoms Respiratory: Reports: no symptoms Gastrointestinal/Abdominal: Reports: abdominal pain, nausea, vomiting Genitourinary: Reports: no symptoms Neurologic/Psychiatric: Reports: no symptoms Subjective 47 YO M admitted with hyperglycemia. Now intractable nausea and vomiting. Intussusception of small bowel. Cover for Int Magdi-Dr Ricks. C/O bilateral feet swelling. S/P paracentesis 05/02/18. Endoscopy 05/06/18 cancelled due to hypokalemia; rescheduled for 05/09/18. Worsening anemia Objective Last Vital Signs Date Time Temp Pulse Resp B/P (MAP) Pulse Ox O2 Delivery O2 Flow Rate FiO2 10/6/18 16:13 98.1 86 18 94/62 (73) 100 98.1 05/07/18 09:00 Room Air 05/07/18 08:03 21 05/01/18 18:45 2.0 Laboratory Tests Test 05/07/18 05:30 White Blood Count 6.6 K/UL (4.8-10.8) Red Blood Count 2.44 M/UL (4.70-6.10) L Hemoglobin 7.8 G/DL (14.2-18.0) L Hematocrit 20.6 % (42.0-52.0) L Mean Corpuscular Volume 84 FL (80-99) Mean Corpuscular Hemoglobin 32.1 PG (27.0-31.0) H Mean Corpuscular Hemoglobin Concent 38.1 G/DL (32.0-36.0) H Red Cell Distribution Width 12.3 % (11.6-14.8) Platelet Count 240 K/UL (150-450) Mean Platelet Volume 5.0 FL (6.5-10.1) L Neutrophils (%) (Auto) % (45.0-75.0) Lymphocytes (%) (Auto) % (20.0-45.0) Monocytes (%) (Auto) % (1.0-10.0) Eosinophils (%) (Auto) % (0.0-3.0) Basophils (%) (Auto) % (0.0-2.0) Differential Total Cells Counted 100 Neutrophils % (Manual) 68 % (45-75) Lymphocytes % (Manual) 24 % (20-45) Monocytes % (Manual) 7 % (1-10) Eosinophils % (Manual) 0 % (0-3) Basophils % (Manual) 0 % (0-2) Band Neutrophils 1 % (0-8) Platelet Estimate Adequate Platelet Morphology Normal Red Blood Cell Morphology Normal Polychromasia 1+ Erythrocyte Sedimentation Rate 18 MM/HR (0-15) H Sodium Level 141 MMOL/L (136-145) Potassium Level 2.8 MMOL/L (3.5-5.1) L Chloride Level 105 MMOL/L (98-107) Carbon Dioxide Level 37 MMOL/L (21-32) H Anion Gap -1 mmol/L (5-15) L Blood Urea Nitrogen 25 mg/dL (7-18) H Creatinine 0.6 MG/DL (0.55-1.30) Estimat Glomerular Filtration Rate > 60 mL/min (>60) Glucose Level 116 MG/DL (74-106) H Calcium Level 7.1 MG/DL (8.5-10.1) L Phosphorus Level 2.0 MG/DL (2.5-4.9) L Magnesium Level 1.4 MG/DL (1.8-2.4) L Total Bilirubin 1.0 MG/DL (0.2-1.0) Aspartate Amino Transf (AST/SGOT) 39 U/L (15-37) H Alanine Aminotransferase (ALT/SGPT) 95 U/L (12-78) H Alkaline Phosphatase 93 U/L (46-116) C-Reactive Protein, Quantitative < 0.4 mg/dL (0.00-0.90) Total Protein 3.9 G/DL (6.4-8.2) L Albumin 1.7 G/DL (3.4-5.0) L Globulin 2.2 g/dL Albumin/Globulin Ratio 0.8 (1.0-2.7) L Intake and Output 05/06/18 05/07/18 19:00 07:00 Intake Total 1170 ml 825 ml Output Total 400 ml Balance 770 ml 825 ml Intake Oral 270 ml IV Total 900 ml 825 ml Output Urine Total 400 ml Objective PHYSICAL EXAMINATION: GENERAL: The patient is thin-appearing male, who is obviously nauseated. HEENT: Eyes, pupils are equal, responsive to light and accommodation. Extraocular movements are intact. NECK: Supple without lymphadenopathy. CHEST: Lungs are clear to auscultation bilaterally without wheezes or rales. CARDIOVASCULAR: Regular rate. S1, S2 normal without murmurs, rubs, or gallops. ABDOMEN: Soft, diffusely tender with positive bowel sounds. No evidence of hepatosplenomegaly. No rebound or guarding noted. EXTREMITIES: Negative for clubbing, cyanosis, or edema. RECTAL: Refused. GENITALIA: Refused. NEUROLOGIC: Cranial nerves II through XII are grossly intact without focal deficits. Motor strength is 5/5 bilaterally. Deep tendon reflexes are 2+ plantar. Assessment/Plan Problem List: (1) Pancreatitis Assessment & Plan: CT and US=no common bile duct stone. See GI note. (2) Hypokalemia Assessment & Plan: Replace KCL IV (3) Hyperglycemia (4) DKA (diabetic ketoacidoses) (5) Intussusception of intestine Assessment & Plan: Non obstructive. See surgery consult (6) Elevated transaminase level (7) Abdominal pain (8) Edema Assessment & Plan: Decrease IV fluids. Patient wants lasix. Await echocardiogram and cardiac W/U (9) Ascites (10) Anemia Assessment & Plan: ?GI bleed? S/P transfusion 1 unit PRBC 05/05/18. Endoscopy rescheduled for Wednesday,05/09/18 Status: not improved Yunier Edwards MD May 07, 2018 17:34
[2018-05-07 18:00] VITALS: BP 103/64
[2018-05-07 20:00] VITALS: BP 96/71
[2018-05-07] MEDS: Dyna-Hex 2% Top Sol 2oz TOPIC SCH (21:19)
[2018-05-08] VITALS: BP 93/66
[2018-05-08] MEDS: Potassium Chloride 40 MEQ in 1/2 NS 1000ml 1,000 ML IV SCH ×2 (03:24→17:31)
[2018-05-08] MEDS: NovoLOG Insulin Flexpen SUBQ SCH ×7 (07:24→20:49)
[2018-05-08 07:49] LABS: BASOPHILS % (AUTO) 0.5 % (0.0-2.0); EOSINOPHILS % (AUTO) 0.5 % (0.0-3.0); HEMOGLOBIN 9.7 G/DL (14.2-18.0); LYMPHOCYTES % (AUTO) 24.1 % (20.0-45.0); MEAN CORPUSCULAR VOLUME 85 FL (80-99); MONOCYTES % (AUTO) 6.7 % (1.0-10.0); NEUTROPHILS % (AUTO) 68.2 % (45.0-75.0); PLATELET COUNT 238 K/UL (150-450); RED BLOOD COUNT 3.06 M/UL (4.70-6.10); RED CELL DISTRIBUTION WIDTH 12.4 % (11.6-14.8); WHITE BLOOD COUNT 6.2 K/UL (4.8-10.8)
[2018-05-08 08:00] VITALS: BP 96/65
[2018-05-08 08:19] LABS: ANION GAP -1 mmol/L (5-15); BLOOD UREA NITROGEN 22 mg/dL (7-18); CALCIUM 7.4 MG/DL (8.5-10.1); CARBON DIOXIDE 36 MMOL/L (21-32); CHLORIDE 103 MMOL/L (98-107); CREATININE 0.6 MG/DL (0.55-1.30); POTASSIUM 3.3 MMOL/L (3.5-5.1); SODIUM 138 MMOL/L (136-145)
[2018-05-08] MEDS: Dronabinol 2.5mg Cap ORAL SCH ×4 (09:00→17:35)
[2018-05-08] MEDS: Docusate 100mg cap ORAL SCH ×4 (09:00→17:35)
[2018-05-08] MEDS: Heparin 5000 units/ml inj SUBQ SCH ×3 (09:01→21:00)
[2018-05-08] MEDS: Levemir Flexpen SUBQ SCH ×2 (09:02→10:58)
[2018-05-08 12:00] VITALS: BP 94/60
--- NOTE | 2018-05-08 14:06 | General Surgery Progress Note ---
General Surgery-Progress Note Subjective Additional Comments tolerating regular diet. emesis with food but states only small portion of food Objective Last 24 Hour Vital Signs Date Time Temp Pulse Resp B/P (MAP) Pulse Ox O2 Delivery O2 Flow Rate FiO2 05/08/18 07:22 82 18 Room Air 21 05/08/18 00:00 97.9 81 19 93/66 (75) 100 97.9 05/07/18 21:00 Room Air 05/07/18 20:00 98.4 81 19 96/71 (79) 96 98.4 05/07/18 19:18 92 18 Room Air 21 05/07/18 18:00 98.0 94 18 103/64 (77) 97 98.0 05/07/18 16:13 98.1 86 18 94/62 (73) 100 98.1 I&O Intake and Output 05/07/18 05/08/18 19:00 07:00 Intake Total 1353.888 ml 765 ml Output Total 800 ml Balance 553.888 ml 765 ml Intake Oral 460 ml 240 ml IV Total 893.888 ml 525 ml Output Urine Total 800 ml # Voids 1 Drains: none Cardiovascular: RSR Respiratory: clear Abdomen: soft, distended, present bowel sounds Extremities: no tenderness, no cyanosis Laboratory Tests Test 05/08/18 06:00 White Blood Count 6.2 K/UL (4.8-10.8) Red Blood Count 3.06 M/UL (4.70-6.10) L Hemoglobin 9.7 G/DL (14.2-18.0) L Hematocrit 26.0 % (42.0-52.0) L Mean Corpuscular Volume 85 FL (80-99) Mean Corpuscular Hemoglobin 31.5 PG (27.0-31.0) H Mean Corpuscular Hemoglobin Concent 37.2 G/DL (32.0-36.0) H Red Cell Distribution Width 12.4 % (11.6-14.8) Platelet Count 238 K/UL (150-450) Mean Platelet Volume 4.7 FL (6.5-10.1) L Neutrophils (%) (Auto) 68.2 % (45.0-75.0) Lymphocytes (%) (Auto) 24.1 % (20.0-45.0) Monocytes (%) (Auto) 6.7 % (1.0-10.0) Eosinophils (%) (Auto) 0.5 % (0.0-3.0) Basophils (%) (Auto) 0.5 % (0.0-2.0) Sodium Level 138 MMOL/L (136-145) Potassium Level 3.3 MMOL/L (3.5-5.1) L Chloride Level 103 MMOL/L (98-107) Carbon Dioxide Level 36 MMOL/L (21-32) H Anion Gap -1 mmol/L (5-15) L Blood Urea Nitrogen 22 mg/dL (7-18) H Creatinine 0.6 MG/DL (0.55-1.30) Estimat Glomerular Filtration Rate > 60 mL/min (>60) Glucose Level 182 MG/DL (74-106) H Calcium Level 7.4 MG/DL (8.5-10.1) L Plan Problems: (1) Intussusception of intestine Assessment & Plan: CT Findings: 1. Short segment small bowel intussusception in the left lower quadrant ( series 5 image 58). No lead point lesions. No evidence of bowel obstruction. No focal bowel wall thickening. No adjacent inflammatory change. This may represent transient intussusception and is of uncertain clinical significance. 2. Sigmoid diverticulosis without wall thickening or adjacent inflammatory change. CT reviewed. - likely transient and benign. exam stable, no obstruction, no thickening, no inflammation. leukocytosis unlikely due to this. does have elevated LFT. possible cholecystitis? possible hepatitis Ultrasound reviewed. ascites and liver abnormal. Gallbladder okay. t bili trending down. lip/nicolette nml. lfts improved. denies EtOH history. likely hepatitis? abd distention related to ascites. unsure of etiology for nausea and emesis but not obstructive in nature. paracentesis path noted. no malignant cells hepatitis panel negative gastric study abnormal delay -PPI -diet as tolerated -trend labs -endoscopy as per GI on wednesday -npo p mn -IV fluids -reglan scheduled. thank you. will follow with recs. Long Guevara May 08, 2018 14:06
--- NOTE | 2018-05-08 15:07 | General Progress Note ---
Assessment/Plan Assessment/Plan Assessment/Plan Problems: (1) Intussusception of intestine ICD Codes: K56.1 - Intussusception SNOMED: 60975524 (2) Elevated transaminase level ICD Codes: R74.0 - Nonspecific elevation of levels of transaminase and lactic acid dehydrogenase [LDH] SNOMED: 288081419, 107541085 (3) DKA (diabetic ketoacidoses) ICD Codes: E13.10 - Other specified diabetes mellitus with ketoacidosis without coma SNOMED: 96170545 (4) Nausea, vomiting, and diarrhea ICD Codes: R11.2 - Nausea with vomiting, unspecified; R19.7 - Diarrhea, unspecified SNOMED: 7251130 (5) Drug abuse ICD Codes: F19.10 - Other psychoactive substance abuse, uncomplicated SNOMED: 73001304 (6) Episode of generalized weakness ICD Codes: R53.1 - Weakness SNOMED: 76736149 (7) H/O cocaine abuse ICD Codes: Z87.898 - Personal history of other specified conditions SNOMED: 421901172 Assessment/Plan cocaine positive s/p paracentesis yielding 1.5L - pending cytology >> negative for malignancy abdominal U/S reviewed >> Mildly echogenic liver, which may suggest fatty infiltration. patient continues to vomit after any PO intake, now stated to me today this has been on going for 3 months. >> possible gastroparesis 2/2 DM hepatitis panel >> negative gastric delay emptying study >> half life of excretion is calculated at 287 minutes which is delayed. EGD cancelled due to hypokalemia. solid food per pt insistence. reglan 10mg IV ATC zofran prn pain mgmt bowel regime fu labs Subjective Allergies: Coded Allergies: NO KNOWN ALLERGIES (Unverified Allergy, Unknown, 06/26/15) Subjective c/o nausea vomiting scan amounts of mucoid emesis adamantly requesting solid food advised may make endoscopy difficult still wants solids, "even if he throws it all up" Objective Last 24 Hour Vital Signs Date Time Temp Pulse Resp B/P (MAP) Pulse Ox O2 Delivery O2 Flow Rate FiO2 05/08/18 07:22 82 18 Room Air 21 05/08/18 00:00 97.9 81 19 93/66 (75) 100 97.9 05/07/18 21:00 Room Air 05/07/18 20:00 98.4 81 19 96/71 (79) 96 98.4 05/07/18 19:18 92 18 Room Air 21 05/07/18 18:00 98.0 94 18 103/64 (77) 97 98.0 05/07/18 16:13 98.1 86 18 94/62 (73) 100 98.1 Intake and Output 05/07/18 05/08/18 19:00 07:00 Intake Total 1353.888 ml 765 ml Output Total 800 ml Balance 553.888 ml 765 ml Intake Oral 460 ml 240 ml IV Total 893.888 ml 525 ml Output Urine Total 800 ml # Voids 1 Laboratory Tests 05/08/18 06:00: White Blood Count 6.2, Red Blood Count 3.06L, Hemoglobin 9.7L, Hematocrit 26.0L , Mean Corpuscular Volume 85, Mean Corpuscular Hemoglobin 31.5H, Mean Corpuscular Hemoglobin Concent 37.2H, Red Cell Distribution Width 12.4, Platelet Count 238, Mean Platelet Volume 4.7L, Neutrophils (%) (Auto) 68.2, Lymphocytes (%) (Auto) 24.1, Monocytes (%) (Auto) 6.7, Eosinophils (%) (Auto) 0.5, Basophils (%) (Auto) 0.5, Sodium Level 138, Potassium Level 3.3L, Chloride Level 103, Carbon Dioxide Level 36H, Anion Gap -1L, Blood Urea Nitrogen 22H, Creatinine 0.6, Estimat Glomerular Filtration Rate > 60, Glucose Level 182H, Calcium Level 7.4L Height (Feet): 5 Height (Inches): 6.00 Weight (Pounds): 140 Objective WDWN NCAT supple CTA RRR abd soft ND no edema Chrissy Crane MD May 08, 2018 15:07
--- NOTE | 2018-05-08 15:14 | Internal Med Progress Note ---
Subjective Date of Service: May 08, 2018 Physician Name Yunier Edwards Attending Physician Aly Ricks MD Current Medications Medications (Trade) Dose Ordered Sig/[place] Route PRN Reason Start Time Stop Time Status Last Admin Dose Admin Acetaminophen (Tylenol) 650 mg Q4H PRN ORAL fever 05/02/18 17:54 05/28/18 17:53 Al Hydroxide/Mg Hydroxide (Mylanta II) 30 ml Q6H PRN ORAL dyspepsia 05/02/18 17:54 05/28/18 17:53 05/08/18 02:37 Chlorhexidine Gluconate (Flores-Hex 2%) 1 applic DAILY@2000 TOPIC 05/04/18 20:00 06/03/18 19:59 05/07/18 21:19 Clonidine HCl (Catapres Tab) 0.1 mg Q4H PRN ORAL sbp more than 160 05/02/18 17:54 05/28/18 17:53 Dextrose (Dextrose 50%) 25 ml Q30M PRN IV Hypoglycemia 05/04/18 07:15 06/03/18 07:14 Dextrose (Dextrose 50%) 50 ml Q30M PRN IV Hypoglycemia 05/04/18 07:15 06/03/18 07:14 Docusate Sodium (Colace) 100 mg THREE TIMES A DAY ORAL 05/03/18 09:00 06/02/18 08:59 05/08/18 14:45 Dronabinol (Marinol) 2.5 mg TID ORAL 05/03/18 18:00 06/02/18 17:59 05/08/18 14:45 Heparin Sodium (Porcine) (Heparin 5000 units/ml) 5,000 units EVERY 12 HOURS SUBQ 05/02/18 21:00 05/28/18 20:59 05/08/18 10:57 Insulin Aspart (NovoLOG) BEFORE MEALS AND HS SUBQ 05/02/18 21:00 06/03/18 11:29 05/08/18 11:30 Insulin Aspart (NovoLOG) 2 units NOVOTIAC SUBQ 05/04/18 11:50 06/03/18 11:49 05/08/18 11:11 Insulin Detemir (Levemir) 6 units DAILY SUBQ 05/06/18 09:00 06/03/18 08:59 05/08/18 10:58 Metoclopramide HCl (Reglan) 10 mg Q6HR IVP 05/08/18 18:00 06/07/18 17:59 Nitroglycerin (Ntg) 0.4 mg Q5M X 3 DOSES PRN SL Prn Chest Pain 05/02/18 18:00 05/28/18 17:44 Ondansetron HCl (Zofran) 4 mg Q6H PRN IVP Nausea & Vomiting 05/02/18 17:55 05/28/18 17:54 05/07/18 10:14 Pantoprazole (Protonix) 40 mg DAILY ORAL 05/03/18 09:00 06/01/18 08:59 05/08/18 10:56 Potassium Chloride 40 meq/ Sodium Chloride 1,020 ml @ 75 mls/hr [id number] IV 05/05/18 21:00 06/04/18 20:59 05/08/18 03:24 Promethazine HCl (Phenergan) 25 mg Q6H PRN IM Nausea & Vomiting 05/04/18 20:15 06/03/18 20:14 05/04/18 21:01 Temazepam (Restoril) 15 mg HSPRN PRN ORAL Insomnia 05/02/18 17:56 05/09/18 17:55 05/08/18 02:37 Allergies: Coded Allergies: NO KNOWN ALLERGIES (Unverified Allergy, Unknown, 06/26/15) Subjective 47 YO M admitted with hyperglycemia. Now intractable nausea and vomiting. Intussusception of small bowel. Cover for Int Med-Dr Ricks. S/P paracentesis 05/02/18. Endoscopy 05/06/18 cancelled due to hypokalemia; rescheduled for Mon . Objective Last Vital Signs Date Time Temp Pulse Resp B/P (MAP) Pulse Ox O2 Delivery O2 Flow Rate FiO2 05/08/18 07:22 82 18 Room Air 21 05/08/18 00:00 97.9 93/66 (75) 100 97.9 05/01/18 18:45 2.0 Laboratory Tests Test 05/08/18 06:00 White Blood Count 6.2 K/UL (4.8-10.8) Red Blood Count 3.06 M/UL (4.70-6.10) L Hemoglobin 9.7 G/DL (14.2-18.0) L Hematocrit 26.0 % (42.0-52.0) L Mean Corpuscular Volume 85 FL (80-99) Mean Corpuscular Hemoglobin 31.5 PG (27.0-31.0) H Mean Corpuscular Hemoglobin Concent 37.2 G/DL (32.0-36.0) H Red Cell Distribution Width 12.4 % (11.6-14.8) Platelet Count 238 K/UL (150-450) Mean Platelet Volume 4.7 FL (6.5-10.1) L Neutrophils (%) (Auto) 68.2 % (45.0-75.0) Lymphocytes (%) (Auto) 24.1 % (20.0-45.0) Monocytes (%) (Auto) 6.7 % (1.0-10.0) Eosinophils (%) (Auto) 0.5 % (0.0-3.0) Basophils (%) (Auto) 0.5 % (0.0-2.0) Sodium Level 138 MMOL/L (136-145) Potassium Level 3.3 MMOL/L (3.5-5.1) L Chloride Level 103 MMOL/L (98-107) Carbon Dioxide Level 36 MMOL/L (21-32) H Anion Gap -1 mmol/L (5-15) L Blood Urea Nitrogen 22 mg/dL (7-18) H Creatinine 0.6 MG/DL (0.55-1.30) Estimat Glomerular Filtration Rate > 60 mL/min (>60) Glucose Level 182 MG/DL (74-106) H Calcium Level 7.4 MG/DL (8.5-10.1) L Intake and Output 05/07/18 05/08/18 19:00 07:00 Intake Total 1353.888 ml 765 ml Output Total 800 ml Balance 553.888 ml 765 ml Intake Oral 460 ml 240 ml IV Total 893.888 ml 525 ml Output Urine Total 800 ml # Voids 1 Objective PHYSICAL EXAMINATION: GENERAL: The patient is thin-appearing male, who is obviously nauseated. HEENT: Eyes, pupils are equal, responsive to light and accommodation. Extraocular movements are intact. NECK: Supple without lymphadenopathy. CHEST: Lungs are clear to auscultation bilaterally without wheezes or rales. CARDIOVASCULAR: Regular rate. S1, S2 normal without murmurs, rubs, or gallops. ABDOMEN: Soft, diffusely tender with positive bowel sounds. No evidence of hepatosplenomegaly. No rebound or guarding noted. EXTREMITIES: Negative for clubbing, cyanosis, or edema. RECTAL: Refused. GENITALIA: Refused. NEUROLOGIC: Cranial nerves II through XII are grossly intact without focal deficits. Motor strength is 5/5 bilaterally. Deep tendon reflexes are 2+ plantar. Assessment/Plan Problem List: (1) Pancreatitis Assessment & Plan: CT and US=no common bile duct stone. See GI note. (2) Hypokalemia Assessment & Plan: Replace KCL IV (3) Hyperglycemia (4) DKA (diabetic ketoacidoses) (5) Intussusception of intestine Assessment & Plan: Non obstructive. See surgery consult (6) Elevated transaminase level (7) Abdominal pain (8) Edema Assessment & Plan: Decrease IV fluids. Patient wants lasix. Await echocardiogram and cardiac W/U (9) Ascites (10) Anemia Assessment & Plan: ?GI bleed? S/P transfusion 1 unit PRBC 05/05/18. Endoscopy rescheduled for Wednesday,05/09/18 Status: not improved Yunier Edwards MD May 08, 2018 15:14
[2018-05-08 16:00] VITALS: BP 96/65
[2018-05-08] MEDS: Metoclopramide 10mg/2ml Inj IVP SCH ×2 (17:31→23:40)
[2018-05-08 20:00] VITALS: BP 101/71
[2018-05-08] MEDS: Dyna-Hex 2% Top Sol 2oz TOPIC SCH (20:49)
[2018-05-09 04:00] VITALS: BP 105/80
[2018-05-09] MEDS: Potassium Chloride 40 MEQ in 1/2 NS 1000ml 1,000 ML IV SCH ×2 (04:46→16:33)
[2018-05-09] MEDS: NovoLOG Insulin Flexpen SUBQ SCH ×6 (06:25→16:41)
[2018-05-09] MEDS: Metoclopramide 10mg/2ml Inj IVP SCH ×3 (06:26→17:47)
[2018-05-09 08:00] VITALS: BP 101/68
[2018-05-09] MEDS: Dronabinol 2.5mg Cap ORAL SCH ×3 (08:39→17:47)
[2018-05-09] MEDS: Docusate 100mg cap ORAL SCH ×3 (08:39→17:47)
[2018-05-09] MEDS: Heparin 5000 units/ml inj SUBQ SCH ×2 (08:45→21:30)
[2018-05-09] MEDS: Levemir Flexpen SUBQ SCH (09:00)
[2018-05-09 10:40] LABS: INR 1.1 (0.9-1.1)
--- NOTE | 2018-05-09 11:06 | GI Progress Note ---
Assessment/Plan Problems: (1) Intussusception of intestine ICD Codes: K56.1 - Intussusception SNOMED: 02561337 (2) Elevated transaminase level ICD Codes: R74.0 - Nonspecific elevation of levels of transaminase and lactic acid dehydrogenase [LDH] SNOMED: 301933378, 337463808 (3) DKA (diabetic ketoacidoses) ICD Codes: E13.10 - Other specified diabetes mellitus with ketoacidosis without coma SNOMED: 64817008 (4) Nausea, vomiting, and diarrhea ICD Codes: R11.2 - Nausea with vomiting, unspecified; R19.7 - Diarrhea, unspecified SNOMED: 1826424 (5) Drug abuse ICD Codes: F19.10 - Other psychoactive substance abuse, uncomplicated SNOMED: 71205877 (6) Episode of generalized weakness ICD Codes: R53.1 - Weakness SNOMED: 64391177 (7) H/O cocaine abuse ICD Codes: Z87.898 - Personal history of other specified conditions SNOMED: 312474311 Status: not improved, unchanged Status Narrative Discussed with Dr. Ascencio. Assessment/Plan cocaine positive s/p paracentesis yielding 1.5L - pending cytology >> negative for malignancy abdominal U/S reviewed >> Mildly echogenic liver, which may suggest fatty infiltration. patient continues to vomit after any PO intake, now stated to me today this has been on going for 3 months. >> possible gastroparesis 2/2 DM hepatitis panel >> negative gastric delay emptying study >> half life of excretion is calculated at 287 minutes which is delayed. EGD cancelled again, pt refused demanded to eat. - spoke to patient, agreed for tomorrow. - start TPN reglan 10mg IV ATC zofran prn pain mgmt bowel regime fu labs The patient was seen and examined at bedside and all new and available data was reviewed in the patients chart. I agree with the above findings, impression and plan. (Patient seen earlier today. Signature stamp does not reflect patient encounter time.). - Pedro Ascencio MD Subjective Subjective generalized weakness random episodes of emesis Objective Last 24 Hour Vital Signs Date Time Temp Pulse Resp B/P (MAP) Pulse Ox O2 Delivery O2 Flow Rate FiO2 05/09/18 09:00 Room Air 05/09/18 08:00 98.0 104 20 101/68 (79) 100 98.0 05/09/18 07:56 78 20 Room Air 21 05/09/18 04:00 98.0 17 105/80 (88) 99 98.0 05/08/18 21:00 Room Air 05/08/18 20:00 97.2 17 101/71 (81) 100 97.2 05/08/18 19:58 90 18 Room Air 21 05/08/18 16:00 98.0 18 96/65 (75) 100 98.0 05/08/18 12:00 98.4 18 94/60 (71) 97 98.4 Intake and Output 05/08/18 05/09/18 19:00 07:00 Intake Total 620 ml 575 ml Output Total 800 ml 2100 ml Balance -180 ml -1525 ml Intake Oral 620 ml 500 ml IV Total 75 ml Output Urine Total 800 ml 800 ml Emesis 1300 ml # Voids 3 Laboratory Tests Test 05/09/18 09:15 White Blood Count Pending Red Blood Count Pending Hemoglobin Pending Hematocrit Pending Mean Corpuscular Volume Pending Mean Corpuscular Hemoglobin Pending Mean Corpuscular Hemoglobin Concent Pending Red Cell Distribution Width Pending Platelet Count Pending Mean Platelet Volume Pending Neutrophils (%) (Auto) Pending Lymphocytes (%) (Auto) Pending Monocytes (%) (Auto) Pending Eosinophils (%) (Auto) Pending Basophils (%) (Auto) Pending Prothrombin Time 11.1 SEC (9.30-11.50) Prothromb Time International Ratio 1.1 (0.9-1.1) Activated Partial Thromboplast Time 27 SEC (23-33) Sodium Level Pending Potassium Level Pending Chloride Level Pending Carbon Dioxide Level Pending Blood Urea Nitrogen Pending Creatinine Pending Estimat Glomerular Filtration Rate Pending Glucose Level Pending Calcium Level Pending Total Bilirubin Pending Aspartate Amino Transf (AST/SGOT) Pending Alanine Aminotransferase (ALT/SGPT) Pending Alkaline Phosphatase Pending Total Protein Pending Albumin Pending Globulin Pending Height (Feet): 5 Height (Inches): 6.00 Weight (Pounds): 140 General Appearance: WD/WN, no apparent distress, alert, thin Cardiovascular: normal rate Respiratory/Chest: normal breath sounds, no respiratory distress Abdominal Exam: normal bowel sounds, non tender, soft Extremities: non-tender Delgado,Albertina-Enrique YARN EXAMINER May 09, 2018 11:06
[2018-05-09 11:25] LABS: ALANINE AMINOTRANSFERASE 79 U/L (12-78); ALBUMIN 1.6 G/DL (3.4-5.0); ALBUMIN/GLOBULIN RATIO 0.7 (1.0-2.7); ALKALINE PHOSPHATASE 87 U/L (46-116); ANION GAP 1 mmol/L (5-15); ASPARTATE AMINO TRANSFERASE 30 U/L (15-37); BILIRUBIN,TOTAL 0.8 MG/DL (0.2-1.0); BLOOD UREA NITROGEN 21 mg/dL (7-18); CALCIUM 7.1 MG/DL (8.5-10.1); CARBON DIOXIDE 36 MMOL/L (21-32); CHLORIDE 103 MMOL/L (98-107); CREATININE 0.6 MG/DL (0.55-1.30); POTASSIUM 2.9 MMOL/L (3.5-5.1); SODIUM 140 MMOL/L (136-145)
[2018-05-09 11:51] LABS: BASOPHILS % (AUTO) 0.1 % (0.0-2.0); EOSINOPHILS % (AUTO) 0.4 % (0.0-3.0); HEMATOCRIT 22.9 % (42.0-52.0); HEMOGLOBIN 8.3 G/DL (14.2-18.0); LYMPHOCYTES % (AUTO) 12.4 % (20.0-45.0); MEAN CORPUSCULAR VOLUME 86 FL (80-99); MONOCYTES % (AUTO) 5.5 % (1.0-10.0); NEUTROPHILS % (AUTO) 81.7 % (45.0-75.0); RED BLOOD COUNT 2.65 M/UL (4.70-6.10); RED CELL DISTRIBUTION WIDTH 13.8 % (11.6-14.8); WHITE BLOOD COUNT 6.7 K/UL (4.8-10.8)
[2018-05-09 12:00] VITALS: BP 98/68
[2018-05-09 12:00] LABS: PLATELET COUNT 234 K/UL (150-450)
[2018-05-09] MEDS ORDERED: Dextrose 10% 1,000 ML IV PRN (12:00)
--- NOTE | 2018-05-09 15:42 | General Surgery Progress Note ---
General Surgery-Progress Note Subjective Additional Comments no acute events. Objective Last 24 Hour Vital Signs Date Time Temp Pulse Resp B/P (MAP) Pulse Ox O2 Delivery O2 Flow Rate FiO2 05/09/18 12:00 97.7 86 20 98/68 (78) 100 97.7 05/09/18 09:00 Room Air 05/09/18 08:00 98.0 104 20 101/68 (79) 100 98.0 05/09/18 07:56 78 20 Room Air 21 05/09/18 04:00 98.0 17 105/80 (88) 99 98.0 05/08/18 21:00 Room Air 05/08/18 20:00 97.2 17 101/71 (81) 100 97.2 05/08/18 19:58 90 18 Room Air 21 05/08/18 16:00 98.0 18 96/65 (75) 100 98.0 I&O Intake and Output 05/08/18 05/09/18 19:00 07:00 Intake Total 620 ml 575 ml Output Total 800 ml 2100 ml Balance -180 ml -1525 ml Intake Oral 620 ml 500 ml IV Total 75 ml Output Urine Total 800 ml 800 ml Emesis 1300 ml # Voids 3 Drains: none Cardiovascular: RSR Respiratory: clear Abdomen: soft, distended, non-tender, present bowel sounds Extremities: no cyanosis Laboratory Tests Test 05/09/18 09:15 White Blood Count 6.7 K/UL (4.8-10.8) Red Blood Count 2.65 M/UL (4.70-6.10) L Hemoglobin 8.3 G/DL (14.2-18.0) L Hematocrit 22.9 % (42.0-52.0) L Mean Corpuscular Volume 86 FL (80-99) Mean Corpuscular Hemoglobin 31.4 PG (27.0-31.0) H Mean Corpuscular Hemoglobin Concent 36.5 G/DL (32.0-36.0) H Red Cell Distribution Width 13.8 % (11.6-14.8) Platelet Count 234 K/UL (150-450) Mean Platelet Volume 5.3 FL (6.5-10.1) L Neutrophils (%) (Auto) 81.7 % (45.0-75.0) H Lymphocytes (%) (Auto) 12.4 % (20.0-45.0) L Monocytes (%) (Auto) 5.5 % (1.0-10.0) Eosinophils (%) (Auto) 0.4 % (0.0-3.0) Basophils (%) (Auto) 0.1 % (0.0-2.0) Prothrombin Time 11.1 SEC (9.30-11.50) Prothromb Time International Ratio 1.1 (0.9-1.1) Activated Partial Thromboplast Time 27 SEC (23-33) Sodium Level 140 MMOL/L (136-145) Potassium Level 2.9 MMOL/L (3.5-5.1) L Chloride Level 103 MMOL/L (98-107) Carbon Dioxide Level 36 MMOL/L (21-32) H Anion Gap 1 mmol/L (5-15) L Blood Urea Nitrogen 21 mg/dL (7-18) H Creatinine 0.6 MG/DL (0.55-1.30) Estimat Glomerular Filtration Rate > 60 mL/min (>60) Glucose Level 160 MG/DL (74-106) H Calcium Level 7.1 MG/DL (8.5-10.1) L Total Bilirubin 0.8 MG/DL (0.2-1.0) Aspartate Amino Transf (AST/SGOT) 30 U/L (15-37) Alanine Aminotransferase (ALT/SGPT) 79 U/L (12-78) H Alkaline Phosphatase 87 U/L (46-116) Total Protein 3.8 G/DL (6.4-8.2) L Albumin 1.6 G/DL (3.4-5.0) L Globulin 2.2 g/dL Albumin/Globulin Ratio 0.7 (1.0-2.7) L Plan Problems: (1) Intussusception of intestine Assessment & Plan: CT Findings: 1. Short segment small bowel intussusception in the left lower quadrant ( series 5 image 58). No lead point lesions. No evidence of bowel obstruction. No focal bowel wall thickening. No adjacent inflammatory change. This may represent transient intussusception and is of uncertain clinical significance. 2. Sigmoid diverticulosis without wall thickening or adjacent inflammatory change. CT reviewed. - likely transient and benign. exam stable, no obstruction, no thickening, no inflammation. leukocytosis unlikely due to this. does have elevated LFT. possible cholecystitis? possible hepatitis Ultrasound reviewed. ascites and liver abnormal. Gallbladder okay. t bili trending down. lip/nicolette nml. lfts improved. denies EtOH history. likely hepatitis? abd distention related to ascites. unsure of etiology for nausea and emesis but not obstructive in nature. paracentesis path noted. no malignant cells hepatitis panel negative gastric study abnormal delay -PPI -diet as tolerated -trend labs -endoscopy as per GI tomorrow -start tpn as per gi -npo p mn -IV fluids -reglan scheduled. thank you. will follow with recs. Long Guevara May 09, 2018 15:42
[2018-05-09 16:00] VITALS: BP 96/64
--- NOTE | 2018-05-09 19:39 | Internal Med Progress Note ---
Subjective Date of Service: May 09, 2018 Physician Name Edwards,Yunier Attending Physician Aly Ricks MD Current Medications Medications (Trade) Dose Ordered Sig/[place] Route PRN Reason Start Time Stop Time Status Last Admin Dose Admin Acetaminophen (Tylenol) 650 mg Q4H PRN ORAL fever 05/02/18 17:54 05/28/18 17:53 Al Hydroxide/Mg Hydroxide (Mylanta II) 30 ml Q6H PRN ORAL dyspepsia 05/02/18 17:54 05/28/18 17:53 05/08/18 02:37 Chlorhexidine Gluconate (Flores-Hex 2%) 1 applic DAILY@2000 TOPIC 05/04/18 20:00 06/03/18 19:59 05/08/18 20:49 Clonidine HCl (Catapres Tab) 0.1 mg Q4H PRN ORAL sbp more than 160 05/02/18 17:54 05/28/18 17:53 Dextrose 1,000 ml @ 0 mls/hr Q24H PRN IV PN interrupted or unavailable 05/09/18 12:00 06/08/18 11:59 Dextrose (Dextrose 50%) 25 ml Q30M PRN IV Hypoglycemia 05/04/18 07:15 06/03/18 07:14 Dextrose (Dextrose 50%) 50 ml Q30M PRN IV Hypoglycemia 05/04/18 07:15 06/03/18 07:14 Docusate Sodium (Colace) 100 mg THREE TIMES A DAY ORAL 05/03/18 09:00 06/02/18 08:59 05/09/18 17:47 Dronabinol (Marinol) 2.5 mg TID ORAL 05/03/18 18:00 06/02/18 17:59 05/09/18 17:47 Fat Emulsion Intravenous 192 ml/Amino Acids/ Electrolytes/ Dextrose 1,920 ml @ 80 mls/hr Q24H IV 05/09/18 20:00 06/08/18 19:59 Heparin Sodium (Porcine) (Heparin 5000 units/ml) 5,000 units EVERY 12 HOURS SUBQ 05/02/18 21:00 05/28/18 20:59 05/09/18 08:45 Insulin Aspart (NovoLOG) Q6HR SUBQ 05/10/18 00:00 06/09/18 00:00 Insulin Detemir (Levemir) 6 units DAILY SUBQ 05/06/18 09:00 06/03/18 08:59 05/09/18 09:00 Metoclopramide HCl (Reglan) 10 mg Q6HR IVP 05/08/18 18:00 06/07/18 17:59 05/09/18 17:47 Nicotine (Nicoderm) 1 patch Q24H TDERMAL 05/09/18 11:00 06/08/18 10:59 05/09/18 11:00 Nitroglycerin (Ntg) 0.4 mg Q5M X 3 DOSES PRN SL Prn Chest Pain 05/02/18 18:00 05/28/18 17:44 Ondansetron HCl (Zofran) 4 mg Q6H PRN IVP Nausea & Vomiting 05/02/18 17:55 05/28/18 17:54 05/09/18 04:43 Pantoprazole (Protonix) 40 mg DAILY ORAL 05/03/18 09:00 06/01/18 08:59 05/09/18 08:39 Potassium Chloride 40 meq/ Sodium Chloride 1,020 ml @ 75 mls/hr [id number] IV 05/05/18 21:00 06/04/18 20:59 05/09/18 16:33 Promethazine HCl (Phenergan) 25 mg Q6H PRN IM Nausea & Vomiting 05/04/18 20:15 06/03/18 20:14 05/04/18 21:01 Allergies: Coded Allergies: NO KNOWN ALLERGIES (Unverified Allergy, Unknown, 06/26/15) ROS Limited/Unobtainable: No Constitutional: Reports: no symptoms HEENT: Reports: no symptoms Cardiovascular: Reports: no symptoms Respiratory: Reports: no symptoms Gastrointestinal/Abdominal: Reports: nausea, vomiting Genitourinary: Reports: no symptoms Neurologic/Psychiatric: Reports: no symptoms Subjective 47 YO M admitted with hyperglycemia. Now intractable nausea and vomiting. Intussusception of small bowel. Cover for Int Med-Dr Ricks. S/P paracentesis 05/02/18. Endoscopy 05/09/18 cancelled due to patient ate; rescheduled for 05/10/18. Objective Last Vital Signs Date Time Temp Pulse Resp B/P (MAP) Pulse Ox O2 Delivery O2 Flow Rate FiO2 05/09/18 16:00 97.9 83 20 96/64 (75) 100 97.9 05/09/18 09:00 Room Air 05/09/18 07:56 21 05/01/18 18:45 2.0 Laboratory Tests Test 05/09/18 09:15 White Blood Count 6.7 K/UL (4.8-10.8) Red Blood Count 2.65 M/UL (4.70-6.10) L Hemoglobin 8.3 G/DL (14.2-18.0) L Hematocrit 22.9 % (42.0-52.0) L Mean Corpuscular Volume 86 FL (80-99) Mean Corpuscular Hemoglobin 31.4 PG (27.0-31.0) H Mean Corpuscular Hemoglobin Concent 36.5 G/DL (32.0-36.0) H Red Cell Distribution Width 13.8 % (11.6-14.8) Platelet Count 234 K/UL (150-450) Mean Platelet Volume 5.3 FL (6.5-10.1) L Neutrophils (%) (Auto) 81.7 % (45.0-75.0) H Lymphocytes (%) (Auto) 12.4 % (20.0-45.0) L Monocytes (%) (Auto) 5.5 % (1.0-10.0) Eosinophils (%) (Auto) 0.4 % (0.0-3.0) Basophils (%) (Auto) 0.1 % (0.0-2.0) Prothrombin Time 11.1 SEC (9.30-11.50) Prothromb Time International Ratio 1.1 (0.9-1.1) Activated Partial Thromboplast Time 27 SEC (23-33) Sodium Level 140 MMOL/L (136-145) Potassium Level 2.9 MMOL/L (3.5-5.1) L Chloride Level 103 MMOL/L (98-107) Carbon Dioxide Level 36 MMOL/L (21-32) H Anion Gap 1 mmol/L (5-15) L Blood Urea Nitrogen 21 mg/dL (7-18) H Creatinine 0.6 MG/DL (0.55-1.30) Estimat Glomerular Filtration Rate > 60 mL/min (>60) Glucose Level 160 MG/DL (74-106) H Calcium Level 7.1 MG/DL (8.5-10.1) L Total Bilirubin 0.8 MG/DL (0.2-1.0) Aspartate Amino Transf (AST/SGOT) 30 U/L (15-37) Alanine Aminotransferase (ALT/SGPT) 79 U/L (12-78) H Alkaline Phosphatase 87 U/L (46-116) Total Protein 3.8 G/DL (6.4-8.2) L Albumin 1.6 G/DL (3.4-5.0) L Globulin 2.2 g/dL Albumin/Globulin Ratio 0.7 (1.0-2.7) L Intake and Output 05/08/18 05/09/18 19:00 07:00 Intake Total 620 ml 575 ml Output Total 800 ml 2100 ml Balance -180 ml -1525 ml Intake Oral 620 ml 500 ml IV Total 75 ml Output Urine Total 800 ml 800 ml Emesis 1300 ml # Voids 3 Objective PHYSICAL EXAMINATION: GENERAL: The patient is thin-appearing male, who is obviously nauseated. HEENT: Eyes, pupils are equal, responsive to light and accommodation. Extraocular movements are intact. NECK: Supple without lymphadenopathy. CHEST: Lungs are clear to auscultation bilaterally without wheezes or rales. CARDIOVASCULAR: Regular rate. S1, S2 normal without murmurs, rubs, or gallops. ABDOMEN: Soft, diffusely tender with positive bowel sounds. No evidence of hepatosplenomegaly. No rebound or guarding noted. EXTREMITIES: Negative for clubbing, cyanosis, or edema. RECTAL: Refused. GENITALIA: Refused. NEUROLOGIC: Cranial nerves II through XII are grossly intact without focal deficits. Motor strength is 5/5 bilaterally. Deep tendon reflexes are 2+ plantar. Assessment/Plan Problem List: (1) Pancreatitis Assessment & Plan: CT and US=no common bile duct stone. See GI note. (2) Hypokalemia Assessment & Plan: Replace KCL IV (3) Hyperglycemia (4) DKA (diabetic ketoacidoses) (5) Intussusception of intestine Assessment & Plan: Non obstructive. See surgery consult (6) Elevated transaminase level (7) Abdominal pain (8) Edema Assessment & Plan: Decrease IV fluids. Patient wants lasix. Await echocardiogram and cardiac W/U (9) Ascites (10) Anemia Assessment & Plan: ?GI bleed? S/P transfusion 1 unit PRBC 05/05/18. Endoscopy rescheduled for Tues ,05/10/18 Status: not improved Yunier Edwards MD May 09, 2018 19:38
[2018-05-09 20:00] VITALS: BP 129/88
[2018-05-09] MEDS ORDERED: FAT EMULSION 20% IV SCH ×4 (20:00)
[2018-05-09] MEDS ORDERED: TPN IV SCH ×4 (20:00)
[2018-05-09] MEDS ORDERED: NS 500ML ONE (20:06)
[2018-05-09] MEDS: Dyna-Hex 2% Top Sol 2oz TOPIC SCH (21:29)
[2018-05-10] VITALS (10 sets, daily range): BP systolic 89–131; BP diastolic 52–90
[2018-05-10] MEDS: Metoclopramide 10mg/2ml Inj IVP SCH ×5 (00:16→23:48)
[2018-05-10] MEDS: NovoLOG Insulin Flexpen SUBQ SCH ×5 (05:47→23:54)
[2018-05-10] MEDS: Potassium Chloride 40 MEQ in 1/2 NS 1000ml 1,000 ML IV SCH (06:09)
[2018-05-10 06:14] LABS: BASOPHILS % (AUTO) 0.6 % (0.0-2.0); EOSINOPHILS % (AUTO) 0.6 % (0.0-3.0); HEMATOCRIT 24.1 % (42.0-52.0); LYMPHOCYTES % (AUTO) 24.7 % (20.0-45.0); MEAN CORPUSCULAR VOLUME 88 FL (80-99); MONOCYTES % (AUTO) 5.7 % (1.0-10.0); NEUTROPHILS % (AUTO) 68.4 % (45.0-75.0); PLATELET COUNT 186 K/UL (150-450); RED BLOOD COUNT 2.75 M/UL (4.70-6.10); RED CELL DISTRIBUTION WIDTH 14.7 % (11.6-14.8); WHITE BLOOD COUNT 4.8 K/UL (4.8-10.8)
[2018-05-10 06:36] LABS: ANION GAP 0 mmol/L (5-15); BLOOD UREA NITROGEN 16 mg/dL (7-18); CALCIUM 7.2 MG/DL (8.5-10.1); CARBON DIOXIDE 35 MMOL/L (21-32); CHLORIDE 103 MMOL/L (98-107); CREATININE 0.5 MG/DL (0.55-1.30); POTASSIUM 2.9 MMOL/L (3.5-5.1); SODIUM 138 MMOL/L (136-145)
--- NOTE | 2018-05-10 08:36 | General Progress Note ---
Assessment/Plan Problem List: (1) Pancreatitis ICD Codes: K85.90 - Acute pancreatitis without necrosis or infection, unspecified SNOMED: 70175559 (2) Hyponatremia ICD Codes: E87.1 - Hyponatremia SNOMED: 06839554 (3) Nausea, vomiting, and diarrhea ICD Codes: R11.2 - Nausea with vomiting, unspecified; R19.7 - Diarrhea, unspecified SNOMED: 7063230 Assessment/Plan reduce regular insulin of TPN from 15 to 10 units / bag hold Levemir 6 units today discussed with pharmacist continue NISS Subjective Allergies: Coded Allergies: NO KNOWN ALLERGIES (Unverified Allergy, Unknown, 06/26/15) All Systems: reviewed and negative except above Subjective events noted Objective Last 24 Hour Vital Signs Date Time Temp Pulse Resp B/P (MAP) Pulse Ox O2 Delivery O2 Flow Rate FiO2 05/10/18 04:00 97.8 86 19 106/72 (83) 98 97.8 05/10/18 00:00 97.9 87 19 110/59 (76) 98 97.9 05/09/18 21:00 Room Air 05/09/18 20:16 91 20 Room Air 21 05/09/18 20:00 98.1 89 19 129/88 (102) 100 98.1 05/09/18 16:00 97.9 83 20 96/64 (75) 100 97.9 05/09/18 12:00 97.7 86 20 98/68 (78) 100 97.7 05/09/18 09:00 Room Air Intake and Output 05/09/18 05/10/18 19:00 07:00 Intake Total 2075 ml 1705 ml Output Total 1200 ml 2000 ml Balance 875 ml -295 ml Intake Oral 1050 ml 240 ml IV Total 1025 ml 1465 ml Output Urine Total 1000 ml Emesis 1200 ml 1000 ml # Voids 2 Laboratory Tests 05/09/18 09:15: White Blood Count 6.7, Red Blood Count 2.65L, Hemoglobin 8.3L, Hematocrit 22.9L , Mean Corpuscular Volume 86, Mean Corpuscular Hemoglobin 31.4H, Mean Corpuscular Hemoglobin Concent 36.5H, Red Cell Distribution Width 13.8, Platelet Count 234, Mean Platelet Volume 5.3L, Neutrophils (%) (Auto) 81.7H, Lymphocytes (%) (Auto) 12.4L, Monocytes (%) (Auto) 5.5, Eosinophils (%) (Auto) 0.4, Basophils (%) (Auto) 0.1, Prothrombin Time 11.1, Prothromb Time International Ratio 1.1, Activated Partial Thromboplast Time 27, Sodium Level 140, Potassium Level 2.9L, Chloride Level 103, Carbon Dioxide Level 36H, Anion Gap 1L, Blood Urea Nitrogen 21H, Creatinine 0.6, Estimat Glomerular Filtration Rate > 60, Glucose Level 160H, Calcium Level 7.1L, Total Bilirubin 0.8, Aspartate Amino Transf (AST/SGOT) 30, Alanine Aminotransferase (ALT/SGPT) 79H, Alkaline Phosphatase 87, Total Protein 3.8L, Albumin 1.6L, Globulin 2.2, Albumin /Globulin Ratio 0.7L 05/10/18 05:30: White Blood Count 4.8, Red Blood Count 2.75L, Hemoglobin 9.0L, Hematocrit 24.1L , Mean Corpuscular Volume 88, Mean Corpuscular Hemoglobin 32.7H, Mean Corpuscular Hemoglobin Concent 37.4H, Red Cell Distribution Width 14.7, Platelet Count 186, Mean Platelet Volume 4.5L, Neutrophils (%) (Auto) 68.4, Lymphocytes (%) (Auto) 24.7, Monocytes (%) (Auto) 5.7, Eosinophils (%) (Auto) 0.6, Basophils (%) (Auto) 0.6, Prothrombin Time 11.0, Prothromb Time International Ratio 1.0, Activated Partial Thromboplast Time 26, Sodium Level 138, Potassium Level 2.9L, Chloride Level 103, Carbon Dioxide Level 35H, Anion Gap 0L, Blood Urea Nitrogen 16, Creatinine 0.5L, Estimat Glomerular Filtration Rate > 60, Glucose Level 88, Calcium Level 7.2L Height (Feet): 5 Height (Inches): 6.00 Weight (Pounds): 140 General Appearance: no apparent distress Neck: normal alignment Cardiovascular: normal rate Respiratory/Chest: lungs clear Objective Current Medications Medications (Trade) Dose Ordered Sig/[place] Route PRN Reason Start Time Stop Time Status Last Admin Dose Admin Acetaminophen (Tylenol) 650 mg Q4H PRN ORAL fever 05/02/18 17:54 05/28/18 17:53 Al Hydroxide/Mg Hydroxide (Mylanta II) 30 ml Q6H PRN ORAL dyspepsia 05/02/18 17:54 05/28/18 17:53 05/08/18 02:37 Chlorhexidine Gluconate (Flores-Hex 2%) 1 applic DAILY@2000 TOPIC 05/04/18 20:00 06/03/18 19:59 05/09/18 21:29 Clonidine HCl (Catapres Tab) 0.1 mg Q4H PRN ORAL sbp more than 160 05/02/18 17:54 05/28/18 17:53 Dextrose 1,000 ml @ 0 mls/hr Q24H PRN IV PN interrupted or unavailable 05/09/18 12:00 06/08/18 11:59 Dextrose (Dextrose 50%) 25 ml Q30M PRN IV Hypoglycemia 05/04/18 07:15 06/03/18 07:14 Dextrose (Dextrose 50%) 50 ml Q30M PRN IV Hypoglycemia 05/04/18 07:15 06/03/18 07:14 Docusate Sodium (Colace) 100 mg THREE TIMES A DAY ORAL 05/03/18 09:00 06/02/18 08:59 05/09/18 17:47 Dronabinol (Marinol) 2.5 mg TID ORAL 05/03/18 18:00 06/02/18 17:59 05/09/18 17:47 Fat Emulsion Intravenous 192 ml/Amino Acids/ Electrolytes/ Dextrose 1,920 ml @ 80 mls/hr Q24H IV 05/09/18 20:00 06/08/18 19:59 05/09/18 21:31 Heparin Sodium (Porcine) (Heparin 5000 units/ml) 5,000 units EVERY 12 HOURS SUBQ 05/02/18 21:00 05/28/18 20:59 05/09/18 21:30 Insulin Aspart (NovoLOG) Q6HR SUBQ 05/10/18 00:00 06/09/18 00:00 Insulin Detemir (Levemir) 6 units DAILY SUBQ 05/06/18 09:00 06/03/18 08:59 05/09/18 09:00 Metoclopramide HCl (Reglan) 10 mg Q6HR IVP 05/08/18 18:00 06/07/18 17:59 05/10/18 05:47 Nicotine (Nicoderm) 1 patch Q24H TDERMAL 05/09/18 11:00 06/08/18 10:59 05/09/18 11:00 Nitroglycerin (Ntg) 0.4 mg Q5M X 3 DOSES PRN SL Prn Chest Pain 05/02/18 18:00 05/28/18 17:44 Ondansetron HCl (Zofran) 4 mg Q6H PRN IVP Nausea & Vomiting 05/02/18 17:55 05/28/18 17:54 05/09/18 04:43 Pantoprazole (Protonix) 40 mg DAILY ORAL 05/03/18 09:00 06/01/18 08:59 05/09/18 08:39 Potassium Chloride 40 meq/ Sodium Chloride 1,020 ml @ 75 mls/hr [id number] IV 05/05/18 21:00 06/04/18 20:59 05/10/18 06:09 Promethazine HCl (Phenergan) 25 mg Q6H PRN IM Nausea & Vomiting 05/04/18 20:15 06/03/18 20:14 05/04/18 21:01 Item Value Date Time Bedside Blood Glucose 68 mg/dl L 05/09/18 0642 Bedside Blood Glucose 201 mg/dl H 05/08/18 2049 Bedside Blood Glucose 294 mg/dl H 05/08/18 1652 Bedside Blood Glucose 315 mg/dl H 05/08/18 1130 Bedside Blood Glucose 200 mg/dl H 05/08/18 1058 Glucose Level 182 MG/DL H 05/08/18 0600 Bedside Blood Glucose 200 mg/dl H 05/08/18 0630 Bedside Blood Glucose 85 mg/dl 05/10/18 0600 Bedside Blood Glucose 72 mg/dl 05/10/18 0000 Bedside Blood Glucose 139 mg/dl H 05/09/18 1641 Bedside Blood Glucose 216 mg/dl H 05/09/18 1208 Bedside Blood Glucose 175 mg/dl H 05/09/18 0900 Saad Laurent MD May 10, 2018 08:36
[2018-05-10] MEDS ORDERED: Midazolam 2mg/2ml Inj ONE (08:39)
[2018-05-10] MEDS ORDERED: NS 500ML IVPB ONE (08:40)
--- NOTE | 2018-05-10 08:48 | Pre-Procedure Note/Attestation ---
Pre-Procedure Note/Attestation Complete Prior to Procedure Planned Procedure: not applicable Procedure Narrative: egd Indications for Procedure Pre-Operative Diagnosis: vomiting Attestation I attest that I discussed the nature of the procedure; its benefits; risks and complications; and alternatives (and the risks and benefits of such alternatives ), prior to the procedure, with the patient (or the patient's legal route sales representative). I attest that, if there was a reasonable possibility of needing a blood transfusion, the patient (or the patient's legal route sales representative) was given the [facility] standardized written summary, pursuant to the Ryder Ramona Blood Safety Act ([place] Health and Safety Code # 1645, as amended). I attest that I re-evaluated the patient just prior to the surgery and that there has been no change in the patient's H&P, except as documented below: Pedro Ascencio MD May 10, 2018 08:48
[2018-05-10] MEDS ORDERED: LR 1000ml 1,000 ML IVLG SCH (08:56)
[2018-05-10] MEDS ORDERED: Hydromorphone 0.5mg/0.5ml inj IVP PRN (09:00)
[2018-05-10] MEDS ORDERED: oxyCODONE HCL/Acetaminophen 5/325mg ORAL PRN (09:00)
[2018-05-10] MEDS ORDERED: Midazolam 2mg/2ml Inj IVP PRN (09:00)
[2018-05-10] MEDS: Docusate 100mg cap ORAL SCH ×3 (09:00→17:09)
[2018-05-10] MEDS ORDERED: DiphenhydrAMINE 50mg/ml Inj IVP PRN (09:00)
[2018-05-10] MEDS ORDERED: Atropine Sulfate 0.4mg/ml inj IVP PRN (09:00)
[2018-05-10] MEDS ORDERED: Barium EZ Gas II granules MC PRN (09:00)
[2018-05-10] MEDS ORDERED: Meperidine 50mg/ml Inj(FOR RIGORS ONLY) IVP PRN (09:00)
[2018-05-10] MEDS ORDERED: Norco 5mg/325mg tab ORAL PRN (09:00)
[2018-05-10] MEDS: Heparin 5000 units/ml inj SUBQ SCH ×2 (09:00→21:07)
[2018-05-10] MEDS ORDERED: fentaNYL 100 mcg/2 mL IV PRN (09:00)
[2018-05-10] MEDS ORDERED: HYDROcodone/Acetamin 7.5/325 tab ORAL PRN (09:00)
[2018-05-10] MEDS ORDERED: LORazepam Inj 2mg/ml 1ml IV PRN (09:00)
--- NOTE | 2018-05-10 09:07 | Endoscopy Procedure Note ---
Endoscopy Procedure Note General Indication for Procedure: vomiting Procedures Performed: EGD Operative Findings/Diagnosis: esophagitis Specimen: yes Pt Tolerated Procedure Well: Yes Estimated Blood Loss: none Anesthesia Anesthesiologist: magdiel Anesthesia: MAC Inserted Devices Implant(s) used?: No GI Core Measures 50 yrs or older w/o bx or poly: Not Applicable 10yrs. F/U not recommended: Not Applicable Pedro Ascencio MD May 10, 2018 09:07
--- NOTE | 2018-05-10 09:07 | Anethesia Preoperative Eval ---
Anesthesia Pre-op PMH/ROS General Date of Evaluation: May 10, 2018 Time of Evaluation: 08:26 Anesthesiologist: Harvinder ASA Score: ASA 3 Mallampati Score Class I : Soft palate, uvula, fauces, pillars visible Class II: Soft palate, uvula, fauces visible Class III: Soft palate, base of uvula visible Class IV: Only hard plate visible Mallampati Classification: Class II Surgeon: Sonu Diagnosis: Abd Pain Surgical Procedure: EGD Anesthesia History: none Social History: drug use - Abuse Family History: no anesthesia problems Allergies: Coded Allergies: NO KNOWN ALLERGIES (Unverified Allergy, Unknown, 06/26/15) Medications: see eMAR Patient NPO?: Yes Past Medical History Gastrointestinal/Genitourinary: Reports: other - Gastroparesis Endocrine: Reports: DM Hematology/Immune: Reports: anemia Musculoskeletal/Integumentary: Reports: edema - BLE Anesthesia Pre-op Phys. Exam Physician Exam Last Vital Signs Date Time Temp Pulse Resp B/P (MAP) Pulse Ox O2 Delivery O2 Flow Rate FiO2 05/10/18 04:00 97.8 86 19 106/72 (83) 98 97.8 05/09/18 21:00 Room Air 05/09/18 20:16 21 05/01/18 18:45 2.0 Constitutional: NAD Neurologic: CN 2-12 intact Cardiovascular: RRR Respiratory: CTA Gastrointestinal: S/NT/ND Airway Exam Mallampati Score: Class II MO: limited ROM: limited Teeth: missing, intact Anesthesia Pre-op A/P Labs Hematology Test 05/09/18 09:15 05/10/18 05:30 White Blood Count 6.7 K/UL (4.8-10.8) 4.8 K/UL (4.8-10.8) Red Blood Count 2.65 M/UL (4.70-6.10) L 2.75 M/UL (4.70-6.10) L Hemoglobin 8.3 G/DL (14.2-18.0) L 9.0 G/DL (14.2-18.0) L Hematocrit 22.9 % (42.0-52.0) L 24.1 % (42.0-52.0) L Mean Corpuscular Volume 86 FL (80-99) 88 FL (80-99) Mean Corpuscular Hemoglobin 31.4 PG (27.0-31.0) H 32.7 PG (27.0-31.0) H Mean Corpuscular Hemoglobin Concent 36.5 G/DL (32.0-36.0) H 37.4 G/DL (32.0-36.0) H Red Cell Distribution Width 13.8 % (11.6-14.8) 14.7 % (11.6-14.8) Platelet Count 234 K/UL (150-450) 186 K/UL (150-450) Mean Platelet Volume 5.3 FL (6.5-10.1) L 4.5 FL (6.5-10.1) L Neutrophils (%) (Auto) 81.7 % (45.0-75.0) H 68.4 % (45.0-75.0) Lymphocytes (%) (Auto) 12.4 % (20.0-45.0) L 24.7 % (20.0-45.0) Monocytes (%) (Auto) 5.5 % (1.0-10.0) 5.7 % (1.0-10.0) Eosinophils (%) (Auto) 0.4 % (0.0-3.0) 0.6 % (0.0-3.0) Basophils (%) (Auto) 0.1 % (0.0-2.0) 0.6 % (0.0-2.0) Coagulation Test 05/09/18 09:15 05/10/18 05:30 Prothrombin Time 11.1 SEC (9.30-11.50) 11.0 SEC (9.30-11.50) Prothromb Time International Ratio 1.1 (0.9-1.1) 1.0 (0.9-1.1) Activated Partial Thromboplast Time 27 SEC (23-33) 26 SEC (23-33) Chemistry Test 05/09/18 09:15 05/10/18 05:30 Sodium Level 140 MMOL/L (136-145) 138 MMOL/L (136-145) Potassium Level 2.9 MMOL/L (3.5-5.1) L 2.9 MMOL/L (3.5-5.1) L Chloride Level 103 MMOL/L (98-107) 103 MMOL/L (98-107) Carbon Dioxide Level 36 MMOL/L (21-32) H 35 MMOL/L (21-32) H Anion Gap 1 mmol/L (5-15) L 0 mmol/L (5-15) L Blood Urea Nitrogen 21 mg/dL (7-18) H 16 mg/dL (7-18) Creatinine 0.6 MG/DL (0.55-1.30) 0.5 MG/DL (0.55-1.30) L Estimat Glomerular Filtration Rate > 60 mL/min (>60) > 60 mL/min (>60) Glucose Level 160 MG/DL (74-106) H 88 MG/DL (74-106) Calcium Level 7.1 MG/DL (8.5-10.1) L 7.2 MG/DL (8.5-10.1) L Total Bilirubin 0.8 MG/DL (0.2-1.0) Aspartate Amino Transf (AST/SGOT) 30 U/L (15-37) Alanine Aminotransferase (ALT/SGPT) 79 U/L (12-78) H Alkaline Phosphatase 87 U/L (46-116) Total Protein 3.8 G/DL (6.4-8.2) L Albumin 1.6 G/DL (3.4-5.0) L Globulin 2.2 g/dL Albumin/Globulin Ratio 0.7 (1.0-2.7) L Risk Assessment & Plan Assessment: ASA 3 Plan: GA Status Change Before Surgery: Benjamin oMrales MD May 10, 2018 09:07
--- NOTE | 2018-05-10 09:08 | Immediate Post-Op Evaluation ---
Immediate Post-Op Evalulation Immediate Post-Op Evalulation Procedure: EGD Date of Evaluation: May 10, 2018 Time of Evaluation: 09:34 IV Fluids: 300 LR Blood Products: 0 Estimated Blood Loss: 2 Urinary Output: 0 Blood Pressure Systolic: 90 Blood Pressure Diastolic: 60 Pulse Rate: 98 Respiratory Rate: 16 O2 Sat by Pulse Oximetry: 100 Temperature (Fahrenheit): 97.5 Pain Score (1-10): 2 Nausea: No Vomiting: No Complications 0 Patient Status: awake, reacts, patent, none Hydration Status: adequate Benjamin Blanton MD May 10, 2018 09:08
--- NOTE | 2018-05-10 09:09 | 48 Hour Post Anesthesia Eval ---
Post Anesthesia Evaluation Procedure: EGD Date of Evaluation: May 10, 2018 Time of Evaluation: 11:44 Blood Pressure Systolic: 92 0: 63 Pulse Rate: 96 Respiratory Rate: 16 Temperature (Fahrenheit): 97.5 O2 Sat by Pulse Oximetry: 100 Airway: patent Nausea: No Vomiting: No Pain Intensity: 2 Hydration Status: adequate Cardiopulmonary Status: Stable Mental Status/LOC: patient returned to baseline Follow-up Care/Observations: 0 Post-Anesthesia Complications: 0 Follow-up care needed: N/A Benjamin Blanton MD May 10, 2018 09:09
--- NOTE | 2018-05-10 13:28 | General Surgery Progress Note ---
General Surgery-Progress Note Subjective Additional Comments no acute events. EGD today Objective Last 24 Hour Vital Signs Date Time Temp Pulse Resp B/P (MAP) Pulse Ox O2 Delivery O2 Flow Rate FiO2 05/10/18 12:00 98.4 92 21 131/52 (78) 100 98.4 05/10/18 09:40 97.4 92 18 100/81 97 Room Air 97.4 05/10/18 09:30 93 16 89/63 100 Nasal Cannula 3 05/10/18 09:25 92 15 93/65 100 Nasal Cannula 3 05/10/18 09:23 97.5 98 16 90/66 98 Nasal Cannula 3 97.5 05/10/18 09:23 207.5 96 16 100 05/10/18 09:21 207.5 98 16 100 05/10/18 09:00 Room Air 05/10/18 08:00 98.2 89 19 98/71 (80) 99 98.2 05/10/18 04:00 97.8 86 19 106/72 (83) 98 97.8 05/10/18 00:00 97.9 87 19 110/59 (76) 98 97.9 05/09/18 21:00 Room Air 05/09/18 20:16 91 20 Room Air 21 05/09/18 20:00 98.1 89 19 129/88 (102) 100 98.1 05/09/18 16:00 97.9 83 20 96/64 (75) 100 97.9 I&O Intake and Output 05/09/18 05/10/18 19:00 07:00 Intake Total 2075 ml 1705 ml Output Total 1200 ml 2000 ml Balance 875 ml -295 ml Intake Oral 1050 ml 240 ml IV Total 1025 ml 1465 ml Output Urine Total 1000 ml Emesis 1200 ml 1000 ml # Voids 2 Dressing: other Wound: other Drains: none Cardiovascular: RSR Respiratory: clear Abdomen: soft, distended, tenderness, present bowel sounds Extremities: no cyanosis Laboratory Tests Test 05/10/18 05:30 White Blood Count 4.8 K/UL (4.8-10.8) Red Blood Count 2.75 M/UL (4.70-6.10) L Hemoglobin 9.0 G/DL (14.2-18.0) L Hematocrit 24.1 % (42.0-52.0) L Mean Corpuscular Volume 88 FL (80-99) Mean Corpuscular Hemoglobin 32.7 PG (27.0-31.0) H Mean Corpuscular Hemoglobin Concent 36.4 G/DL (32.0-36.0) H Red Cell Distribution Width 14.7 % (11.6-14.8) Platelet Count 186 K/UL (150-450) Mean Platelet Volume 4.5 FL (6.5-10.1) L Neutrophils (%) (Auto) 68.4 % (45.0-75.0) Lymphocytes (%) (Auto) 24.7 % (20.0-45.0) Monocytes (%) (Auto) 5.7 % (1.0-10.0) Eosinophils (%) (Auto) 0.6 % (0.0-3.0) Basophils (%) (Auto) 0.6 % (0.0-2.0) Prothrombin Time 11.0 SEC (9.30-11.50) Prothromb Time International Ratio 1.0 (0.9-1.1) Activated Partial Thromboplast Time 26 SEC (23-33) Sodium Level 138 MMOL/L (136-145) Potassium Level 2.9 MMOL/L (3.5-5.1) L Chloride Level 103 MMOL/L (98-107) Carbon Dioxide Level 35 MMOL/L (21-32) H Anion Gap 0 mmol/L (5-15) L Blood Urea Nitrogen 16 mg/dL (7-18) Creatinine 0.5 MG/DL (0.55-1.30) L Estimat Glomerular Filtration Rate > 60 mL/min (>60) Glucose Level 88 MG/DL (74-106) Calcium Level 7.2 MG/DL (8.5-10.1) L HIV (1&2) Antibody Rapid Negative (NEGATIVE) Plan Problems: (1) Intussusception of intestine Assessment & Plan: CT Findings: 1. Short segment small bowel intussusception in the left lower quadrant ( series 5 image 58). No lead point lesions. No evidence of bowel obstruction. No focal bowel wall thickening. No adjacent inflammatory change. This may represent transient intussusception and is of uncertain clinical significance. 2. Sigmoid diverticulosis without wall thickening or adjacent inflammatory change. CT reviewed. - likely transient and benign. exam stable, no obstruction, no thickening, no inflammation. leukocytosis unlikely due to this. does have elevated LFT. possible cholecystitis? possible hepatitis Ultrasound reviewed. ascites and liver abnormal. Gallbladder okay. t bili trending down. lip/nicolette nml. lfts improved. denies EtOH history. likely hepatitis? abd distention related to ascites. unsure of etiology for nausea and emesis but not obstructive in nature. paracentesis path noted. no malignant cells hepatitis panel negative gastric study abnormal delay EGD today. pending results. -PPI -diet as tolerated -trend labs -start tpn as per gi -npo p mn -IV fluids -reglan scheduled. thank you. will follow with recs. Long Guevara May 10, 2018 13:28
--- NOTE | 2018-05-10 13:31 | Procedure Note ---
DATE OF PROCEDURE: 05/10/2018 SURGEON: Pedro Ascencio M.D. ANESTHESIOLOGIST: Benjamin Blanton M.D. PROCEDURE: Upper endoscopy with biopsy . INSTRUMENT: Olympus adult flexible upper endoscope. INDICATION: Nausea and vomiting. REASON FOR PROCEDURE: The procedure, risks, benefits, and possible consequences, including hemorrhage, aspiration, perforation and infection, and alternative treatments, were explained to the patient/legal guardian by Dr. Pedro Ascencio and the patient/legal guardian understood and accepted these risks. DESCRIPTION OF PROCEDURE: After informed consent was obtained and the patient was adequately sedated, Olympus upper endoscope was advanced from the mouth into the second portion of the duodenum and retroflexion was performed in the stomach. This procedure was limited. The patient has some retained gastric material, food in the stomach. The proximal body of the stomach was not fully examined given this food in there. The patient has evidence of severe esophageal ulcerations and esophagitis, mostly in the distal, the proximal part was also involved. Multiple biopsies from the esophagus was obtained. Also there was some gastritis in the antrum. Biopsy from antrum was also obtained. The patient tolerated the procedure very well without any complication. SUMMARY OF FINDINGS: 1. esophagitis, grade 4, status post multiple biopsy. 2. Gastritis, status post biopsy. 3. Limited study given the retained food material in the stomach. RECOMMENDATIONS: Elevate the head of the bed at all times. The patient to be back on a clear liquid diet. Follow biopsy results. We ordered HIV test. We ordered a small bowel follow through to rule out small bowel obstruction given CT showed possible intussusception. The patient currently on TPN. Pedro Ascencio M.D. DR: ANGIE JOB#: [id number] CC:
[2018-05-10] MEDS ORDERED: Isovue-300 100ml vial INJ PRN (15:00)
[2018-05-10] MEDS ORDERED: Fleet's Mineral Oil Enema RECTAL ONE (15:15)
--- NOTE | 2018-05-10 16:09 | Diagnostic Imaging Report ---
Indication: Abdominal pain. 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 Patient would require a cleansing enema before small bowel series was performed. IMPRESSION: Contrast within the colon precluding small bowel contrast examination
[2018-05-10] MEDS ORDERED: NovoLOG Insulin Flexpen SUBQ SCH (18:00)
--- NOTE | 2018-05-10 18:21 | Internal Med Progress Note ---
Subjective Date of Service: May 10, 2018 Physician Name Yunier Edwards Attending Physician Aly Ricks MD Current Medications Medications (Trade) Dose Ordered Sig/Herminia Route PRN Reason Start Time Stop Time Status Last Admin Dose Admin Acetaminophen (Tylenol) 650 mg Q4H PRN ORAL fever 05/02/18 17:54 05/28/18 17:53 Al Hydroxide/Mg Hydroxide (Mylanta II) 30 ml Q6H PRN ORAL dyspepsia 05/02/18 17:54 05/28/18 17:53 05/08/18 02:37 Barium Sulfate (Barium EZ Gas II) 1 ea NOW PRN [facility] Radiology Procedure 05/10/18 09:00 05/12/18 08:59 Barium Sulfate (Readi-Cat 2) 450 ml NOW PRN ORAL Radiology Procedure 05/10/18 15:00 05/12/18 14:53 Chlorhexidine Gluconate (Flores-Hex 2%) 1 applic DAILY@2000 TOPIC 05/04/18 20:00 06/03/18 19:59 05/09/18 21:29 Clonidine HCl (Catapres Tab) 0.1 mg Q4H PRN ORAL sbp more than 160 05/02/18 17:54 05/28/18 17:53 Dextrose 1,000 ml @ 0 mls/hr Q24H PRN IV PN interrupted or unavailable 05/09/18 12:00 06/08/18 11:59 Dextrose (Dextrose 50%) 25 ml Q30M PRN IV Hypoglycemia 05/04/18 07:15 06/03/18 07:14 Dextrose (Dextrose 50%) 50 ml Q30M PRN IV Hypoglycemia 05/04/18 07:15 06/03/18 07:14 Docusate Sodium (Colace) 100 mg THREE TIMES A DAY ORAL 05/03/18 09:00 06/02/18 08:59 05/10/18 17:09 Fat Emulsion Intravenous 192 ml/Amino Acids/ Electrolytes/ Dextrose 1,920 ml @ 80 mls/hr Q24H IV 05/09/18 20:00 05/10/18 19:59 05/09/18 21:31 Fat Emulsion Intravenous 192 ml/Amino Acids/ Electrolytes/ Dextrose 1,920 ml @ 80 mls/hr Q24H IV 05/10/18 20:00 06/09/18 19:59 Heparin Sodium (Porcine) (Heparin 5000 units/ml) 5,000 units EVERY 12 HOURS SUBQ 05/02/18 21:00 05/28/18 20:59 05/09/18 21:30 Insulin Aspart (NovoLOG) Q6HR SUBQ 05/10/18 00:00 06/09/18 00:00 05/10/18 17:16 Insulin Detemir (Levemir) 6 units DAILY SUBQ 05/11/18 09:00 06/10/18 08:59 Iopamidol (Isovue-300 100ml) 100 ml NOW PRN INJ Radiology Procedure 05/10/18 15:00 05/11/18 23:59 Metoclopramide HCl (Reglan) 10 mg Q6HR IVP 05/08/18 18:00 06/07/18 17:59 05/10/18 17:09 Nicotine (Nicoderm) 1 patch Q24H TDERMAL 05/09/18 11:00 06/08/18 10:59 05/09/18 11:00 Nitroglycerin (Ntg) 0.4 mg Q5M X 3 DOSES PRN SL Prn Chest Pain 05/02/18 18:00 05/28/18 17:44 Ondansetron HCl (Zofran) 4 mg Q6H PRN IVP Nausea & Vomiting 05/02/18 17:55 05/28/18 17:54 05/09/18 04:43 Pantoprazole (Protonix) 40 mg BIAC ORAL 05/10/18 16:30 06/09/18 16:29 05/10/18 17:09 Pantoprazole (Protonix) 40 mg DAILY ORAL 05/03/18 09:00 06/01/18 08:59 05/09/18 08:39 Promethazine HCl (Phenergan) 25 mg Q6H PRN IM Nausea & Vomiting 05/04/18 20:15 06/03/18 20:14 05/04/18 21:01 Allergies: Coded Allergies: NO KNOWN ALLERGIES (Unverified Allergy, Unknown, 06/26/15) ROS Limited/Unobtainable: No Constitutional: Reports: no symptoms HEENT: Reports: no symptoms Cardiovascular: Reports: no symptoms Respiratory: Reports: no symptoms Gastrointestinal/Abdominal: Reports: nausea, vomiting Genitourinary: Reports: no symptoms Neurologic/Psychiatric: Reports: no symptoms Subjective 47 YO M admitted with hyperglycemia. Now intractable nausea and vomiting. Intussusception of small bowel. Cover for Int Med-Dr Ricks. S/P paracentesis 05/02/18. S/P Endoscopy 05/10/18. Objective Last Vital Signs Date Time Temp Pulse Resp B/P (MAP) Pulse Ox O2 Delivery O2 Flow Rate FiO2 05/10/18 16:00 98.2 96 20 110/68 (82) 100 98.2 05/10/18 13:07 Room Air 21 05/10/18 09:30 3 Laboratory Tests Test 05/10/18 05:30 White Blood Count 4.8 K/UL (4.8-10.8) Red Blood Count 2.75 M/UL (4.70-6.10) L Hemoglobin 9.0 G/DL (14.2-18.0) L Hematocrit 24.1 % (42.0-52.0) L Mean Corpuscular Volume 88 FL (80-99) Mean Corpuscular Hemoglobin 32.7 PG (27.0-31.0) H Mean Corpuscular Hemoglobin Concent 36.4 G/DL (32.0-36.0) H Red Cell Distribution Width 14.7 % (11.6-14.8) Platelet Count 186 K/UL (150-450) Mean Platelet Volume 4.5 FL (6.5-10.1) L Neutrophils (%) (Auto) 68.4 % (45.0-75.0) Lymphocytes (%) (Auto) 24.7 % (20.0-45.0) Monocytes (%) (Auto) 5.7 % (1.0-10.0) Eosinophils (%) (Auto) 0.6 % (0.0-3.0) Basophils (%) (Auto) 0.6 % (0.0-2.0) Prothrombin Time 11.0 SEC (9.30-11.50) Prothromb Time International Ratio 1.0 (0.9-1.1) Activated Partial Thromboplast Time 26 SEC (23-33) Sodium Level 138 MMOL/L (136-145) Potassium Level 2.9 MMOL/L (3.5-5.1) L Chloride Level 103 MMOL/L (98-107) Carbon Dioxide Level 35 MMOL/L (21-32) H Anion Gap 0 mmol/L (5-15) L Blood Urea Nitrogen 16 mg/dL (7-18) Creatinine 0.5 MG/DL (0.55-1.30) L Estimat Glomerular Filtration Rate > 60 mL/min (>60) Glucose Level 88 MG/DL (74-106) Calcium Level 7.2 MG/DL (8.5-10.1) L HIV (1&2) Antibody Rapid Negative (NEGATIVE) Intake and Output 05/09/18 05/10/18 19:00 07:00 Intake Total 2075 ml 1705 ml Output Total 1200 ml 2000 ml Balance 875 ml -295 ml Intake Oral 1050 ml 240 ml IV Total 1025 ml 1465 ml Output Urine Total 1000 ml Emesis 1200 ml 1000 ml # Voids 2 Objective PHYSICAL EXAMINATION: GENERAL: The patient is thin-appearing male, who is obviously nauseated. HEENT: Eyes, pupils are equal, responsive to light and accommodation. Extraocular movements are intact. NECK: Supple without lymphadenopathy. CHEST: Lungs are clear to auscultation bilaterally without wheezes or rales. CARDIOVASCULAR: Regular rate. S1, S2 normal without murmurs, rubs, or gallops. ABDOMEN: Soft, diffusely tender with positive bowel sounds. No evidence of hepatosplenomegaly. No rebound or guarding noted. EXTREMITIES: Negative for clubbing, cyanosis, or edema. RECTAL: Refused. GENITALIA: Refused. NEUROLOGIC: Cranial nerves II through XII are grossly intact without focal deficits. Motor strength is 5/5 bilaterally. Deep tendon reflexes are 2+ plantar. Assessment/Plan Problem List: (1) Pancreatitis Assessment & Plan: CT and US=no common bile duct stone. See GI note. (2) Hypokalemia Assessment & Plan: Replace KCL IV (3) Hyperglycemia (4) DKA (diabetic ketoacidoses) (5) Intussusception of intestine Assessment & Plan: Non obstructive. See surgery consult (6) Elevated transaminase level (7) Abdominal pain (8) Edema Assessment & Plan: Decrease IV fluids. Patient wants lasix. (9) Ascites (10) Anemia Assessment & Plan: ?GI bleed? S/P transfusion 1 unit PRBC 05/05/18. S/P Endoscopy 05/10/18=esophagitis (11) Esophagitis determined by endoscopy Status: not improved Yunier Edwards MD May 10, 2018 18:21
[2018-05-10] MEDS ORDERED: TPN IV SCH (20:00)
[2018-05-10] MEDS ORDERED: FAT EMULSION 20% IV SCH (20:00)
[2018-05-10] MEDS: Dyna-Hex 2% Top Sol 2oz TOPIC SCH (21:04)
[2018-05-11 00:22] VITALS: BP 135/88
[2018-05-11 04:29] VITALS: BP 85/55
[2018-05-11 05:00] VITALS: BP 110/69
[2018-05-11] MEDS: NovoLOG Insulin Flexpen SUBQ SCH ×3 (06:24→17:22)
[2018-05-11] MEDS: Metoclopramide 10mg/2ml Inj IVP SCH ×2 (06:26→12:30)
--- NOTE | 2018-05-11 06:29 | General Progress Note ---
Assessment/Plan Problem List: (1) Pancreatitis ICD Codes: K85.90 - Acute pancreatitis without necrosis or infection, unspecified SNOMED: 86394077 (2) Hyponatremia ICD Codes: E87.1 - Hyponatremia SNOMED: 13415168 (3) Nausea, vomiting, and diarrhea ICD Codes: R11.2 - Nausea with vomiting, unspecified; R19.7 - Diarrhea, unspecified SNOMED: 8603540 Assessment/Plan increase regular insulin of TPN from 10 to 13 units / bag continue Levemir 6 units today discussed with pharmacist continue NISS Subjective Allergies: Coded Allergies: NO KNOWN ALLERGIES (Unverified Allergy, Unknown, 06/26/15) All Systems: reviewed and negative except above Subjective events noted NPO on TPN glucose elevated this morning Objective Last 24 Hour Vital Signs Date Time Temp Pulse Resp B/P (MAP) Pulse Ox O2 Delivery O2 Flow Rate FiO2 05/11/18 04:29 98.4 99 17 85/55 (65) 97 98.4 05/11/18 00:22 98.4 98 17 135/88 (104) 96 98.4 05/10/18 21:52 Room Air 05/10/18 20:11 80 20 Room Air 21 05/10/18 20:00 98.3 100 18 131/90 (104) 96 98.3 05/10/18 16:00 98.2 96 20 110/68 (82) 100 98.2 05/10/18 13:07 88 20 Room Air 21 05/10/18 12:00 98.4 92 21 131/52 (78) 100 98.4 05/10/18 09:40 97.4 92 18 100/81 97 Room Air 97.4 05/10/18 09:30 93 16 89/63 100 Nasal Cannula 3 05/10/18 09:25 92 15 93/65 100 Nasal Cannula 3 05/10/18 09:23 97.5 98 16 90/66 98 Nasal Cannula 3 97.5 05/10/18 09:23 207.5 96 16 100 05/10/18 09:21 207.5 98 16 100 05/10/18 09:00 Room Air 05/10/18 08:00 98.2 89 19 98/71 (80) 99 98.2 Intake and Output 05/10/18 05/11/18 19:00 07:00 Intake Total 2668 ml 840 ml Output Total 1630 ml 250 ml Balance 1038 ml 590 ml Intake Oral 280 ml IV Total 2668 ml 560 ml Output Urine Total 780 ml 250 ml Emesis 850 ml Estimated Blood Loss 0 ml # Voids 2 3 Height (Feet): 5 Height (Inches): 6.00 Weight (Pounds): 160 General Appearance: no apparent distress Neck: normal alignment Cardiovascular: normal rate Respiratory/Chest: lungs clear Abdomen: decreased bowel sounds Objective Current Medications Medications (Trade) Dose Ordered Sig/H[place] Route PRN Reason Start Time Stop Time Status Last Admin Dose Admin Acetaminophen (Tylenol) 650 mg Q4H PRN ORAL fever 05/02/18 17:54 05/28/18 17:53 Al Hydroxide/Mg Hydroxide (Mylanta II) 30 ml Q6H PRN ORAL dyspepsia 05/02/18 17:54 05/28/18 17:53 05/08/18 02:37 Barium Sulfate (Barium EZ Gas II) 1 ea NOW PRN [facility] Radiology Procedure 05/10/18 09:00 05/12/18 08:59 Barium Sulfate (Readi-Cat 2) 450 ml NOW PRN ORAL Radiology Procedure 05/10/18 15:00 05/12/18 14:53 Chlorhexidine Gluconate (Flores-Hex 2%) 1 applic DAILY@2000 TOPIC 05/04/18 20:00 06/03/18 19:59 05/10/18 21:04 Clonidine HCl (Catapres Tab) 0.1 mg Q4H PRN ORAL sbp more than 160 05/02/18 17:54 05/28/18 17:53 Dextrose 1,000 ml @ 0 mls/hr Q24H PRN IV PN interrupted or unavailable 05/09/18 12:00 06/08/18 11:59 Dextrose (Dextrose 50%) 25 ml Q30M PRN IV Hypoglycemia 05/04/18 07:15 06/03/18 07:14 Dextrose (Dextrose 50%) 50 ml Q30M PRN IV Hypoglycemia 05/04/18 07:15 06/03/18 07:14 Docusate Sodium (Colace) 100 mg THREE TIMES A DAY ORAL 05/03/18 09:00 06/02/18 08:59 05/10/18 17:09 Fat Emulsion Intravenous 192 ml/Amino Acids/ Electrolytes/ Dextrose 1,920 ml @ 80 mls/hr Q24H IV 05/10/18 20:00 06/09/18 19:59 05/10/18 20:48 Heparin Sodium (Porcine) (Heparin 5000 units/ml) 5,000 units EVERY 12 HOURS SUBQ 05/02/18 21:00 05/28/18 20:59 05/10/18 21:07 Insulin Aspart (NovoLOG) Q6HR SUBQ 05/10/18 00:00 06/09/18 00:00 05/11/18 06:24 Insulin Detemir (Levemir) 6 units DAILY SUBQ 05/11/18 09:00 06/10/18 08:59 Iopamidol (Isovue-300 100ml) 100 ml NOW PRN INJ Radiology Procedure 05/10/18 15:00 05/11/18 23:59 Metoclopramide HCl (Reglan) 10 mg Q6HR IVP 05/08/18 18:00 06/07/18 17:59 05/10/18 23:48 Nicotine (Nicoderm) 1 patch Q24H TDERMAL 05/09/18 11:00 06/08/18 10:59 05/09/18 11:00 Nitroglycerin (Ntg) 0.4 mg Q5M X 3 DOSES PRN SL Prn Chest Pain 05/02/18 18:00 05/28/18 17:44 Ondansetron HCl (Zofran) 4 mg Q6H PRN IVP Nausea & Vomiting 05/02/18 17:55 05/28/18 17:54 05/10/18 19:57 Pantoprazole (Protonix) 40 mg BIAC ORAL 05/10/18 16:30 06/09/18 16:29 05/10/18 17:09 Pantoprazole (Protonix) 40 mg DAILY ORAL 05/03/18 09:00 06/01/18 08:59 05/09/18 08:39 Promethazine HCl (Phenergan) 25 mg Q6H PRN IM Nausea & Vomiting 05/04/18 20:15 06/03/18 20:14 05/04/18 21:01 Item Value Date Time Bedside Blood Glucose 301 mg/dl H 05/11/18 0624 Bedside Blood Glucose 202 mg/dl H 05/11/18 0000 Bedside Blood Glucose 134 mg/dl H 05/10/18 1800 Bedside Blood Glucose 161 mg/dl H 05/10/18 1220 Bedside Blood Glucose 85 mg/dl 05/10/18 0600 Bedside Blood Glucose 72 mg/dl 05/10/18 0000 Saad Laurent MD May 11, 2018 06:29
[2018-05-11 08:00] VITALS: BP 116/68
[2018-05-11] MEDS ORDERED: Propofol 200mg/20ml IV ONE (08:30)
[2018-05-11] MEDS ORDERED: Lidocaine 1% MPF 10mg/ml 5ml ONE (08:30)
[2018-05-11] MEDS ORDERED: LR 1000ml ONE (08:30)
[2018-05-11] MEDS: Docusate 100mg cap ORAL SCH ×3 (09:00→17:22)
[2018-05-11] MEDS: Heparin 5000 units/ml inj SUBQ SCH ×2 (09:00→20:21)
[2018-05-11] MEDS ORDERED: Levemir Flexpen SUBQ SCH (09:00)
[2018-05-11 09:23] LABS: BASOPHILS % (AUTO) 0.2 % (0.0-2.0); EOSINOPHILS % (AUTO) 0.6 % (0.0-3.0); HEMATOCRIT 23.2 % (42.0-52.0); HEMOGLOBIN 8.5 G/DL (14.2-18.0); LYMPHOCYTES % (AUTO) 20.1 % (20.0-45.0); MEAN CORPUSCULAR VOLUME 91 FL (80-99); MONOCYTES % (AUTO) 3.7 % (1.0-10.0); NEUTROPHILS % (AUTO) 75.5 % (45.0-75.0); PLATELET COUNT 225 K/UL (150-450); RED BLOOD COUNT 2.54 M/UL (4.70-6.10); RED CELL DISTRIBUTION WIDTH 14.4 % (11.6-14.8); WHITE BLOOD COUNT 3.9 K/UL (4.8-10.8)
[2018-05-11 09:31] LABS: ANION GAP 2 mmol/L (5-15); BLOOD UREA NITROGEN 20 mg/dL (7-18); CALCIUM 7.2 MG/DL (8.5-10.1); CARBON DIOXIDE 34 MMOL/L (21-32); CHLORIDE 103 MMOL/L (98-107); CREATININE 0.6 MG/DL (0.55-1.30); POTASSIUM 3.3 MMOL/L (3.5-5.1); SODIUM 139 MMOL/L (136-145)
--- NOTE | 2018-05-11 11:16 | GI Progress Note ---
Assessment/Plan Problems: (1) Intussusception of intestine ICD Codes: K56.1 - Intussusception SNOMED: 70963797 (2) Elevated transaminase level ICD Codes: R74.0 - Nonspecific elevation of levels of transaminase and lactic acid dehydrogenase [LDH] SNOMED: 121714243, 056646476 (3) DKA (diabetic ketoacidoses) ICD Codes: E13.10 - Other specified diabetes mellitus with ketoacidosis without coma SNOMED: 46349801 (4) Nausea, vomiting, and diarrhea ICD Codes: R11.2 - Nausea with vomiting, unspecified; R19.7 - Diarrhea, unspecified SNOMED: 6747210 (5) Drug abuse ICD Codes: F19.10 - Other psychoactive substance abuse, uncomplicated SNOMED: 63432951 (6) Episode of generalized weakness ICD Codes: R53.1 - Weakness SNOMED: 36561357 (7) H/O cocaine abuse ICD Codes: Z87.898 - Personal history of other specified conditions SNOMED: 919577747 Status: not improved, unchanged Status Narrative Discussed with Dr. Ascencio. Assessment/Plan cocaine positive s/p paracentesis yielding 1.5L - pending cytology >> negative for malignancy abdominal U/S reviewed >> Mildly echogenic liver, which may suggest fatty infiltration. patient continues to vomit after any PO intake, now stated to me today this has been on going for 3 months. >> possible gastroparesis 2/2 DM hepatitis panel >> negative gastric delay emptying study >> half life of excretion is calculated at 287 minutes which is delayed. s/p EGD SUMMARY OF FINDINGS: 1. Severe esophagitis, grade 4, status post multiple biopsy. 2. Gastritis, status post biopsy. 3. Limited study given the retained food material in the stomach. RECOMMENDATIONS: Push Enteroscopy tomorrow. - NPO @ SC. reglan 10mg IV ATC zofran prn pain mgmt bowel regime fu labs The patient was seen and examined at bedside and all new and available data was reviewed in the patients chart. I agree with the above findings, impression and plan. (Patient seen earlier today. Signature stamp does not reflect patient encounter time.). - Pedro Ascencio MD Subjective Subjective generalized weakness random episodes of emesis Objective Last 24 Hour Vital Signs Date Time Temp Pulse Resp B/P (MAP) Pulse Ox O2 Delivery O2 Flow Rate FiO2 05/11/18 09:00 Room Air 05/11/18 08:00 97.8 99 18 116/68 (84) 98 97.8 05/11/18 05:00 98.0 99 18 110/69 (83) 98 98.0 05/11/18 04:29 98.4 99 17 85/55 (65) 97 98.4 05/11/18 00:22 98.4 98 17 135/88 (104) 96 98.4 05/10/18 21:52 Room Air 05/10/18 20:11 80 20 Room Air 21 05/10/18 20:00 98.3 100 18 131/90 (104) 96 98.3 05/10/18 16:00 98.2 96 20 110/68 (82) 100 98.2 05/10/18 13:07 88 20 Room Air 21 05/10/18 12:00 98.4 92 21 131/52 (78) 100 98.4 Intake and Output 05/10/18 05/11/18 19:00 07:00 Intake Total 2668 ml 1160 ml Output Total 1630 ml 550 ml Balance 1038 ml 610 ml Intake Oral 600 ml IV Total 2668 ml 560 ml Output Urine Total 780 ml 550 ml Emesis 850 ml Estimated Blood Loss 0 ml # Voids 2 4 Laboratory Tests Test 05/11/18 08:00 White Blood Count 3.9 K/UL (4.8-10.8) L Red Blood Count 2.54 M/UL (4.70-6.10) L Hemoglobin 8.5 G/DL (14.2-18.0) L Hematocrit 23.2 % (42.0-52.0) L Mean Corpuscular Volume 91 FL (80-99) Mean Corpuscular Hemoglobin 33.5 PG (27.0-31.0) H Mean Corpuscular Hemoglobin Concent 36.6 G/DL (32.0-36.0) H Red Cell Distribution Width 14.4 % (11.6-14.8) Platelet Count 225 K/UL (150-450) Mean Platelet Volume 5.1 FL (6.5-10.1) L Neutrophils (%) (Auto) 75.5 % (45.0-75.0) H Lymphocytes (%) (Auto) 20.1 % (20.0-45.0) Monocytes (%) (Auto) 3.7 % (1.0-10.0) Eosinophils (%) (Auto) 0.6 % (0.0-3.0) Basophils (%) (Auto) 0.2 % (0.0-2.0) Sodium Level 139 MMOL/L (136-145) Potassium Level 3.3 MMOL/L (3.5-5.1) L Chloride Level 103 MMOL/L (98-107) Carbon Dioxide Level 34 MMOL/L (21-32) H Anion Gap 2 mmol/L (5-15) L Blood Urea Nitrogen 20 mg/dL (7-18) H Creatinine 0.6 MG/DL (0.55-1.30) Estimat Glomerular Filtration Rate > 60 mL/min (>60) Glucose Level 318 MG/DL (74-106) #H Calcium Level 7.2 MG/DL (8.5-10.1) L Height (Feet): 5 Height (Inches): 6.00 Weight (Pounds): 160 General Appearance: WD/WN, no apparent distress, alert, thin Cardiovascular: normal rate Respiratory/Chest: normal breath sounds, no respiratory distress Abdominal Exam: normal bowel sounds, non tender, soft Extremities: normal range of motion, non-tender Melita Delgado NP May 11, 2018 11:16
--- NOTE | 2018-05-11 11:23 | Diagnostic Imaging Report ---
Indication: Abdominal pain Technique: Continuous helical transaxial imaging of the abdomen and pelvis was obtained from the lung bases to the pubic symphysis during intravenous contrast administration. Coronal 2-D reformats were also obtained. Study obtained in a Siemens sensation [address] Automatic Exposure Control was utilized. Total Dose length Product (DLP): [address] Dose Index Volume (CTDIvol): 11.63 mGy Comparison: 04/30/2018 Findings: There is relatively poor opacification of small bowel. Definite intussusception not seen at this time as was the case on the prior occasion and particular attention to the lower abdomen. There is no bowel dilatation to suggest obstruction. There is contrast within the colon at this time. There is moderate ascites. There is again noted some mild thickening of the mucosa of small bowel. This is a diffuse process involving the entirety of the small bowel. 6 suspect enteritis or hypoproteinemia or other causes of bowel wall edema. Grossly, branches of the SMA appear patent. The celiac artery is patent. Aorta is unremarkable. Small bilateral pleural effusions present larger on the left. Associated posterior basal atelectasis demonstrated. The gallbladder, liver, spleen, kidneys, pancreas appear unremarkable. IMPRESSION: No evidence of small bowel obstruction. Previously demonstrated intussusception within the small bowel is not appreciated on the current study and may have resolved. One caveat is the small bowel is not well opacified on this examination. Diffuse thickening of the small bowel mucosa and wall. Etiology unknown but consider inflammatory enteritis, hypoproteinemia, hemorrhage, other causes of bowel wall edema. Moderate ascites Anasarca Basilar pleural effusions larger on the left compared to the right The CT scanner at [facility] is accredited by the [employer] and the scans are performed using dose optimization techniques as appropriate to a performed exam including Automatic Exposure control.
--- NOTE | 2018-05-11 12:25 | Pulmonology Progress Note ---
Assessment/Plan Problems: (1) Nausea, vomiting, and diarrhea (2) Gastroparesis (3) Intractable vomiting (4) Anemia Assessment/Plan still vomiting symptomatic treatment on TPN K supplement enteroscopy in am Subjective Interval Events: on TPN, for enteroscopy in am Allergies: Coded Allergies: NO KNOWN ALLERGIES (Unverified Allergy, Unknown, 06/26/15) Objective Last 24 Hour Vital Signs Date Time Temp Pulse Resp B/P (MAP) Pulse Ox O2 Delivery O2 Flow Rate FiO2 05/11/18 09:00 Room Air 05/11/18 08:00 97.8 99 18 116/68 (84) 98 97.8 05/11/18 05:00 98.0 99 18 110/69 (83) 98 98.0 05/11/18 04:29 98.4 99 17 85/55 (65) 97 98.4 05/11/18 00:22 98.4 98 17 135/88 (104) 96 98.4 05/10/18 21:52 Room Air 05/10/18 20:11 80 20 Room Air 21 05/10/18 20:00 98.3 100 18 131/90 (104) 96 98.3 05/10/18 16:00 98.2 96 20 110/68 (82) 100 98.2 05/10/18 13:07 88 20 Room Air 21 Intake and Output 05/10/18 05/11/18 19:00 07:00 Intake Total 2668 ml 1160 ml Output Total 1630 ml 550 ml Balance 1038 ml 610 ml Intake Oral 600 ml IV Total 2668 ml 560 ml Output Urine Total 780 ml 550 ml Emesis 850 ml Estimated Blood Loss 0 ml # Voids 2 4 Objective General Appearance: WD/WN HEENT: normocephalic, anicteric Breasts: no masses Cardiovascular: normal peripheral pulses, regular rhythm Abdomen: soft, non tender, no organomegaly Extremities: no cyanosis Skin: no rash Laboratory Tests 05/11/18 08:00: White Blood Count 3.9L, Red Blood Count 2.54L, Hemoglobin 8.5L, Hematocrit 23.2L , Mean Corpuscular Volume 91, Mean Corpuscular Hemoglobin 33.5H, Mean Corpuscular Hemoglobin Concent 36.6H, Red Cell Distribution Width 14.4, Platelet Count 225, Mean Platelet Volume 5.1L, Neutrophils (%) (Auto) 75.5H, Lymphocytes (%) (Auto) 20.1, Monocytes (%) (Auto) 3.7, Eosinophils (%) (Auto) 0.6, Basophils (%) (Auto) 0.2, Sodium Level 139, Potassium Level 3.3L, Chloride Level 103, Carbon Dioxide Level 34H, Anion Gap 2L, Blood Urea Nitrogen 20H, Creatinine 0.6, Estimat Glomerular Filtration Rate > 60, Glucose Level 318#H, Calcium Level 7.2L Current Medications Medications (Trade) Dose Ordered Sig/Herminia Route PRN Reason Start Time Stop Time Status Last Admin Dose Admin Acetaminophen (Tylenol) 650 mg Q4H PRN ORAL fever 05/02/18 17:54 05/28/18 17:53 Al Hydroxide/Mg Hydroxide (Mylanta II) 30 ml Q6H PRN ORAL dyspepsia 05/02/18 17:54 05/28/18 17:53 05/08/18 02:37 Barium Sulfate (Barium EZ Gas II) 1 ea NOW PRN [facility] Radiology Procedure 05/10/18 09:00 05/12/18 08:59 Barium Sulfate (Readi-Cat 2) 450 ml NOW PRN ORAL Radiology Procedure 05/10/18 15:00 05/12/18 14:53 Chlorhexidine Gluconate (Flores-Hex 2%) 1 applic DAILY@2000 TOPIC 05/04/18 20:00 06/03/18 19:59 05/10/18 21:04 Clonidine HCl (Catapres Tab) 0.1 mg Q4H PRN ORAL sbp more than 160 05/02/18 17:54 05/28/18 17:53 Dextrose 1,000 ml @ 0 mls/hr Q24H PRN IV PN interrupted or unavailable 05/09/18 12:00 06/08/18 11:59 Dextrose (Dextrose 50%) 25 ml Q30M PRN IV Hypoglycemia 05/04/18 07:15 06/03/18 07:14 Dextrose (Dextrose 50%) 50 ml Q30M PRN IV Hypoglycemia 05/04/18 07:15 06/03/18 07:14 Docusate Sodium (Colace) 100 mg THREE TIMES A DAY ORAL 05/03/18 09:00 06/02/18 08:59 05/10/18 17:09 Fat Emulsion Intravenous 192 ml/Amino Acids/ Electrolytes/ Dextrose 1,920 ml @ 80 mls/hr Q24H IV 05/10/18 20:00 06/09/18 19:59 05/10/18 20:48 Heparin Sodium (Porcine) (Heparin 5000 units/ml) 5,000 units EVERY 12 HOURS SUBQ 05/02/18 21:00 05/28/18 20:59 05/10/18 21:07 Insulin Aspart (NovoLOG) Q6HR SUBQ 05/10/18 00:00 06/09/18 00:00 05/11/18 06:24 Insulin Detemir (Levemir) 6 units DAILY SUBQ 05/11/18 09:00 06/10/18 08:59 Iopamidol (Isovue-300 100ml) 100 ml NOW PRN INJ Radiology Procedure 05/10/18 15:00 05/11/18 23:59 Metoclopramide HCl (Reglan) 10 mg Q6HR IVP 05/08/18 18:00 06/07/18 17:59 05/11/18 06:26 Nicotine (Nicoderm) 1 patch Q24H TDERMAL 05/09/18 11:00 06/08/18 10:59 05/09/18 11:00 Nitroglycerin (Ntg) 0.4 mg Q5M X 3 DOSES PRN SL Prn Chest Pain 05/02/18 18:00 05/28/18 17:44 Ondansetron HCl (Zofran) 4 mg Q6H PRN IVP Nausea & Vomiting 05/02/18 17:55 05/28/18 17:54 05/10/18 19:57 Pantoprazole (Protonix) 40 mg BIAC ORAL 05/10/18 16:30 06/09/18 16:29 05/10/18 17:09 Pantoprazole (Protonix) 40 mg DAILY ORAL 05/03/18 09:00 06/01/18 08:59 05/09/18 08:39 Promethazine HCl (Phenergan) 25 mg Q6H PRN IM Nausea & Vomiting 05/04/18 20:15 06/03/18 20:14 05/04/18 21:01 Rosa Jamil MD May 11, 2018 12:25
--- NOTE | 2018-05-11 12:30 | Internal Med Progress Note ---
Subjective Date of Service: May 11, 2018 Physician Name GraceYunier Attending Physician Aly Ricks MD Current Medications Medications (Trade) Dose Ordered Sig/Herminia Route PRN Reason Start Time Stop Time Status Last Admin Dose Admin Acetaminophen (Tylenol) 650 mg Q4H PRN ORAL fever 05/02/18 17:54 05/28/18 17:53 Al Hydroxide/Mg Hydroxide (Mylanta II) 30 ml Q6H PRN ORAL dyspepsia 05/02/18 17:54 05/28/18 17:53 05/08/18 02:37 Barium Sulfate (Barium EZ Gas II) 1 ea NOW PRN MC Radiology Procedure 05/10/18 09:00 05/12/18 08:59 Barium Sulfate (Readi-Cat 2) 450 ml NOW PRN ORAL Radiology Procedure 05/10/18 15:00 05/12/18 14:53 Chlorhexidine Gluconate (Flores-Hex 2%) 1 applic DAILY@2000 TOPIC 05/04/18 20:00 06/03/18 19:59 05/10/18 21:04 Clonidine HCl (Catapres Tab) 0.1 mg Q4H PRN ORAL sbp more than 160 05/02/18 17:54 05/28/18 17:53 Dextrose 1,000 ml @ 0 mls/hr Q24H PRN IV PN interrupted or unavailable 05/09/18 12:00 06/08/18 11:59 Dextrose (Dextrose 50%) 25 ml Q30M PRN IV Hypoglycemia 05/04/18 07:15 06/03/18 07:14 Dextrose (Dextrose 50%) 50 ml Q30M PRN IV Hypoglycemia 05/04/18 07:15 06/03/18 07:14 Docusate Sodium (Colace) 100 mg THREE TIMES A DAY ORAL 05/03/18 09:00 06/02/18 08:59 05/10/18 17:09 Fat Emulsion Intravenous 192 ml/Amino Acids/ Electrolytes/ Dextrose 1,920 ml @ 80 mls/hr Q24H IV 05/10/18 20:00 06/09/18 19:59 05/10/18 20:48 Heparin Sodium (Porcine) (Heparin 5000 units/ml) 5,000 units EVERY 12 HOURS SUBQ 05/02/18 21:00 05/28/18 20:59 05/10/18 21:07 Insulin Aspart (NovoLOG) Q6HR SUBQ 05/10/18 00:00 06/09/18 00:00 05/11/18 06:24 Insulin Detemir (Levemir) 6 units DAILY SUBQ 05/11/18 09:00 06/10/18 08:59 Iopamidol (Isovue-300 100ml) 100 ml NOW PRN INJ Radiology Procedure 05/10/18 15:00 05/11/18 23:59 Metoclopramide HCl (Reglan) 10 mg Q6HR IVP 05/08/18 18:00 06/07/18 17:59 05/11/18 06:26 Nicotine (Nicoderm) 1 patch Q24H TDERMAL 05/09/18 11:00 06/08/18 10:59 05/09/18 11:00 Nitroglycerin (Ntg) 0.4 mg Q5M X 3 DOSES PRN SL Prn Chest Pain 05/02/18 18:00 05/28/18 17:44 Ondansetron HCl (Zofran) 4 mg Q6H PRN IVP Nausea & Vomiting 05/02/18 17:55 05/28/18 17:54 05/10/18 19:57 Pantoprazole (Protonix) 40 mg BIAC ORAL 05/10/18 16:30 06/09/18 16:29 05/10/18 17:09 Pantoprazole (Protonix) 40 mg DAILY ORAL 05/03/18 09:00 06/01/18 08:59 05/09/18 08:39 Promethazine HCl (Phenergan) 25 mg Q6H PRN IM Nausea & Vomiting 05/04/18 20:15 06/03/18 20:14 05/04/18 21:01 Allergies: Coded Allergies: NO KNOWN ALLERGIES (Unverified Allergy, Unknown, 06/26/15) ROS Limited/Unobtainable: No Constitutional: Reports: no symptoms HEENT: Reports: no symptoms Cardiovascular: Reports: no symptoms Respiratory: Reports: no symptoms Gastrointestinal/Abdominal: Reports: abdominal pain, nausea, vomiting Genitourinary: Reports: no symptoms Neurologic/Psychiatric: Reports: no symptoms Subjective 47 YO M admitted with hyperglycemia. Now intractable nausea and vomiting. Intussusception of small bowel. Cover for Int Magdi-Dr Ricks. S/P paracentesis 05/02/18. S/P Endoscopy 05/10/18. Await enteroscopy 05/12/18 Objective Last Vital Signs Date Time Temp Pulse Resp B/P (MAP) Pulse Ox O2 Delivery O2 Flow Rate FiO2 05/11/18 09:00 Room Air 05/11/18 08:00 97.8 99 18 116/68 (84) 98 97.8 05/10/18 20:11 21 05/10/18 09:30 3 Laboratory Tests Test 05/11/18 08:00 White Blood Count 3.9 K/UL (4.8-10.8) L Red Blood Count 2.54 M/UL (4.70-6.10) L Hemoglobin 8.5 G/DL (14.2-18.0) L Hematocrit 23.2 % (42.0-52.0) L Mean Corpuscular Volume 91 FL (80-99) Mean Corpuscular Hemoglobin 33.5 PG (27.0-31.0) H Mean Corpuscular Hemoglobin Concent 36.6 G/DL (32.0-36.0) H Red Cell Distribution Width 14.4 % (11.6-14.8) Platelet Count 225 K/UL (150-450) Mean Platelet Volume 5.1 FL (6.5-10.1) L Neutrophils (%) (Auto) 75.5 % (45.0-75.0) H Lymphocytes (%) (Auto) 20.1 % (20.0-45.0) Monocytes (%) (Auto) 3.7 % (1.0-10.0) Eosinophils (%) (Auto) 0.6 % (0.0-3.0) Basophils (%) (Auto) 0.2 % (0.0-2.0) Sodium Level 139 MMOL/L (136-145) Potassium Level 3.3 MMOL/L (3.5-5.1) L Chloride Level 103 MMOL/L (98-107) Carbon Dioxide Level 34 MMOL/L (21-32) H Anion Gap 2 mmol/L (5-15) L Blood Urea Nitrogen 20 mg/dL (7-18) H Creatinine 0.6 MG/DL (0.55-1.30) Estimat Glomerular Filtration Rate > 60 mL/min (>60) Glucose Level 318 MG/DL (74-106) #H Calcium Level 7.2 MG/DL (8.5-10.1) L Intake and Output 05/10/18 05/11/18 19:00 07:00 Intake Total 2668 ml 1160 ml Output Total 1630 ml 550 ml Balance 1038 ml 610 ml Intake Oral 600 ml IV Total 2668 ml 560 ml Output Urine Total 780 ml 550 ml Emesis 850 ml Estimated Blood Loss 0 ml # Voids 2 4 Objective PHYSICAL EXAMINATION: GENERAL: The patient is thin-appearing male, who is obviously nauseated. HEENT: Eyes, pupils are equal, responsive to light and accommodation. Extraocular movements are intact. NECK: Supple without lymphadenopathy. CHEST: Lungs are clear to auscultation bilaterally without wheezes or rales. CARDIOVASCULAR: Regular rate. S1, S2 normal without murmurs, rubs, or gallops. ABDOMEN: Soft, diffusely tender with positive bowel sounds. No evidence of hepatosplenomegaly. No rebound or guarding noted. EXTREMITIES: Negative for clubbing, cyanosis, or edema. RECTAL: Refused. GENITALIA: Refused. NEUROLOGIC: Cranial nerves II through XII are grossly intact without focal deficits. Motor strength is 5/5 bilaterally. Deep tendon reflexes are 2+ plantar. Assessment/Plan Problem List: (1) Pancreatitis Assessment & Plan: CT and US=no common bile duct stone. See GI note. (2) Hypokalemia Assessment & Plan: Replace KCL IV (3) Hyperglycemia (4) DKA (diabetic ketoacidoses) (5) Intussusception of intestine Assessment & Plan: Non obstructive. See surgery consult (6) Elevated transaminase level (7) Abdominal pain (8) Edema Assessment & Plan: Decrease IV fluids. Patient wants lasix. (9) Ascites (10) Anemia Assessment & Plan: ?GI bleed? S/P transfusion 1 unit PRBC 05/05/18. S/P Endoscopy 05/10/18=esophagitis (11) Esophagitis determined by endoscopy Assessment & Plan: Severe grade IV. See GI note (12) Intractable vomiting Assessment & Plan: See GI note. Enteroscopy 05/12/18 Status: not improved Yunier Edwards MD May 11, 2018 12:30
--- NOTE | 2018-05-11 16:47 | General Surgery Progress Note ---
General Surgery-Progress Note Subjective Additional Comments No evidence of small bowel obstruction. Previously demonstrated intussusception within the small bowel is not appreciated on the current study and may have resolved. One caveat is the small bowel is not well opacified on this examination. Diffuse thickening of the small bowel mucosa and wall. Etiology unknown but consider inflammatory enteritis, hypoproteinemia, hemorrhage, other causes of bowel wall edema. Moderate ascites Anasarca Objective Last 24 Hour Vital Signs Date Time Temp Pulse Resp B/P (MAP) Pulse Ox O2 Delivery O2 Flow Rate FiO2 05/11/18 09:00 Room Air 05/11/18 08:00 97.8 99 18 116/68 (84) 98 97.8 05/11/18 05:00 98.0 99 18 110/69 (83) 98 98.0 05/11/18 04:29 98.4 99 17 85/55 (65) 97 98.4 05/11/18 00:22 98.4 98 17 135/88 (104) 96 98.4 05/10/18 21:52 Room Air 05/10/18 20:11 80 20 Room Air 21 05/10/18 20:00 98.3 100 18 131/90 (104) 96 98.3 I&O Intake and Output 05/10/18 05/11/18 19:00 07:00 Intake Total 2668 ml 1160 ml Output Total 1630 ml 550 ml Balance 1038 ml 610 ml Intake Oral 600 ml IV Total 2668 ml 560 ml Output Urine Total 780 ml 550 ml Emesis 850 ml Estimated Blood Loss 0 ml # Voids 2 4 Dressing: dry Wound: clean Drains: none Cardiovascular: RSR Respiratory: clear Abdomen: soft, distended, present bowel sounds Extremities: no cyanosis, other Laboratory Tests Test 05/11/18 08:00 White Blood Count 3.9 K/UL (4.8-10.8) L Red Blood Count 2.54 M/UL (4.70-6.10) L Hemoglobin 8.5 G/DL (14.2-18.0) L Hematocrit 23.2 % (42.0-52.0) L Mean Corpuscular Volume 91 FL (80-99) Mean Corpuscular Hemoglobin 33.5 PG (27.0-31.0) H Mean Corpuscular Hemoglobin Concent 36.6 G/DL (32.0-36.0) H Red Cell Distribution Width 14.4 % (11.6-14.8) Platelet Count 225 K/UL (150-450) Mean Platelet Volume 5.1 FL (6.5-10.1) L Neutrophils (%) (Auto) 75.5 % (45.0-75.0) H Lymphocytes (%) (Auto) 20.1 % (20.0-45.0) Monocytes (%) (Auto) 3.7 % (1.0-10.0) Eosinophils (%) (Auto) 0.6 % (0.0-3.0) Basophils (%) (Auto) 0.2 % (0.0-2.0) Sodium Level 139 MMOL/L (136-145) Potassium Level 3.3 MMOL/L (3.5-5.1) L Chloride Level 103 MMOL/L (98-107) Carbon Dioxide Level 34 MMOL/L (21-32) H Anion Gap 2 mmol/L (5-15) L Blood Urea Nitrogen 20 mg/dL (7-18) H Creatinine 0.6 MG/DL (0.55-1.30) Estimat Glomerular Filtration Rate > 60 mL/min (>60) Glucose Level 318 MG/DL (74-106) #H Calcium Level 7.2 MG/DL (8.5-10.1) L Plan Problems: (1) Intussusception of intestine Assessment & Plan: CT Findings: 1. Short segment small bowel intussusception in the left lower quadrant ( series 5 image 58). No lead point lesions. No evidence of bowel obstruction. No focal bowel wall thickening. No adjacent inflammatory change. This may represent transient intussusception and is of uncertain clinical significance. 2. Sigmoid diverticulosis without wall thickening or adjacent inflammatory change. CT reviewed. - likely transient and benign. exam stable, no obstruction, no thickening, no inflammation. leukocytosis unlikely due to this. does have elevated LFT. possible cholecystitis? possible hepatitis Ultrasound reviewed. ascites and liver abnormal. Gallbladder okay. t bili trending down. lip/nicolette nml. lfts improved. denies EtOH history. likely hepatitis? abd distention related to ascites. unsure of etiology for nausea and emesis but not obstructive in nature. paracentesis path noted. no malignant cells hepatitis panel negative gastric study abnormal delay CT without findings of intussusception or sbo poor protein and hypo albumin from chronic emesis very concerning and etiology unknown discussed with GI. agree with repeat scope and push to small bowel for biopsy. -PPI -trend labs -tpn as per gi thank you. will follow with marbin. Long Guevara May 11, 2018 16:47
[2018-05-11] MEDS ORDERED: TPN IV SCH (20:00)
[2018-05-11] MEDS ORDERED: FAT EMULSION 20% IV SCH (20:00)
[2018-05-11] MEDS: Dyna-Hex 2% Top Sol 2oz TOPIC SCH (20:21)
[2018-05-11 20:23] VITALS: BP 102/76
[2018-05-12] VITALS (8 sets, daily range): BP systolic 97–110; BP diastolic 63–82
[2018-05-12] MEDS: NovoLOG Insulin Flexpen SUBQ SCH ×4 (05:40→18:27)
[2018-05-12 06:20] LABS: INR 1.1 (0.9-1.1)
[2018-05-12 06:29] LABS: HEMATOCRIT 22.7 % (42.0-52.0); HEMOGLOBIN 8.1 G/DL (14.2-18.0); MEAN CORPUSCULAR VOLUME 90 FL (80-99); PLATELET COUNT 215 K/UL (150-450); RED BLOOD COUNT 2.51 M/UL (4.70-6.10); RED CELL DISTRIBUTION WIDTH 14.1 % (11.6-14.8); WHITE BLOOD COUNT 3.2 K/UL (4.8-10.8)
[2018-05-12 06:45] LABS: ANION GAP 0 mmol/L (5-15); BLOOD UREA NITROGEN 21 mg/dL (7-18); CARBON DIOXIDE 34 MMOL/L (21-32); CHLORIDE 105 MMOL/L (98-107); CREATININE 0.6 MG/DL (0.55-1.30); POTASSIUM 3.5 MMOL/L (3.5-5.1); SODIUM 139 MMOL/L (136-145)
--- NOTE | 2018-05-12 08:46 | General Progress Note ---
Assessment/Plan Problem List: (1) Pancreatitis ICD Codes: K85.90 - Acute pancreatitis without necrosis or infection, unspecified SNOMED: 77342631 (2) Hyponatremia ICD Codes: E87.1 - Hyponatremia SNOMED: 57956593 (3) Nausea, vomiting, and diarrhea ICD Codes: R11.2 - Nausea with vomiting, unspecified; R19.7 - Diarrhea, unspecified SNOMED: 8907316 Assessment/Plan increase regular insulin of TPN from 13 to 20 units / bag increase Levemir to 10 units bid discussed with pharmacist continue NISS Subjective Allergies: Coded Allergies: NO KNOWN ALLERGIES (Unverified Allergy, Unknown, 06/26/15) All Systems: reviewed and negative except above Subjective events noted Objective Last 24 Hour Vital Signs Date Time Temp Pulse Resp B/P (MAP) Pulse Ox O2 Delivery O2 Flow Rate FiO2 05/12/18 08:00 98.1 82 17 97/63 (74) 100 98.1 05/12/18 04:00 97.4 101 16 107/73 (84) 96 97.4 05/12/18 00:00 98.3 105 17 108/82 (91) 98 98.3 05/11/18 21:00 Room Air 05/11/18 20:23 98.1 116 18 102/76 (85) 98 98.1 05/11/18 09:00 Room Air Intake and Output 05/11/18 05/12/18 19:00 07:00 Intake Total 880 ml 960 ml Output Total 350 ml 800 ml Balance 530 ml 160 ml IV Total 880 ml 960 ml Output Urine Total 350 ml 500 ml Emesis 300 ml # Voids 2 1 Laboratory Tests 05/12/18 05:05: White Blood Count 3.2L, Red Blood Count 2.51L, Hemoglobin 8.1L, Hematocrit 22.7L , Mean Corpuscular Volume 90, Mean Corpuscular Hemoglobin 32.4H, Mean Corpuscular Hemoglobin Concent 35.9, Red Cell Distribution Width 14.1, Platelet Count 215, Mean Platelet Volume 4.8L, Neutrophils (%) (Auto) , Lymphocytes (%) ( Auto) , Monocytes (%) (Auto) , Eosinophils (%) (Auto) , Basophils (%) (Auto) , Differential Total Cells Counted 100, Neutrophils % (Manual) 73, Lymphocytes % ( Manual) 25, Monocytes % (Manual) 1, Eosinophils % (Manual) 1, Basophils % ( Manual) 0, Band Neutrophils 0, Platelet Estimate Adequate, Platelet Morphology Normal, Anisocytosis 1+, Microcytosis 1+, Prothrombin Time 11.2, Prothromb Time International Ratio 1.1, Activated Partial Thromboplast Time 27, Sodium Level 139, Potassium Level 3.5, Chloride Level 105, Carbon Dioxide Level 34H, Anion Gap 0L, Blood Urea Nitrogen 21H, Creatinine 0.6, Estimat Glomerular Filtration Rate > 60, Glucose Level 358H, Calcium Level 7.0L Height (Feet): 5 Height (Inches): 6.00 Weight (Pounds): 160 General Appearance: no apparent distress Neck: normal alignment Cardiovascular: normal rate Respiratory/Chest: lungs clear Objective Current Medications Medications (Trade) Dose Ordered Sig/[place]erm[place] Route PRN Reason Start Time Stop Time Status Last Admin Dose Admin Acetaminophen (Tylenol) 650 mg Q4H PRN ORAL fever 05/02/18 17:54 05/28/18 17:53 Al Hydroxide/Mg Hydroxide (Mylanta II) 30 ml Q6H PRN ORAL dyspepsia 05/02/18 17:54 05/28/18 17:53 05/08/18 02:37 Chlorhexidine Gluconate (Flores-Hex 2%) 1 applic DAILY@2000 TOPIC 05/04/18 20:00 06/03/18 19:59 05/11/18 20:21 Clonidine HCl (Catapres Tab) 0.1 mg Q4H PRN ORAL sbp more than 160 05/02/18 17:54 05/28/18 17:53 Dextrose 1,000 ml @ 0 mls/hr Q24H PRN IV PN interrupted or unavailable 05/09/18 12:00 06/08/18 11:59 Dextrose (Dextrose 50%) 25 ml Q30M PRN IV Hypoglycemia 05/04/18 07:15 06/03/18 07:14 Dextrose (Dextrose 50%) 50 ml Q30M PRN IV Hypoglycemia 05/04/18 07:15 06/03/18 07:14 Docusate Sodium (Colace) 100 mg THREE TIMES A DAY ORAL 05/03/18 09:00 06/02/18 08:59 05/11/18 12:30 Fat Emulsion Intravenous 192 ml/Amino Acids/ Electrolytes/ Dextrose 1,920 ml @ 80 mls/hr Q24H IV 05/11/18 20:00 06/10/18 19:59 05/11/18 20:21 Heparin Sodium (Porcine) (Heparin 5000 units/ml) 5,000 units EVERY 12 HOURS SUBQ 05/02/18 21:00 05/28/18 20:59 05/11/18 20:21 Insulin Aspart (NovoLOG) Q6HR SUBQ 05/10/18 00:00 06/09/18 00:00 05/12/18 05:40 Insulin Detemir (Levemir) 6 units DAILY SUBQ 05/11/18 09:00 06/10/18 08:59 Nicotine (Nicoderm) 1 patch Q24H TDERMAL 05/09/18 11:00 06/08/18 10:59 05/09/18 11:00 Nitroglycerin (Ntg) 0.4 mg Q5M X 3 DOSES PRN SL Prn Chest Pain 05/02/18 18:00 05/28/18 17:44 Ondansetron HCl (Zofran) 4 mg Q6H PRN IVP Nausea & Vomiting 05/02/18 17:55 05/28/18 17:54 05/10/18 19:57 Pantoprazole (Protonix) 40 mg BIAC ORAL 05/10/18 16:30 06/09/18 16:29 05/10/18 17:09 Promethazine HCl (Phenergan) 25 mg Q6H PRN IM Nausea & Vomiting 05/04/18 20:15 06/03/18 20:14 05/04/18 21:01 Item Value Date Time Bedside Blood Glucose 390 mg/dl H 05/12/18 0600 Bedside Blood Glucose 343 mg/dl H 05/11/18 1238 Bedside Blood Glucose 301 mg/dl H 05/11/18 0900 Bedside Blood Glucose 301 mg/dl H 05/11/18 0624 Saad Laurent MD May 12, 2018 08:46
[2018-05-12] MEDS: Heparin 5000 units/ml inj SUBQ SCH ×2 (08:54→21:52)
[2018-05-12] MEDS: Docusate 100mg cap ORAL SCH ×3 (08:54→18:26)
[2018-05-12] MEDS: Levemir Flexpen SUBQ SCH ×2 (08:55→21:52)
[2018-05-12] MEDS ORDERED: fentaNYL 100 mcg/2 mL IV PRN (10:00)
[2018-05-12] MEDS ORDERED: Lidocaine 1% MPF 10mg/ml 5ml ONE (10:00)
[2018-05-12] MEDS ORDERED: Propofol 200mg/20ml IV ONE (10:00)
[2018-05-12] MEDS ORDERED: Atropine Inj 1mg/10ml Syr IV PRN (10:00)
[2018-05-12] MEDS ORDERED: Midazolam 2mg/2ml Inj IVP PRN (10:00)
[2018-05-12] MEDS ORDERED: DiphenhydrAMINE 50mg/ml Inj IVP PRN (10:00)
--- NOTE | 2018-05-12 10:02 | Anethesia Preoperative Eval ---
Anesthesia Pre-op PMH/ROS General Date of Evaluation: May 12, 2018 Time of Evaluation: 09:58 Anesthesiologist: gabi ASA Score: ASA 3 Mallampati Score Class I : Soft palate, uvula, fauces, pillars visible Class II: Soft palate, uvula, fauces visible Class III: Soft palate, base of uvula visible Class IV: Only hard plate visible Mallampati Classification: Class II Surgeon: miryam Diagnosis: vomiting Surgical Procedure: enteroscopy Anesthesia History: none Social History: drug use Family History: no anesthesia problems Allergies: Coded Allergies: NO KNOWN ALLERGIES (Unverified Allergy, Unknown, 06/26/15) Medications: see eMAR Patient NPO?: Yes NPO Date: May 11, 2018 NPO Time: 12:41 Past Medical History Neurologic/Psychiatric: Reports: other - aloc Endocrine: Reports: DM, other - dka Anesthesia Pre-op Phys. Exam Physician Exam Last Vital Signs Date Time Temp Pulse Resp B/P (MAP) Pulse Ox O2 Delivery O2 Flow Rate FiO2 05/12/18 09:00 Room Air 05/12/18 08:00 98.1 82 17 97/63 (74) 100 98.1 05/10/18 20:11 21 05/10/18 09:30 3 Constitutional: NAD Neurologic: CN 2-12 intact Cardiovascular: RRR Respiratory: CTA Gastrointestinal: S/NT/ND Airway Exam Mallampati Score: Class II MO: full Neck: supple TMD: 2fb ROM: full Anesthesia Pre-op A/P Labs Hematology Test 05/12/18 05:05 White Blood Count 3.2 K/UL (4.8-10.8) L Red Blood Count 2.51 M/UL (4.70-6.10) L Hemoglobin 8.1 G/DL (14.2-18.0) L Hematocrit 22.7 % (42.0-52.0) L Mean Corpuscular Volume 90 FL (80-99) Mean Corpuscular Hemoglobin 32.4 PG (27.0-31.0) H Mean Corpuscular Hemoglobin Concent 35.9 G/DL (32.0-36.0) Red Cell Distribution Width 14.1 % (11.6-14.8) Platelet Count 215 K/UL (150-450) Mean Platelet Volume 4.8 FL (6.5-10.1) L Neutrophils (%) (Auto) % (45.0-75.0) Lymphocytes (%) (Auto) % (20.0-45.0) Monocytes (%) (Auto) % (1.0-10.0) Eosinophils (%) (Auto) % (0.0-3.0) Basophils (%) (Auto) % (0.0-2.0) Differential Total Cells Counted 100 Neutrophils % (Manual) 73 % (45-75) Lymphocytes % (Manual) 25 % (20-45) Monocytes % (Manual) 1 % (1-10) Eosinophils % (Manual) 1 % (0-3) Basophils % (Manual) 0 % (0-2) Band Neutrophils 0 % (0-8) Platelet Estimate Adequate Platelet Morphology Normal Anisocytosis 1+ Microcytosis 1+ Coagulation Test 05/12/18 05:05 Prothrombin Time 11.2 SEC (9.30-11.50) Prothromb Time International Ratio 1.1 (0.9-1.1) Activated Partial Thromboplast Time 27 SEC (23-33) Chemistry Test 05/12/18 05:05 Sodium Level 139 MMOL/L (136-145) Potassium Level 3.5 MMOL/L (3.5-5.1) Chloride Level 105 MMOL/L (98-107) Carbon Dioxide Level 34 MMOL/L (21-32) H Anion Gap 0 mmol/L (5-15) L Blood Urea Nitrogen 21 mg/dL (7-18) H Creatinine 0.6 MG/DL (0.55-1.30) Estimat Glomerular Filtration Rate > 60 mL/min (>60) Glucose Level 358 MG/DL (74-106) H Calcium Level 7.0 MG/DL (8.5-10.1) L Studies Pre-op Studies: EKG - nsr Risk Assessment & Plan Assessment: asa3 Plan: mac Status Change Before Surgery: No Pre-Antibiotics Drug: Shari Morin MD May 12, 2018 10:02
[2018-05-12] MEDS ORDERED: NS 500ML IVPB ONE (10:30)
--- NOTE | 2018-05-12 10:39 | Pre-Procedure Note/Attestation ---
Pre-Procedure Note/Attestation Complete Prior to Procedure Planned Procedure: not applicable Procedure Narrative: enteroscopy Indications for Procedure Pre-Operative Diagnosis: vomiting Attestation I attest that I discussed the nature of the procedure; its benefits; risks and complications; and alternatives (and the risks and benefits of such alternatives ), prior to the procedure, with the patient (or the patient's legal packaging sales representative). I attest that, if there was a reasonable possibility of needing a blood transfusion, the patient (or the patient's legal packaging sales representative) was given the [facility] standardized written summary, pursuant to the Ryder Ramona Blood Safety Act ([place] Health and Safety Code # 1645, as amended). I attest that I re-evaluated the patient just prior to the surgery and that there has been no change in the patient's H&P, except as documented below: Pedro Ascencio MD May 12, 2018 10:39
--- NOTE | 2018-05-12 10:56 | Endoscopy Procedure Note ---
Endoscopy Procedure Note General Indication for Procedure: vomiting Procedures Performed: other - enteroscopy Operative Findings/Diagnosis: bowel edema Specimen: yes Pt Tolerated Procedure Well: Yes Estimated Blood Loss: none Anesthesia Anesthesiologist: ronaldo Anesthesia: MAC Inserted Devices Implant(s) used?: No GI Core Measures 50 yrs or older w/o bx or poly: Not Applicable 10yrs. F/U not recommended: Not Applicable Pedro Ascencio MD May 12, 2018 10:56
--- NOTE | 2018-05-12 11:42 | General Surgery Progress Note ---
General Surgery-Progress Note Subjective Additional Comments still with emesis. CT reviewed. Objective Last 24 Hour Vital Signs Date Time Temp Pulse Resp B/P (MAP) Pulse Ox O2 Delivery O2 Flow Rate FiO2 05/12/18 11:22 98.0 81 16 101/72 100 Nasal Cannula 3 98.0 05/12/18 11:10 84 15 106/74 100 Nasal Cannula 3 05/12/18 11:05 84 18 110/69 100 Nasal Cannula 3 05/12/18 11:00 97.9 85 21 103/76 100 Nasal Cannula 3 97.9 05/12/18 09:00 Room Air 05/12/18 08:00 98.1 82 17 97/63 (74) 100 98.1 05/12/18 04:00 97.4 101 16 107/73 (84) 96 97.4 05/12/18 00:00 98.3 105 17 108/82 (91) 98 98.3 05/11/18 21:00 Room Air 05/11/18 20:23 98.1 116 18 102/76 (85) 98 98.1 I&O Intake and Output 05/11/18 05/12/18 19:00 07:00 Intake Total 880 ml 960 ml Output Total 350 ml 800 ml Balance 530 ml 160 ml IV Total 880 ml 960 ml Output Urine Total 350 ml 500 ml Emesis 300 ml # Voids 2 1 Wound: clean, other Drains: none Cardiovascular: RSR Respiratory: clear Abdomen: soft, distended, tenderness, present bowel sounds Extremities: no cyanosis Laboratory Tests Test 05/12/18 05:05 White Blood Count 3.2 K/UL (4.8-10.8) L Red Blood Count 2.51 M/UL (4.70-6.10) L Hemoglobin 8.1 G/DL (14.2-18.0) L Hematocrit 22.7 % (42.0-52.0) L Mean Corpuscular Volume 90 FL (80-99) Mean Corpuscular Hemoglobin 32.4 PG (27.0-31.0) H Mean Corpuscular Hemoglobin Concent 35.9 G/DL (32.0-36.0) Red Cell Distribution Width 14.1 % (11.6-14.8) Platelet Count 215 K/UL (150-450) Mean Platelet Volume 4.8 FL (6.5-10.1) L Neutrophils (%) (Auto) % (45.0-75.0) Lymphocytes (%) (Auto) % (20.0-45.0) Monocytes (%) (Auto) % (1.0-10.0) Eosinophils (%) (Auto) % (0.0-3.0) Basophils (%) (Auto) % (0.0-2.0) Differential Total Cells Counted 100 Neutrophils % (Manual) 73 % (45-75) Lymphocytes % (Manual) 25 % (20-45) Monocytes % (Manual) 1 % (1-10) Eosinophils % (Manual) 1 % (0-3) Basophils % (Manual) 0 % (0-2) Band Neutrophils 0 % (0-8) Platelet Estimate Adequate Platelet Morphology Normal Anisocytosis 1+ Microcytosis 1+ Prothrombin Time 11.2 SEC (9.30-11.50) Prothromb Time International Ratio 1.1 (0.9-1.1) Activated Partial Thromboplast Time 27 SEC (23-33) Sodium Level 139 MMOL/L (136-145) Potassium Level 3.5 MMOL/L (3.5-5.1) Chloride Level 105 MMOL/L (98-107) Carbon Dioxide Level 34 MMOL/L (21-32) H Anion Gap 0 mmol/L (5-15) L Blood Urea Nitrogen 21 mg/dL (7-18) H Creatinine 0.6 MG/DL (0.55-1.30) Estimat Glomerular Filtration Rate > 60 mL/min (>60) Glucose Level 358 MG/DL (74-106) H Calcium Level 7.0 MG/DL (8.5-10.1) L Plan Problems: (1) Intussusception of intestine Assessment & Plan: CT Findings: 1. Short segment small bowel intussusception in the left lower quadrant ( series 5 image 58). No lead point lesions. No evidence of bowel obstruction. No focal bowel wall thickening. No adjacent inflammatory change. This may represent transient intussusception and is of uncertain clinical significance. 2. Sigmoid diverticulosis without wall thickening or adjacent inflammatory change. CT reviewed. - likely transient and benign. exam stable, no obstruction, no thickening, no inflammation. leukocytosis unlikely due to this. does have elevated LFT. possible cholecystitis? possible hepatitis Ultrasound reviewed. ascites and liver abnormal. Gallbladder okay. t bili trending down. lip/nicolette nml. lfts improved. denies EtOH history. likely hepatitis? abd distention related to ascites. unsure of etiology for nausea and emesis but not obstructive in nature. paracentesis path noted. no malignant cells hepatitis panel negative gastric study abnormal delay CT without findings of intussusception or sbo poor protein and hypo albumin from chronic emesis very concerning and etiology unknown discussed with GI. -repeat scope and push to small bowel for biopsy today. will await results -PPI -trend labs -tpn -bowel rest thank you. will follow with recs. Long Guevara May 12, 2018 11:42
--- NOTE | 2018-05-12 13:32 | Immediate Post-Op Evaluation ---
Immediate Post-Op Evalulation Immediate Post-Op Evalulation Procedure: enteroscopy Date of Evaluation: May 12, 2018 Time of Evaluation: 11:12 IV Fluids: 250ml 0.9ns Blood Products: none Estimated Blood Loss: negligible Blood Pressure Systolic: 103 Blood Pressure Diastolic: 76 Pulse Rate: 84 Respiratory Rate: 18 O2 Sat by Pulse Oximetry: 100 Temperature (Fahrenheit): 97.9 Pain Score (1-10): 0 Nausea: No Vomiting: No Complications none Patient Status: awake, reacts, patent Hydration Status: adequate Drug: Shari Morin MD May 12, 2018 13:32
--- NOTE | 2018-05-12 13:33 | 48 Hour Post Anesthesia Eval ---
Post Anesthesia Evaluation Procedure: enteroscopy Date of Evaluation: May 12, 2018 Time of Evaluation: 11:14 Blood Pressure Systolic: 106 0: 74 Pulse Rate: 84 Respiratory Rate: 18 Temperature (Fahrenheit): 97.9 O2 Sat by Pulse Oximetry: 100 Airway: patent Nausea: No Vomiting: No Pain Intensity: 0 Hydration Status: adequate Cardiopulmonary Status: stable Mental Status/LOC: patient returned to baseline Post-Anesthesia Complications: none Follow-up care needed: N/A Shari Menon MD May 12, 2018 13:33
--- NOTE | 2018-05-12 16:00 | Procedure Note ---
DATE OF PROCEDURE: 05/12/2018 SURGEON: Pedro Ascencio M.D. ANESTHESIOLOGIST: Dr. Rich. PROCEDURE: Enteroscopy with biopsy. ANESTHESIA: Per Dr. Rich. INSTRUMENT: Olymp[employer] . INDICATION: Evidence of small bowel disease and edema. The procedure, risks, benefits, and possible consequences, including hemorrhage, aspiration, perforation and infection, and alternative treatments, were explained to the patient/legal guardian by Dr. Pedro Ascencio and the patient/legal guardian understood and accepted these risks. DESCRIPTION OF PROCEDURE: After informed consent was obtained and the patient was adequately sedated, a pediatric colonoscope was advanced from the mouth into the jejunum. There was evidence of persistent esophagitis. In the stomach, there was a lot of greenish fluid which we aspirated. The patient had definitely evidence of gastroparesis. Bowel mucosa looked edematous. Biopsy from the small intestine was obtained for diagnosis. Right at the end of the procedure, the patient vomited one time, so we pulled the scope back and the procedure was terminated. SUMMARY OF FINDINGS: 1. Severe esophagitis. 2. Gastroparesis with retained greenish bile material in the stomach. 3. Bowel edema, status post biopsy. RECOMMENDATIONS: Follow up biopsy results and treat accordingly. Meanwhile, keep the patient on TPN. Keep n.p.o. Continue on Reglan IV. Follow up biopsy results. Pedro Ascencio M.D. DR: Dasia JOB#: [id number] CC:
--- NOTE | 2018-05-12 18:25 | Internal Med Progress Note ---
Subjective Date of Service: May 12, 2018 Physician Name EdwardsYunier Attending Physician Aly Ricks MD Current Medications Medications (Trade) Dose Ordered Sig/Herminia Route PRN Reason Start Time Stop Time Status Last Admin Dose Admin Acetaminophen (Tylenol) 650 mg Q4H PRN ORAL fever 05/02/18 17:54 05/28/18 17:53 Al Hydroxide/Mg Hydroxide (Mylanta II) 30 ml Q6H PRN ORAL dyspepsia 05/02/18 17:54 05/28/18 17:53 05/08/18 02:37 Chlorhexidine Gluconate (Flores-Hex 2%) 1 applic DAILY@2000 TOPIC 05/04/18 20:00 06/03/18 19:59 05/11/18 20:21 Clonidine HCl (Catapres Tab) 0.1 mg Q4H PRN ORAL sbp more than 160 05/02/18 17:54 05/28/18 17:53 Dextrose 1,000 ml @ 0 mls/hr Q24H PRN IV PN interrupted or unavailable 05/09/18 12:00 06/08/18 11:59 Dextrose (Dextrose 50%) 25 ml Q30M PRN IV Hypoglycemia 05/04/18 07:15 06/03/18 07:14 Dextrose (Dextrose 50%) 50 ml Q30M PRN IV Hypoglycemia 05/04/18 07:15 06/03/18 07:14 Docusate Sodium (Colace) 100 mg THREE TIMES A DAY ORAL 05/03/18 09:00 06/02/18 08:59 05/12/18 13:36 Fat Emulsion Intravenous 192 ml/Amino Acids/ Electrolytes/ Dextrose 1,920 ml @ 80 mls/hr Q24H IV 05/11/18 20:00 05/12/18 19:59 05/11/18 20:21 Fat Emulsion Intravenous 192 ml/Amino Acids/ Electrolytes/ Dextrose 1,920 ml @ 80 mls/hr Q24H IV 05/12/18 20:00 06/11/18 19:59 Fluconazole/ Sodium Chloride 200 ml @ 100 mls/hr Q24H IV 05/12/18 14:00 05/19/18 13:59 05/12/18 13:37 Heparin Sodium (Porcine) (Heparin 5000 units/ml) 5,000 units EVERY 12 HOURS SUBQ 05/02/18 21:00 05/28/18 20:59 05/11/18 20:21 Insulin Aspart (NovoLOG) Q6HR SUBQ 05/10/18 00:00 06/09/18 00:00 05/12/18 12:01 Insulin Detemir (Levemir) 10 units Q12HR SUBQ 05/12/18 10:00 06/11/18 09:59 05/12/18 08:55 Nicotine (Nicoderm) 1 patch Q24H TDERMAL 05/09/18 11:00 06/08/18 10:59 05/09/18 11:00 Nitroglycerin (Ntg) 0.4 mg Q5M X 3 DOSES PRN SL Prn Chest Pain 05/02/18 18:00 05/28/18 17:44 Ondansetron HCl (Zofran) 4 mg Q6H PRN IVP Nausea & Vomiting 05/02/18 17:55 05/28/18 17:54 05/10/18 19:57 Pantoprazole (Protonix) 40 mg BIAC ORAL 05/10/18 16:30 06/09/18 16:29 05/12/18 16:47 Promethazine HCl (Phenergan) 25 mg Q6H PRN IM Nausea & Vomiting 05/04/18 20:15 06/03/18 20:14 05/04/18 21:01 Allergies: Coded Allergies: NO KNOWN ALLERGIES (Unverified Allergy, Unknown, 06/26/15) ROS Limited/Unobtainable: No Constitutional: Reports: no symptoms HEENT: Reports: no symptoms Cardiovascular: Reports: no symptoms Respiratory: Reports: no symptoms Gastrointestinal/Abdominal: Reports: nausea, vomiting Genitourinary: Reports: no symptoms Neurologic/Psychiatric: Reports: no symptoms Subjective 47 YO M admitted with hyperglycemia. Now intractable nausea and vomiting. Intussusception of small bowel. Cover for Int Magdi-Dr Ricks. S/P paracentesis 05/02/18. S/P Endoscopy 05/10/18. S/P enteroscopy 05/12/18 Objective Last Vital Signs Date Time Temp Pulse Resp B/P (MAP) Pulse Ox O2 Delivery O2 Flow Rate FiO2 05/12/18 13:33 208.2 84 18 100 05/12/18 11:22 101/72 Nasal Cannula 3 10/9/18 20:11 21 Laboratory Tests Test 05/12/18 05:05 White Blood Count 3.2 K/UL (4.8-10.8) L Red Blood Count 2.51 M/UL (4.70-6.10) L Hemoglobin 8.1 G/DL (14.2-18.0) L Hematocrit 22.7 % (42.0-52.0) L Mean Corpuscular Volume 90 FL (80-99) Mean Corpuscular Hemoglobin 32.4 PG (27.0-31.0) H Mean Corpuscular Hemoglobin Concent 35.9 G/DL (32.0-36.0) Red Cell Distribution Width 14.1 % (11.6-14.8) Platelet Count 215 K/UL (150-450) Mean Platelet Volume 4.8 FL (6.5-10.1) L Neutrophils (%) (Auto) % (45.0-75.0) Lymphocytes (%) (Auto) % (20.0-45.0) Monocytes (%) (Auto) % (1.0-10.0) Eosinophils (%) (Auto) % (0.0-3.0) Basophils (%) (Auto) % (0.0-2.0) Differential Total Cells Counted 100 Neutrophils % (Manual) 73 % (45-75) Lymphocytes % (Manual) 25 % (20-45) Monocytes % (Manual) 1 % (1-10) Eosinophils % (Manual) 1 % (0-3) Basophils % (Manual) 0 % (0-2) Band Neutrophils 0 % (0-8) Platelet Estimate Adequate Platelet Morphology Normal Anisocytosis 1+ Microcytosis 1+ Prothrombin Time 11.2 SEC (9.30-11.50) Prothromb Time International Ratio 1.1 (0.9-1.1) Activated Partial Thromboplast Time 27 SEC (23-33) Sodium Level 139 MMOL/L (136-145) Potassium Level 3.5 MMOL/L (3.5-5.1) Chloride Level 105 MMOL/L (98-107) Carbon Dioxide Level 34 MMOL/L (21-32) H Anion Gap 0 mmol/L (5-15) L Blood Urea Nitrogen 21 mg/dL (7-18) H Creatinine 0.6 MG/DL (0.55-1.30) Estimat Glomerular Filtration Rate > 60 mL/min (>60) Glucose Level 358 MG/DL (74-106) H Calcium Level 7.0 MG/DL (8.5-10.1) L Intake and Output 05/11/18 05/12/18 19:00 07:00 Intake Total 880 ml 960 ml Output Total 350 ml 800 ml Balance 530 ml 160 ml IV Total 880 ml 960 ml Output Urine Total 350 ml 500 ml Emesis 300 ml # Voids 2 1 Objective PHYSICAL EXAMINATION: GENERAL: The patient is thin-appearing male, who is obviously nauseated. HEENT: Eyes, pupils are equal, responsive to light and accommodation. Extraocular movements are intact. NECK: Supple without lymphadenopathy. CHEST: Lungs are clear to auscultation bilaterally without wheezes or rales. CARDIOVASCULAR: Regular rate. S1, S2 normal without murmurs, rubs, or gallops. ABDOMEN: Soft, diffusely tender with positive bowel sounds. No evidence of hepatosplenomegaly. No rebound or guarding noted. EXTREMITIES: Negative for clubbing, cyanosis, or edema. RECTAL: Refused. GENITALIA: Refused. NEUROLOGIC: Cranial nerves II through XII are grossly intact without focal deficits. Motor strength is 5/5 bilaterally. Deep tendon reflexes are 2+ plantar. Assessment/Plan Problem List: (1) Pancreatitis Assessment & Plan: CT and US=no common bile duct stone. See GI note. (2) Hypokalemia Assessment & Plan: Replace KCL IV (3) Hyperglycemia (4) DKA (diabetic ketoacidoses) (5) Intussusception of intestine Assessment & Plan: Non obstructive. See surgery consult (6) Elevated transaminase level (7) Abdominal pain (8) Edema Assessment & Plan: Decrease IV fluids. Patient wants lasix. (9) Ascites (10) Anemia Assessment & Plan: ?GI bleed? S/P transfusion 1 unit PRBC 05/05/18. S/P Endoscopy 05/10/18=esophagitis (11) Esophagitis determined by endoscopy Assessment & Plan: Severe grade IV. See GI note (12) Intractable vomiting Assessment & Plan: See GI note. S/P Enteroscopy 05/12/18=bowel edema Yunier Edwards MD May 12, 2018 18:25
[2018-05-12] MEDS ORDERED: FAT EMULSION 20% IV SCH (20:00)
[2018-05-12] MEDS ORDERED: TPN IV SCH (20:00)
[2018-05-12] MEDS: Dyna-Hex 2% Top Sol 2oz TOPIC SCH (21:50)
[2018-05-13] VITALS: BP 105/73
[2018-05-13] MEDS: NovoLOG Insulin Flexpen SUBQ SCH ×4 (01:00→17:19)
[2018-05-13 07:44] LABS: ANION GAP 3 mmol/L (5-15); BLOOD UREA NITROGEN 16 mg/dL (7-18); CALCIUM 7.3 MG/DL (8.5-10.1); CARBON DIOXIDE 34 MMOL/L (21-32); CHLORIDE 106 MMOL/L (98-107); CREATININE 0.5 MG/DL (0.55-1.30); POTASSIUM 3.2 MMOL/L (3.5-5.1); SODIUM 142 MMOL/L (136-145)
[2018-05-13 08:00] VITALS: BP 101/73
[2018-05-13 08:31] LABS: BASOPHILS % (AUTO) 0.6 % (0.0-2.0); EOSINOPHILS % (AUTO) 1.3 % (0.0-3.0); HEMATOCRIT 25.7 % (42.0-52.0); HEMOGLOBIN 8.9 G/DL (14.2-18.0); LYMPHOCYTES % (AUTO) 24.5 % (20.0-45.0); MEAN CORPUSCULAR VOLUME 91 FL (80-99); MONOCYTES % (AUTO) 8.6 % (1.0-10.0); PLATELET COUNT 236 K/UL (150-450); RED BLOOD COUNT 2.84 M/UL (4.70-6.10); RED CELL DISTRIBUTION WIDTH 13.8 % (11.6-14.8); WHITE BLOOD COUNT 3.9 K/UL (4.8-10.8)
[2018-05-13] MEDS: Docusate 100mg cap ORAL SCH ×3 (09:33→17:13)
[2018-05-13] MEDS: Heparin 5000 units/ml inj SUBQ SCH ×2 (09:35→20:09)
[2018-05-13] MEDS: Levemir Flexpen SUBQ SCH (09:36)
--- NOTE | 2018-05-13 10:59 | GI Progress Note ---
Assessment/Plan Problems: (1) Intussusception of intestine ICD Codes: K56.1 - Intussusception SNOMED: 52063984 (2) Elevated transaminase level ICD Codes: R74.0 - Nonspecific elevation of levels of transaminase and lactic acid dehydrogenase [LDH] SNOMED: 591073154, 417521266 (3) DKA (diabetic ketoacidoses) ICD Codes: E13.10 - Other specified diabetes mellitus with ketoacidosis without coma SNOMED: 17352245 (4) Nausea, vomiting, and diarrhea ICD Codes: R11.2 - Nausea with vomiting, unspecified; R19.7 - Diarrhea, unspecified SNOMED: 6414023 (5) Drug abuse ICD Codes: F19.10 - Other psychoactive substance abuse, uncomplicated SNOMED: 10262267 (6) Episode of generalized weakness ICD Codes: R53.1 - Weakness SNOMED: 54467302 (7) H/O cocaine abuse ICD Codes: Z87.898 - Personal history of other specified conditions SNOMED: 701688671 (8) Severe malnutrition ICD Codes: E43 - Unspecified severe protein-calorie malnutrition SNOMED: 10142766 (9) Bowel disease, inflammatory ICD Codes: K52.9 - Noninfective gastroenteritis and colitis, unspecified SNOMED: 23844975 Status: not improved, unchanged Status Narrative Discussed with Dr. Ascencio. Assessment/Plan cocaine positive s/p paracentesis yielding 1.5L - pending cytology >> negative for malignancy severe gastroparesis hepatitis panel >> negative gastric delay emptying study >> half life of excretion is calculated at 287 minutes which is delayed. s/p EGD SUMMARY OF FINDINGS: 1. Severe esophagitis, grade 4, status post multiple biopsy. 2. Gastritis, status post biopsy. 3. Limited study given the retained food material in the stomach. s/p PUSH ENTEROSCOPY SUMMARY OF FINDINGS: 1. Severe esophagitis. 2. Gastroparesis with retained greenish bile material in the stomach. 3. Bowel edema, status post biopsy. maintain NPO, cont TPN reglan 10mg IV ATC zofran prn pain mgmt bowel regime fu labs The patient was seen and examined at bedside and all new and available data was reviewed in the patients chart. I agree with the above findings, impression and plan. (Patient seen earlier today. Signature stamp does not reflect patient encounter time.). - Pedro Ascencio MD Subjective Subjective generalized weakness random episodes of emesis Objective Last 24 Hour Vital Signs Date Time Temp Pulse Resp B/P (MAP) Pulse Ox O2 Delivery O2 Flow Rate FiO2 05/13/18 00:00 98.6 98 19 105/73 (84) 98 98.6 05/12/18 21:00 Room Air 05/12/18 20:00 98.3 81 18 98/67 (77) 100 98.3 05/12/18 13:33 208.2 84 18 100 05/12/18 13:32 208.2 84 18 100 05/12/18 11:22 98.0 81 16 101/72 100 Nasal Cannula 3 98.0 05/12/18 11:10 84 15 106/74 100 Nasal Cannula 3 05/12/18 11:05 84 18 110/69 100 Nasal Cannula 3 05/12/18 11:00 97.9 85 21 103/76 100 Nasal Cannula 3 97.9 Intake and Output 05/12/18 05/13/18 19:00 07:00 Intake Total 1390 ml 1040 ml Output Total 1200 ml 950 ml Balance 190 ml 90 ml Intake Oral 150 ml 240 ml IV Total 1240 ml 800 ml Output Urine Total 250 ml Emesis 1200 ml 700 ml # Voids 3 2 Laboratory Tests Test 05/13/18 07:10 White Blood Count 3.9 K/UL (4.8-10.8) L Red Blood Count 2.84 M/UL (4.70-6.10) L Hemoglobin 8.9 G/DL (14.2-18.0) L Hematocrit 25.7 % (42.0-52.0) L Mean Corpuscular Volume 91 FL (80-99) Mean Corpuscular Hemoglobin 31.4 PG (27.0-31.0) H Mean Corpuscular Hemoglobin Concent 34.6 G/DL (32.0-36.0) Red Cell Distribution Width 13.8 % (11.6-14.8) Platelet Count 236 K/UL (150-450) Mean Platelet Volume 5.6 FL (6.5-10.1) L Neutrophils (%) (Auto) 65.0 % (45.0-75.0) Lymphocytes (%) (Auto) 24.5 % (20.0-45.0) Monocytes (%) (Auto) 8.6 % (1.0-10.0) Eosinophils (%) (Auto) 1.3 % (0.0-3.0) Basophils (%) (Auto) 0.6 % (0.0-2.0) Sodium Level 142 MMOL/L (136-145) Potassium Level 3.2 MMOL/L (3.5-5.1) L Chloride Level 106 MMOL/L (98-107) Carbon Dioxide Level 34 MMOL/L (21-32) H Anion Gap 3 mmol/L (5-15) L Blood Urea Nitrogen 16 mg/dL (7-18) Creatinine 0.5 MG/DL (0.55-1.30) L Estimat Glomerular Filtration Rate > 60 mL/min (>60) Glucose Level 107 MG/DL (74-106) #H Calcium Level 7.3 MG/DL (8.5-10.1) L Height (Feet): 5 Height (Inches): 6.00 Weight (Pounds): 160 General Appearance: WD/WN, no apparent distress, alert, thin Cardiovascular: normal rate Respiratory/Chest: normal breath sounds, no respiratory distress Abdominal Exam: normal bowel sounds, non tender, soft Extremities: non-tender Melita Delgado NP May 13, 2018 10:59
[2018-05-13 12:00] VITALS: BP 110/75
--- NOTE | 2018-05-13 14:41 | General Surgery Progress Note ---
General Surgery-Progress Note Subjective Additional Comments still feels bloated and discomfort. Objective Last 24 Hour Vital Signs Date Time Temp Pulse Resp B/P (MAP) Pulse Ox O2 Delivery O2 Flow Rate FiO2 05/13/18 12:00 98.6 95 18 110/75 (87) 98 98.6 05/13/18 09:00 Room Air 05/13/18 08:00 98.4 98 18 101/73 (82) 97 98.4 05/13/18 00:00 98.6 98 19 105/73 (84) 98 98.6 05/12/18 21:00 Room Air 05/12/18 20:00 98.3 81 18 98/67 (77) 100 98.3 I&O Intake and Output 05/12/18 05/13/18 19:00 07:00 Intake Total 1390 ml 1040 ml Output Total 1200 ml 950 ml Balance 190 ml 90 ml Intake Oral 150 ml 240 ml IV Total 1240 ml 800 ml Output Urine Total 250 ml Emesis 1200 ml 700 ml # Voids 3 2 Dressing: other Wound: other Drains: none Cardiovascular: RSR Respiratory: clear Abdomen: soft, distended, tenderness, present bowel sounds Extremities: other - feet edema bilateral Laboratory Tests Test 05/13/18 07:10 White Blood Count 3.9 K/UL (4.8-10.8) L Red Blood Count 2.84 M/UL (4.70-6.10) L Hemoglobin 8.9 G/DL (14.2-18.0) L Hematocrit 25.7 % (42.0-52.0) L Mean Corpuscular Volume 91 FL (80-99) Mean Corpuscular Hemoglobin 31.4 PG (27.0-31.0) H Mean Corpuscular Hemoglobin Concent 34.6 G/DL (32.0-36.0) Red Cell Distribution Width 13.8 % (11.6-14.8) Platelet Count 236 K/UL (150-450) Mean Platelet Volume 5.6 FL (6.5-10.1) L Neutrophils (%) (Auto) 65.0 % (45.0-75.0) Lymphocytes (%) (Auto) 24.5 % (20.0-45.0) Monocytes (%) (Auto) 8.6 % (1.0-10.0) Eosinophils (%) (Auto) 1.3 % (0.0-3.0) Basophils (%) (Auto) 0.6 % (0.0-2.0) Sodium Level 142 MMOL/L (136-145) Potassium Level 3.2 MMOL/L (3.5-5.1) L Chloride Level 106 MMOL/L (98-107) Carbon Dioxide Level 34 MMOL/L (21-32) H Anion Gap 3 mmol/L (5-15) L Blood Urea Nitrogen 16 mg/dL (7-18) Creatinine 0.5 MG/DL (0.55-1.30) L Estimat Glomerular Filtration Rate > 60 mL/min (>60) Glucose Level 107 MG/DL (74-106) #H Calcium Level 7.3 MG/DL (8.5-10.1) L Plan Problems: (1) Intussusception of intestine Assessment & Plan: CT Findings: 1. Short segment small bowel intussusception in the left lower quadrant ( series 5 image 58). No lead point lesions. No evidence of bowel obstruction. No focal bowel wall thickening. No adjacent inflammatory change. This may represent transient intussusception and is of uncertain clinical significance. 2. Sigmoid diverticulosis without wall thickening or adjacent inflammatory change. CT reviewed. - likely transient and benign. exam stable, no obstruction, no thickening, no inflammation. leukocytosis unlikely due to this. does have elevated LFT. possible cholecystitis? possible hepatitis Ultrasound reviewed. ascites and liver abnormal. Gallbladder okay. t bili trending down. lip/nicolette nml. lfts improved. denies EtOH history. likely hepatitis? abd distention related to ascites. unsure of etiology for nausea and emesis but not obstructive in nature. paracentesis path noted. no malignant cells hepatitis panel negative gastric study abnormal delay CT without findings of intussusception or sbo poor protein and hypo albumin from chronic emesis very concerning and etiology unknown discussed with GI. repeat scope and push to small bowel for biopsy done NPO TPN needs nutritional optimization and is not getting it via PO intake. needs to be on TPN until nutrition improves. pending small bowel pathology very complex case where no etiology of malnutrition or emesis found. bowel edema / inflammation likely from hypoalbum/malnutrition. same with feet edema and ascites. thank you. will follow with recjossie. Long Guevara May 13, 2018 14:41
--- NOTE | 2018-05-13 15:59 | Infectious Diseases Prog Note ---
Assessment/Plan Problems: (1) Esophagitis determined by endoscopy Assessment & Plan: with daniel infection continue fluconazol for 2-3 weeks . screening for HIV is negative . continue PPI as pre GI (2) Gastroparesis Assessment & Plan: due to DM , recommend gastric stimulants such as metoclopramide (3) Abdominal pain Assessment & Plan: due to the above, continue pain management as per primary (4) Uncontrolled diabetes mellitus Assessment & Plan: recommend tight glycemic control to keep blood glucose between 100-140 Subjective Constitutional: Reports: no symptoms HEENT: Reports: no symptoms Respiratory: Reports: no symptoms Breasts: Reports: no symptoms Cardiovascular: Reports: no symptoms Gastrointestinal/Abdominal: Reports: nausea, bloating Genitourinary: Reports: no symptoms Neurologic: Reports: no symptoms Psychiatric: Reports: no symptoms Skin: Reports: no symptoms Endocrine: Reports: no symptoms Hematologic: Reports: no symptoms Musculoskeletal: Reports: no symptoms Allergies: Coded Allergies: NO KNOWN ALLERGIES (Unverified Allergy, Unknown, 06/26/15) Subjective on TPN Objective Vital Signs Last 24 Hour Vital Signs Date Time Temp Pulse Resp B/P (MAP) Pulse Ox O2 Delivery O2 Flow Rate FiO2 05/13/18 12:00 98.6 95 18 110/75 (87) 98 98.6 05/13/18 09:00 Room Air 05/13/18 08:00 98.4 98 18 101/73 (82) 97 98.4 05/13/18 00:00 98.6 98 19 105/73 (84) 98 98.6 05/12/18 21:00 Room Air 05/12/18 20:00 98.3 81 18 98/67 (77) 100 98.3 Height (Feet): 5 Height (Inches): 6.00 Weight (Pounds): 160 General Appearance: WD/WN, no acute distress, cachetic HEENT: normocephalic, atraumatic, anicteric, mucous membranes moist, PERRL Respiratory/Chest: chest wall non-tender, lungs clear, normal breath sounds, no respiratory distress, no accessory muscle use Cardiovascular: normal peripheral pulses, normal rate, regular rhythm, no gallop/murmur, no JVD Abdomen: normal bowel sounds, soft, non tender, no organomegaly, non distended , no mass, no scars Extremities: no cyanosis, no clubbing Skin: no rash, no lesions, no ulcers Neurologic/Psychiatric: alert, oriented x 3, responsive Lymphatic: no neck adenopathy, no groin adenopathy Musculoskeletal: normal muscle bulk, no effusion Laboratory Tests Test 05/13/18 07:10 White Blood Count 3.9 K/UL (4.8-10.8) L Red Blood Count 2.84 M/UL (4.70-6.10) L Hemoglobin 8.9 G/DL (14.2-18.0) L Hematocrit 25.7 % (42.0-52.0) L Mean Corpuscular Volume 91 FL (80-99) Mean Corpuscular Hemoglobin 31.4 PG (27.0-31.0) H Mean Corpuscular Hemoglobin Concent 34.6 G/DL (32.0-36.0) Red Cell Distribution Width 13.8 % (11.6-14.8) Platelet Count 236 K/UL (150-450) Mean Platelet Volume 5.6 FL (6.5-10.1) L Neutrophils (%) (Auto) 65.0 % (45.0-75.0) Lymphocytes (%) (Auto) 24.5 % (20.0-45.0) Monocytes (%) (Auto) 8.6 % (1.0-10.0) Eosinophils (%) (Auto) 1.3 % (0.0-3.0) Basophils (%) (Auto) 0.6 % (0.0-2.0) Sodium Level 142 MMOL/L (136-145) Potassium Level 3.2 MMOL/L (3.5-5.1) L Chloride Level 106 MMOL/L (98-107) Carbon Dioxide Level 34 MMOL/L (21-32) H Anion Gap 3 mmol/L (5-15) L Blood Urea Nitrogen 16 mg/dL (7-18) Creatinine 0.5 MG/DL (0.55-1.30) L Estimat Glomerular Filtration Rate > 60 mL/min (>60) Glucose Level 107 MG/DL (74-106) #H Calcium Level 7.3 MG/DL (8.5-10.1) L Current Medications Medications (Trade) Dose Ordered Sig/Herminia Route PRN Reason Start Time Stop Time Status Last Admin Dose Admin Acetaminophen (Tylenol) 650 mg Q4H PRN ORAL fever 05/02/18 17:54 05/28/18 17:53 05/13/18 09:33 Al Hydroxide/Mg Hydroxide (Mylanta II) 30 ml Q6H PRN ORAL dyspepsia 05/02/18 17:54 05/28/18 17:53 05/08/18 02:37 Chlorhexidine Gluconate (Flores-Hex 2%) 1 applic DAILY@2000 TOPIC 05/04/18 20:00 06/03/18 19:59 05/12/18 21:50 Clonidine HCl (Catapres Tab) 0.1 mg Q4H PRN ORAL sbp more than 160 05/02/18 17:54 05/28/18 17:53 Dextrose 1,000 ml @ 0 mls/hr Q24H PRN IV PN interrupted or unavailable 05/09/18 12:00 06/08/18 11:59 Dextrose (Dextrose 50%) 25 ml Q30M PRN IV Hypoglycemia 05/04/18 07:15 06/03/18 07:14 Dextrose (Dextrose 50%) 50 ml Q30M PRN IV Hypoglycemia 05/04/18 07:15 06/03/18 07:14 Docusate Sodium (Colace) 100 mg THREE TIMES A DAY ORAL 05/03/18 09:00 06/02/18 08:59 05/13/18 14:03 Fat Emulsion Intravenous 192 ml/Amino Acids/ Electrolytes/ Dextrose 1,920 ml @ 80 mls/hr Q24H IV 05/12/18 20:00 05/13/18 19:59 05/12/18 21:51 Fat Emulsion Intravenous 192 ml/Amino Acids/ Electrolytes/ Dextrose 1,920 ml @ 80 mls/hr Q24H IV 05/13/18 20:00 06/12/18 19:59 Fluconazole/ Sodium Chloride 200 ml @ 100 mls/hr Q24H IV 05/12/18 14:00 05/19/18 13:59 05/13/18 14:03 Heparin Sodium (Porcine) (Heparin 5000 units/ml) 5,000 units EVERY 12 HOURS SUBQ 05/02/18 21:00 05/28/18 20:59 05/13/18 09:35 Insulin Aspart (NovoLOG) Q6HR SUBQ 05/10/18 00:00 06/09/18 00:00 05/13/18 01:00 Nicotine (Nicoderm) 1 patch Q24H TDERMAL 05/09/18 11:00 06/08/18 10:59 05/09/18 11:00 Nitroglycerin (Ntg) 0.4 mg Q5M X 3 DOSES PRN SL Prn Chest Pain 05/02/18 18:00 05/28/18 17:44 Ondansetron HCl (Zofran) 4 mg Q6H PRN IVP Nausea & Vomiting 05/02/18 17:55 05/28/18 17:54 05/12/18 18:26 Pantoprazole (Protonix) 40 mg BIAC ORAL 05/10/18 16:30 06/09/18 16:29 05/13/18 07:05 Promethazine HCl (Phenergan) 25 mg Q6H PRN IM Nausea & Vomiting 05/04/18 20:15 06/03/18 20:14 05/04/18 21:01 Ewa Vargas M.D. May 13, 2018 15:59
[2018-05-13 16:00] VITALS: BP 109/68
--- NOTE | 2018-05-13 18:50 | Internal Med Progress Note ---
Subjective Date of Service: May 13, 2018 Physician Name Edwards,Yunier Attending Physician Aly Ricks MD Current Medications Medications (Trade) Dose Ordered Sig/Herminia Route PRN Reason Start Time Stop Time Status Last Admin Dose Admin Acetaminophen (Tylenol) 650 mg Q4H PRN ORAL fever 05/02/18 17:54 05/28/18 17:53 05/13/18 09:33 Al Hydroxide/Mg Hydroxide (Mylanta II) 30 ml Q6H PRN ORAL dyspepsia 05/02/18 17:54 05/28/18 17:53 05/08/18 02:37 Chlorhexidine Gluconate (Flores-Hex 2%) 1 applic DAILY@2000 TOPIC 05/04/18 20:00 06/03/18 19:59 05/12/18 21:50 Clonidine HCl (Catapres Tab) 0.1 mg Q4H PRN ORAL sbp more than 160 05/02/18 17:54 05/28/18 17:53 Dextrose 1,000 ml @ 0 mls/hr Q24H PRN IV PN interrupted or unavailable 05/09/18 12:00 06/08/18 11:59 Dextrose (Dextrose 50%) 25 ml Q30M PRN IV Hypoglycemia 05/04/18 07:15 06/03/18 07:14 Dextrose (Dextrose 50%) 50 ml Q30M PRN IV Hypoglycemia 05/04/18 07:15 06/03/18 07:14 Docusate Sodium (Colace) 100 mg THREE TIMES A DAY ORAL 05/03/18 09:00 06/02/18 08:59 05/13/18 17:13 Fat Emulsion Intravenous 192 ml/Amino Acids/ Electrolytes/ Dextrose 1,920 ml @ 80 mls/hr Q24H IV 05/12/18 20:00 05/13/18 19:59 05/12/18 21:51 Fat Emulsion Intravenous 192 ml/Amino Acids/ Electrolytes/ Dextrose 1,920 ml @ 80 mls/hr Q24H IV 05/13/18 20:00 06/12/18 19:59 Fluconazole/ Sodium Chloride 200 ml @ 100 mls/hr Q24H IV 05/12/18 14:00 05/19/18 13:59 05/13/18 14:03 Heparin Sodium (Porcine) (Heparin 5000 units/ml) 5,000 units EVERY 12 HOURS SUBQ 05/02/18 21:00 05/28/18 20:59 05/13/18 09:35 Insulin Aspart (NovoLOG) Q6HR SUBQ 05/10/18 00:00 06/09/18 00:00 05/13/18 17:19 Nicotine (Nicoderm) 1 patch Q24H TDERMAL 05/09/18 11:00 06/08/18 10:59 05/09/18 11:00 Nitroglycerin (Ntg) 0.4 mg Q5M X 3 DOSES PRN SL Prn Chest Pain 05/02/18 18:00 05/28/18 17:44 Ondansetron HCl (Zofran) 4 mg Q6H PRN IVP Nausea & Vomiting 05/02/18 17:55 05/28/18 17:54 05/12/18 18:26 Pantoprazole (Protonix) 40 mg BIAC ORAL 05/10/18 16:30 06/09/18 16:29 05/13/18 17:13 Promethazine HCl (Phenergan) 25 mg Q6H PRN IM Nausea & Vomiting 05/04/18 20:15 06/03/18 20:14 05/04/18 21:01 Allergies: Coded Allergies: NO KNOWN ALLERGIES (Unverified Allergy, Unknown, 06/26/15) ROS Limited/Unobtainable: No Constitutional: Reports: no symptoms HEENT: Reports: no symptoms Cardiovascular: Reports: no symptoms Respiratory: Reports: no symptoms Gastrointestinal/Abdominal: Reports: nausea, vomiting Genitourinary: Reports: no symptoms Neurologic/Psychiatric: Reports: no symptoms Subjective 47 YO M admitted with hyperglycemia. Now intractable nausea and vomiting. Intussusception of small bowel. Cover for Int Med-Dr Ricks. S/P paracentesis 05/02/18. S/P Endoscopy 05/10/18. S/P enteroscopy 05/12/18. Now on TPN Objective Last Vital Signs Date Time Temp Pulse Resp B/P (MAP) Pulse Ox O2 Delivery O2 Flow Rate FiO2 05/13/18 16:00 99.0 78 18 109/68 (82) 100 99.0 05/13/18 09:00 Room Air 05/12/18 11:22 3 05/10/18 20:11 21 Laboratory Tests Test 05/13/18 07:10 White Blood Count 3.9 K/UL (4.8-10.8) L Red Blood Count 2.84 M/UL (4.70-6.10) L Hemoglobin 8.9 G/DL (14.2-18.0) L Hematocrit 25.7 % (42.0-52.0) L Mean Corpuscular Volume 91 FL (80-99) Mean Corpuscular Hemoglobin 31.4 PG (27.0-31.0) H Mean Corpuscular Hemoglobin Concent 34.6 G/DL (32.0-36.0) Red Cell Distribution Width 13.8 % (11.6-14.8) Platelet Count 236 K/UL (150-450) Mean Platelet Volume 5.6 FL (6.5-10.1) L Neutrophils (%) (Auto) 65.0 % (45.0-75.0) Lymphocytes (%) (Auto) 24.5 % (20.0-45.0) Monocytes (%) (Auto) 8.6 % (1.0-10.0) Eosinophils (%) (Auto) 1.3 % (0.0-3.0) Basophils (%) (Auto) 0.6 % (0.0-2.0) Sodium Level 142 MMOL/L (136-145) Potassium Level 3.2 MMOL/L (3.5-5.1) L Chloride Level 106 MMOL/L (98-107) Carbon Dioxide Level 34 MMOL/L (21-32) H Anion Gap 3 mmol/L (5-15) L Blood Urea Nitrogen 16 mg/dL (7-18) Creatinine 0.5 MG/DL (0.55-1.30) L Estimat Glomerular Filtration Rate > 60 mL/min (>60) Glucose Level 107 MG/DL (74-106) #H Calcium Level 7.3 MG/DL (8.5-10.1) L Intake and Output 05/12/18 05/13/18 19:00 07:00 Intake Total 1390 ml 1040 ml Output Total 1200 ml 950 ml Balance 190 ml 90 ml Intake Oral 150 ml 240 ml IV Total 1240 ml 800 ml Output Urine Total 250 ml Emesis 1200 ml 700 ml # Voids 3 2 Objective PHYSICAL EXAMINATION: GENERAL: The patient is thin-appearing male, who is obviously nauseated. HEENT: Eyes, pupils are equal, responsive to light and accommodation. Extraocular movements are intact. NECK: Supple without lymphadenopathy. CHEST: Lungs are clear to auscultation bilaterally without wheezes or rales. CARDIOVASCULAR: Regular rate. S1, S2 normal without murmurs, rubs, or gallops. ABDOMEN: Soft, diffusely tender with positive bowel sounds. No evidence of hepatosplenomegaly. No rebound or guarding noted. EXTREMITIES: Negative for clubbing, cyanosis, or edema. RECTAL: Refused. GENITALIA: Refused. NEUROLOGIC: Cranial nerves II through XII are grossly intact without focal deficits. Motor strength is 5/5 bilaterally. Deep tendon reflexes are 2+ plantar. Assessment/Plan Problem List: (1) Pancreatitis Assessment & Plan: CT and US=no common bile duct stone. See GI note. (2) Hypokalemia Assessment & Plan: Replace KCL IV (3) Hyperglycemia (4) DKA (diabetic ketoacidoses) (5) Intussusception of intestine Assessment & Plan: Non obstructive. See surgery consult (6) Elevated transaminase level (7) Abdominal pain (8) Edema Assessment & Plan: Decrease IV fluids. Patient wants lasix. (9) Ascites (10) Anemia Assessment & Plan: ?GI bleed? S/P transfusion 1 unit PRBC 05/05/18. S/P Endoscopy 05/10/18=esophagitis (11) Esophagitis determined by endoscopy Assessment & Plan: Severe grade IV. See GI note (12) Intractable vomiting Assessment & Plan: See GI note. S/P Enteroscopy 05/12/18=bowel edema. Continue TPN Status: not improved Yunier Edwards MD May 13, 2018 18:50
[2018-05-13 20:00] VITALS: BP 113/78
[2018-05-13] MEDS ORDERED: FAT EMULSION 20% IV SCH (20:00)
[2018-05-13] MEDS ORDERED: TPN IV SCH (20:00)
[2018-05-13] MEDS: Dyna-Hex 2% Top Sol 2oz TOPIC SCH (20:08)
[2018-05-14 04:00] VITALS: BP 104/61
[2018-05-14] MEDS: NovoLOG Insulin Flexpen SUBQ SCH ×5 (06:16→23:54)
[2018-05-14 07:25] LABS: HEMATOCRIT 21.8 % (42.0-52.0); HEMOGLOBIN 7.6 G/DL (14.2-18.0); MEAN CORPUSCULAR VOLUME 91 FL (80-99); PLATELET COUNT 216 K/UL (150-450); RED BLOOD COUNT 2.41 M/UL (4.70-6.10); RED CELL DISTRIBUTION WIDTH 13.8 % (11.6-14.8)
[2018-05-14 07:31] LABS: ANION GAP 3 mmol/L (5-15); BLOOD UREA NITROGEN 15 mg/dL (7-18); CALCIUM 6.8 MG/DL (8.5-10.1); CARBON DIOXIDE 32 MMOL/L (21-32); CHLORIDE 107 MMOL/L (98-107); CREATININE 0.5 MG/DL (0.55-1.30); PHOSPHORUS 2.5 MG/DL (2.5-4.9); POTASSIUM 3.2 MMOL/L (3.5-5.1); SODIUM 142 MMOL/L (136-145)
--- NOTE | 2018-05-14 07:45 | General Progress Note ---
Assessment/Plan Problem List: (1) Anemia ICD Codes: D64.9 - Anemia, unspecified SNOMED: 978195458 (2) Ascites ICD Codes: R18.8 - Other ascites SNOMED: 682922654 (3) Edema ICD Codes: R60.9 - Edema, unspecified SNOMED: 591875952, 608426838 (4) Constipation ICD Codes: K59.00 - Constipation, unspecified SNOMED: 13056912 (5) Intractable vomiting ICD Codes: R11.10 - Vomiting, unspecified SNOMED: 142284326 Assessment/Plan cocaine positive s/p paracentesis yielding 1.5L - pending cytology >> negative for malignancy severe gastroparesis hepatitis panel >> negative gastric delay emptying study >> half life of excretion is calculated at 287 minutes which is delayed. s/p EGD SUMMARY OF FINDINGS: 1. Severe esophagitis, grade 4, status post multiple biopsy. 2. Gastritis, status post biopsy. 3. Limited study given the retained food material in the stomach. s/p PUSH ENTEROSCOPY SUMMARY OF FINDINGS: 1. Severe esophagitis. 2. Gastroparesis with retained greenish bile material in the stomach. 3. Bowel edema, status post biopsy. maintain NPO, cont TPN reglan 10mg IV ATC zofran prn pain mgmt bowel regime fu labs Subjective ROS Limited/Unobtainable: Yes Allergies: Coded Allergies: NO KNOWN ALLERGIES (Unverified Allergy, Unknown, 06/26/15) Subjective vomiting Objective Last 24 Hour Vital Signs Date Time Temp Pulse Resp B/P (MAP) Pulse Ox O2 Delivery O2 Flow Rate FiO2 05/14/18 04:00 99.2 84 18 104/61 (75) 95 99.2 05/13/18 21:00 Room Air 05/13/18 20:00 98.7 80 18 113/78 (90) 100 98.7 05/13/18 16:00 99.0 78 18 109/68 (82) 100 99.0 05/13/18 12:00 98.6 95 18 110/75 (87) 98 98.6 05/13/18 09:00 Room Air 05/13/18 08:00 98.4 98 18 101/73 (82) 97 98.4 Intake and Output 05/13/18 05/14/18 19:00 07:00 Intake Total 1480 ml 480 ml Balance 1480 ml 480 ml Intake Oral 480 ml IV Total 1000 ml 480 ml # Voids 3 2 Laboratory Tests 05/14/18 05:25: White Blood Count [Pending], Red Blood Count [Pending], Hemoglobin [Pending], Hematocrit [Pending], Mean Corpuscular Volume [Pending], Mean Corpuscular Hemoglobin [Pending], Mean Corpuscular Hemoglobin Concent [Pending], Red Cell Distribution Width [Pending], Platelet Count [Pending], Mean Platelet Volume [ Pending], Neutrophils (%) (Auto) [Pending], Lymphocytes (%) (Auto) [Pending], Monocytes (%) (Auto) [Pending], Eosinophils (%) (Auto) [Pending], Basophils (%) (Auto) [Pending], Sodium Level 142, Potassium Level 3.2L, Chloride Level 107, Carbon Dioxide Level 32, Anion Gap 3L, Blood Urea Nitrogen 15, Creatinine 0.5L, Estimat Glomerular Filtration Rate > 60, Glucose Level 231#H, Calcium Level 6.8L , Phosphorus Level 2.5, Magnesium Level 1.5L Height (Feet): 5 Height (Inches): 6.00 Weight (Pounds): 160 General Appearance: alert EENT: normal ENT inspection Neck: supple Cardiovascular: normal peripheral pulses Respiratory/Chest: decreased breath sounds Abdomen: normal bowel sounds, non tender, soft Extremities: non-tender Pedro Ascencio MD May 14, 2018 07:45
[2018-05-14 08:00] VITALS: BP 118/73
[2018-05-14] MEDS ORDERED: NS 500ML ONE (09:03)
[2018-05-14] MEDS ORDERED: Tubing IV Secondary IV ONE ×2 (09:03→18:13)
[2018-05-14] MEDS: Docusate 100mg cap ORAL SCH ×3 (09:35→18:05)
[2018-05-14] MEDS: Heparin 5000 units/ml inj SUBQ SCH ×2 (09:39→20:38)
[2018-05-14] MEDS: Levemir Flexpen SUBQ SCH ×2 (10:00→20:38)
--- NOTE | 2018-05-14 12:15 | General Progress Note ---
Assessment/Plan Problem List: (1) Pancreatitis ICD Codes: K85.90 - Acute pancreatitis without necrosis or infection, unspecified SNOMED: 26737385 (2) Hyponatremia ICD Codes: E87.1 - Hyponatremia SNOMED: 94435098 (3) Nausea, vomiting, and diarrhea ICD Codes: R11.2 - Nausea with vomiting, unspecified; R19.7 - Diarrhea, unspecified SNOMED: 4067877 Assessment/Plan glucose values high on TPH continue regular insulin of TPN at 20 units / bag add Levemir 5 units bid discussed with pharmacist continue NISS Subjective Allergies: Coded Allergies: NO KNOWN ALLERGIES (Unverified Allergy, Unknown, 06/26/15) All Systems: reviewed and negative except above Subjective events noted Objective Last 24 Hour Vital Signs Date Time Temp Pulse Resp B/P (MAP) Pulse Ox O2 Delivery O2 Flow Rate FiO2 05/14/18 09:00 Room Air 05/14/18 08:00 98.9 76 18 118/73 (88) 96 98.9 05/14/18 04:00 99.2 84 18 104/61 (75) 95 99.2 05/13/18 21:00 Room Air 05/13/18 20:00 98.7 80 18 113/78 (90) 100 98.7 05/13/18 16:00 99.0 78 18 109/68 (82) 100 99.0 Intake and Output 05/13/18 05/14/18 19:00 07:00 Intake Total 1480 ml 480 ml Balance 1480 ml 480 ml Intake Oral 480 ml IV Total 1000 ml 480 ml # Voids 3 2 Laboratory Tests 05/14/18 05:25: White Blood Count 3.0L, Red Blood Count 2.41L, Hemoglobin 7.6L, Hematocrit 21.8L , Mean Corpuscular Volume 91, Mean Corpuscular Hemoglobin 31.7H, Mean Corpuscular Hemoglobin Concent 35.0, Red Cell Distribution Width 13.8, Platelet Count 216, Mean Platelet Volume 4.8L, Neutrophils (%) (Auto) , Lymphocytes (%) ( Auto) , Monocytes (%) (Auto) , Eosinophils (%) (Auto) , Basophils (%) (Auto) , Differential Total Cells Counted 100, Neutrophils % (Manual) 54, Lymphocytes % ( Manual) 38, Monocytes % (Manual) 8, Eosinophils % (Manual) 0, Basophils % ( Manual) 0, Band Neutrophils 0, Platelet Estimate Adequate, Platelet Morphology Normal, Anisocytosis 1+, Sodium Level 142, Potassium Level 3.2L, Chloride Level 107, Carbon Dioxide Level 32, Anion Gap 3L, Blood Urea Nitrogen 15, Creatinine 0.5L, Estimat Glomerular Filtration Rate > 60, Glucose Level 231#H, Calcium Level 6.8L, Phosphorus Level 2.5, Magnesium Level 1.5L Height (Feet): 5 Height (Inches): 6.00 Weight (Pounds): 160 General Appearance: no apparent distress Neck: normal alignment Cardiovascular: normal rate Respiratory/Chest: lungs clear Objective Current Medications Medications (Trade) Dose Ordered Sig/Herminia Route PRN Reason Start Time Stop Time Status Last Admin Dose Admin Acetaminophen (Tylenol) 650 mg Q4H PRN ORAL fever 05/02/18 17:54 05/28/18 17:53 05/13/18 09:33 Al Hydroxide/Mg Hydroxide (Mylanta II) 30 ml Q6H PRN ORAL dyspepsia 05/02/18 17:54 05/28/18 17:53 05/08/18 02:37 Chlorhexidine Gluconate (Flores-Hex 2%) 1 applic DAILY@2000 TOPIC 05/04/18 20:00 06/03/18 19:59 05/13/18 20:08 Clonidine HCl (Catapres Tab) 0.1 mg Q4H PRN ORAL sbp more than 160 05/02/18 17:54 05/28/18 17:53 Dextrose 1,000 ml @ 0 mls/hr Q24H PRN IV PN interrupted or unavailable 05/09/18 12:00 06/08/18 11:59 Dextrose (Dextrose 50%) 25 ml Q30M PRN IV Hypoglycemia 05/04/18 07:15 06/03/18 07:14 Dextrose (Dextrose 50%) 50 ml Q30M PRN IV Hypoglycemia 05/04/18 07:15 06/03/18 07:14 Docusate Sodium (Colace) 100 mg THREE TIMES A DAY ORAL 05/03/18 09:00 06/02/18 08:59 05/14/18 09:35 Fat Emulsion Intravenous 192 ml/Amino Acids/ Electrolytes/ Dextrose 1,920 ml @ 80 mls/hr Q24H IV 05/13/18 20:00 05/14/18 19:59 05/13/18 20:32 Fat Emulsion Intravenous 192 ml/Amino Acids/ Electrolytes/ Dextrose 1,920 ml @ 80 mls/hr Q24H IV 05/14/18 20:00 06/13/18 19:59 Fluconazole/ Sodium Chloride 200 ml @ 100 mls/hr Q24H IV 05/12/18 14:00 05/19/18 13:59 05/13/18 14:03 Heparin Sodium (Porcine) (Heparin 5000 units/ml) 5,000 units EVERY 12 HOURS SUBQ 05/02/18 21:00 05/28/18 20:59 05/14/18 09:39 Insulin Aspart (NovoLOG) Q6HR SUBQ 05/10/18 00:00 06/09/18 00:00 05/14/18 06:16 Insulin Detemir (Levemir) 5 units Q12HR SUBQ 05/14/18 10:00 06/13/18 09:59 Magnesium Sulfate 100 ml @ 100 mls/hr Q1H IVPB 05/14/18 11:45 05/14/18 13:44 UNV Nicotine (Nicoderm) 1 patch Q24H TDERMAL 05/09/18 11:00 06/08/18 10:59 05/09/18 11:00 Nitroglycerin (Ntg) 0.4 mg Q5M X 3 DOSES PRN SL Prn Chest Pain 05/02/18 18:00 05/28/18 17:44 Ondansetron HCl (Zofran) 4 mg Q6H PRN IVP Nausea & Vomiting 05/02/18 17:55 05/28/18 17:54 05/12/18 18:26 Pantoprazole (Protonix) 40 mg BIAC ORAL 05/10/18 16:30 06/09/18 16:29 05/14/18 06:56 Potassium Chloride 100 ml @ 100 mls/hr Q1HR IVPB 05/14/18 12:00 05/14/18 15:59 UNV Promethazine HCl (Phenergan) 25 mg Q6H PRN IM Nausea & Vomiting 05/04/18 20:15 06/03/18 20:14 05/04/18 21:01 Item Value Date Time Bedside Blood Glucose 245 mg/dl H 05/14/18 0616 Bedside Blood Glucose 215 mg/dl H 05/13/18 1719 Bedside Blood Glucose 109 mg/dl 05/13/18 1200 Bedside Blood Glucose 118 mg/dl 05/13/18 0936 Saad Laurent MD May 14, 2018 12:15
--- NOTE | 2018-05-14 12:47 | Consultation ---
DATE OF CONSULTATION: 05/14/2018 INTERNAL MEDICINE CONSULTATION CONSULTING PHYSICIAN: Wilner Denney M.D. HISTORY OF PRESENT ILLNESS: This is a 47-year-old male, who was admitted to this hospital approximately two weeks ago. Initially, he was not identified as having this particular insurance, however, yesterday his insurance verified as being [place]. I have been asked to resume care as Internal Medicine physician. This is a 47-year-old male with a history of diabetes and substance abuse, who came to the hospital 16 days ago with abdominal pain and hyperglycemia. He was subsequently admitted to the hospital and seen by multiple specialists. While in the hospital, the patient has undergone a colonoscopy, which shows abdominal fluid paracentesis. He has also been diagnosed to have intussusception. At this point, the patient is noted to be on TPN. He has been seen by ID, General Surgery, Endocrinology, and Pulmonology. He states he is feeling better, but still having bloating and abdominal pain. PAST MEDICAL HISTORY: Notable discussed above for diabetes mellitus, previous surgery, and substance abuse. REVIEW OF SYSTEMS: Denies any headaches, hematemesis, melena, or hematochezia. PHYSICAL EXAMINATION: GENERAL: Reveals a 47-year-old male. HEENT: Unremarkable. LUNGS: Clear breath sounds bilaterally. ABDOMEN: Soft. Mildly distended. EXTREMITIES: There is no edema. LABORATORY AND DIAGNOSTIC DATA: Most of the laboratory testing shows hemoglobin of 7.6, white count 3000, and platelet count is 216,000. Chemistry notable for potassium of 3.2 and creatinine of 0.5. Imaging studies, abdomen and pelvis CT done several days ago has shown resolution of intussusception with ascites and bilateral effusions. IMPRESSION: 1. Bilateral pleural effusions. 2. Intussusception. 3. Diabetes mellitus. 4. History of substance abuse. DISCUSSION: We will resume care. Discussed with Dr. Ricks. Appreciate consultations. Continue TPN per GI. The patient will need placement most likely. We will continue to follow carefully. Wilner Denney M.D. DR: MORIS/NONA JOB#: [id number] CC:
--- NOTE | 2018-05-14 13:28 | General Surgery Progress Note ---
General Surgery-Progress Note Subjective Additional Comments no acute events. states he feels stronger with tpn. Objective Last 24 Hour Vital Signs Date Time Temp Pulse Resp B/P (MAP) Pulse Ox O2 Delivery O2 Flow Rate FiO2 05/14/18 09:00 Room Air 05/14/18 08:00 98.9 76 18 118/73 (88) 96 98.9 05/14/18 04:00 99.2 84 18 104/61 (75) 95 99.2 05/13/18 21:00 Room Air 05/13/18 20:00 98.7 80 18 113/78 (90) 100 98.7 05/13/18 16:00 99.0 78 18 109/68 (82) 100 99.0 I&O Intake and Output 05/13/18 05/14/18 19:00 07:00 Intake Total 1480 ml 480 ml Balance 1480 ml 480 ml Intake Oral 480 ml IV Total 1000 ml 480 ml # Voids 3 2 Dressing: other Wound: other Drains: other Cardiovascular: RSR Respiratory: clear Abdomen: soft, distended, non-tender, present bowel sounds Extremities: edema Laboratory Tests Test 05/14/18 05:25 White Blood Count 3.0 K/UL (4.8-10.8) L Red Blood Count 2.41 M/UL (4.70-6.10) L Hemoglobin 7.6 G/DL (14.2-18.0) L Hematocrit 21.8 % (42.0-52.0) L Mean Corpuscular Volume 91 FL (80-99) Mean Corpuscular Hemoglobin 31.7 PG (27.0-31.0) H Mean Corpuscular Hemoglobin Concent 35.0 G/DL (32.0-36.0) Red Cell Distribution Width 13.8 % (11.6-14.8) Platelet Count 216 K/UL (150-450) Mean Platelet Volume 4.8 FL (6.5-10.1) L Neutrophils (%) (Auto) % (45.0-75.0) Lymphocytes (%) (Auto) % (20.0-45.0) Monocytes (%) (Auto) % (1.0-10.0) Eosinophils (%) (Auto) % (0.0-3.0) Basophils (%) (Auto) % (0.0-2.0) Differential Total Cells Counted 100 Neutrophils % (Manual) 54 % (45-75) Lymphocytes % (Manual) 38 % (20-45) Monocytes % (Manual) 8 % (1-10) Eosinophils % (Manual) 0 % (0-3) Basophils % (Manual) 0 % (0-2) Band Neutrophils 0 % (0-8) Platelet Estimate Adequate Platelet Morphology Normal Anisocytosis 1+ Sodium Level 142 MMOL/L (136-145) Potassium Level 3.2 MMOL/L (3.5-5.1) L Chloride Level 107 MMOL/L (98-107) Carbon Dioxide Level 32 MMOL/L (21-32) Anion Gap 3 mmol/L (5-15) L Blood Urea Nitrogen 15 mg/dL (7-18) Creatinine 0.5 MG/DL (0.55-1.30) L Estimat Glomerular Filtration Rate > 60 mL/min (>60) Glucose Level 231 MG/DL (74-106) #H Calcium Level 6.8 MG/DL (8.5-10.1) L Phosphorus Level 2.5 MG/DL (2.5-4.9) Magnesium Level 1.5 MG/DL (1.8-2.4) L Plan Problems: (1) Intussusception of intestine Assessment & Plan: CT Findings: 1. Short segment small bowel intussusception in the left lower quadrant ( series 5 image 58). No lead point lesions. No evidence of bowel obstruction. No focal bowel wall thickening. No adjacent inflammatory change. This may represent transient intussusception and is of uncertain clinical significance. 2. Sigmoid diverticulosis without wall thickening or adjacent inflammatory change. CT reviewed. - likely transient and benign. exam stable, no obstruction, no thickening, no inflammation. leukocytosis unlikely due to this. does have elevated LFT. possible cholecystitis? possible hepatitis Ultrasound reviewed. ascites and liver abnormal. Gallbladder okay. t bili trending down. lip/nicolette nml. lfts improved. denies EtOH history. likely hepatitis? abd distention related to ascites. unsure of etiology for nausea and emesis but not obstructive in nature. paracentesis path noted. no malignant cells hepatitis panel negative gastric study abnormal delay CT without findings of intussusception or sbo poor protein and hypo albumin from chronic emesis very concerning and etiology unknown discussed with GI. repeat scope and push to small bowel for biopsy done NPO TPN needs nutritional optimization and is not getting it via PO intake. needs to be on TPN until nutrition improves. pending small bowel pathology very complex case where no etiology of malnutrition or emesis found. bowel edema / inflammation likely from hypoalbum/malnutrition. same with feet edema and ascites. thank you. will follow with recs. Long Guevara May 14, 2018 13:28
--- NOTE | 2018-05-14 14:45 | Internal Med Progress Note ---
Subjective Date of Service: May 14, 2018 Physician Name Yunier Edwards Attending Physician Aly Ricks MD Current Medications Medications (Trade) Dose Ordered Sig/Herminia Route PRN Reason Start Time Stop Time Status Last Admin Dose Admin Acetaminophen (Tylenol) 650 mg Q4H PRN ORAL fever 05/02/18 17:54 05/28/18 17:53 05/13/18 09:33 Al Hydroxide/Mg Hydroxide (Mylanta II) 30 ml Q6H PRN ORAL dyspepsia 05/02/18 17:54 05/28/18 17:53 05/08/18 02:37 Chlorhexidine Gluconate (Flores-Hex 2%) 1 applic DAILY@2000 TOPIC 05/04/18 20:00 06/03/18 19:59 05/13/18 20:08 Clonidine HCl (Catapres Tab) 0.1 mg Q4H PRN ORAL sbp more than 160 05/02/18 17:54 05/28/18 17:53 Dextrose 1,000 ml @ 0 mls/hr Q24H PRN IV PN interrupted or unavailable 05/09/18 12:00 06/08/18 11:59 Dextrose (Dextrose 50%) 25 ml Q30M PRN IV Hypoglycemia 05/04/18 07:15 06/03/18 07:14 Dextrose (Dextrose 50%) 50 ml Q30M PRN IV Hypoglycemia 05/04/18 07:15 06/03/18 07:14 Docusate Sodium (Colace) 100 mg THREE TIMES A DAY ORAL 05/03/18 09:00 06/02/18 08:59 05/14/18 09:35 Fat Emulsion Intravenous 192 ml/Amino Acids/ Electrolytes/ Dextrose 1,920 ml @ 80 mls/hr Q24H IV 05/13/18 20:00 05/14/18 19:59 05/13/18 20:32 Fat Emulsion Intravenous 192 ml/Amino Acids/ Electrolytes/ Dextrose 1,920 ml @ 80 mls/hr Q24H IV 05/14/18 20:00 06/13/18 19:59 Fluconazole/ Sodium Chloride 200 ml @ 100 mls/hr Q24H IV 05/12/18 14:00 05/19/18 13:59 05/14/18 14:11 Heparin Sodium (Porcine) (Heparin 5000 units/ml) 5,000 units EVERY 12 HOURS SUBQ 05/02/18 21:00 05/28/18 20:59 05/14/18 09:39 Insulin Aspart (NovoLOG) Q6HR SUBQ 05/10/18 00:00 06/09/18 00:00 05/14/18 06:16 Insulin Detemir (Levemir) 5 units Q12HR SUBQ 05/14/18 10:00 06/13/18 09:59 Nicotine (Nicoderm) 1 patch Q24H TDERMAL 05/09/18 11:00 06/08/18 10:59 05/09/18 11:00 Nitroglycerin (Ntg) 0.4 mg Q5M X 3 DOSES PRN SL Prn Chest Pain 05/02/18 18:00 05/28/18 17:44 Ondansetron HCl (Zofran) 4 mg Q6H PRN IVP Nausea & Vomiting 05/02/18 17:55 05/28/18 17:54 05/12/18 18:26 Pantoprazole (Protonix) 40 mg BIAC ORAL 05/10/18 16:30 06/09/18 16:29 05/14/18 06:56 Promethazine HCl (Phenergan) 25 mg Q6H PRN IM Nausea & Vomiting 05/04/18 20:15 06/03/18 20:14 05/04/18 21:01 Allergies: Coded Allergies: NO KNOWN ALLERGIES (Unverified Allergy, Unknown, 06/26/15) ROS Limited/Unobtainable: No Constitutional: Reports: no symptoms HEENT: Reports: no symptoms Cardiovascular: Reports: no symptoms Respiratory: Reports: no symptoms Gastrointestinal/Abdominal: Reports: nausea, vomiting Genitourinary: Reports: no symptoms Neurologic/Psychiatric: Reports: no symptoms Subjective 47 YO M admitted with hyperglycemia. Now intractable nausea and vomiting. Intussusception of small bowel. Cover for Int Magdi-Dr Ricks. S/P paracentesis 05/02/18. S/P Endoscopy 05/10/18. S/P enteroscopy 05/12/18. Now on TPN Objective Last Vital Signs Date Time Temp Pulse Resp B/P (MAP) Pulse Ox O2 Delivery O2 Flow Rate FiO2 05/14/18 09:00 Room Air 05/14/18 08:00 98.9 76 18 118/73 (88) 96 98.9 05/12/18 11:22 3 05/10/18 20:11 21 Laboratory Tests Test 05/14/18 05:25 White Blood Count 3.0 K/UL (4.8-10.8) L Red Blood Count 2.41 M/UL (4.70-6.10) L Hemoglobin 7.6 G/DL (14.2-18.0) L Hematocrit 21.8 % (42.0-52.0) L Mean Corpuscular Volume 91 FL (80-99) Mean Corpuscular Hemoglobin 31.7 PG (27.0-31.0) H Mean Corpuscular Hemoglobin Concent 35.0 G/DL (32.0-36.0) Red Cell Distribution Width 13.8 % (11.6-14.8) Platelet Count 216 K/UL (150-450) Mean Platelet Volume 4.8 FL (6.5-10.1) L Neutrophils (%) (Auto) % (45.0-75.0) Lymphocytes (%) (Auto) % (20.0-45.0) Monocytes (%) (Auto) % (1.0-10.0) Eosinophils (%) (Auto) % (0.0-3.0) Basophils (%) (Auto) % (0.0-2.0) Differential Total Cells Counted 100 Neutrophils % (Manual) 54 % (45-75) Lymphocytes % (Manual) 38 % (20-45) Monocytes % (Manual) 8 % (1-10) Eosinophils % (Manual) 0 % (0-3) Basophils % (Manual) 0 % (0-2) Band Neutrophils 0 % (0-8) Platelet Estimate Adequate Platelet Morphology Normal Anisocytosis 1+ Sodium Level 142 MMOL/L (136-145) Potassium Level 3.2 MMOL/L (3.5-5.1) L Chloride Level 107 MMOL/L (98-107) Carbon Dioxide Level 32 MMOL/L (21-32) Anion Gap 3 mmol/L (5-15) L Blood Urea Nitrogen 15 mg/dL (7-18) Creatinine 0.5 MG/DL (0.55-1.30) L Estimat Glomerular Filtration Rate > 60 mL/min (>60) Glucose Level 231 MG/DL (74-106) #H Calcium Level 6.8 MG/DL (8.5-10.1) L Phosphorus Level 2.5 MG/DL (2.5-4.9) Magnesium Level 1.5 MG/DL (1.8-2.4) L Intake and Output 05/13/18 05/14/18 19:00 07:00 Intake Total 1480 ml 480 ml Balance 1480 ml 480 ml Intake Oral 480 ml IV Total 1000 ml 480 ml # Voids 3 2 Objective PHYSICAL EXAMINATION: GENERAL: The patient is thin-appearing male, who is obviously nauseated. HEENT: Eyes, pupils are equal, responsive to light and accommodation. Extraocular movements are intact. NECK: Supple without lymphadenopathy. CHEST: Lungs are clear to auscultation bilaterally without wheezes or rales. CARDIOVASCULAR: Regular rate. S1, S2 normal without murmurs, rubs, or gallops. ABDOMEN: Soft, diffusely tender with positive bowel sounds. No evidence of hepatosplenomegaly. No rebound or guarding noted. EXTREMITIES: Negative for clubbing, cyanosis, or edema. RECTAL: Refused. GENITALIA: Refused. NEUROLOGIC: Cranial nerves II through XII are grossly intact without focal deficits. Motor strength is 5/5 bilaterally. Deep tendon reflexes are 2+ plantar. Assessment/Plan Problem List: (1) Pancreatitis Assessment & Plan: CT and US=no common bile duct stone. See GI note. (2) Hypokalemia Assessment & Plan: Replace KCL IV (3) Hyperglycemia (4) DKA (diabetic ketoacidoses) (5) Intussusception of intestine Assessment & Plan: Non obstructive. See surgery consult (6) Elevated transaminase level (7) Abdominal pain (8) Edema Assessment & Plan: Decrease IV fluids. Patient wants lasix. (9) Ascites (10) Anemia Assessment & Plan: ?GI bleed? S/P transfusion 1 unit PRBC 05/05/18. S/P Endoscopy 05/10/18=esophagitis (11) Esophagitis determined by endoscopy Assessment & Plan: Severe grade IV. See GI note (12) Intractable vomiting Assessment & Plan: See GI note. S/P Enteroscopy 05/12/18=bowel edema. Continue TPN Status: not improved Yunier Edwards MD May 14, 2018 14:45
[2018-05-14 16:00] VITALS: BP 133/72
[2018-05-14] MEDS ORDERED: FAT EMULSION 20% IV SCH (20:00)
[2018-05-14] MEDS ORDERED: TPN IV SCH (20:00)
[2018-05-14] MEDS: Dyna-Hex 2% Top Sol 2oz TOPIC SCH (20:31)
[2018-05-15] VITALS: BP 109/75
[2018-05-15] MEDS: NovoLOG Insulin Flexpen SUBQ SCH ×3 (06:08→17:35)
--- NOTE | 2018-05-15 07:53 | General Progress Note ---
Assessment/Plan Problem List: (1) Anemia ICD Codes: D64.9 - Anemia, unspecified SNOMED: 396988604 (2) Ascites ICD Codes: R18.8 - Other ascites SNOMED: 503111115 (3) Edema ICD Codes: R60.9 - Edema, unspecified SNOMED: 002230755, 466098346 (4) Constipation ICD Codes: K59.00 - Constipation, unspecified SNOMED: 65320878 (5) Intractable vomiting ICD Codes: R11.10 - Vomiting, unspecified SNOMED: 050151077 Assessment/Plan cocaine positive s/p paracentesis yielding 1.5L - pending cytology >> negative for malignancy severe gastroparesis hepatitis panel >> negative gastric delay emptying study >> half life of excretion is calculated at 287 minutes which is delayed. s/p EGD SUMMARY OF FINDINGS: 1. Severe esophagitis, grade 4, status post multiple biopsy. 2. Gastritis, status post biopsy. 3. Limited study given the retained food material in the stomach. s/p PUSH ENTEROSCOPY SUMMARY OF FINDINGS: 1. Severe esophagitis. 2. Gastroparesis with retained greenish bile material in the stomach. 3. Bowel edema, status post biopsy. maintain NPO, cont TPN reglan 10mg IV ATC zofran prn pain mgmt bowel regime fu labs Subjective ROS Limited/Unobtainable: Yes Allergies: Coded Allergies: NO KNOWN ALLERGIES (Unverified Allergy, Unknown, 06/26/15) Subjective vomiting Objective Last 24 Hour Vital Signs Date Time Temp Pulse Resp B/P (MAP) Pulse Ox O2 Delivery O2 Flow Rate FiO2 05/15/18 00:00 98.5 96 17 109/75 (86) 95 98.5 05/14/18 21:00 Room Air 05/14/18 16:00 99.0 80 18 133/72 (92) 97 99.0 05/14/18 09:00 Room Air 05/14/18 08:00 98.9 76 18 118/73 (88) 96 98.9 Intake and Output 05/14/18 05/15/18 19:00 07:00 Intake Total 1060 ml 880 ml Output Total 700 ml Balance 360 ml 880 ml IV Total 1060 ml 880 ml Output Urine Total 700 ml # Voids 4 Height (Feet): 5 Height (Inches): 6.00 Weight (Pounds): 160 General Appearance: no apparent distress EENT: normal ENT inspection Neck: supple Cardiovascular: normal rate Respiratory/Chest: decreased breath sounds Abdomen: normal bowel sounds, non tender, soft Extremities: non-tender Pedro Ascencio MD May 15, 2018 07:53
[2018-05-15 08:00] VITALS: BP 109/71
[2018-05-15 08:01] LABS: BASOPHILS % (AUTO) 1.4 % (0.0-2.0); EOSINOPHILS % (AUTO) 1.8 % (0.0-3.0); HEMOGLOBIN 10.2 G/DL (14.2-18.0); LYMPHOCYTES % (AUTO) 39.8 % (20.0-45.0); MEAN CORPUSCULAR VOLUME 92 FL (80-99); MONOCYTES % (AUTO) 8.1 % (1.0-10.0); NEUTROPHILS % (AUTO) 48.9 % (45.0-75.0); PLATELET COUNT 279 K/UL (150-450); RED BLOOD COUNT 3.16 M/UL (4.70-6.10); RED CELL DISTRIBUTION WIDTH 13.9 % (11.6-14.8); WHITE BLOOD COUNT 4.2 K/UL (4.8-10.8)
[2018-05-15 08:24] LABS: ALANINE AMINOTRANSFERASE 48 U/L (12-78); ALBUMIN 1.7 G/DL (3.4-5.0); ALBUMIN/GLOBULIN RATIO 0.7 (1.0-2.7); ALKALINE PHOSPHATASE 69 U/L (46-116); ANION GAP 3 mmol/L (5-15); ASPARTATE AMINO TRANSFERASE 17 U/L (15-37); BILIRUBIN,TOTAL 0.5 MG/DL (0.2-1.0); BLOOD UREA NITROGEN 13 mg/dL (7-18); CALCIUM 7.5 MG/DL (8.5-10.1); CARBON DIOXIDE 32 MMOL/L (21-32); CHLORIDE 109 MMOL/L (98-107); CREATININE 0.5 MG/DL (0.55-1.30); POTASSIUM 3.3 MMOL/L (3.5-5.1); SODIUM 144 MMOL/L (136-145)
[2018-05-15] MEDS: Levemir Flexpen SUBQ SCH ×2 (08:47→20:26)
[2018-05-15] MEDS: Docusate 100mg cap ORAL SCH ×3 (08:48→17:33)
[2018-05-15] MEDS: Heparin 5000 units/ml inj SUBQ SCH ×2 (08:48→20:25)
--- NOTE | 2018-05-15 10:00 | Pulmonology Progress Note ---
Assessment/Plan Assessment/Plan IMPRESSION: 1. Bilateral pleural effusions. 2. Intussusception. transient/esolving per GI/surgery 3. Diabetes mellitus. 4. History of substance abuse. 5. Elevated LFT's and T Eduardo DISCUSSION: Continue present care. Discussed with Dr. Ricks. Appreciate consultations. Continue TPN per GI. The patient will need placement most likely. I will continue to follow carefully. Subjective Interval Events: States he is stronger Constitutional: Reports: no symptoms HEENT: Repors: no symptoms Respiratory: Reports: no symptoms Cardiovascular: Reports: no symptoms Gastrointestinal/Abdominal: Reports: no symptoms Allergies: Coded Allergies: NO KNOWN ALLERGIES (Unverified Allergy, Unknown, 06/26/15) Objective Last 24 Hour Vital Signs Date Time Temp Pulse Resp B/P (MAP) Pulse Ox O2 Delivery O2 Flow Rate FiO2 05/15/18 09:00 Room Air 05/15/18 08:00 78 20 109/71 (84) 97 05/15/18 00:00 98.5 96 17 109/75 (86) 95 98.5 05/14/18 21:00 Room Air 05/14/18 16:00 99.0 80 18 133/72 (92) 97 99.0 Intake and Output 05/14/18 05/15/18 19:00 07:00 Intake Total 1060 ml 880 ml Output Total 700 ml Balance 360 ml 880 ml IV Total 1060 ml 880 ml Output Urine Total 700 ml # Voids 4 General Appearance: no acute distress HEENT: normocephalic Respiratory/Chest: chest wall non-tender, lungs clear Cardiovascular: normal peripheral pulses, normal rate Abdomen: soft, non tender Laboratory Tests 05/15/18 06:05: White Blood Count 4.2L, Red Blood Count 3.16L, Hemoglobin 10.2#L, Hematocrit 29.0#L, Mean Corpuscular Volume 92, Mean Corpuscular Hemoglobin 32.3H, Mean Corpuscular Hemoglobin Concent 35.2, Red Cell Distribution Width 13.9, Platelet Count 279, Mean Platelet Volume 4.7L, Neutrophils (%) (Auto) 48.9, Lymphocytes ( %) (Auto) 39.8, Monocytes (%) (Auto) 8.1, Eosinophils (%) (Auto) 1.8, Basophils (%) (Auto) 1.4, Sodium Level 144, Potassium Level 3.3L, Chloride Level 109H, Carbon Dioxide Level 32, Anion Gap 3L, Blood Urea Nitrogen 13, Creatinine 0.5L, Estimat Glomerular Filtration Rate > 60, Glucose Level 102#, Calcium Level 7.5L , Total Bilirubin 0.5, Aspartate Amino Transf (AST/SGOT) 17, Alanine Aminotransferase (ALT/SGPT) 48, Alkaline Phosphatase 69, Total Protein 4.3L, Albumin 1.7L, Globulin 2.6, Albumin/Globulin Ratio 0.7L, Prealbumin [Pending] Current Medications Medications (Trade) Dose Ordered Sig/Herminia Route PRN Reason Start Time Stop Time Status Last Admin Dose Admin Acetaminophen (Tylenol) 650 mg Q4H PRN ORAL fever 05/02/18 17:54 05/28/18 17:53 05/13/18 09:33 Al Hydroxide/Mg Hydroxide (Mylanta II) 30 ml Q6H PRN ORAL dyspepsia 05/02/18 17:54 05/28/18 17:53 05/08/18 02:37 Chlorhexidine Gluconate (Flores-Hex 2%) 1 applic DAILY@2000 TOPIC 05/04/18 20:00 06/03/18 19:59 05/14/18 20:31 Clonidine HCl (Catapres Tab) 0.1 mg Q4H PRN ORAL sbp more than 160 05/02/18 17:54 05/28/18 17:53 Dextrose 1,000 ml @ 0 mls/hr Q24H PRN IV PN interrupted or unavailable 05/09/18 12:00 06/08/18 11:59 Dextrose (Dextrose 50%) 25 ml Q30M PRN IV Hypoglycemia 05/04/18 07:15 06/03/18 07:14 Dextrose (Dextrose 50%) 50 ml Q30M PRN IV Hypoglycemia 05/04/18 07:15 06/03/18 07:14 Docusate Sodium (Colace) 100 mg THREE TIMES A DAY ORAL 05/03/18 09:00 06/02/18 08:59 05/15/18 08:48 Fat Emulsion Intravenous 192 ml/Amino Acids/ Electrolytes/ Dextrose 1,920 ml @ 80 mls/hr Q24H IV 05/14/18 20:00 06/13/18 19:59 05/14/18 20:30 Fluconazole/ Sodium Chloride 200 ml @ 100 mls/hr Q24H IV 05/12/18 14:00 05/19/18 13:59 05/14/18 14:11 Heparin Sodium (Porcine) (Heparin 5000 units/ml) 5,000 units EVERY 12 HOURS SUBQ 05/02/18 21:00 05/28/18 20:59 05/15/18 08:48 Insulin Aspart (NovoLOG) Q6HR SUBQ 05/10/18 00:00 06/09/18 00:00 05/15/18 06:08 Insulin Detemir (Levemir) 5 units Q12HR SUBQ 05/14/18 10:00 06/13/18 09:59 05/15/18 08:47 Nicotine (Nicoderm) 1 patch Q24H TDERMAL 05/09/18 11:00 06/08/18 10:59 05/09/18 11:00 Nitroglycerin (Ntg) 0.4 mg Q5M X 3 DOSES PRN SL Prn Chest Pain 05/02/18 18:00 05/28/18 17:44 Ondansetron HCl (Zofran) 4 mg Q6H PRN IVP Nausea & Vomiting 05/02/18 17:55 05/28/18 17:54 05/12/18 18:26 Pantoprazole (Protonix) 40 mg BIAC ORAL 05/10/18 16:30 06/09/18 16:29 05/15/18 06:02 Promethazine HCl (Phenergan) 25 mg Q6H PRN IM Nausea & Vomiting 05/04/18 20:15 06/03/18 20:14 05/04/18 21:01 Wilner Denney MD May 15, 2018 10:00
--- NOTE | 2018-05-15 10:20 | General Progress Note ---
Assessment/Plan Problem List: (1) Pancreatitis ICD Codes: K85.90 - Acute pancreatitis without necrosis or infection, unspecified SNOMED: 44763044 (2) Hyponatremia ICD Codes: E87.1 - Hyponatremia SNOMED: 03416242 (3) Nausea, vomiting, and diarrhea ICD Codes: R11.2 - Nausea with vomiting, unspecified; R19.7 - Diarrhea, unspecified SNOMED: 0540940 Assessment/Plan glucose values improved continue regular insulin of TPN at 20 units / bag continue Levemir 5 units bid discussed with pharmacist continue NISS Subjective Allergies: Coded Allergies: NO KNOWN ALLERGIES (Unverified Allergy, Unknown, 06/26/15) All Systems: reviewed and negative except above Subjective events noted he wants to go to assisted living Objective Last 24 Hour Vital Signs Date Time Temp Pulse Resp B/P (MAP) Pulse Ox O2 Delivery O2 Flow Rate FiO2 05/15/18 09:00 Room Air 05/15/18 08:00 78 20 109/71 (84) 97 05/15/18 00:00 98.5 96 17 109/75 (86) 95 98.5 05/14/18 21:00 Room Air 05/14/18 16:00 99.0 80 18 133/72 (92) 97 99.0 Intake and Output 05/14/18 05/15/18 19:00 07:00 Intake Total 1060 ml 880 ml Output Total 700 ml Balance 360 ml 880 ml IV Total 1060 ml 880 ml Output Urine Total 700 ml # Voids 4 Laboratory Tests 05/15/18 06:05: White Blood Count 4.2L, Red Blood Count 3.16L, Hemoglobin 10.2#L, Hematocrit 29.0#L, Mean Corpuscular Volume 92, Mean Corpuscular Hemoglobin 32.3H, Mean Corpuscular Hemoglobin Concent 35.2, Red Cell Distribution Width 13.9, Platelet Count 279, Mean Platelet Volume 4.7L, Neutrophils (%) (Auto) 48.9, Lymphocytes ( %) (Auto) 39.8, Monocytes (%) (Auto) 8.1, Eosinophils (%) (Auto) 1.8, Basophils (%) (Auto) 1.4, Sodium Level 144, Potassium Level 3.3L, Chloride Level 109H, Carbon Dioxide Level 32, Anion Gap 3L, Blood Urea Nitrogen 13, Creatinine 0.5L, Estimat Glomerular Filtration Rate > 60, Glucose Level 102#, Calcium Level 7.5L , Total Bilirubin 0.5, Aspartate Amino Transf (AST/SGOT) 17, Alanine Aminotransferase (ALT/SGPT) 48, Alkaline Phosphatase 69, Total Protein 4.3L, Albumin 1.7L, Globulin 2.6, Albumin/Globulin Ratio 0.7L, Prealbumin [Pending] Height (Feet): 5 Height (Inches): 6.00 Weight (Pounds): 160 General Appearance: no apparent distress Neck: normal alignment Cardiovascular: normal rate Respiratory/Chest: chest wall non-tender Abdomen: normal bowel sounds Objective Current Medications Medications (Trade) Dose Ordered Sig/Herminia Route PRN Reason Start Time Stop Time Status Last Admin Dose Admin Acetaminophen (Tylenol) 650 mg Q4H PRN ORAL fever 05/02/18 17:54 05/28/18 17:53 05/13/18 09:33 Al Hydroxide/Mg Hydroxide (Mylanta II) 30 ml Q6H PRN ORAL dyspepsia 05/02/18 17:54 05/28/18 17:53 05/08/18 02:37 Chlorhexidine Gluconate (Flores-Hex 2%) 1 applic DAILY@2000 TOPIC 05/04/18 20:00 06/03/18 19:59 05/14/18 20:31 Clonidine HCl (Catapres Tab) 0.1 mg Q4H PRN ORAL sbp more than 160 05/02/18 17:54 05/28/18 17:53 Dextrose 1,000 ml @ 0 mls/hr Q24H PRN IV PN interrupted or unavailable 05/09/18 12:00 06/08/18 11:59 Dextrose (Dextrose 50%) 25 ml Q30M PRN IV Hypoglycemia 05/04/18 07:15 06/03/18 07:14 Dextrose (Dextrose 50%) 50 ml Q30M PRN IV Hypoglycemia 05/04/18 07:15 06/03/18 07:14 Docusate Sodium (Colace) 100 mg THREE TIMES A DAY ORAL 05/03/18 09:00 06/02/18 08:59 05/15/18 08:48 Fat Emulsion Intravenous 192 ml/Amino Acids/ Electrolytes/ Dextrose 1,920 ml @ 80 mls/hr Q24H IV 05/14/18 20:00 11/12/18 19:59 05/14/18 20:30 Fluconazole/ Sodium Chloride 200 ml @ 100 mls/hr Q24H IV 05/12/18 14:00 05/19/18 13:59 05/14/18 14:11 Heparin Sodium (Porcine) (Heparin 5000 units/ml) 5,000 units EVERY 12 HOURS SUBQ 05/02/18 21:00 05/28/18 20:59 05/15/18 08:48 Insulin Aspart (NovoLOG) Q6HR SUBQ 05/10/18 00:00 06/09/18 00:00 05/15/18 06:08 Insulin Detemir (Levemir) 5 units Q12HR SUBQ 05/14/18 10:00 06/13/18 09:59 05/15/18 08:47 Nicotine (Nicoderm) 1 patch Q24H TDERMAL 05/09/18 11:00 06/08/18 10:59 05/09/18 11:00 Nitroglycerin (Ntg) 0.4 mg Q5M X 3 DOSES PRN SL Prn Chest Pain 05/02/18 18:00 05/28/18 17:44 Ondansetron HCl (Zofran) 4 mg Q6H PRN IVP Nausea & Vomiting 05/02/18 17:55 05/28/18 17:54 05/12/18 18:26 Pantoprazole (Protonix) 40 mg BIAC ORAL 05/10/18 16:30 06/09/18 16:29 05/15/18 06:02 Promethazine HCl (Phenergan) 25 mg Q6H PRN IM Nausea & Vomiting 05/04/18 20:15 06/03/18 20:14 05/04/18 21:01 Item Value Date Time Bedside Blood Glucose 115 mg/dl 05/15/18 0847 Bedside Blood Glucose 115 mg/dl 05/15/18 0608 Bedside Blood Glucose 221 mg/dl H 05/15/18 0000 Bedside Blood Glucose 255 mg/dl H 05/14/18 2100 Bedside Blood Glucose 328 mg/dl H 05/14/18 1808 Bedside Blood Glucose 245 mg/dl H 05/14/18 0616 Saad Laurent MD May 15, 2018 10:20
[2018-05-15] MEDS ORDERED: Heparin Sod 1000 units/ml 10ml IV PRN (11:30)
[2018-05-15 12:00] VITALS: BP 107/75
--- NOTE | 2018-05-15 13:11 | General Surgery Progress Note ---
General Surgery-Progress Note Subjective Additional Comments patient noted to be having diet from outside. noted to have multiple wrappers from food in room despite being npo. still with emesis after. states he just wants to live his life. non compliant with care plan Objective Last 24 Hour Vital Signs Date Time Temp Pulse Resp B/P (MAP) Pulse Ox O2 Delivery O2 Flow Rate FiO2 05/15/18 09:00 Room Air 05/15/18 08:00 78 20 109/71 (84) 97 05/15/18 00:00 98.5 96 17 109/75 (86) 95 98.5 05/14/18 21:00 Room Air 05/14/18 16:00 99.0 80 18 133/72 (92) 97 99.0 I&O Intake and Output 05/14/18 05/15/18 19:00 07:00 Intake Total 1060 ml 880 ml Output Total 700 ml Balance 360 ml 880 ml IV Total 1060 ml 880 ml Output Urine Total 700 ml # Voids 4 Dressing: dry Wound: clean Drains: none Cardiovascular: RSR Respiratory: clear Abdomen: soft, distended, non-tender, present bowel sounds Extremities: edema, other Laboratory Tests Test 05/15/18 06:05 White Blood Count 4.2 K/UL (4.8-10.8) L Red Blood Count 3.16 M/UL (4.70-6.10) L Hemoglobin 10.2 G/DL (14.2-18.0) #L Hematocrit 29.0 % (42.0-52.0) #L Mean Corpuscular Volume 92 FL (80-99) Mean Corpuscular Hemoglobin 32.3 PG (27.0-31.0) H Mean Corpuscular Hemoglobin Concent 35.2 G/DL (32.0-36.0) Red Cell Distribution Width 13.9 % (11.6-14.8) Platelet Count 279 K/UL (150-450) Mean Platelet Volume 4.7 FL (6.5-10.1) L Neutrophils (%) (Auto) 48.9 % (45.0-75.0) Lymphocytes (%) (Auto) 39.8 % (20.0-45.0) Monocytes (%) (Auto) 8.1 % (1.0-10.0) Eosinophils (%) (Auto) 1.8 % (0.0-3.0) Basophils (%) (Auto) 1.4 % (0.0-2.0) Sodium Level 144 MMOL/L (136-145) Potassium Level 3.3 MMOL/L (3.5-5.1) L Chloride Level 109 MMOL/L (98-107) H Carbon Dioxide Level 32 MMOL/L (21-32) Anion Gap 3 mmol/L (5-15) L Blood Urea Nitrogen 13 mg/dL (7-18) Creatinine 0.5 MG/DL (0.55-1.30) L Estimat Glomerular Filtration Rate > 60 mL/min (>60) Glucose Level 102 MG/DL (74-106) # Calcium Level 7.5 MG/DL (8.5-10.1) L Total Bilirubin 0.5 MG/DL (0.2-1.0) Aspartate Amino Transf (AST/SGOT) 17 U/L (15-37) Alanine Aminotransferase (ALT/SGPT) 48 U/L (12-78) Alkaline Phosphatase 69 U/L (46-116) Total Protein 4.3 G/DL (6.4-8.2) L Albumin 1.7 G/DL (3.4-5.0) L Globulin 2.6 g/dL Albumin/Globulin Ratio 0.7 (1.0-2.7) L Prealbumin Pending Plan Problems: (1) Intussusception of intestine Assessment & Plan: CT Findings: 1. Short segment small bowel intussusception in the left lower quadrant ( series 5 image 58). No lead point lesions. No evidence of bowel obstruction. No focal bowel wall thickening. No adjacent inflammatory change. This may represent transient intussusception and is of uncertain clinical significance. 2. Sigmoid diverticulosis without wall thickening or adjacent inflammatory change. CT reviewed. - likely transient and benign. exam stable, no obstruction, no thickening, no inflammation. leukocytosis unlikely due to this. does have elevated LFT. possible cholecystitis? possible hepatitis Ultrasound reviewed. ascites and liver abnormal. Gallbladder okay. t bili trending down. lip/nicolette nml. lfts improved. denies EtOH history. likely hepatitis? abd distention related to ascites. unsure of etiology for nausea and emesis but not obstructive in nature. paracentesis path noted. no malignant cells hepatitis panel negative gastric study abnormal delay CT without findings of intussusception or sbo poor protein and hypo albumin from chronic emesis very concerning and etiology unknown discussed with GI. repeat scope and push to small bowel for biopsy done NPO TPN needs nutritional optimization and is not getting it via PO intake. needs to be on TPN until nutrition improves. pending small bowel pathology very complex case where no etiology of malnutrition or emesis found. bowel edema / inflammation likely from hypoalbum/malnutrition. same with feet edema and ascites. discussed care plan with patient. albumin 1.7 and trending down. EGD with significant inflammation and CT similar in significant portion of small bowel. likely not absorbing through GI. needs TPN thank you. will follow with marbin. Long Guevara May 15, 2018 13:11
--- NOTE | 2018-05-15 13:26 | Internal Med Progress Note ---
Subjective Date of Service: May 15, 2018 Physician Name GraceYunier Attending Physician Aly Ricks MD Current Medications Medications (Trade) Dose Ordered Sig/Herminia Route PRN Reason Start Time Stop Time Status Last Admin Dose Admin Acetaminophen (Tylenol) 650 mg Q4H PRN ORAL fever 05/02/18 17:54 05/28/18 17:53 05/13/18 09:33 Al Hydroxide/Mg Hydroxide (Mylanta II) 30 ml Q6H PRN ORAL dyspepsia 05/02/18 17:54 05/28/18 17:53 05/08/18 02:37 Chlorhexidine Gluconate (Flores-Hex 2%) 1 applic DAILY@2000 TOPIC 05/04/18 20:00 06/03/18 19:59 05/14/18 20:31 Clonidine HCl (Catapres Tab) 0.1 mg Q4H PRN ORAL sbp more than 160 05/02/18 17:54 05/28/18 17:53 Dextrose 1,000 ml @ 0 mls/hr Q24H PRN IV PN interrupted or unavailable 05/09/18 12:00 06/08/18 11:59 Dextrose (Dextrose 50%) 25 ml Q30M PRN IV Hypoglycemia 05/04/18 07:15 06/03/18 07:14 Dextrose (Dextrose 50%) 50 ml Q30M PRN IV Hypoglycemia 05/04/18 07:15 06/03/18 07:14 Docusate Sodium (Colace) 100 mg THREE TIMES A DAY ORAL 05/03/18 09:00 06/02/18 08:59 05/15/18 13:13 Fat Emulsion Intravenous 192 ml/Amino Acids/ Electrolytes/ Dextrose 1,920 ml @ 80 mls/hr Q24H IV 05/14/18 20:00 05/15/18 19:59 05/14/18 20:30 Fat Emulsion Intravenous 192 ml/Amino Acids/ Electrolytes/ Dextrose 1,920 ml @ 80 mls/hr Q24H IV 05/15/18 20:00 06/14/18 19:59 Fluconazole/ Sodium Chloride 200 ml @ 100 mls/hr Q24H IV 05/12/18 14:00 05/19/18 13:59 05/14/18 14:11 Heparin Sodium (Porcine) (Heparin 5000 units/ml) 5,000 units EVERY 12 HOURS SUBQ 05/02/18 21:00 05/28/18 20:59 05/15/18 08:48 Heparin Sodium (Porcine) (Heparin Sod 1000 units/ml 10ml) 100 unit PRN PRN IV PICC line clog 05/15/18 11:30 05/20/18 11:29 Insulin Aspart (NovoLOG) Q6HR SUBQ 05/10/18 00:00 06/09/18 00:00 05/15/18 12:42 Insulin Detemir (Levemir) 5 units Q12HR SUBQ 05/14/18 10:00 06/13/18 09:59 05/15/18 08:47 Nicotine (Nicoderm) 1 patch Q24H TDERMAL 05/09/18 11:00 06/08/18 10:59 05/09/18 11:00 Nitroglycerin (Ntg) 0.4 mg Q5M X 3 DOSES PRN SL Prn Chest Pain 05/02/18 18:00 05/28/18 17:44 Ondansetron HCl (Zofran) 4 mg Q6H PRN IVP Nausea & Vomiting 05/02/18 17:55 05/28/18 17:54 05/15/18 13:13 Pantoprazole (Protonix) 40 mg BIAC ORAL 05/10/18 16:30 06/09/18 16:29 05/15/18 06:02 Promethazine HCl (Phenergan) 25 mg Q6H PRN IM Nausea & Vomiting 05/04/18 20:15 06/03/18 20:14 05/04/18 21:01 Allergies: Coded Allergies: NO KNOWN ALLERGIES (Unverified Allergy, Unknown, 06/26/15) ROS Limited/Unobtainable: No Constitutional: Reports: no symptoms HEENT: Reports: no symptoms Cardiovascular: Reports: no symptoms Respiratory: Reports: no symptoms Gastrointestinal/Abdominal: Reports: no symptoms Genitourinary: Reports: no symptoms Neurologic/Psychiatric: Reports: no symptoms Subjective 47 YO M admitted with hyperglycemia. Now intractable nausea and vomiting. Intussusception of small bowel. Cover for Int Magdi-Dr Ricks. S/P paracentesis 05/02/18. S/P Endoscopy 05/10/18. S/P enteroscopy 05/12/18. Now on TPN Objective Last Vital Signs Date Time Temp Pulse Resp B/P (MAP) Pulse Ox O2 Delivery O2 Flow Rate FiO2 05/15/18 12:00 97.4 80 18 107/75 (86) 99 97.4 05/15/18 09:00 Room Air 05/12/18 11:22 3 05/10/18 20:11 21 Laboratory Tests Test 05/15/18 06:05 White Blood Count 4.2 K/UL (4.8-10.8) L Red Blood Count 3.16 M/UL (4.70-6.10) L Hemoglobin 10.2 G/DL (14.2-18.0) #L Hematocrit 29.0 % (42.0-52.0) #L Mean Corpuscular Volume 92 FL (80-99) Mean Corpuscular Hemoglobin 32.3 PG (27.0-31.0) H Mean Corpuscular Hemoglobin Concent 35.2 G/DL (32.0-36.0) Red Cell Distribution Width 13.9 % (11.6-14.8) Platelet Count 279 K/UL (150-450) Mean Platelet Volume 4.7 FL (6.5-10.1) L Neutrophils (%) (Auto) 48.9 % (45.0-75.0) Lymphocytes (%) (Auto) 39.8 % (20.0-45.0) Monocytes (%) (Auto) 8.1 % (1.0-10.0) Eosinophils (%) (Auto) 1.8 % (0.0-3.0) Basophils (%) (Auto) 1.4 % (0.0-2.0) Sodium Level 144 MMOL/L (136-145) Potassium Level 3.3 MMOL/L (3.5-5.1) L Chloride Level 109 MMOL/L (98-107) H Carbon Dioxide Level 32 MMOL/L (21-32) Anion Gap 3 mmol/L (5-15) L Blood Urea Nitrogen 13 mg/dL (7-18) Creatinine 0.5 MG/DL (0.55-1.30) L Estimat Glomerular Filtration Rate > 60 mL/min (>60) Glucose Level 102 MG/DL (74-106) # Calcium Level 7.5 MG/DL (8.5-10.1) L Total Bilirubin 0.5 MG/DL (0.2-1.0) Aspartate Amino Transf (AST/SGOT) 17 U/L (15-37) Alanine Aminotransferase (ALT/SGPT) 48 U/L (12-78) Alkaline Phosphatase 69 U/L (46-116) Total Protein 4.3 G/DL (6.4-8.2) L Albumin 1.7 G/DL (3.4-5.0) L Globulin 2.6 g/dL Albumin/Globulin Ratio 0.7 (1.0-2.7) L Prealbumin Pending Intake and Output 05/14/18 05/15/18 19:00 07:00 Intake Total 1060 ml 880 ml Output Total 700 ml Balance 360 ml 880 ml IV Total 1060 ml 880 ml Output Urine Total 700 ml # Voids 4 Objective PHYSICAL EXAMINATION: GENERAL: The patient is thin-appearing male, who is obviously nauseated. HEENT: Eyes, pupils are equal, responsive to light and accommodation. Extraocular movements are intact. NECK: Supple without lymphadenopathy. CHEST: Lungs are clear to auscultation bilaterally without wheezes or rales. CARDIOVASCULAR: Regular rate. S1, S2 normal without murmurs, rubs, or gallops. ABDOMEN: Soft, diffusely tender with positive bowel sounds. No evidence of hepatosplenomegaly. No rebound or guarding noted. EXTREMITIES: Negative for clubbing, cyanosis, or edema. RECTAL: Refused. GENITALIA: Refused. NEUROLOGIC: Cranial nerves II through XII are grossly intact without focal deficits. Motor strength is 5/5 bilaterally. Deep tendon reflexes are 2+ plantar. Assessment/Plan Problem List: (1) Pancreatitis Assessment & Plan: CT and US=no common bile duct stone. See GI note. (2) Hypokalemia Assessment & Plan: Replace KCL IV (3) Hyperglycemia (4) DKA (diabetic ketoacidoses) (5) Intussusception of intestine Assessment & Plan: Non obstructive. See surgery consult (6) Elevated transaminase level (7) Abdominal pain (8) Edema Assessment & Plan: Decrease IV fluids. Patient wants lasix. (9) Ascites (10) Anemia Assessment & Plan: ?GI bleed? S/P transfusion 1 unit PRBC 05/05/18. S/P Endoscopy 05/10/18=esophagitis (11) Esophagitis determined by endoscopy Assessment & Plan: Severe grade IV. See GI note (12) Intractable vomiting Assessment & Plan: See GI note. S/P Enteroscopy 05/12/18=bowel edema. Continue TPN Yunier Edwards MD May 15, 2018 13:26
[2018-05-15] MEDS ORDERED: Cathflo Alteplase 2mg Inj INJ SCH (13:30)
[2018-05-15 16:00] VITALS: BP 110/77
[2018-05-15 20:00] VITALS: BP 119/78
[2018-05-15] MEDS ORDERED: TPN IV SCH (20:00)
[2018-05-15] MEDS ORDERED: FAT EMULSION 20% IV SCH (20:00)
[2018-05-15] MEDS: Dyna-Hex 2% Top Sol 2oz TOPIC SCH (20:23)
[2018-05-16 04:00] VITALS: BP 101/67
[2018-05-16] MEDS: NovoLOG Insulin Flexpen SUBQ SCH ×4 (06:06→18:23)
[2018-05-16 08:08] VITALS: BP 101/62
[2018-05-16] MEDS: Docusate 100mg cap ORAL SCH ×3 (09:25→17:25)
[2018-05-16] MEDS: Heparin 5000 units/ml inj SUBQ SCH (09:26)
[2018-05-16] MEDS: Levemir Flexpen SUBQ SCH (09:27)
--- NOTE | 2018-05-16 09:39 | Pulmonology Progress Note ---
Assessment/Plan Assessment/Plan IMPRESSION: 1. Bilateral pleural effusions. 2. Intussusception. transient/resolving per GI/surgery 3. Diabetes mellitus. 4. History of substance abuse. 5. Elevated LFT's and T Eduardo DISCUSSION: Continue present care. Discussed with Dr. Ricks. Appreciate consultations. Continue TPN per GI. The patient will need placement most likely. I will continue to follow carefully. Noted to have food wrappers in room Will discuss with GI and surgery Wean off TPN? Subjective Interval Events: Food wrappers found in room Constitutional: Reports: no symptoms HEENT: Repors: no symptoms Respiratory: Reports: no symptoms Cardiovascular: Reports: no symptoms Gastrointestinal/Abdominal: Reports: no symptoms Genitourinary: Reports: no symptoms Allergies: Coded Allergies: NO KNOWN ALLERGIES (Unverified Allergy, Unknown, 06/26/15) Objective Last 24 Hour Vital Signs Date Time Temp Pulse Resp B/P (MAP) Pulse Ox O2 Delivery O2 Flow Rate FiO2 05/16/18 08:08 97.8 89 20 101/62 (75) 97 97.8 05/16/18 04:00 98.6 87 18 101/67 (78) 96 98.6 05/15/18 21:00 Room Air 05/15/18 20:00 99.1 82 18 119/78 (92) 98 99.1 05/15/18 16:00 97.6 77 110/77 (88) 97.6 05/15/18 12:00 97.4 80 18 107/75 (86) 99 97.4 Intake and Output 05/15/18 05/16/18 19:00 07:00 Intake Total 1100 ml 920 ml Output Total 200 ml 100 ml Balance 900 ml 820 ml Intake Oral 100 ml 120 ml IV Total 1000 ml 800 ml Emesis 200 ml 100 ml # Voids 2 2 General Appearance: no acute distress HEENT: normocephalic Respiratory/Chest: chest wall non-tender, lungs clear Cardiovascular: normal peripheral pulses, normal rate Abdomen: normal bowel sounds Current Medications Medications (Trade) Dose Ordered Sig/Herminia Route PRN Reason Start Time Stop Time Status Last Admin Dose Admin Acetaminophen (Tylenol) 650 mg Q4H PRN ORAL fever 05/02/18 17:54 05/28/18 17:53 05/13/18 09:33 Al Hydroxide/Mg Hydroxide (Mylanta II) 30 ml Q6H PRN ORAL dyspepsia 05/02/18 17:54 05/28/18 17:53 05/08/18 02:37 Chlorhexidine Gluconate (Flores-Hex 2%) 1 applic DAILY@2000 TOPIC 05/04/18 20:00 06/03/18 19:59 05/15/18 20:23 Clonidine HCl (Catapres Tab) 0.1 mg Q4H PRN ORAL sbp more than 160 05/02/18 17:54 05/28/18 17:53 Dextrose 1,000 ml @ 0 mls/hr Q24H PRN IV PN interrupted or unavailable 05/09/18 12:00 06/08/18 11:59 Dextrose (Dextrose 50%) 25 ml Q30M PRN IV Hypoglycemia 05/04/18 07:15 06/03/18 07:14 Dextrose (Dextrose 50%) 50 ml Q30M PRN IV Hypoglycemia 05/04/18 07:15 06/03/18 07:14 Docusate Sodium (Colace) 100 mg THREE TIMES A DAY ORAL 05/03/18 09:00 06/02/18 08:59 05/16/18 09:25 Fat Emulsion Intravenous 192 ml/Amino Acids/ Electrolytes/ Dextrose 1,920 ml @ 80 mls/hr Q24H IV 05/15/18 20:00 06/14/18 19:59 05/15/18 20:24 Fluconazole/ Sodium Chloride 200 ml @ 100 mls/hr Q24H IV 05/12/18 14:00 05/19/18 13:59 05/15/18 15:08 Heparin Sodium (Porcine) (Heparin 5000 units/ml) 5,000 units EVERY 12 HOURS SUBQ 05/02/18 21:00 05/28/18 20:59 05/16/18 09:26 Insulin Aspart (NovoLOG) Q6HR SUBQ 05/10/18 00:00 06/09/18 00:00 05/16/18 06:06 Insulin Detemir (Levemir) 5 units Q12HR SUBQ 05/14/18 10:00 06/13/18 09:59 05/16/18 09:27 Nicotine (Nicoderm) 1 patch Q24H TDERMAL 05/09/18 11:00 06/08/18 10:59 05/09/18 11:00 Nitroglycerin (Ntg) 0.4 mg Q5M X 3 DOSES PRN SL Prn Chest Pain 05/02/18 18:00 05/28/18 17:44 Ondansetron HCl (Zofran) 4 mg Q6H PRN IVP Nausea & Vomiting 05/02/18 17:55 05/28/18 17:54 05/15/18 13:13 Pantoprazole (Protonix) 40 mg BIAC ORAL 05/10/18 16:30 06/09/18 16:29 05/16/18 06:00 Promethazine HCl (Phenergan) 25 mg Q6H PRN IM Nausea & Vomiting 05/04/18 20:15 06/03/18 20:14 05/04/18 21:01 Wilner Denney MD May 16, 2018 09:39
--- NOTE | 2018-05-16 10:30 | GI Progress Note ---
Assessment/Plan Problems: (1) Intussusception of intestine ICD Codes: K56.1 - Intussusception SNOMED: 90663676 (2) Elevated transaminase level ICD Codes: R74.0 - Nonspecific elevation of levels of transaminase and lactic acid dehydrogenase [LDH] SNOMED: 256377008, 919807067 (3) DKA (diabetic ketoacidoses) ICD Codes: E13.10 - Other specified diabetes mellitus with ketoacidosis without coma SNOMED: 38622954 (4) Nausea, vomiting, and diarrhea ICD Codes: R11.2 - Nausea with vomiting, unspecified; R19.7 - Diarrhea, unspecified SNOMED: 2809092 (5) Drug abuse ICD Codes: F19.10 - Other psychoactive substance abuse, uncomplicated SNOMED: 44526412 (6) Episode of generalized weakness ICD Codes: R53.1 - Weakness SNOMED: 17803517 (7) H/O cocaine abuse ICD Codes: Z87.898 - Personal history of other specified conditions SNOMED: 884237200 (8) Severe malnutrition ICD Codes: E43 - Unspecified severe protein-calorie malnutrition SNOMED: 55872287 (9) Bowel disease, inflammatory ICD Codes: K52.9 - Noninfective gastroenteritis and colitis, unspecified SNOMED: 53837981 Status: unchanged Status Narrative Discussed with Dr. Ascencio. Assessment/Plan cocaine positive s/p paracentesis yielding 1.5L - pending cytology >> negative for malignancy severe gastroparesis hepatitis panel >> negative gastric delay emptying study >> half life of excretion is calculated at 287 minutes which is delayed. s/p EGD SUMMARY OF FINDINGS: 1. Severe esophagitis, grade 4, status post multiple biopsy. 2. Gastritis, status post biopsy. 3. Limited study given the retained food material in the stomach. s/p PUSH ENTEROSCOPY SUMMARY OF FINDINGS: 1. Severe esophagitis. 2. Gastroparesis with retained greenish bile material in the stomach. 3. Bowel edema, status post biopsy. maintain NPO, cont TPN reglan 10mg IV ATC zofran prn pain mgmt bowel regime fu labs The patient was seen and examined at bedside and all new and available data was reviewed in the patients chart. I agree with the above findings, impression and plan. (Patient seen earlier today. Signature stamp does not reflect patient encounter time.). - Pedro Ascencio MD Subjective Subjective generalized weakness random episodes of emesis Objective Last 24 Hour Vital Signs Date Time Temp Pulse Resp B/P (MAP) Pulse Ox O2 Delivery O2 Flow Rate FiO2 05/16/18 08:08 97.8 89 20 101/62 (75) 97 97.8 05/16/18 04:00 98.6 87 18 101/67 (78) 96 98.6 05/15/18 21:00 Room Air 05/15/18 20:00 99.1 82 18 119/78 (92) 98 99.1 05/15/18 16:00 97.6 77 110/77 (88) 97.6 05/15/18 12:00 97.4 80 18 107/75 (86) 99 97.4 Intake and Output 05/15/18 05/16/18 19:00 07:00 Intake Total 1100 ml 920 ml Output Total 200 ml 100 ml Balance 900 ml 820 ml Intake Oral 100 ml 120 ml IV Total 1000 ml 800 ml Emesis 200 ml 100 ml # Voids 2 2 Height (Feet): 5 Height (Inches): 6.00 Weight (Pounds): 160 General Appearance: WD/WN, no apparent distress, alert Cardiovascular: normal rate Respiratory/Chest: normal breath sounds, no respiratory distress Abdominal Exam: normal bowel sounds, non tender, soft Extremities: normal range of motion, non-tender Melita Delgado ARTIST REPRESENTATIVE May 16, 2018 10:30
[2018-05-16] MEDS ORDERED: NS 500ML ONE (10:39)
--- NOTE | 2018-05-16 10:50 | General Surgery Progress Note ---
General Surgery-Progress Note Subjective Additional Comments no acute events. states he is okay but wants to get better soon. Objective Last 24 Hour Vital Signs Date Time Temp Pulse Resp B/P (MAP) Pulse Ox O2 Delivery O2 Flow Rate FiO2 05/16/18 08:08 97.8 89 20 101/62 (75) 97 97.8 05/16/18 04:00 98.6 87 18 101/67 (78) 96 98.6 05/15/18 21:00 Room Air 05/15/18 20:00 99.1 82 18 119/78 (92) 98 99.1 05/15/18 16:00 97.6 77 110/77 (88) 97.6 05/15/18 12:00 97.4 80 18 107/75 (86) 99 97.4 I&O Intake and Output 05/15/18 05/16/18 19:00 07:00 Intake Total 1100 ml 920 ml Output Total 200 ml 100 ml Balance 900 ml 820 ml Intake Oral 100 ml 120 ml IV Total 1000 ml 800 ml Emesis 200 ml 100 ml # Voids 2 2 Dressing: dry Wound: clean Drains: none Cardiovascular: RSR Respiratory: clear Abdomen: soft, distended, non-tender, present bowel sounds Extremities: edema, no cyanosis Plan Problems: (1) Intussusception of intestine Assessment & Plan: CT Findings: 1. Short segment small bowel intussusception in the left lower quadrant ( series 5 image 58). No lead point lesions. No evidence of bowel obstruction. No focal bowel wall thickening. No adjacent inflammatory change. This may represent transient intussusception and is of uncertain clinical significance. 2. Sigmoid diverticulosis without wall thickening or adjacent inflammatory change. CT reviewed. - likely transient and benign. exam stable, no obstruction, no thickening, no inflammation. leukocytosis unlikely due to this. does have elevated LFT. possible cholecystitis? possible hepatitis Ultrasound reviewed. ascites and liver abnormal. Gallbladder okay. t bili trending down. lip/nicolette nml. lfts improved. denies EtOH history. Hep panel and HIV tests negative abd distention related to ascites. unsure of etiology for nausea and emesis but not obstructive in nature. paracentesis path noted. no malignant cells gastric study abnormal delay CT without findings of intussusception or sbo poor protein and hypo albumin from chronic emesis concerning and etiology unknown discussed with GI. repeat scope and push to small bowel for biopsy done; path pending NPO TPN needs nutritional optimization and is not getting it via PO intake. needs to be on TPN until nutrition improves. very complex case where no etiology of malnutrition or emesis found. bowel edema / inflammation likely from hypoalbum/malnutrition. same with feet edema and ascites. discussed care plan with patient. albumin 1.7 and trending down. prealbumin 11. EGD with significant inflammation and CT similar in significant portion of small bowel. he has been taking in oral intake for some time now without improvement in nutritional status. despite being on oral diet for some time and taking in good oral intake minus some emesis his malnutrition worsened. likely not absorbing through GI. needs TPN discussed possibility of higher level of care. thank you. will follow with marbin. Long Guevara May 16, 2018 10:50
[2018-05-16 11:02] LABS: HEMATOCRIT 25.7 % (42.0-52.0); HEMOGLOBIN 9.1 G/DL (14.2-18.0); MEAN CORPUSCULAR VOLUME 92 FL (80-99); PLATELET COUNT 253 K/UL (150-450); RED BLOOD COUNT 2.78 M/UL (4.70-6.10); WHITE BLOOD COUNT 3.2 K/UL (4.8-10.8)
[2018-05-16 11:23] LABS: ANION GAP 1 mmol/L (5-15); BLOOD UREA NITROGEN 9 mg/dL (7-18); CALCIUM 7.3 MG/DL (8.5-10.1); CARBON DIOXIDE 32 MMOL/L (21-32); CHLORIDE 109 MMOL/L (98-107); CREATININE 0.4 MG/DL (0.55-1.30); POTASSIUM 4.6 MMOL/L (3.5-5.1); SODIUM 142 MMOL/L (136-145)
--- NOTE | 2018-05-16 13:39 | General Progress Note ---
Assessment/Plan Problem List: (1) Pancreatitis ICD Codes: K85.90 - Acute pancreatitis without necrosis or infection, unspecified SNOMED: 64677110 (2) Hyponatremia ICD Codes: E87.1 - Hyponatremia SNOMED: 92611886 (3) Nausea, vomiting, and diarrhea ICD Codes: R11.2 - Nausea with vomiting, unspecified; R19.7 - Diarrhea, unspecified SNOMED: 4950515 Assessment/Plan glucose values improved continue regular insulin of TPN at 20 units / bag continue Levemir 5 units bid continue NISS Subjective Allergies: Coded Allergies: NO KNOWN ALLERGIES (Unverified Allergy, Unknown, 06/26/15) All Systems: reviewed and negative except above Subjective events noted Objective Last 24 Hour Vital Signs Date Time Temp Pulse Resp B/P (MAP) Pulse Ox O2 Delivery O2 Flow Rate FiO2 05/16/18 08:08 97.8 89 20 101/62 (75) 97 97.8 05/16/18 04:00 98.6 87 18 101/67 (78) 96 98.6 05/15/18 21:00 Room Air 05/15/18 20:00 99.1 82 18 119/78 (92) 98 99.1 05/15/18 16:00 97.6 77 110/77 (88) 97.6 Intake and Output 05/15/18 05/16/18 19:00 07:00 Intake Total 1100 ml 920 ml Output Total 200 ml 100 ml Balance 900 ml 820 ml Intake Oral 100 ml 120 ml IV Total 1000 ml 800 ml Emesis 200 ml 100 ml # Voids 2 2 Laboratory Tests 05/16/18 10:30: White Blood Count 3.2L, Red Blood Count 2.78L, Hemoglobin 9.1L, Hematocrit 25.7L , Mean Corpuscular Volume 92, Mean Corpuscular Hemoglobin 32.6H, Mean Corpuscular Hemoglobin Concent 35.4, Red Cell Distribution Width 14.0, Platelet Count 253, Mean Platelet Volume 4.8L, Neutrophils (%) (Auto) , Lymphocytes (%) ( Auto) , Monocytes (%) (Auto) , Eosinophils (%) (Auto) , Basophils (%) (Auto) , Differential Total Cells Counted 100, Neutrophils % (Manual) 64, Lymphocytes % ( Manual) 24, Monocytes % (Manual) 7, Eosinophils % (Manual) 4H, Basophils % ( Manual) 1, Band Neutrophils 0, Platelet Estimate Adequate, Platelet Morphology Normal, Polychromasia Occasional, Sodium Level 142, Potassium Level 4.6, Chloride Level 109H, Carbon Dioxide Level 32, Anion Gap 1L, Blood Urea Nitrogen 9, Creatinine 0.4L, Estimat Glomerular Filtration Rate > 60, Glucose Level 145H , Calcium Level 7.3L, Triglycerides Level 94 Height (Feet): 5 Height (Inches): 6.00 Weight (Pounds): 160 General Appearance: no apparent distress Neck: non-tender Respiratory/Chest: lungs clear Abdomen: normal bowel sounds Pelvis: normal external exam Objective Current Medications Medications (Trade) Dose Ordered Sig/[place] Route PRN Reason Start Time Stop Time Status Last Admin Dose Admin Acetaminophen (Tylenol) 650 mg Q4H PRN ORAL fever 05/02/18 17:54 05/28/18 17:53 05/13/18 09:33 Al Hydroxide/Mg Hydroxide (Mylanta II) 30 ml Q6H PRN ORAL dyspepsia 05/02/18 17:54 05/28/18 17:53 05/08/18 02:37 Chlorhexidine Gluconate (Flores-Hex 2%) 1 applic DAILY@2000 TOPIC 05/04/18 20:00 06/03/18 19:59 05/15/18 20:23 Clonidine HCl (Catapres Tab) 0.1 mg Q4H PRN ORAL sbp more than 160 05/02/18 17:54 05/28/18 17:53 Dextrose 1,000 ml @ 0 mls/hr Q24H PRN IV PN interrupted or unavailable 05/09/18 12:00 06/08/18 11:59 Dextrose (Dextrose 50%) 25 ml Q30M PRN IV Hypoglycemia 05/04/18 07:15 06/03/18 07:14 Dextrose (Dextrose 50%) 50 ml Q30M PRN IV Hypoglycemia 05/04/18 07:15 06/03/18 07:14 Docusate Sodium (Colace) 100 mg THREE TIMES A DAY ORAL 05/03/18 09:00 06/02/18 08:59 05/16/18 09:25 Fat Emulsion Intravenous 192 ml/Amino Acids/ Electrolytes/ Dextrose 1,920 ml @ 80 mls/hr Q24H IV 05/15/18 20:00 06/14/18 19:59 05/15/18 20:24 Fluconazole/ Sodium Chloride 200 ml @ 100 mls/hr Q24H IV 05/12/18 14:00 05/19/18 13:59 05/15/18 15:08 Heparin Sodium (Porcine) (Heparin 5000 units/ml) 5,000 units EVERY 12 HOURS SUBQ 05/02/18 21:00 05/28/18 20:59 05/16/18 09:26 Insulin Aspart (NovoLOG) Q6HR SUBQ 05/10/18 00:00 06/09/18 00:00 05/16/18 12:40 Insulin Detemir (Levemir) 5 units Q12HR SUBQ 05/14/18 10:00 06/13/18 09:59 05/16/18 09:27 Nicotine (Nicoderm) 1 patch Q24H TDERMAL 05/09/18 11:00 06/08/18 10:59 05/09/18 11:00 Nitroglycerin (Ntg) 0.4 mg Q5M X 3 DOSES PRN SL Prn Chest Pain 05/02/18 18:00 05/28/18 17:44 Ondansetron HCl (Zofran) 4 mg Q6H PRN IVP Nausea & Vomiting 05/02/18 17:55 05/28/18 17:54 05/15/18 13:13 Pantoprazole (Protonix) 40 mg BIAC ORAL 05/10/18 16:30 06/09/18 16:29 05/16/18 06:00 Promethazine HCl (Phenergan) 25 mg Q6H PRN IM Nausea & Vomiting 05/04/18 20:15 06/03/18 20:14 05/04/18 21:01 Item Value Date Time Bedside Blood Glucose 140 mg/dl H 05/16/18 1240 Bedside Blood Glucose 136 mg/dl H 05/16/18 0927 Bedside Blood Glucose 136 mg/dl H 05/16/18 0606 Bedside Blood Glucose 142 mg/dl H 05/15/18 2030 Bedside Blood Glucose 152 mg/dl H 05/15/18 1735 Bedside Blood Glucose 133 mg/dl H 05/15/18 1242 Saad Laurent MD May 16, 2018 13:39
[2018-05-16 16:00] VITALS: BP 121/71
--- NOTE | 2018-05-16 19:07 | Internal Med Progress Note ---
Subjective Date of Service: May 16, 2018 Physician Name Yunier Edwards Attending Physician Aly Ricks MD Current Medications Medications (Trade) Dose Ordered Sig/Herm[place] Route PRN Reason Start Time Stop Time Status Last Admin Dose Admin Acetaminophen (Tylenol) 650 mg Q4H PRN ORAL fever 05/02/18 17:54 05/28/18 17:53 05/13/18 09:33 Al Hydroxide/Mg Hydroxide (Mylanta II) 30 ml Q6H PRN ORAL dyspepsia 05/02/18 17:54 05/28/18 17:53 05/08/18 02:37 Chlorhexidine Gluconate (Flores-Hex 2%) 1 applic DAILY@2000 TOPIC 05/04/18 20:00 06/03/18 19:59 05/15/18 20:23 Clonidine HCl (Catapres Tab) 0.1 mg Q4H PRN ORAL sbp more than 160 05/02/18 17:54 05/28/18 17:53 Dextrose 1,000 ml @ 0 mls/hr Q24H PRN IV PN interrupted or unavailable 05/09/18 12:00 06/08/18 11:59 Dextrose (Dextrose 50%) 25 ml Q30M PRN IV Hypoglycemia 05/04/18 07:15 06/03/18 07:14 Dextrose (Dextrose 50%) 50 ml Q30M PRN IV Hypoglycemia 05/04/18 07:15 06/03/18 07:14 Docusate Sodium (Colace) 100 mg THREE TIMES A DAY ORAL 05/03/18 09:00 06/02/18 08:59 05/16/18 17:25 Fat Emulsion Intravenous 192 ml/Amino Acids/ Electrolytes/ Dextrose 1,920 ml @ 80 mls/hr Q24H IV 05/15/18 20:00 06/14/18 19:59 05/15/18 20:24 Fluconazole/ Sodium Chloride 200 ml @ 100 mls/hr Q24H IV 05/12/18 14:00 05/27/18 15:00 05/16/18 13:50 Heparin Sodium (Porcine) (Heparin 5000 units/ml) 5,000 units EVERY 12 HOURS SUBQ 05/02/18 21:00 05/28/18 20:59 05/16/18 09:26 Insulin Aspart (NovoLOG) Q6HR SUBQ 05/10/18 00:00 06/09/18 00:00 05/16/18 18:23 Insulin Detemir (Levemir) 5 units Q12HR SUBQ 05/14/18 10:00 06/13/18 09:59 05/16/18 09:27 Nicotine (Nicoderm) 1 patch Q24H TDERMAL 05/09/18 11:00 06/08/18 10:59 05/09/18 11:00 Nitroglycerin (Ntg) 0.4 mg Q5M X 3 DOSES PRN SL Prn Chest Pain 05/02/18 18:00 05/28/18 17:44 Ondansetron HCl (Zofran) 4 mg Q6H PRN IVP Nausea & Vomiting 05/02/18 17:55 05/28/18 17:54 05/15/18 13:13 Pantoprazole (Protonix) 40 mg BIAC ORAL 05/10/18 16:30 06/09/18 16:29 05/16/18 17:25 Promethazine HCl (Phenergan) 25 mg Q6H PRN IM Nausea & Vomiting 05/04/18 20:15 06/03/18 20:14 05/04/18 21:01 Allergies: Coded Allergies: NO KNOWN ALLERGIES (Unverified Allergy, Unknown, 06/26/15) ROS Limited/Unobtainable: No Constitutional: Reports: no symptoms HEENT: Reports: no symptoms Cardiovascular: Reports: no symptoms Respiratory: Reports: no symptoms Gastrointestinal/Abdominal: Reports: nausea, vomiting Genitourinary: Reports: no symptoms Neurologic/Psychiatric: Reports: no symptoms Subjective 47 YO M admitted with hyperglycemia. Now intractable nausea and vomiting. Intussusception of small bowel. Cover for Int Med-Dr Ricks. S/P paracentesis 05/02/18. S/P Endoscopy 05/10/18. S/P enteroscopy 05/12/18. Now on TPN. [facility] Objective Last Vital Signs Date Time Temp Pulse Resp B/P (MAP) Pulse Ox O2 Delivery O2 Flow Rate FiO2 05/16/18 08:08 97.8 89 20 101/62 (75) 97 97.8 05/15/18 21:00 Room Air 05/12/18 11:22 3 05/10/18 20:11 21 Laboratory Tests Test 05/16/18 10:30 White Blood Count 3.2 K/UL (4.8-10.8) L Red Blood Count 2.78 M/UL (4.70-6.10) L Hemoglobin 9.1 G/DL (14.2-18.0) L Hematocrit 25.7 % (42.0-52.0) L Mean Corpuscular Volume 92 FL (80-99) Mean Corpuscular Hemoglobin 32.6 PG (27.0-31.0) H Mean Corpuscular Hemoglobin Concent 35.4 G/DL (32.0-36.0) Red Cell Distribution Width 14.0 % (11.6-14.8) Platelet Count 253 K/UL (150-450) Mean Platelet Volume 4.8 FL (6.5-10.1) L Neutrophils (%) (Auto) % (45.0-75.0) Lymphocytes (%) (Auto) % (20.0-45.0) Monocytes (%) (Auto) % (1.0-10.0) Eosinophils (%) (Auto) % (0.0-3.0) Basophils (%) (Auto) % (0.0-2.0) Differential Total Cells Counted 100 Neutrophils % (Manual) 64 % (45-75) Lymphocytes % (Manual) 24 % (20-45) Monocytes % (Manual) 7 % (1-10) Eosinophils % (Manual) 4 % (0-3) H Basophils % (Manual) 1 % (0-2) Band Neutrophils 0 % (0-8) Platelet Estimate Adequate Platelet Morphology Normal Polychromasia Occasional Sodium Level 142 MMOL/L (136-145) Potassium Level 4.6 MMOL/L (3.5-5.1) Chloride Level 109 MMOL/L (98-107) H Carbon Dioxide Level 32 MMOL/L (21-32) Anion Gap 1 mmol/L (5-15) L Blood Urea Nitrogen 9 mg/dL (7-18) Creatinine 0.4 MG/DL (0.55-1.30) L Estimat Glomerular Filtration Rate > 60 mL/min (>60) Glucose Level 145 MG/DL (74-106) H Calcium Level 7.3 MG/DL (8.5-10.1) L Triglycerides Level 94 MG/DL (30-150) Intake and Output 05/15/18 05/16/18 19:00 07:00 Intake Total 1100 ml 920 ml Output Total 200 ml 100 ml Balance 900 ml 820 ml Intake Oral 100 ml 120 ml IV Total 1000 ml 800 ml Emesis 200 ml 100 ml # Voids 2 2 Objective PHYSICAL EXAMINATION: GENERAL: The patient is thin-appearing male, who is obviously nauseated. HEENT: Eyes, pupils are equal, responsive to light and accommodation. Extraocular movements are intact. NECK: Supple without lymphadenopathy. CHEST: Lungs are clear to auscultation bilaterally without wheezes or rales. CARDIOVASCULAR: Regular rate. S1, S2 normal without murmurs, rubs, or gallops. ABDOMEN: Soft, diffusely tender with positive bowel sounds. No evidence of hepatosplenomegaly. No rebound or guarding noted. EXTREMITIES: Negative for clubbing, cyanosis, or edema. RECTAL: Refused. GENITALIA: Refused. NEUROLOGIC: Cranial nerves II through XII are grossly intact without focal deficits. Motor strength is 5/5 bilaterally. Deep tendon reflexes are 2+ plantar. Assessment/Plan Problem List: (1) Pancreatitis Assessment & Plan: CT and US=no common bile duct stone. See GI note. (2) Hypokalemia Assessment & Plan: Replace KCL IV (3) Hyperglycemia (4) DKA (diabetic ketoacidoses) (5) Intussusception of intestine Assessment & Plan: Non obstructive. See surgery consult (6) Elevated transaminase level (7) Abdominal pain (8) Edema Assessment & Plan: Decrease IV fluids. Patient wants lasix. (9) Ascites (10) Anemia Assessment & Plan: ?GI bleed? S/P transfusion 1 unit PRBC 05/05/18. S/P Endoscopy 05/10/18=esophagitis (11) Esophagitis determined by endoscopy Assessment & Plan: Severe grade IV. See GI note (12) Intractable vomiting Assessment & Plan: See GI note. S/P Enteroscopy 05/12/18=bowel edema. Continue TPN Assessment/Plan [facility] when bed aviaiable. Yunier Edwards MD May 16, 2018 19:07
--- NOTE | 2018-05-17 14:51 | Cardiology Report ---
APPROVED REPORT EXAM: Two-dimensional and M-mode echocardiogram with Doppler and color Doppler. INDICATION LV FUNCTION M-Mode DIMENSIONS IVSd0.8 (0.7-1.1cm) LVDd4.0 (3.5-5.6cm) PWd1.3 (0.7-1.1cm) IVSs1.2 cm LVDs2.2 (2.5-4.0cm) PWs1.5 cm Normal left ventricular chamber size, midl septal hypokinesis otherwise normal systolic function and wall motion . Left ventricular ejection fraction estimated to be 50-55%. No evidence of left ventricular hypertrophy . No evidence of pericardial effusion. All other cardiac chamber sizes are within normal limits. Focal aortic valve sclerosis with adequate cusp excursion. Thickened mitral valve leaflets with normal excursion. Mitral annulus and aortic root calcification. Pulmonic valve not well visualized. Normal tricuspid valve structure. IVC at normal size with physiologic collapse. A color flow and spectral Doppler study was performed and revealed: No aortic insufficiency . Mild mitral regurgitation. Mitral diastolic velocities suggest normal left ventricular relaxation Mild tricuspid regurgitation. Tricuspid systolic velocities suggests peak right ventricular systolic pressure of 32mmHg.
--- NOTE | 2018-05-18 08:20 | Discharge Summary ---
Discharge Summary Discharge Summary _ DATE OF ADMISSION: 04/28/2018 DATE OF DISCHARGE: 05/16/2018. Patient signed AMA REASON FOR ADMISSION: 47 years old male with history of insulin dependent diabetes mellitus, presented to emergency room with generalized weakness. Patient reported diffuse abdominal discomfort with associated nausea and intractable vomiting. No chest pain or shortness of breath . Upon evaluation vital signs were stable. Laboratory workup revealed no leukocytosis, stable hemoglobin and hematocrit. Potassium 6.0. BUN 66 creatinine 1.3. Glucose 799. AST 624 , ALT 268, total bilirubin 1.8 . Lipase 427 Troponin negative . Abdominal x-ray revealed severe fecal impaction . Chest x-ray revealed no acute cardiopulmonary pathology . EKG showed normal sinus rhythm. Patient admitted with diagnoses of hyperglycemia associated with uncontrolled diabetes mellitus type 1, nausea and intractable vomiting, fecal impaction , possible acute pancreatitis ,transaminitis, hyperkalemia. CONSULTANTS: pulmonary Dr. Jamil/Dr. Denney- changed as per insurance ID specialist Dr. Vargas GI specialist Dr. Ascencio surgery Dr. Guevara [facility]: Patient admitted to medical surgical floor and started on IV fluids. GI consult was requested. Patient admitted to cocaine use. Urine toxicology screen was positive for cocaine. Symptomatic treatment initially provided. Antiemetics provided as needed . Pain management was addressed . Meticulous bowel regimen instituted. LFT and lipase were trended. CAT scan of abdomen and pelvis revealed short segment of small bowel intussusception in the left lower quadrant. No lead point lesions. No evidence of bowel obstruction. No focal bowel wall thickening. No adjacent inflammatory changes. Sigmoid diverticulosis without wall thickening, no adjacent inflammatory changes. Abdominal ultrasound revealed moderate ascites, mildly echogenic liver suggesting fatty infiltration. Echogenic kidney, suggesting medical renal disease , no hydronephrosis. Patient subsequently undergone ultrasound-guided paracentesis , which yielded 1.5 L of peritoneal fluid. Ultrasound post-paracentesis demonstrated complete resolution of peritoneal fluid. Pathology of peritoneal fluid revealed no malignancy. Hepatitis panel and HIV test were both negative. Patient started on clear liquid diet as tolerated. Patient noted to be anemic. Anemia workup revealed anemia of chronic disease. Hemoglobin and hematocrit were closely monitored with goal to keep hemoglobin above 7. Patient received 2 units of packed red blood cells transfusion for hemoglobin 6.9 on May 05. Prior to signing against medical advice hemoglobin 9.1. Patient continued to vomiting after any oral intake. Patient reported that it was going on for 3 months. Delayed emptying study showed abnormal delay of gastric emptying. Patient was started on Reglan. Slot Host seen and evaluated patient and stated that the patient had diabetes mellitus out of control without evidence of diabetes ketoacidosis, probably due to noncompliance with insulin. Patient started on regimen of long-acting Levemir at bedtime and sliding scale of insulin before meals and at bedtime. Slot Host closely followed , and further adjustment were made accordingly. Hemoglobin A1c -7.3 , at goal. Patient was encouraged compliance with medication regimen/insulin , while at home. Renal parameters and electrolytes were closely monitored. Electrolytes corrected as needed. Initial hyperkalemia treated and resolved. Nephrotoxics were avoided. Patient continued to vomit after each oral intake. Patient started on TPN. Electrolytes and glucose were corrected daily in TPN content , based on the lab values. Electrolytes were corrected as needed. GI prophylaxis provided. EGD was performed on May 10 and revealed severe esophagitis grade 4, gastritis. Pathology of antrum revealed minimal chronic inflammation, no H. pylori identified. Biopsy of esophagus revealed acute erosive esophagitis grade 4 with fungal organisms, consistent with Lilli. Patient started on fluconazole for 2-3 weeks as per ID specialist recommendation. Jejunum biopsy revealed no significant diagnostic abnormalities. Strict reflux precautions were maintained. Patient subsequently undergone on May 12 push enteroscopy , which revealed severe esophagitis, gastroparesis with retained greenish bile material in the stomach and bowel edema , status post biopsy. GI specialist recommended keep patient on TPN, NPO , and continue Reglan IV . Follow-up CT of the abdomen and pelvis revealed no evidence of small bowel obstruction. Previously demonstrated intussusception within the small bowel was not any more noted on the current study and probably resolved. Diffuse thickening of the small bowel mucosa.Moderate ascites. Anasarca. Bilateral pleural effusion. Surgeon closely followed. Per surgeon, continue TPN and NPO status. Surgeon recommended nutritional optimization and need to be on TPN, until nutrition improves. Sports Medicine Trainer recommendations implemented in level of care. Intractable vomiting was likely due to gastroparesis. Bowel edema inflammation was likely from hypoalbuminemia /malnutrition, same with stable pleural effusion, feet edema and ascites. Field Account Director followed. Pulse oximetry was stable on room air ,no evidence of respiratory distress. Venous duplex bilateral lower extremity was negative . Echocardiogram revealed preserved ejection fraction 50-55% and right ventricular systolic pressure of 32 ,no evidence of wall motion abnormalities , no evidence of left ventricular hypertrophy. Per GI specialist and surgeon, patient needed TPN. data management manager was working to arrange transfer to higher level of care, when bed become available. . LFT down to normal. Patient decided to sign AGAINST MEDICAL ADVICE. The risks and consequences of signing AGAINST MEDICAL ADVICE were discussed with patient in detail. Patient verbalized understanding, nevertheless signed AMA form and left. FINAL DIAGNOSES: Gastroparesis Intussusception of intestine Fecal impaction- resolved Severe malnutrition status post EGD Severe esophagitis grade 4 with Lilli Status post push enteroscopy Diabetes mellitus out of control Noncompliance with insulin Transaminitis- resolved Possible pancreatitis - resolved Anemia Cocaine abuse Bilateral pleural effusion Hyperkalemia-resolved I have been assigned to dictate discharge summary for this account. I was not involved in the patient's management. Hien Alcaraz NP May 18, 2018 08:20
== END 2018-05-16 18:57 | disposition left against medical advice (07) | DRG 420 ==
LOC: EDBD 13:10 → EMR 13:45 → 2E 15:05 → EDBEDREQ 17:33 → 3E 05-02 17:53
PROC: B518ZZA Fluoroscopy of Superior Vena Cava, Guidance (ICD-10-PCS; 2018-04-28)
PROC: 02HV33Z Insertion of Infusion Device into Superior Vena Cava, Percutaneous Approach (ICD-10-PCS; 2018-04-28)
PROC: 0W9G3ZZ Drainage of Peritoneal Cavity, Percutaneous Approach (ICD-10-PCS; 2018-05-02)
PROC: 02HV33Z Insertion of Infusion Device into Superior Vena Cava, Percutaneous Approach (ICD-10-PCS; 2018-05-05)
PROC: B518ZZA Fluoroscopy of Superior Vena Cava, Guidance (ICD-10-PCS; 2018-05-05)
PROC: 0DB78ZX Excision of Stomach, Pylorus, Via Natural or Artificial Opening Endoscopic, Diagnostic (ICD-10-PCS; principal; 2018-05-10 08:52)
PROC: 0DB58ZX Excision of Esophagus, Via Natural or Artificial Opening Endoscopic, Diagnostic (ICD-10-PCS; principal; 2018-05-10 08:52)
PROC: 0DBA8ZX Excision of Jejunum, Via Natural or Artificial Opening Endoscopic, Diagnostic (ICD-10-PCS; 2018-05-12)
DX: E10.65 Type 1 diabetes mellitus with hyperglycemia (principal); E43 Unspecified severe protein-calorie malnutrition; K85.90 Acute pancreatitis without necrosis or infection, unspecified; J90 Pleural effusion, not elsewhere classified; B37.81 Candidal esophagitis; K56.1 Intussusception; K31.84 Gastroparesis; E10.43 Type 1 diabetes mellitus with diabetic autonomic (poly)neuropathy; E87.5 Hyperkalemia; Z79.4 Long term (current) use of insulin; Z91.14 Patient's other noncompliance with medication regimen; E87.1 Hypo-osmolality and hyponatremia; E86.0 Dehydration; Z72.0 Tobacco use; Z72.89 Other problems related to lifestyle; F14.90 Cocaine use, unspecified, uncomplicated; K59.00 Constipation, unspecified; K57.30 Diverticulosis of large intestine without perforation or abscess without bleeding; Z68.25 Body mass index [BMI] 25.0-25.9, adult; K52.9 Noninfective gastroenteritis and colitis, unspecified; K29.70 Gastritis, unspecified, without bleeding; R18.8 Other ascites; K22.10 Ulcer of esophagus without bleeding; D64.9 Anemia, unspecified; R94.5 Abnormal results of liver function studies
CPT/HCPCS: 36415; 36569; 71045; 74018; 74019; 74177; 76700; 76937; 76942; 78264; 80048; 80053; 80061; 80307; 81001; 81003; 82150; 82248; 82947; 82962; 83036; 83540; 83550; 83605; 83690; 83735; 83880; 84100; 84134; 84443; 84478; 84484; 85007; 85025; 85610; 85651; 85730; 86140; 86703; 86705; 86709; 86803; 86850; 86900; 86901; 86920; 87040; 87070; 87081; 87181; 87205; 87340; 88104; 93005; 93306; 93970; 94003; 94150; 94664; 96360; 99285; J1815; J2250; J2405; J2765; J8499; S5561